=== PATIENT | male | born 1955 | race Two or more races ===

== ENCOUNTER 2018-02-18 20:18 | Inpatient (IN) | payer OTHER ==
--- NOTE | 2018-02-18 21:46 | PDOC ---
History of Present Illness - General Chief Complaint: Pain Stated Complaint: PAIN Time Seen by Provider: 02/18/18 20:54 - History of Present Illness Initial Comments: 02/18/18 21:42 Patient is a 62 year old male wiht a PMH of SBO (2016 w/colostomy) AFib, CAD, DVT, HTN, HLD presents to our ED c/o presents to our ED with acute onset of pain. Pain is sharp and localized to his B/L UE and across his chest. Pain is intermittent, 10/10 and lasts for 2-3 minutes without any identifiable triggering or relieving factors. Patient denies any previous h/o similar pain. Patient denies fever/chills, nausea/vomiting, dysuria/hematuria, numbness/ tingling or AMS or visual changes. As per EMR patient evaluated at our facility in 2015 at which time he had an ex lap for SBO. Past History - Past Medical History Allergies/Adverse Reactions: Allergies Allergy/AdvReac Type Severity Reaction Status Date / Time No Known Allergies Allergy Verified 02/18/18 20:32 Home Medications: Ambulatory Orders Clopidogrel Bisulfate [Plavix -] 40 mg PO DAILY 08/31/15 Gemfibrozil 600 mg PO BID 08/31/15 Lisinopril [Prinivil -] 2.5 mg PO DAILY 08/31/15 Spironolactone 25 mg PO DAILY 11/30/15 Aspirin 81 mg PO DAILY 02/19/18 Atenolol [Tenormin -] 50 mg PO DAILY 02/19/18 Ranitidine HCl 150 mg PO HS 02/19/18 Cardiac Disorders: Yes (a-fib, CAD) HTN: Yes Hypercholesterolemia: Yes - Surgical History Abdominal Surgery: Yes (exp lap 11/24/15) Cardiac Surgery: Yes (stent) - Immunization History Immunization Up to Date: Yes - Suicide/Smoking/Psychosocial Hx Smoking History: Unknown if ever smoked Have you smoked in the past 12 months: No If you are a former smoker, when did you quit?: several years ago Information on smoking cessation initiated: No Hx Alcohol Use: No Drug/Substance Use Hx: No Substance Use Type: Alcohol Hx Substance Use Treatment: No Review of Systems - Review of Systems Constitutional: No: Chills, Fever HEENTM: No: Recent change in vision Respiratory: No: Cough, Shortness of Breath Cardiac (ROS): Yes: Chest Pain. No: Lightheadedness, Palpitations, Syncope ABD/GI: No: Constipated, Diarrhea, Nausea, Vomiting : No: Burning, Dysuria *Physical Exam - Vital Signs Last Vital Signs Temp Pulse Resp BP Pulse Ox 97.0 F L 96 H 18 116/53 100 02/18/18 20:33 02/18/18 20:33 02/18/18 20:33 02/18/18 20:33 02/18/18 20:33 - Physical Exam Comments: 02/19/18 07:42 General: alert, moving all 4 extremities, no acute distress CV: RRR, S1/S2, no murmur/rub/gallop Respiratory: Lungs CLTA B/L, no wheezes/crackles Abdomen: soft, open wound clean with granulation tissue- no appreciable discharge; colostomy bag Extremity: 2+ pedal pulses, RUE PICC line C/D/I ED Treatment Course - LABORATORY CBC & Chemistry Diagram: 02/19/18 05:24 02/19/18 05:06 Medical Decision Making - Medical Decision Making 02/19/18 00:18 62 year old male presents with acute onset of sharp pain in his B/L UE and chest. DDx includes r/o ACS, Biliary colic, nephrolithiasis, pancreatitis. Less likely aortic dissection as BP similar B/L. Will obtain basic labs, CXR, UA. Morphine for pain control. Reasess. 02/19/18 00:43 CBC shows Leukocytosis 15; source of infection urine, PNA or abdomen. 02/19/18 01:40 Cr 11 (previous Cr 0.8) --> will give IV NS. Elevated Lipase (600s) Clinical suspicion includes obstructive uropathy. CXR shows no consolidation/ infiltrate. 02/19/18 02:[address] scan pending 02/19/18 05:29 CT scan shows normal GB, appendix, kidneys. Will admit to inpatient medicine service for evlauation of ARF. Troponin, repeat CMP, ECG pending. *DC/Admit/Observation/Transfer Diagnosis at time of Disposition: Pain - Referrals - Patient Instructions - Post Discharge Activity
--- NOTE | 2018-02-18 21:54 | PDOC ---
Attending Attestation - Resident Resident Name: Rosey Zapata - ED Attending Attestation I have performed the following: I have examined & evaluated the patient, The case was reviewed & discussed with the resident, I agree w/resident's findings & plan, Exceptions are as noted - HPI HPI: 02/18/18 22:04 62y M hx of SBO s/p colostomy, with open abdominal wound that is being cared for by visiting nurse, presens with sudden onset of intermittent pain starting approx 6 hrs prior to presentation. pt describes the pain as a sharp pain lasting for a few minutes at a time, in the R arm radiates across his chest/ abdd and to his L arm. no associated fever/chils, numbness/tingling/weakness, cough, fever/chills, diaphoresis, n/v, increased colostomy output, dysuria/ hematuria. on exam lungs cta heart: rrr w/o m/r/g abd: soft notneder, open woundin mid abdomen that is dressed but is clean/pink w /o discharge, colostmy bag in place, no cva tenderness msk: picc line in the RUE, c/d/i without signis of erythema, induration ddx is wide and inclues possible acs, gall bladder pain, sbo, kidney stones, pancreatitis will ck cxr, labs, ua will give morphine for pain - Physicial Exam PE: 02/19/18 03:48 see above - Medical Decision Making 02/19/18 03:46 labs ntoed for cr of 11 and BUN to 127 with a normal K pt was given fluid for hydration CT abd noted for 9mm pulm cavitary nodule, but no other acute intrabdomina pathology normal appearing kidneys will admit for further managment of SHARONDA will repeat his labs after hydration
[2018-02-18] MEDS ORDERED: morphine CARPU-JECT 4 MG/1 ML DISP.SYRIN IVPUSH ONE (22:14)
[2018-02-18] MEDS ORDERED: morphine SULFATE 4 MG/ML VIAL ONE (22:45)
[2018-02-18 23:28] LABS: BASO % 0.7 % (0-2.0); EOS % 0.2 % (0-4.5); HEMATOCRIT 34.4 % (35.4-49); LYMPH % 16.4 % (8-40); MCH 27.2 pg (25.7-33.7); MCHC 34.9 g/dl (32.0-35.9); MEAN CELL VOLUME 77.8 fl (80-96); MEAN PLT VOLUME 12.7 fl (7.5-11.1); MONO % 10.5 % (3.8-10.2); NEUT % 72.2 % (42.8-82.8); PLATELET COUNT 239 K/MM3 (134-434); RBC 4.42 M/mm3 (4.00-5.60); RDW 18.2 % (11.9-15.9); WHITE BLOOD COUNT 15.6 K/mm3 (4.0-10.0)
[2018-02-19 00:01] LABS: PLATELET ESTIMATE ADEQUATE
[2018-02-19 01:05] LABS: ALBUMIN 4.3 g/dl (3.4-5.0); ANION GAP 27 (8-16); CALCIUM 10.3 mg/dL (8.5-10.1); CHLORIDE 79 mmol/L (98-107); CO2 23 mmol/L (21-32); GLUCOSE,RANDOM 113 mg/dL (74-106); POTASSIUM 3.7 mmol/L (3.5-5.1); SODIUM 129 mmol/L (136-145)
[2018-02-19 01:14] LABS: ALK PHOS 144 U/L (45-117); BILIRUBIN,TOTAL 1.2 mg/dL (0.2-1.0); SGOT/AST 64 U/L (15-37); SGPT/ALT 73 U/L (12-78)
[2018-02-19 01:15] LABS: LIPASE 686 U/L (73-393); TOT PROT 11.4 g/dl (6.4-8.2)
[2018-02-19 01:16] LABS: BLOOD UREA NITROGEN 127 mg/dL (7-18)
[2018-02-19 01:17] LABS: CREATININE 11.6 mg/dL (0.7-1.3)
[2018-02-19] MEDS ORDERED: SODIUM CHLORIDE 0.9% 500 ML INFUS.BAG IV ONE (01:29)
--- NOTE | 2018-02-19 04:11 | PN ---
Teaching Attending Note Name of Resident: Kasia Card ATTENDING PHYSICIAN STATEMENT I saw and evaluated the patient. I reviewed the resident's note and discussed the case with the resident. I agree with the resident's findings and plan as documented. SUBJECTIVE: 60 M with Pmhx. of Afib. CAD, DVT, HTN, HLD, SBO (with Colostomy), Recieves Ailmentation thru PICC, and ETOH abuse who presents with, Bilateral UE/ Chest pain. Chest pain Radiated across chest. No fevers or chills. No chest pressure. Continues to urinate. No Dysuria/hematuria. Denies any cough or sputum production. Denies any fevers or chills. States he was admitted to [facility] one week ago for a line infection of his PICC. States he was sent home with a home nurse and antibiotics, but does not know which ones. Did not follow up with PCP after. States he was not told he has ever had any Kidney problems and denies any family hx. of cancer. Denies any current chest pain or pressure. States when he did have pain, it radiated down his right arm. States he had his last drink of ETOH 6 months ago. Notes he does not eat solids, but was told he could only have liquids PO. No N, V, or diarrhea. States he has good output from his colostomy and denies any drainage from site. OBJECTIVE: Physical: VS: Vital Signs Period Temp Pulse Resp BP Sys/Ortiz Pulse Ox Last 24 Hr 97.0 F 96 18 116/53 100 GEN: NAD, Resting in bed, AA0X3 HEENT: NCAT, PERRL, Throat without erythema or exudates CARD: RRR S1, S2 RESP: CTAB ABD: BS X4, NTD to palpation, Midline scar- Colostomy in place and draining feces to bag. EXT: -C/C/E CBCD WBC 15.6 K/mm3 (4.0-10.0) H D 02/18/18 23:00 RBC 4.42 M/mm3 (4.00-5.60) 02/18/18 23:00 Hgb 12.0 GM/dL (11.7-16.9) D 02/18/18 23:00 Hct 34.4 % (35.4-49) L D 02/18/18 23:00 MCV 77.8 fl (80-96) L 02/18/18 23:00 MCHC 34.9 g/dl (32.0-35.9) 02/18/18 23:00 RDW 18.2 % (11.9-15.9) H D 02/18/18 23:00 Plt Count 239 K/MM3 (134-434) D 02/18/18 23:00 MPV 12.7 fl (7.5-11.1) H D 02/18/18 23:00 CMP Sodium 129 mmol/L (136-145) L 02/18/18 23:50 Potassium 3.7 mmol/L (3.5-5.1) D 02/18/18 23:50 Chloride 79 mmol/L (98-107) L D 02/18/18 23:50 Carbon Dioxide 23 mmol/L (21-32) 02/18/18 23:50 Anion Gap 27 (8-16) H 02/18/18 23:50 BUN 127 mg/dL (7-18) H* D 02/18/18 23:50 Creatinine 11.6 mg/dL (0.7-1.3) H* D 02/18/18 23:50 Creat Clearance w eGFR 4.45 (>60) 02/18/18 23:50 Random Glucose 113 mg/dL (74-106) H 02/18/18 23:50 Calcium 10.3 mg/dL (8.5-10.1) H 02/18/18 23:50 Total Bilirubin 1.2 mg/dL (0.2-1.0) H D 02/18/18 23:50 AST 64 U/L (15-37) H D 02/18/18 23:50 ALT 73 U/L (12-78) D 02/18/18 23:50 Alkaline Phosphatase 144 U/L (45-117) H D 02/18/18 23:50 Total Protein 11.4 g/dl (6.4-8.2) H D 02/18/18 23:50 Albumin 4.3 g/dl (3.4-5.0) D 02/18/18 23:50 CARDIAC ENZYMES Creatine Kinase 648 IU/L (39-308) H 02/18/18 23:50 Troponin I 0.08 ng/ml (0.00-0.05) H D 02/18/18 23:50 CT ABD/PELVIS: RLL possible infilterate, RML Cavitary nodule, EKG: PENDING CXR: Mild Atelectesis, R >L, Cannot rule out infilterates R L base. Ambulatory Orders Clopidogrel Bisulfate [Plavix -] 40 mg PO DAILY 08/31/15 Gemfibrozil 600 mg PO BID 08/31/15 Lisinopril [Prinivil -] 2.5 mg PO DAILY 08/31/15 Spironolactone 25 mg PO DAILY 11/30/15 Aspirin 81 mg PO DAILY 02/19/18 Atenolol [Tenormin -] 50 mg PO DAILY 02/19/18 Ranitidine HCl 150 mg PO HS 02/19/18 ASSESSMENT AND PLAN: 60 M with Pmhx. of Afib. CAD, DVT, HTN, HLD, SBO (with Colostomy) and ETOH abuse who presents with, Bilateral UE/ Chest pain, Being admitted to ARF/ Pneumonia 1.) Sepsis - Unknown Etiology - ? Aspiration (asyx) Pna (although no resp. Sx/Possible PICC line infection) - Replace PICC - Kraft Cx - LA - Vanco/Zosyn(Renall - ID consult - Urine Ags 2.) Acute Renal Failure - ? Pre-renal (dec. PO) Vs ? MM(inc TP) - Urine Lytes - Gentle IVF - Increased TP- SPEP/UPEP - Renal US - Nephro Consult - Hold Aldactone/DESTIN 3.) Elevated Troponin/Atypical CP - Most likely Renal Failure - Trend Trop/EKG 4.) CAD hx - C?W ASa, Plavix, BB - HOLD Aldactone/DESTIN 5.) HTN - C/W Atenolol - Hold DESTIN 6.) SBO Hx. With Colostomy - As per Sx. care - Clear Liquid diet - ? TPN- Records 7.) Afib - EKG - C/W Home meds 8.) Tranaminitis - Mild - Trend 9.) Elevated Lipase - No abdominal sx. - Monitor 10.) Dvt Ppx - Heparin [address] in [place]
[2018-02-19] MEDS ORDERED: SODIUM CHLORIDE 1,000 ML IV SCH (04:45)
[2018-02-19] MEDS ORDERED: PIPERACILLIN/TAZOB 2.25 GM 2.25 GM in DEXTROSE 5%-WATER - 50 ML IVPB ONE (04:51)
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
[2018-02-19] MEDS ORDERED: PIPERACILLIN/TAZOBACTAM 2.25 GM VIAL IVPB ONE (05:31)
[2018-02-19 05:45] LABS: ANION GAP 16 (8-16); CALCIUM 9.3 mg/dL (8.5-10.1); CHLORIDE 85 mmol/L (98-107); CO2 25 mmol/L (21-32); GLUCOSE,RANDOM 107 mg/dL (74-106); POTASSIUM 3.8 mmol/L (3.5-5.1); SODIUM 126 mmol/L (136-145)
[2018-02-19 05:46] LABS: HEMATOCRIT 31.6 % (35.4-49); HEMOGLOBIN 11.1 GM/dL (11.7-16.9); MCH 27.5 pg (25.7-33.7); MEAN CELL VOLUME 78.5 fl (80-96); MEAN PLT VOLUME 12.1 fl (7.5-11.1); PLATELET COUNT 182 K/MM3 (134-434); RBC 4.03 M/mm3 (4.00-5.60); RDW 18.2 % (11.9-15.9); WHITE BLOOD COUNT 10.9 K/mm3 (4.0-10.0)
[2018-02-19 05:50] LABS: BLOOD UREA NITROGEN 129 mg/dL (7-18); CREATININE 11.7 mg/dL (0.7-1.3)
[2018-02-19 06:25] LABS: ALBUMIN 3.6 g/dl (3.4-5.0); ALK PHOS 125 U/L (45-117); BILIRUBIN,DIRECT 0.3 mg/dL (0.0-0.2); BILIRUBIN,TOTAL 1.1 mg/dL (0.2-1.0); SGOT/AST 53 U/L (15-37); SGPT/ALT 64 U/L (12-78)
[2018-02-19] MEDS ORDERED: ATENOLOL 50 MG TABLET (FP) PO SCH (10:00)
[2018-02-19] MEDS ORDERED: ASPIRIN 81 MG CHEWABLE TABLETS PO SCH (10:00)
[2018-02-19] MEDS ORDERED: CLOPIDOGREL BISULFATE 75 MG TABLET (FP) PO SCH (10:00)
--- NOTE | 2018-02-19 10:13 | EKG ---
Test Reason : Blood Pressure : / mmHG Vent. Rate : 077 BPM Atrial Rate : 077 BPM P-R Int : 150 ms QRS Dur : 084 ms QT Int : 382 ms P-R-T Axes : 056 011 270 degrees QTc Int : 432 ms NORMAL SINUS RHYTHM T WAVE ABNORMALITY, CONSIDER INFEROLATERAL ISCHEMIA ABNORMAL ECG WHEN COMPARED WITH ECG OF 24-NOV-2015 06:49, NO SIGNIFICANT CHANGE WAS FOUND Confirmed by MD SALOMÓN, LOUIS ([id number]) on 02/19/2018 10:12:56 AM Referred By: Agnes MORALES Confirmed By:LOUIS LORENZANA MD
--- NOTE | 2018-02-19 11:16 | CONSULT ---
Consult - text type - Consultation Consultation Note: Renal Consult for SHARONDA This is a 62 year old gentleman with PMhx of SBO s/o bowel resection with illeostomy, hypertension, hyperlipidemia who presented with chest and abd pain and found to have SHARONDA. Pt reports that he had a recent admission at [facility] for SBO resulting in a ostomy. He has a picc line that was used for nutrition. Denies any abd pain now. Denies any history of CKD or kidney stones. Pt does have frequent loose stools via ostomy. No flank pain. NO fever, chills, Rash. + Nausea but no emesis. Denies any NSAID use. NO contrast exposure this admission. PMHx: as above Allergies: NKDA Family Hx: NC Social Hx: No T/A ROS: as per HPI Home Medications Medication Instructions Recorded Clopidogrel Bisulfate [Plavix -] 40 mg PO DAILY 08/31/15 Gemfibrozil 600 mg PO BID 08/31/15 Lisinopril [Prinivil -] 2.5 mg PO DAILY 08/31/15 Spironolactone 25 mg PO DAILY 11/30/15 Aspirin 81 mg PO DAILY 02/19/18 Atenolol [Tenormin -] 50 mg PO DAILY 02/19/18 Ranitidine HCl 150 mg PO HS 02/19/18 Vital Signs Temperature 97.0 F L 02/18/18 20:33 Pulse Rate 96 H 02/18/18 20:33 Respiratory Rate 18 02/18/18 20:33 Blood Pressure 116/53 02/18/18 20:33 O2 Sat by Pulse Oximetry (%) 97 02/19/18 00:00 Intake & Output 02/16/18 02/17/18 02/18/18 02/19/18 23:59 23:59 23:59 23:59 Weight 63.503 kg NAD awake and alert RRR, NO M/R CTA soft NT, + ostomy NO LE edema, clubbing or cyanosis No focal neurologic defects CBC, BMP 02/19/18 05:24 02/19/18 05:06 Current Medications Aspirin (Asa -) 81 mg PO DAILY [facility] Clopidogrel Bisulfate (Plavix -) 75 mg PO DAILY [facility] Heparin Sodium (Porcine) (Heparin -) 5,000 unit SQ TID [facility] Sodium Chloride (Normal Saline -) 1,000 mls @ 125 mls/hr IV ASDIR SKIP 62 year old gentleman with PMhx of SBO s/o bowel resection with illeostomy, hypertension, hyperlipidemia who presented with chest and abd pain and found to have SHARONDA. #Acute Renal Failure #Hypovolemic Hyponatremia #Anemia #Leukocytosis #Diarrhea/High output ostomy Acute Kidney injury (differential: ATN vs. severe volume depletion in setting of high output ostomy vs. vasculitis vs. acute GN) Check UA, UPCR, Urine Eios, methaol, Ethylene Glycol,Tox screen [place] placement for strict I and O US of the kidney shows normal appearing kidneys w/o obstruction Start trial of IVFL NS at 125cc per hour, Keep MAP > 65 hold any DESTIN/ARB and aldactone consider holding ASA/plavix for now as pt may need biopsy Thank you Will follow Randell Arreola DO
[2018-02-19] MEDS ORDERED: SODIUM CHLORIDE 1,000 ML IV STA (12:36)
--- NOTE | 2018-02-19 13:23 | PN ---
Progress Note (short form) - Note Progress Note: ID consult dictated imp/reccd 62 year old man poor historian history of afib/cad, HTN recent abdominal surgery at [facility] about 6 months back, has an ileostomy apparently he was admitted twice after for line infection (home tpn?) again states he was at [facility] one week ago but no records!! he came to the ed yesterday with chest pain no fevers no cough found to be in ARF ct scan no obstruction kidney/bladder sono no obstruction no nausea or vomiting no chills nurse reports high output from ostomy -over one liter this am! no urine outpt- no ua- dowling to be placed picc line nontender alert hemodynamically stable ARF leukocytosis picc line- for home TPN? suggest dedicated chest ct blood cultures hiv testing, stool cdiff, multiple myeloma work up would get more records clinically no signs pneumonia would hold further antibiotics at this time IVF per renal Problem List - Problems (1) ARF (acute renal failure) Code(s): N17.9 - ACUTE KIDNEY FAILURE, UNSPECIFIED (2) Leukocytosis Code(s): D72.829 - ELEVATED WHITE BLOOD CELL COUNT, UNSPECIFIED
--- NOTE | 2018-02-19 13:25 | PN ---
Teaching Attending Note Name of Resident: Silvio Ayala ATTENDING PHYSICIAN STATEMENT I saw and evaluated the patient. I reviewed the resident's note and discussed the case with the resident. I agree with the resident's findings and plan as documented. 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 has SOB with ambulation , felt dizzy with position change before but not now, denies any cough , or sputum production , denies increase stool production in his ostomy bag. reports no dysuria but decreased urine out put . denies abd pain/. reports being hospitalized to [facility] a week ago and was told he had renal problems, testing was done , and was told everything was fine. he had bowel resection 6 month ago, for unclear reason at [facility]. since then on liquid diet and TPN at home. was hospitalized 2 months ago for line infection and bacteremia, line was changed, he was sent home on po and IV abx. doesknow the name or duration OBJECTIVE: NAd . MMM. mild JVD no oral thrush. no facial droop, round equal pupils reactive to light CV: RRR, no MRG Lungs : CTAB Abd: soft, ND, NT,scars and deformities in abd wall . open wound on mid line. no discharge Ext: NO erythema , no fungal infection . 1+ edema No LAP in neck , groins and axillae ASSESSMENT AND PLAN: 62 y/o man who is poor historian and with multiple medical problems( most of them are not clear) , with h/o colostomy after bowel resection( ?why) , possible h/o recent line infection , on TPN at home , who presented with Cp and was found to have acute renal failure, and sepsis 1- SHARONDA: denies any h/o CKD but was told he had renal problem at [facility] 1 week ago. . DDx include AIN from abx use, volume depletion,meds ( lisinorpil ) , RPGN, and other . no recent Cr on him . ? MM with his anemia and elevated protein - try IVF - SPEP, UPEP pending - send TRUDI , p and c ANCA, complement . - Urine electrolytes pending, add Urea, and spot protein - check protein /cr - will try to get his records from [facility]. - will try to reach PCP - urine sediment for casts - no eosinophilia, urine eosinophils pending 2- SIRS. ? sepsis : complicated hx. ? line infection , vs bacteremia , vS PNA ( RLL infiltrate) - send blood cx - sputum cx if able to - not clear of which Abx he was on at home. not clear if he was on vanco ----> AIN. - check UA r/o UTI - appreciate ID input . CT of chest . pt was made aware of lung nodule 3-Microcytic anemia. not clear on etiology. iron def vs MM . - check iron studies . B12, folate - stool OB - SPEP and UPEP pending 4- Transaminitis : ? sepsis . biliary obstruction ( doubt as indirect bili is elevated ) Ct with mildly dialted CBD - check US of liver - trend LFTS . - if US with CBD dilation , then will get MRCP 5- possible partial SBO. - will consult Sx given his complicated surgical hx 6-Hyponatremia: unclear cause. his serum osmolality is elevated. ? reason. sugar is nl. ? TPN . - check urine osm, NA , and feUrea - volume status difficult to assess but might be euovolemic to hypervolemic. - Na dropped after NS administration. will recheck again. - more accurate Dx after urine studies ( might be affected by saline administration though ) . will d/w renal 7- ? A fib: he was told he had 2 different kind of heart beats . will obtain reccords - takes aspirin at home.. will hold for possible renal bx 6- H/o HTN: on lisinoprol x more than 6 months. will hold due to SHARONDA 9- He denied any h/o clots in legs or lungs 10- HTN: hold etnormin and lisinopril. due to low Bp and SHARONDA. Dispo: [facility] will obtain records
--- NOTE | 2018-02-19 13:39 | EKG ---
Test Reason : Blood Pressure : / mmHG Vent. Rate : 081 BPM Atrial Rate : 081 BPM P-R Int : 142 ms QRS Dur : 084 ms QT Int : 390 ms P-R-T Axes : 053 010 -16 degrees QTc Int : 453 ms POOR DATA QUALITY, INTERPRETATION MAY BE ADVERSELY AFFECTED NORMAL SINUS RHYTHM NONSPECIFIC T WAVE ABNORMALITY ABNORMAL ECG WHEN COMPARED WITH ECG OF 24-NOV-2015 06:49, NO SIGNIFICANT CHANGE WAS FOUND Confirmed by MD SALOMÓN, LOUIS ([id number]) on 02/19/2018 1:39:33 PM Referred By: Confirmed By:LOUIS LORENZANA MD
[2018-02-19] MEDS: SODIUM CHLORIDE 1,000 ML IV SCH (14:00)
[2018-02-19] MEDS: HEPARIN NA (PORCINE) 5,000 UNITS/ML 1ML VIAL SQ SCH ×2 (14:44→21:29)
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
[2018-02-19 15:35] LABS: URINE APPEARANCE SLCLOUDY; URINE BILIRUBIN NEGATIVE (<2.0 mg/dL); URINE COLOR YELLOW; URINE GLUCOSE (UA) NEGATIVE (NEGATIVE); URINE KETONE NEGATIVE (NEGATIVE); URINE LEUK ESTERASE NEGATIVE (NEGATIVE); URINE NITRITE NEGATIVE (NEGATIVE); URINE UROBILINOGEN NEGATIVE mg/dL (0.2-1.0)
[2018-02-19 15:40] LABS: URINE PROTEIN 1+ (NEGATIVE)
[2018-02-19 15:45] LABS: COCAINE, UR NEGATIVE ng/ml (CUTOFF=300); METHADONE, UR NEGATIVE ng/ml (CUTOFF=300); PHENCYCLIDINE,URINE NEGATIVE ng/ml (CUTOFF=25); URINE AMPHETAMINES NEGATIVE ng/ml (CUTOFF=500); URINE BARBITURATES NEGATIVE ng/ml (CUTOFF=200); URINE BENZODIAZEPINES NEGATIVE ng/ml (CUTOFF=200)
[2018-02-19 15:46] LABS: OPIATES, URI POSITIVE ng/ml (CUTOFF=300)
[2018-02-19 16:04] LABS: EPI CELLS RARE /HPF (FEW); URINE BACTERIA RARE /hpf (NONE SEEN); URINE MUCUS RARE
--- NOTE | 2018-02-19 21:27 | PN ---
Physical Exam: SUBJECTIVE: Patient seen and examined at bedside. Patient complaining of irritation at dowling insertion site. No further episodes of CP. OBJECTIVE: Vital Signs Period Temp Pulse Resp BP Sys/Ortiz Pulse Ox Last 24 Hr 97.7 F-98.8 F 77-85 18-18 91-100/49-60 97-97 GENERAL: The patient is awake, alert, and fully oriented, in no acute distress. NECK: Trachea midline, full range of motion, supple. LUNGS: Breath sounds equal, clear to auscultation bilaterally, no wheezes, no crackles, no accessory muscle use. HEART: Regular rate and rhythm, S1, S2 without murmur, rub or gallop. ABDOMEN: Soft, nontender, nondistended, normoactive bowel sounds, no guarding, no rebound, no hepatosplenomegaly, no masses. EXTREMITIES: 2+ pulses, warm, well-perfused, no edema. NEUROLOGICAL: Cranial nerves II through X grossly intact. Normal speech, gait not observed. SKIN: Warm, dry, normal turgor, no rashes or lesions noted Laboratory Results - last 24 hr 02/18/18 02/18/18 02/18/18 23:00 23:00 23:50 WBC 15.6 H D RBC 4.42 Hgb 12.0 D Hct 34.4 L D MCV 77.8 L MCH 27.2 MCHC 34.9 RDW 18.2 H D Plt Count 239 D MPV 12.7 H D Neutrophils % 72.2 Lymphocytes % 16.4 Monocytes % 10.5 H Eosinophils % 0.2 D Basophils % 0.7 Platelet Estimate Adequate Platelet Comment Sodium Cancelled 129 L Potassium Cancelled 3.7 D Chloride Cancelled 79 L D Carbon Dioxide Cancelled 23 Anion Gap Cancelled 27 H BUN Cancelled 127 H* D Creatinine Cancelled 11.6 H* D Creat Clearance w eGFR Cancelled 4.45 Random Glucose Cancelled 113 H Hemoglobin A1c % Serum Osmolality Calcium Cancelled 10.3 H Phosphorus Magnesium Total Bilirubin Cancelled 1.2 H D Direct Bilirubin AST Cancelled 64 H D ALT Cancelled 73 D Alkaline Phosphatase Cancelled 144 H D Creatine Kinase Cancelled 648 H Creatine Kinase Index 0.5 CK-MB (CK-2) 3.774 H Troponin I Cancelled 0.08 H D B-Natriuretic Peptide Cancelled Total Protein Cancelled 11.4 H D Albumin Cancelled 4.3 D Lipase Cancelled 686 H Urine Color Urine Appearance Urine pH Ur Specific [place] Urine Protein Urine Glucose (UA) Urine Ketones Urine Blood Urine Nitrite Urine Bilirubin Urine Urobilinogen Ur Leukocyte Esterase Urine WBC (Auto) Urine RBC (Auto) Ur Epithelial Cells Urine Bacteria Urine Mucus Urine Osmolality U Random Total Protein Ur Random Sodium Ur Random Potassium Ur Random Chloride Ur Random Urea Nitrogn Urine Creatinine Stool Occult Blood Opiates Screen Methadone Screen Barbiturate Screen Phencyclidine Screen Ur Amphetamines Screen MDMA (Ecstasy) Screen Benzodiazepines Screen Cocaine Screen U Marijuana (THC) Screen Alcohol, Quantitative 02/19/18 02/19/18 02/19/18 05:06 05:06 05:08 WBC RBC Hgb Hct MCV MCH MCHC RDW Plt Count MPV Neutrophils % Lymphocytes % Monocytes % Eosinophils % Basophils % Platelet Estimate Platelet Comment Sodium 126 L Potassium 3.8 Chloride 85 L Carbon Dioxide 25 Anion Gap 16 BUN 129 H* Creatinine 11.7 H* Creat Clearance w eGFR Random Glucose 107 H Hemoglobin A1c % Serum Osmolality 325 H Calcium 9.3 Phosphorus 9.0 H* D Magnesium 3.0 H D Total Bilirubin 1.1 H Direct Bilirubin 0.3 H AST 53 H ALT 64 Alkaline Phosphatase 125 H Creatine Kinase 677 H Creatine Kinase Index 0.4 CK-MB (CK-2) 3.362 Troponin I 0.08 H B-Natriuretic Peptide Total Protein 10.0 H Albumin 3.6 Lipase Urine Color Urine Appearance Urine pH Ur Specific [place] Urine Protein Urine Glucose (UA) Urine Ketones Urine Blood Urine Nitrite Urine Bilirubin Urine Urobilinogen Ur Leukocyte Esterase Urine WBC (Auto) Urine RBC (Auto) Ur Epithelial Cells Urine Bacteria Urine Mucus Urine Osmolality U Random Total Protein Ur Random Sodium Ur Random Potassium Ur Random Chloride Ur Random Urea Nitrogn Urine Creatinine Stool Occult Blood Opiates Screen Methadone Screen Barbiturate Screen Phencyclidine Screen Ur Amphetamines Screen MDMA (Ecstasy) Screen Benzodiazepines Screen Cocaine Screen U Marijuana (THC) Screen Alcohol, Quantitative < 5.0 02/19/18 02/19/18 02/19/18 05:24 05:24 12:25 WBC 10.9 H D RBC 4.03 Hgb 11.1 L Hct 31.6 L MCV 78.5 L MCH 27.5 MCHC 35.0 RDW 18.2 H Plt Count 182 D MPV 12.1 H Neutrophils % Lymphocytes % Monocytes % Eosinophils % Basophils % Platelet Estimate Platelet Comment Sodium Potassium Chloride Carbon Dioxide Anion Gap BUN Creatinine Creat Clearance w eGFR Random Glucose Hemoglobin A1c % 6.2 H Serum Osmolality Calcium Phosphorus Magnesium Total Bilirubin Direct Bilirubin AST ALT Alkaline Phosphatase Creatine Kinase 809 H Creatine Kinase Index 0.4 CK-MB (CK-2) 3.454 Troponin I 0.09 H B-Natriuretic Peptide Total Protein Albumin Lipase Urine Color Urine Appearance Urine pH Ur Specific [place] Urine Protein Urine Glucose (UA) Urine Ketones Urine Blood Urine Nitrite Urine Bilirubin Urine Urobilinogen Ur Leukocyte Esterase Urine WBC (Auto) Urine RBC (Auto) Ur Epithelial Cells Urine Bacteria Urine Mucus Urine Osmolality U Random Total Protein Ur Random Sodium Ur Random Potassium Ur Random Chloride Ur Random Urea Nitrogn Urine Creatinine Stool Occult Blood Opiates Screen Methadone Screen Barbiturate Screen Phencyclidine Screen Ur Amphetamines Screen MDMA (Ecstasy) Screen Benzodiazepines Screen Cocaine Screen U Marijuana (THC) Screen Alcohol, Quantitative 02/19/18 02/19/18 02/19/18 14:00 14:00 14:00 WBC RBC Hgb Hct MCV MCH MCHC RDW Plt Count MPV Neutrophils % Lymphocytes % Monocytes % Eosinophils % Basophils % Platelet Estimate Platelet Comment Sodium Potassium Chloride Carbon Dioxide Anion Gap BUN Creatinine Creat Clearance w eGFR Random Glucose Hemoglobin A1c % Serum Osmolality Calcium Phosphorus Magnesium Total Bilirubin Direct Bilirubin AST ALT Alkaline Phosphatase Creatine Kinase Creatine Kinase Index CK-MB (CK-2) Troponin I B-Natriuretic Peptide Total Protein Albumin Lipase Urine Color Yellow Urine Appearance Slcloudy Urine pH 5.0 Ur Specific [place] 1.015 Urine Protein 1+ H Urine Glucose (UA) Negative Urine Ketones Negative Urine Blood 2+ H Urine Nitrite Negative Urine Bilirubin Negative Urine Urobilinogen Negative Ur Leukocyte Esterase Negative Urine WBC (Auto) 3 Urine RBC (Auto) 1 Ur Epithelial Cells Rare Urine Bacteria Rare Urine Mucus Rare Urine Osmolality 356 U Random Total Protein Ur Random Sodium Ur Random Potassium Ur Random Chloride Ur Random Urea Nitrogn Urine Creatinine Stool Occult Blood Opiates Screen Positive Methadone Screen Negative Barbiturate Screen Negative Phencyclidine Screen Negative Ur Amphetamines Screen Negative MDMA (Ecstasy) Screen Negative Benzodiazepines Screen Negative Cocaine Screen Negative U Marijuana (THC) Screen Negative Alcohol, Quantitative 02/19/18 02/19/18 02/19/18 14:00 14:00 14:21 WBC RBC Hgb Hct MCV MCH MCHC RDW Plt Count MPV Neutrophils % Lymphocytes % Monocytes % Eosinophils % Basophils % Platelet Estimate Platelet Comment Sodium Potassium Chloride Carbon Dioxide Anion Gap BUN Creatinine Creat Clearance w eGFR Random Glucose Hemoglobin A1c % Serum Osmolality Calcium Phosphorus Magnesium Total Bilirubin Direct Bilirubin AST ALT Alkaline Phosphatase Creatine Kinase Creatine Kinase Index CK-MB (CK-2) Troponin I B-Natriuretic Peptide Total Protein Albumin Lipase Urine Color Urine Appearance Urine pH Ur Specific [place] Urine Protein Urine Glucose (UA) Urine Ketones Urine Blood Urine Nitrite Urine Bilirubin Urine Urobilinogen Ur Leukocyte Esterase Urine WBC (Auto) Urine RBC (Auto) Ur Epithelial Cells Urine Bacteria Urine Mucus Urine Osmolality U Random Total Protein 77 H Ur Random Sodium 18 Ur Random Potassium 60.2 Ur Random Chloride < 10 Ur Random Urea Nitrogn 422 Urine Creatinine 307.0 Stool Occult Blood Opiates Screen Methadone Screen Barbiturate Screen Phencyclidine Screen Ur Amphetamines Screen MDMA (Ecstasy) Screen Benzodiazepines Screen Cocaine Screen U Marijuana (THC) Screen Alcohol, Quantitative 02/19/18 02/19/18 14:22 16:30 WBC RBC Hgb Hct MCV MCH MCHC RDW Plt Count MPV Neutrophils % Lymphocytes % Monocytes % Eosinophils % Basophils % Platelet Estimate Platelet Comment Sodium Potassium Chloride Carbon Dioxide Anion Gap BUN Creatinine Creat Clearance w eGFR Random Glucose Hemoglobin A1c % Serum Osmolality Calcium Phosphorus Magnesium Total Bilirubin Direct Bilirubin AST ALT Alkaline Phosphatase Creatine Kinase Creatine Kinase Index CK-MB (CK-2) Troponin I B-Natriuretic Peptide Total Protein Albumin Lipase Urine Color Urine Appearance Urine pH Ur Specific [place] Urine Protein Urine Glucose (UA) Urine Ketones Urine Blood Urine Nitrite Urine Bilirubin Urine Urobilinogen Ur Leukocyte Esterase Urine WBC (Auto) Urine RBC (Auto) Ur Epithelial Cells Urine Bacteria Urine Mucus Urine Osmolality U Random Total Protein Ur Random Sodium Cancelled Ur Random Potassium Ur Random Chloride Ur Random Urea Nitrogn Urine Creatinine Stool Occult Blood Negative Opiates Screen Methadone Screen Barbiturate Screen Phencyclidine Screen Ur Amphetamines Screen MDMA (Ecstasy) Screen Benzodiazepines Screen Cocaine Screen U Marijuana (THC) Screen Alcohol, Quantitative Active Medications Generic Name Dose Route Start Last Admin Trade Name Freq PRN Reason Stop Dose Admin Heparin Sodium (Porcine) 5,000 unit 02/19/18 14:00 02/19/18 14:44 Heparin - SQ 5,000 unit TID SKIP Administration Sodium Chloride 1,000 mls @ 125 mls/hr 02/19/18 12:45 02/19/18 14:00 Normal Saline - IV 125 mls/hr ASDIR SKIP Administration Ranitidine HCl 150 mg 02/19/18 22:00 Zantac - PO HS [facility] ASSESSMENT/PLAN: The patient is a 62yo Cameroonian speaking M with an unclear PMHx of HTN, SBO, Mesenteric ischemia s/p bowel resection and ostomy, Afib, HLD admitted for the [facility] of acute renal failure #Unclear History; pt poor historian -Records from [facility] show no indication of CKD; will obtain further records as well as records from [facility] -Will contact patient's Surgeon (Dr. Saeed @ [facility]) for further details regarding ostomy -Will contact Physician who wrote the patient's prescriptions (Dr. Jennifer Gunn/ Dr. Jennifer Mendieta) -Will attempt to locate the patient's PCP, Dr. Mata (sp?) @ - [facility] in [place] #Acute Renal Failure 2/2 Volume depletion vs glomerulonephritis -Nephro onboard; Dr. Arreola -P&C ANCA, anti-basement membrane Ab -TRUDI, total complement, Spep, Upep -alpha, beta, gamma globulins -Mspike -urine studies -renal/bladder US shows b/l renal cysts w/o other abnormality -will attempt hydration trial w/ NS @ 125 #SBO -pt w/ Hx of SBO and multiple abdominal sx -CT abdomen showing partial obstruction. -Surgical consult #SIRS -afebrile. -CXR showing bibasilar atelectasis vs consolidation, RT > LT -CT abdomen shows post bowel resection changes w/ Incidental finding of possible cavitation in right middle lobe. No collections in abdomen -UA not indicative of infection -f/u CT chest -f/u cultures -sent stool studies as patient having increased output from ostomy # Atypical CP -no further episodes -Elevated trop to 0.08 likley 2/2 decreased clearance from ARF. -EKG w/ no major changes since last admission -Will monitor on tele, -Continue ASA, plavix # Microcytic Anemia possibly 2/2 renal dysfxn r/o MM or nutritional cause -f/u iron studies -FOBT negative -B12, folate # Euvoleimic Hyponatremia likely 2/2 ARF -serum Osm WNL when corrected for BUN -will hydrate, monitor sodium closely. Rpt BMP @ 1800 # Transaminitis possibly related to renal dysfunction vs billiary eitology -RUQ US showing mild CBD dilation -trend LFTs # Elevated CK possibly 2/2 renal dysfinction -IVF -trend #HTN -holding home antihypertensives as patient w/ low BP #Afib -holding beta blockade -NSR at this time #FEN -NS @125 -monitor lytes closely -clear liquid diet, will obtain nutrition consult #prophy -HSQ 5ku TID # Dispo -admit tele Visit type - Emergency Visit Emergency Visit: Yes ED Registration Date: 02/19/18 Care time: The patient presented to the Emergency Department on the above date and was hospitalized for further evaluation of their emergent condition. - New Patient This patient is new to me today: Yes Date on this admission: 02/19/18 - Critical Care Critical Care patient: No
[2018-02-19] MEDS: RANITIDINE HCL 150 MG TABLET (FP) PO SCH (21:29)
[2018-02-19 22:06] LABS: ANION GAP 13 (8-16); CALCIUM 8.5 mg/dL (8.5-10.1); CHLORIDE 89 mmol/L (98-107); CO2 28 mmol/L (21-32); GLUCOSE,RANDOM 105 mg/dL (74-106); POTASSIUM 3.1 mmol/L (3.5-5.1); SODIUM 130 mmol/L (136-145)
[2018-02-19 22:18] LABS: BLOOD UREA NITROGEN 122 mg/dL (7-18); CREATININE 10.4 mg/dL (0.7-1.3)
[2018-02-19] MEDS ORDERED: POTASSIUM CHLORIDE TABS 20 MEQ TABLET.ER (FP) PO ONE (22:22)
[2018-02-20] MEDS: SODIUM CHLORIDE 1,000 ML IV SCH ×3 (01:36→13:42)
[2018-02-20] MEDS: HEPARIN NA (PORCINE) 5,000 UNITS/ML 1ML VIAL SQ SCH ×2 (05:28→13:33)
[2018-02-20 07:00] LABS: HEMATOCRIT 25.2 % (35.4-49); HEMOGLOBIN 8.8 GM/dL (11.7-16.9); MCH 27.6 pg (25.7-33.7); MCHC 34.8 g/dl (32.0-35.9); MEAN CELL VOLUME 79.2 fl (80-96); MEAN PLT VOLUME 12.6 fl (7.5-11.1); PLATELET COUNT 141 K/MM3 (134-434); RBC 3.19 M/mm3 (4.00-5.60); RDW 19.1 % (11.9-15.9); WHITE BLOOD COUNT 6.9 K/mm3 (4.0-10.0)
[2018-02-20 08:09] LABS: CHLORIDE 94 mmol/L (98-107); POTASSIUM 3.3 mmol/L (3.5-5.1); SODIUM 133 mmol/L (136-145)
[2018-02-20 08:30] LABS: ALBUMIN 3.1 g/dl (3.4-5.0); ALK PHOS 101 U/L (45-117); ANION GAP 14 (8-16); BILIRUBIN,TOTAL 1.1 mg/dL (0.2-1.0); CALCIUM 8.3 mg/dL (8.5-10.1); CO2 25 mmol/L (21-32); GLUCOSE,RANDOM 78 mg/dL (74-106); MAGNESIUM 2.9 mg/dL (1.8-2.4); PHOSPHOROUS 7.6 mg/dL (2.5-4.9); SGOT/AST 48 U/L (15-37); SGPT/ALT 56 U/L (12-78); TOT PROT 8.7 g/dl (6.4-8.2)
[2018-02-20 08:38] LABS: BLOOD UREA NITROGEN 114 mg/dL (7-18)
--- NOTE | 2018-02-20 13:00 | PN ---
Teaching Attending Note Name of Resident: Silvio Ayala ATTENDING PHYSICIAN STATEMENT I saw and evaluated the patient. I reviewed the resident's note and discussed the case with the resident. I agree with the resident's findings and plan as documented. SUBJECTIVE: No complaints. OBJECTIVE: Vital Signs Period Temp Pulse Resp BP Sys/Ortiz Pulse Ox Last 24 Hr 97.7 F-98.8 F 77-85 18-20 92-113/51-65 99-100 HEART: S1S2, RRR LUNGS: Clear ABDOMEN: Soft, non-tender, non-distended, normal BS. Vertical midline scar with mucus fistula. Left sided ostomy with liquid yellow drainage. Laboratory Results - last 24 hr 02/19/18 02/19/18 02/19/18 12:25 14:00 14:00 WBC RBC Hgb Hct MCV MCH MCHC RDW Plt Count MPV Sodium Potassium Chloride Carbon Dioxide Anion Gap BUN Creatinine Creat Clearance w eGFR Random Glucose Calcium Phosphorus Magnesium Ferritin Total Bilirubin AST ALT Alkaline Phosphatase Creatine Kinase 809 H Creatine Kinase Index 0.4 CK-MB (CK-2) 3.454 Troponin I 0.09 H Total Protein Albumin Vitamin B12 Serum Folate Urine Color Urine Appearance Urine pH Ur Specific Bow[place] Urine Protein Urine Glucose (UA) Urine Ketones Urine Blood Urine Nitrite Urine Bilirubin Urine Urobilinogen Ur Leukocyte Esterase Urine WBC (Auto) Urine RBC (Auto) Ur Epithelial Cells Urine Bacteria Urine Mucus Urine Osmolality 356 U Random Total Protein Ur Random Sodium Ur Random Potassium Ur Random Chloride Ur Random Urea Nitrogn Urine Creatinine Stool Occult Blood Opiates Screen Positive Methadone Screen Negative Barbiturate Screen Negative Phencyclidine Screen Negative Ur Amphetamines Screen Negative MDMA (Ecstasy) Screen Negative Benzodiazepines Screen Negative Cocaine Screen Negative U Marijuana (THC) Screen Negative 02/19/18 02/19/18 02/19/18 14:00 14:00 14:00 WBC RBC Hgb Hct MCV MCH MCHC RDW Plt Count MPV Sodium Potassium Chloride Carbon Dioxide Anion Gap BUN Creatinine Creat Clearance w eGFR Random Glucose Calcium Phosphorus Magnesium Ferritin Total Bilirubin AST ALT Alkaline Phosphatase Creatine Kinase Creatine Kinase Index CK-MB (CK-2) Troponin I Total Protein Albumin Vitamin B12 Serum Folate Urine Color Yellow Urine Appearance Slcloudy Urine pH 5.0 Ur Specific [place] 1.015 Urine Protein 1+ H Urine Glucose (UA) Negative Urine Ketones Negative Urine Blood 2+ H Urine Nitrite Negative Urine Bilirubin Negative Urine Urobilinogen Negative Ur Leukocyte Esterase Negative Urine WBC (Auto) 3 Urine RBC (Auto) 1 Ur Epithelial Cells Rare Urine Bacteria Rare Urine Mucus Rare Urine Osmolality U Random Total Protein 77 H Ur Random Sodium Ur Random Potassium Ur Random Chloride Ur Random Urea Nitrogn 422 Urine Creatinine Stool Occult Blood Opiates Screen Methadone Screen Barbiturate Screen Phencyclidine Screen Ur Amphetamines Screen MDMA (Ecstasy) Screen Benzodiazepines Screen Cocaine Screen U Marijuana (THC) Screen 02/19/18 02/19/18 02/19/18 14:21 14:22 16:30 WBC RBC Hgb Hct MCV MCH MCHC RDW Plt Count MPV Sodium Potassium Chloride Carbon Dioxide Anion Gap BUN Creatinine Creat Clearance w eGFR Random Glucose Calcium Phosphorus Magnesium Ferritin Total Bilirubin AST ALT Alkaline Phosphatase Creatine Kinase Creatine Kinase Index CK-MB (CK-2) Troponin I Total Protein Albumin Vitamin B12 Serum Folate Urine Color Urine Appearance Urine pH Ur Specific [place] Urine Protein Urine Glucose (UA) Urine Ketones Urine Blood Urine Nitrite Urine Bilirubin Urine Urobilinogen Ur Leukocyte Esterase Urine WBC (Auto) Urine RBC (Auto) Ur Epithelial Cells Urine Bacteria Urine Mucus Urine Osmolality U Random Total Protein Ur Random Sodium 18 Cancelled Ur Random Potassium 60.2 Ur Random Chloride < 10 Ur Random Urea Nitrogn Urine Creatinine 307.0 Stool Occult Blood Negative Opiates Screen Methadone Screen Barbiturate Screen Phencyclidine Screen Ur Amphetamines Screen MDMA (Ecstasy) Screen Benzodiazepines Screen Cocaine Screen U Marijuana (THC) Screen 02/19/18 02/20/18 02/20/18 20:45 06:25 06:25 WBC RBC Hgb Hct MCV MCH MCHC RDW Plt Count MPV Sodium 130 L 133 L Potassium 3.1 L 3.3 L Chloride 89 L 94 L Carbon Dioxide 28 25 Anion Gap 13 14 BUN 122 H* 114 H* Creatinine 10.4 H* 9.0 H* Creat Clearance w eGFR 5.96 Random Glucose 105 78 D Calcium 8.5 8.3 L Phosphorus Cancelled 7.6 H Magnesium Cancelled 2.9 H Ferritin Cancelled 267.131 Total Bilirubin 1.1 H AST 48 H ALT 56 Alkaline Phosphatase 101 Creatine Kinase Creatine Kinase Index CK-MB (CK-2) Troponin I Total Protein 8.7 H Albumin 3.1 L Vitamin B12 864 Serum Folate 18 H Urine Color Urine Appearance Urine pH Ur Specific [place] Urine Protein Urine Glucose (UA) Urine Ketones Urine Blood Urine Nitrite Urine Bilirubin Urine Urobilinogen Ur Leukocyte Esterase Urine WBC (Auto) Urine RBC (Auto) Ur Epithelial Cells Urine Bacteria Urine Mucus Urine Osmolality U Random Total Protein Ur Random Sodium Ur Random Potassium Ur Random Chloride Ur Random Urea Nitrogn Urine Creatinine Stool Occult Blood Opiates Screen Methadone Screen Barbiturate Screen Phencyclidine Screen Ur Amphetamines Screen MDMA (Ecstasy) Screen Benzodiazepines Screen Cocaine Screen U Marijuana (THC) Screen 02/20/18 06:25 WBC 6.9 D RBC 3.19 L D Hgb 8.8 L D Hct 25.2 L D MCV 79.2 L MCH 27.6 MCHC 34.8 RDW 19.1 H Plt Count 141 D MPV 12.6 H Sodium Potassium Chloride Carbon Dioxide Anion Gap BUN Creatinine Creat Clearance w eGFR Random Glucose Calcium Phosphorus Magnesium Ferritin Total Bilirubin AST ALT Alkaline Phosphatase Creatine Kinase Creatine Kinase Index CK-MB (CK-2) Troponin I Total Protein Albumin Vitamin B12 Serum Folate Urine Color Urine Appearance Urine pH Ur Specific [place] Urine Protein Urine Glucose (UA) Urine Ketones Urine Blood Urine Nitrite Urine Bilirubin Urine Urobilinogen Ur Leukocyte Esterase Urine WBC (Auto) Urine RBC (Auto) Ur Epithelial Cells Urine Bacteria Urine Mucus Urine Osmolality U Random Total Protein Ur Random Sodium Ur Random Potassium Ur Random Chloride Ur Random Urea Nitrogn Urine Creatinine Stool Occult Blood Opiates Screen Methadone Screen Barbiturate Screen Phencyclidine Screen Ur Amphetamines Screen MDMA (Ecstasy) Screen Benzodiazepines Screen Cocaine Screen U Marijuana (THC) Screen Current Medications Generic Name Dose Route Start Last Admin Trade Name Freq PRN Reason Stop Dose Admin Heparin Sodium (Porcine) 5,000 unit 02/19/18 14:00 02/20/18 05:28 Heparin - SQ 5,000 unit TID SKIP Administration Sodium Chloride 1,000 mls @ 125 mls/hr 02/19/18 12:45 02/20/18 10:10 Normal Saline - IV 125 mls/hr ASDIR SKIP Administration Ranitidine HCl 150 mg 02/19/18 22:00 02/19/18 21:29 Zantac - PO 150 mg HS SKIP Administration ASSESSMENT AND PLAN: This is a 62 year old man with a history of bowel resection with colostomy who presented with chest pain. 1. Acute kidney injury - Improving with IV fluid 2. Hyponatremia - Improving with IV NS 3. Hypokalemia - Replete potassium 4. SIRS - No evidence of infection/sepsis 5. Anemia, microcytic - Ferritin normal, remaining iron studies pending - B12 normal - Folate high - Stool occult blood pending 6. Possible history atrial fib - Atenolol held secondary to hypotension - On Lovenox at home 7. HTN - Lisinoprol held secondary to SHARONDA, hypotension - Atenolol held secondary to hypotension 8. Obtain records from [facility] to clarify history
--- NOTE | 2018-02-20 14:51 | PN ---
Progress Note (short form) - Note Progress Note: awake and alert dowling intact with good urine output Vital Signs Period Temp Pulse Resp BP Sys/Ortiz Pulse Ox Last 24 Hr 97.7 F-98.8 F 77-85 18-20 92-113/51-65 99-100 cor-rrr lungs clear abd soft,nt +ostomy with clear yellow drainage, dressing intact ext no edema dowling CBC, BMP 02/20/18 06:25 02/20/18 06:25 Microbiology 02/20/18 01:00 Stool Clostridium difficile Antigen (JEANNETTE) - Final 02/20/18 01:00 Stool Clostridium difficile Toxin Assay - Final 02/19/18 13:00 Blood - Peripheral Venous Blood Culture - Preliminary NO GROWTH OBTAINED AFTER 24 HOURS, INCUBATION TO CONTINUE FOR 4 DAYS. 02/19/18 12:25 Blood - Peripheral Venous Blood Culture - Preliminary NO GROWTH OBTAINED AFTER 24 HOURS, INCUBATION TO CONTINUE FOR 4 DAYS. 02/19/18 14:26 Urine - Urine Clean Catch Urine Culture - Final NO GROWTH OBTAINED a/p ARF- I suslpect from high output drainage from ostomy 3700 cc yesterday! leukocytosis resolved, f/u chest ct- cllinically does not have pneumonia- ?from prior admissions- we need records! picc line- for home TPN? cdiff negative hiv ordered- patient agreeable gi/surgery to see for high outpt from ostomy Problem List - Problems (1) ARF (acute renal failure) Code(s): N17.9 - ACUTE KIDNEY FAILURE, UNSPECIFIED (2) Leukocytosis Code(s): D72.829 - ELEVATED WHITE BLOOD CELL COUNT, UNSPECIFIED
[2018-02-20 16:34] LABS: METHANOL, BLOOD Negative % (0.000-0.010)
[2018-02-20] MEDS ORDERED: HEPARIN NA (PORCINE) 5,000 UNITS/ML 1ML VIAL IVPUSH PRN (17:30)
--- NOTE | 2018-02-20 18:38 | PN ---
Physical Exam: SUBJECTIVE: Patient seen and examined at bedside. No new complaints. No events overnight. OBJECTIVE: Vital Signs Period Temp Pulse Resp BP Sys/Ortiz Pulse Ox Last 24 Hr 97.7 F-98.8 F 76-85 18-22 99-120/51-65 99-100 GENERAL: The patient is awake, alert, and fully oriented, in no acute distress. NECK: Trachea midline, full range of motion, supple. LUNGS: Breath sounds equal, clear to auscultation bilaterally, no wheezes, no crackles, no accessory muscle use. HEART: Regular rate and rhythm, S1, S2 without murmur, rub or gallop. ABDOMEN: Soft, nontender, nondistended, normoactive bowel sounds, no guarding, no rebound, no hepatosplenomegaly, no masses. EXTREMITIES: 2+ pulses, warm, well-perfused, no edema. NEUROLOGICAL: Cranial nerves II through X grossly intact. Normal speech, gait not observed. SKIN: Warm, dry, normal turgor, no rashes or lesions noted Laboratory Results - last 24 hr 02/19/18 02/19/18 02/19/18 12:25 16:30 20:45 WBC RBC Hgb Hct MCV MCH MCHC RDW Plt Count MPV Sodium 130 L Potassium 3.1 L Chloride 89 L Carbon Dioxide 28 Anion Gap 13 BUN 122 H* Creatinine 10.4 H* Creat Clearance w eGFR Random Glucose 105 Calcium 8.5 Phosphorus Magnesium Ferritin Total Bilirubin AST ALT Alkaline Phosphatase Total Protein Albumin Vitamin B12 Serum Folate Stool Occult Blood Negative Methyl Alcohol Level Negative 02/20/18 02/20/18 02/20/18 06:25 06:25 06:25 WBC 6.9 D RBC 3.19 L D Hgb 8.8 L D Hct 25.2 L D MCV 79.2 L MCH 27.6 MCHC 34.8 RDW 19.1 H Plt Count 141 D MPV 12.6 H Sodium 133 L Potassium 3.3 L Chloride 94 L Carbon Dioxide 25 Anion Gap 14 BUN 114 H* Creatinine 9.0 H* Creat Clearance w eGFR 5.96 Random Glucose 78 D Calcium 8.3 L Phosphorus Cancelled 7.6 H Magnesium Cancelled 2.9 H Ferritin Cancelled 267.131 Total Bilirubin 1.1 H AST 48 H ALT 56 Alkaline Phosphatase 101 Total Protein 8.7 H Albumin 3.1 L Vitamin B12 864 Serum Folate 18 H Stool Occult Blood Methyl Alcohol Level Active Medications Generic Name Dose Route Start Last Admin Trade Name Momo PRN Reason Stop Dose Admin Heparin Sodium (Porcine) 1,000 unit 02/20/18 17:30 Heparin - IVPUSH PRN PRN Heparin Heparin Sodium (Porcine) 5,000 unit 02/20/18 17:30 Heparin - IVPUSH PRN PRN Heparin Sodium Chloride 1,000 mls @ 200 mls/hr 02/20/18 13:02 02/20/18 13:42 Normal Saline - IV 200 mls/hr ASDIR SKIP Administration Heparin Sodium (Porcine) 25, 500 mls @ 16 mls/hr 02/20/18 17:30 000 unit/ Sodium Chloride IV TITR SKIP Protocol 800 UNIT/HR Ranitidine HCl 150 mg 02/19/18 22:00 02/19/18 21:29 Zantac - PO 150 mg HS SKIP Administration ASSESSMENT/PLAN: The patient is a 62yo Venezuelan speaking M with an unclear PMHx of HTN, SBO, Mesenteric ischemia s/p bowel resection and ostomy, Afib, HLD admitted for the treatment of acute renal failure #Unclear History; pt poor historian -Records from [facility] and [facility] currently being compiled; detailed history to follow -[facility] records show normal creatinine on discharge in October #Acute Renal Failure 2/2 Volume depletion vs glomerulonephritis -BUN/Creatinine improved today; 122 ->114/ 10.4-> 9.0 -Nephro onboard; Dr. Arreola -P&C ANCA, anti-basement membrane Ab PENDING -TRUDI, total complement, Spep, Upep PENDING -alpha, beta, gamma globulins PENDING -Mspike PENDING -urine studies -NS @ increased to 200 #SBO -pt w/ Hx of SBO and multiple abdominal sx -CT abdomen showing partial obstruction. -Surgical consult #SIRS -Per ID, unlikely to be infectious in nature -holding ABX for npw # Atypical CP -no further episodes -Elevated trop to 0.08 likley 2/2 decreased clearance from ARF. -EKG w/ no major changes since last admission -Continue ASA, plavix # Microcytic Anemia possibly 2/2 renal dysfxn r/o MM or nutritional cause -f/u iron studies -FOBT negative -B12, folate -Recent Hb drop likely dilutional; patient remains assx and above transfusion threshold. will monitor closely # Euvoleimic Hyponatremia likely 2/2 ARF -will hydrate, monitor sodium closely. -Sodium improved today 130 -> 133 # Transaminitis possibly related to renal dysfunction vs billiary eitology -RUQ US showing mild CBD dilation -LFTs trending down # Elevated CK possibly 2/2 renal dysfinction -IVF -trend #HTN -holding home antihypertensives as patient w/ low BP #Afib -holding beta blockade -NSR at this time -per medical records, patient has a hx of A flutter with multiple episodes of PE and thromboembolic events; patient requires AC -will start heparin gtt #FEN -NS @200 -monitor lytes closely -clear liquid diet, per nutrition, will start the patient on TPN. #prophy -HSQ 5ku TID # Dispo -admit tele Visit type - Emergency Visit Emergency Visit: Yes ED Registration Date: 02/19/18 Care time: The patient presented to the Emergency Department on the above date and was hospitalized for further evaluation of their emergent condition. - New Patient This patient is new to me today: No - Critical Care Critical Care patient: No
--- NOTE | 2018-02-20 18:59 | PN ---
Progress Note (short form) - Note Progress Note: Renal follow up for SHARONDA Pt seen and examined at the bedside continues to have large amount of output via ostomy no abd pain making urine denies any sob, chest pain, N/V Vital Signs Temperature 97.8 F 02/20/18 15:23 Pulse Rate 76 02/20/18 15:23 Respiratory Rate 22 02/20/18 15:23 Blood Pressure 120/64 02/20/18 15:23 O2 Sat by Pulse Oximetry (%) 100 02/20/18 09:00 Intake & Output 02/17/18 02/18/18 02/19/18 02/20/18 23:59 23:59 23:59 23:59 Intake Total 2180 2600 Output Total 4500 4275 Balance -2320 -1675 Weight 63.503 kg NAD awake and alert RRR, NO M/R CTA soft NT, + ostomy NO LE edema, clubbing or cyanosis No focal neurologic defects CBC, BMP 02/20/18 06:25 02/20/18 06:25 Current Medications Heparin Sodium (Porcine) (Heparin -) 1,000 unit IVPUSH PRN PRN PRN Reason: Heparin Heparin Sodium (Porcine) (Heparin -) 5,000 unit IVPUSH PRN PRN PRN Reason: Heparin Sodium Chloride (Normal Saline -) 1,000 mls @ 200 mls/hr IV ASDIR SKIP Last Admin: 02/20/18 13:42 Dose: 200 mls/hr Heparin Sodium (Porcine) 25, (000 unit/ Sodium Chloride) 500 mls @ 16 mls/hr IV TITR SKIP; 800 UNIT/HR PRN Reason: Protocol Ranitidine HCl (Zantac -) 150 mg PO HS SKIP Last Admin: 02/19/18 21:29 Dose: 150 mg 62 year old gentleman with PMhx of SBO s/o bowel resection with illeostomy, hypertension, hyperlipidemia who presented with chest and abd pain and found to have SHARONDA. #Acute Renal Failure secondary to volume depletion in setting of high output ostomy #Hypovolemic Hyponatremia #Anemia #Leukocytosis #Diarrhea/High output ostomy Urine studies consistent with volume depletion no overt proteinuria or hematuria to suggest GN no obstruction noted on US Cr was ~1 on discharge from [facility] as per pediatric medical assistant who obtained the records TRUDI, ANCA's pending Increase IVF rate as pt remains in negative balance no acute indication for VERIFICATION CLERK supplement K to level > 3.5 Surgical follow up Thank you Will follow Randell Arreola DO
[2018-02-20 20:53] LABS: INR 1.02 (0.82-1.09); PROTHROMBIN TIME (PATIENT) 11.5 SEC (9.7-13.0)
[2018-02-20 20:56] LABS: ACTIVATED PTT 26.2 SECONDS (26.9-34.4)
[2018-02-20] MEDS: HEPARIN - 25,000 UNIT in SODIUM CHLORIDE 495 ML IV SCH (21:24)
[2018-02-20] MEDS: RANITIDINE HCL 150 MG TABLET (FP) PO SCH (21:25)
[2018-02-20] MEDS ORDERED: POTASSIUM CHLORIDE TABS 20 MEQ TABLET.ER (FP) PO ONE (22:52)
[2018-02-20] MEDS ORDERED: MELATONIN 5 MG TABLETS PO ONE (22:52)
[2018-02-21] MEDS ORDERED: METOPROLOL TARTRATE 5 MG/5 ML VIAL IVPUSH ONE (00:17)
[2018-02-21] MEDS ORDERED: ZOLPIDEM TARTRATE 5 MG TABLET PO ONE (04:04)
[2018-02-21] MEDS: METOPROLOL TARTRATE 5 MG/5 ML VIAL IVPUSH PRN (04:08)
[2018-02-21] MEDS: SODIUM CHLORIDE 1,000 ML IV SCH ×4 (04:17→15:50)
[2018-02-21 07:13] LABS: ANION GAP 14 (8-16); BLOOD UREA NITROGEN 82 mg/dL (7-18); CHLORIDE 100 mmol/L (98-107); CO2 25 mmol/L (21-32); GLUCOSE,RANDOM 82 mg/dL (74-106); SODIUM 139 mmol/L (136-145)
[2018-02-21 07:14] LABS: CREATININE 5.3 mg/dL (0.7-1.3)
[2018-02-21 08:09] LABS: SERUM IRON SATURATION 26 % (15-55); TOTAL IRON BINDING CAPACITY 388 ug/dL (250-450); UIBC 287 ug/dL (111-343)
--- NOTE | 2018-02-21 08:20 | PN ---
Progress Note, Physician Chief Complaint: ID This 62 year old [place] male has a cavitary lesion RML Incidental finding ? admitted chest pain resolved No fever but did have leukocytosis resolved now Renal failure - Current Medication List Current Medications: Active Medications Atenolol (Tenormin -) 50 mg PO DAILY SKIP Heparin Sodium (Porcine) (Heparin -) 1,000 unit IVPUSH PRN PRN PRN Reason: Heparin Heparin Sodium (Porcine) (Heparin -) 5,000 unit IVPUSH PRN PRN PRN Reason: Heparin Last Admin: 02/20/18 23:11 Dose: 5,000 unit Sodium Chloride (Normal Saline -) 1,000 mls @ 200 mls/hr IV ASDIR SKIP Last Admin: 02/21/18 04:17 Dose: 200 mls/hr Heparin Sodium (Porcine) 25, (000 unit/ Sodium Chloride) 500 mls @ 16 mls/hr IV TITR SKIP; 800 UNIT/HR PRN Reason: Protocol Last Titration: 02/20/18 23:18 Dose: 950 unit/hr, 19 mls/hr Metoprolol Tartrate (Lopressor Injection -) 5 mg IVPUSH Q4H PRN PRN Reason: HYPERTENSION Last Admin: 02/21/18 04:08 Dose: 5 mg Ranitidine HCl (Zantac -) 150 mg PO HS SKIP Last Admin: 02/20/18 21:25 Dose: 150 mg - Objective Vital Signs: Vital Signs Temperature 98.0 F 02/21/18 05:37 Pulse Rate 89 02/21/18 05:37 Respiratory Rate 18 02/21/18 05:37 Blood Pressure 106/53 02/21/18 05:37 O2 Sat by Pulse Oximetry (%) 100 02/20/18 20:15 Constitutional: Yes: No Distress Eyes: Yes: WNL, Conjunctiva Clear HENT: Yes: WNL, Atraumatic Neck: Yes: WNL, Supple Cardiovascular: Yes: Regular Rate and Rhythm, S1, S2 Respiratory: Yes: WNL, Regular, CTA Bilaterally Gastrointestinal: Yes: WNL, Normal Bowel Sounds, Soft. No: Tenderness, Tenderness, Epigastrium Extremities: Yes: Other (PICC) Labs: CBC, BMP 02/20/18 06:25 02/21/18 06:20 INR, PTT INR 1.02 (0.82-1.09) 02/20/18 19:00 Assessment/Plan Microbiology 02/19/18 14:26 Urine - Urine Clean Catch Urine Culture - Final NO GROWTH OBTAINED 02/19/18 13:00 Blood - Peripheral Venous Blood Culture - Preliminary NO GROWTH OBTAINED AFTER 24 HOURS, INCUBATION TO CONTINUE FOR 4 DAYS. 02/19/18 12:25 Blood - Peripheral Venous Blood Culture - Preliminary NO GROWTH OBTAINED AFTER 24 HOURS, INCUBATION TO CONTINUE FOR 4 DAYS. Laboratory Tests 02/20/18 02/20/18 02/21/18 06:25 06:25 06:20 WBC 6.9 D Hgb 8.8 L D Hct 25.2 L D Plt Count 141 D BUN 82 H D Creatinine 5.3 H D AST 48 H ALT 56 Alkaline Phosphatase 101 Total Protein 8.7 H Albumin 3.1 L Assessment Small cavitary lesion RML ( presented with chest pain ? embolic) Has a PICC line some mild tenderness around the entry area but no swelling for obvious thrombophlebitis. Consider possible bland embolus as has atrial fibrillation vs infected embolus Blood cultures are no growth. TB considered as well Lastly his total proteins are high ? why HIV sent pending Plan ECHO ? vegetations Duplex right arm large vessels CRP HIV Discussed with resident Chante ROGERS
[2018-02-21 08:31] LABS: POTASSIUM 2.9 mmol/L (3.5-5.1)
[2018-02-21] MEDS ORDERED: POTASSIUM CHLORIDE 30 MEQ in SODIUM CHLORIDE 250 ML IVPB ONE (08:45)
[2018-02-21] MEDS ORDERED: POTASSIUM CHLORIDE 30 MEQ in SODIUM CHLORIDE 285 ML IVPB ONE (08:45)
[2018-02-21] MEDS ORDERED: ATENOLOL 50 MG TABLET (FP) PO SCH (10:00)
--- NOTE | 2018-02-21 10:14 | CONSULT ---
- Consultation REQUESTING PROVIDER: Abel Mead CONSULT REQUEST: We have been asked to surgically evaluate this patient for possible sbo PCP:Ever Roman MD HISTORY OF PRESENT ILLNESS: 62 y/o male w/extensive past surgical hx. presented w/ nausea and vomiting and abdominal pain; his last surgical intervention was at [facility] in [facility] and [facility] prior to that; he is a poor historian; he feels better since admisiion an wants to eat regular food and is inquiring about having his colostomy closed. He most likely has short bowel syndrome. PMHx: htn; hld; PSHx: Home Medications Medication Instructions Recorded Gemfibrozil 600 mg PO BID 08/31/15 Lisinopril [Prinivil -] 2.5 mg PO DAILY 08/31/15 Spironolactone 25 mg PO DAILY 11/30/15 Aspirin 81 mg PO DAILY 02/19/18 Atenolol [Tenormin -] 50 mg PO DAILY 02/19/18 Atorvastatin Calcium 40 mg PO DAILY 02/19/18 Ranitidine HCl 150 mg PO HS 02/19/18 Allergies Allergy/AdvReac Type Severity Reaction Status Date / Time No Known Allergies Allergy Verified 02/18/18 20:32 PHYSICAL EXAM: GENERAL: Awake, alert, and fully oriented, in no acute distress. HEAD: Normal with no signs of trauma. EYES: PERRL, sclera anicteric, conjunctiva clear. NECK: Normal ROM, supple without lymphadenopathy, JVD, or masses. ABDOMEN: Soft, nontender, not distended, normoactive bowel sounds, no guarding, no rebound, no masses. No organomegaly. Functioning ostomy and mucous fistula are present MUSCULOSKELETAL: Normal ROM at all joints. No bony deformities or tenderness. No CVA tenderness. UPPER EXTREMITIES: 2+ pulses, warm, well-perfused. No cyanosis. Cap refill <2 seconds. No peripheral edema. LOWER EXTREMITIES: 2+ pulses, warm, well-perfused. No calf tenderness. No peripheral edema. NEUROLOGICAL: Normal speech, gait not observed. PSYCH: Cooperative. Good eye contact. Appropriate mood and affect. SKIN: Warm, dry, normal turgor, no rashes or lesions noted. Vital Signs Temperature 98.0 F 02/21/18 05:37 Pulse Rate 89 02/21/18 05:37 Respiratory Rate 18 02/21/18 05:37 Blood Pressure 106/53 02/21/18 05:37 O2 Sat by Pulse Oximetry (%) 100 02/20/18 20:15 Lab Results WBC 6.9 K/mm3 (4.0-10.0) D 02/20/18 06:25 RBC 3.19 M/mm3 (4.00-5.60) L D 02/20/18 06:25 Hgb 8.8 GM/dL (11.7-16.9) L D 02/20/18 06:25 Hct 25.2 % (35.4-49) L D 02/20/18 06:25 MCV 79.2 fl (80-96) L 02/20/18 06:25 MCHC 34.8 g/dl (32.0-35.9) 02/20/18 06:25 RDW 19.1 % (11.9-15.9) H 02/20/18 06:25 Plt Count 141 K/MM3 (134-434) D 02/20/18 06:25 Sodium 139 mmol/L (136-145) 02/21/18 06:20 Potassium 2.9 mmol/L (3.5-5.1) L* 02/21/18 06:20 Chloride 100 mmol/L (98-107) 02/21/18 06:20 Carbon Dioxide 25 mmol/L (21-32) 02/21/18 06:20 Anion Gap 14 (8-16) 02/21/18 06:20 BUN 82 mg/dL (7-18) H D 02/21/18 06:20 Creatinine 5.3 mg/dL (0.7-1.3) H D 02/21/18 06:20 Random Glucose 82 mg/dL (74-106) 02/21/18 06:20 Calcium 9.0 mg/dL (8.5-10.1) 02/21/18 06:20 INR 1.02 (0.82-1.09) 02/20/18 19:00 CT scan a/p reviewed IMP: No clinical evidence of bowel obstruction PLAN: Advance diet as tolerated; correct e-lyte abnormalities; this ostomy is not amenable to closure Carlos Romeo MD FACS Visit type - Case Type Case Type: ED Admission - Emergency Emergency Visit: Yes ED Registration Date: 02/19/18 Care time: The patient presented to the Emergency Department on the above date and was hospitalized for further evaluation of their emergent condition. - New patient This patient is new to me today: Yes Date on this admission: 02/21/18 - Critical Care Critical Care patient: No
[2018-02-21 10:15] LABS: ANTIGLOMERULAR BASEMENT MEN.AB 11 units (0-20)
[2018-02-21] MEDS: HEPARIN - 25,000 UNIT in SODIUM CHLORIDE 495 ML IV SCH (11:25)
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
--- NOTE | 2018-02-21 15:05 | PN ---
Progress Note (short form) - Note Progress Note: Renal follow up for SHARONDA Pt seen and examined at the bedside awake and alert no acute complaints continues to have a large amount of output via ostomy making urine Vital Signs Temperature 97.6 F 02/21/18 14:54 Pulse Rate 92 H 02/21/18 14:54 Respiratory Rate 18 02/21/18 14:54 Blood Pressure 93/56 02/21/18 14:54 O2 Sat by Pulse Oximetry (%) 100 02/21/18 09:00 Intake & Output 02/18/18 02/19/18 02/20/18 02/21/18 23:59 23:59 23:59 23:59 Intake Total 2180 3880 2013 Output Total 0591 8828 6011 Balance -4359 -4016 -9059 Weight 63.503 kg NAD awake and alert RRR, NO M/R CTA soft NT, + ostomy NO LE edema, clubbing or cyanosis Current Medications Heparin Sodium (Porcine) (Heparin -) 1,000 unit IVPUSH PRN PRN PRN Reason: Heparin Heparin Sodium (Porcine) (Heparin -) 5,000 unit IVPUSH PRN PRN PRN Reason: Heparin Last Admin: 02/20/18 23:11 Dose: 5,000 unit Sodium Chloride (Normal Saline -) 1,000 mls @ 200 mls/hr IV ASDIR SKIP Last Admin: 02/21/18 09:16 Dose: 200 mls/hr Heparin Sodium (Porcine) 25, (000 unit/ Sodium Chloride) 500 mls @ 16 mls/hr IV TITR SKIP; 800 UNIT/HR PRN Reason: Protocol Last Admin: 02/21/18 11:25 Dose: 800 unit/hr, 16 mls/hr Fat Emulsion Intravenous (Intralipid -) 250 mls @ 20.833 mls/hr IV DAILY@2200 SKIP Potassium Chloride 40 meq/Sodium Chloride 75 meq/Calcium Gluconate 1,000 mg/ Multivitamins/Minerals 10 ml/Folic Acid 1 mg/ Sterile Water / Amino Acids/ Dextrose 1,000 mls @ 41.667 mls/hr IVPB DAILY@1600 SKIP Metoprolol Succinate (Toprol Xl -) 25 mg PO BID SKIP Metoprolol Tartrate (Lopressor Injection -) 5 mg IVPUSH Q4H PRN PRN Reason: HYPERTENSION Last Admin: 02/21/18 04:08 Dose: 5 mg Ranitidine HCl (Zantac -) 150 mg PO HS SKIP Last Admin: 02/20/18 21:25 Dose: 150 mg 62 year old gentleman with PMhx of SBO s/o bowel resection with illeostomy, hypertension, hyperlipidemia who presented with chest and abd pain and found to have SHARONDA. #Acute Renal Failure secondary to volume depletion in setting of high output ostomy #Hypovolemic Hyponatremia #Anemia #Leukocytosis #Diarrhea/High output ostomy Renal function improving with IVF GI/Sx follow up for high output ostomy will start TPN today Trend Renal function and electrolytes daily will add lipids to TPN tomorrow if no contraindications Thank you Will follow Randell Arreola DO
[2018-02-21] MEDS ORDERED: SODIUM CHLORIDE IVPB SCH (16:00)
[2018-02-21] MEDS ORDERED: POTASSIUM CHLORIDE IVPB SCH (16:00)
[2018-02-21] MEDS ORDERED: [UNRECOGNIZED DRUG - OTHER] IVPB SCH (16:00)
--- NOTE | 2018-02-21 16:14 | EKG ---
Test Reason : Blood Pressure : / mmHG Vent. Rate : 101 BPM Atrial Rate : 102 BPM P-R Int : 000 ms QRS Dur : 092 ms QT Int : 362 ms P-R-T Axes : 000 016 -78 degrees QTc Int : 469 ms ATRIAL FIBRILLATION WITH RAPID VENTRICULAR RESPONSE WITH PREMATURE VENTRICULAR OR ABERRANTLY CONDUCTED COMPLEXES NONSPECIFIC T WAVE ABNORMALITY ABNORMAL ECG WHEN COMPARED WITH ECG OF 19-FEB-2018 08:32, ATRIAL FIBRILLATION HAS REPLACED SINUS RHYTHM NONSPECIFIC T WAVE ABNORMALITY HAS REPLACED INVERTED T WAVES IN ANTERIOR LEADS Confirmed by KP LARSEN MD ([id number]) on 02/21/2018 4:13:53 PM Referred By: Confirmed By:KP LARSEN MD
--- NOTE | 2018-02-21 16:52 | PN ---
Physical Exam: SUBJECTIVE: Patient seen and examined episodes of Afib w/ RVR overnight. Cardiac meds restarted. OBJECTIVE: Vital Signs Period Temp Pulse Resp BP Sys/Ortiz Pulse Ox Last 24 Hr 97.6 F-98.5 F 81-130 18-18 93-125/44-84 100-100 GENERAL: The patient is awake, alert, and fully oriented, in no acute distress. NECK: Trachea midline, full range of motion, supple. LUNGS: Breath sounds equal, clear to auscultation bilaterally, no wheezes, no crackles, no accessory muscle use. HEART: Regular rate and rhythm, S1, S2 without murmur, rub or gallop. ABDOMEN: Soft, nontender, nondistended, normoactive bowel sounds, no guarding, no rebound, no hepatosplenomegaly, no masses. Ileostomy in place draining yellow fluid. 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 NEUROLOGICAL: Cranial nerves II through X grossly intact. Normal speech, gait not observed. SKIN: Warm, dry, normal turgor, no rashes or lesions noted Laboratory Results - last 24 hr 02/19/18 02/19/18 02/19/18 05:24 12:25 12:25 PT with INR INR PTT (Actin FS) Sodium Potassium Chloride Carbon Dioxide Anion Gap BUN Creatinine Random Glucose Calcium Iron TIBC Iron Saturation Creatine Kinase Creatine Kinase Index CK-MB (CK-2) Troponin I C-Reactive Protein Total Protein (PEP) 9.7 H Albumin (PEP) 3.8 Globulin 5.9 H Albumin/Globulin Ratio 0.6 L Beta Globulins 2.0 H Fluid Creatinine Stool Occult Blood Ethylene Glycol None detected CHESTER M-Ramin Not observed TRUDI Screen Positive H TRUDI Homogeneous Pattern TNP TRUDI Nucleolar Pattern TNP TRUDI Spindle Ijeoma Pattern TNP TRUDI Midbody Pattern TNP TRUDI Centriole Pattern TNP TRUDI Nuclear Dot Pattern TNP TRUDI PCNA Pattern TNP TRUDI Nuclear Membr Pat TNP TRUDI Speckled Pattern 1:80 TRUDI Centromere Pattern TNP Glomerular Base Memb Ab 11 HIV 1&2 Antibody Screen HIV P24 Antigen 02/20/18 02/20/18 02/20/18 06:25 19:00 23:00 PT with INR 11.50 INR 1.02 PTT (Actin FS) 26.2 L Sodium Potassium Chloride Carbon Dioxide Anion Gap BUN Creatinine Random Glucose Calcium Iron 101 TIBC 388 Iron Saturation 26 Creatine Kinase Creatine Kinase Index CK-MB (CK-2) Troponin I C-Reactive Protein Total Protein (PEP) Albumin (PEP) Globulin Albumin/Globulin Ratio Beta Globulins Fluid Creatinine 5.42 Stool Occult Blood Ethylene Glycol CHESTER M-Ramin TRUDI Screen TRUDI Homogeneous Pattern TRUDI Nucleolar Pattern TRUDI Spindle Ijeoma Pattern TRUDI Midbody Pattern TRUDI Centriole Pattern TRUDI Nuclear Dot Pattern TRUDI PCNA Pattern TRUDI Nuclear Membr Pat TRUDI Speckled Pattern TRUDI Centromere Pattern Glomerular Base Memb Ab HIV 1&2 Antibody Screen HIV P24 Antigen 02/21/18 02/21/18 02/21/18 00:50 06:00 06:00 PT with INR INR PTT (Actin FS) Sodium Potassium Chloride Carbon Dioxide Anion Gap BUN Creatinine Random Glucose Calcium Iron TIBC Iron Saturation Creatine Kinase 516 H Creatine Kinase Index 0.1 CK-MB (CK-2) < 1.000 Troponin I 0.06 H D C-Reactive Protein Cancelled Total Protein (PEP) Albumin (PEP) Globulin Albumin/Globulin Ratio Beta Globulins Fluid Creatinine Stool Occult Blood Negative Ethylene Glycol CHESTER M-Ramin TRUDI Screen TRUDI Homogeneous Pattern TRUDI Nucleolar Pattern TRUDI Spindle Ijeoma Pattern TRUDI Midbody Pattern TRUDI Centriole Pattern TRUDI Nuclear Dot Pattern TRUDI PCNA Pattern TRUDI Nuclear Membr Pat TRUDI Speckled Pattern TRUDI Centromere Pattern Glomerular Base Memb Ab HIV 1&2 Antibody Screen HIV P24 Antigen 02/21/18 02/21/18 02/21/18 06:20 06:20 06:20 PT with INR INR PTT (Actin FS) 145.1 H D Sodium 139 Potassium 2.9 L* Chloride 100 Carbon Dioxide 25 Anion Gap 14 BUN 82 H D Creatinine 5.3 H D Random Glucose 82 Calcium 9.0 Iron TIBC Iron Saturation Creatine Kinase 474 H Creatine Kinase Index 0.2 CK-MB (CK-2) 1.009 Troponin I C-Reactive Protein 0.4 H Total Protein (PEP) Albumin (PEP) Globulin Albumin/Globulin Ratio Beta Globulins Fluid Creatinine Stool Occult Blood Ethylene Glycol CHESTER M-Ramin TRUDI Screen TRUDI Homogeneous Pattern TRUDI Nucleolar Pattern TRUDI Spindle Ijeoma Pattern TRUDI Midbody Pattern TRUDI Centriole Pattern TRUDI Nuclear Dot Pattern TRUDI PCNA Pattern TRUDI Nuclear Membr Pat TRUDI Speckled Pattern TRUDI Centromere Pattern Glomerular Base Memb Ab HIV 1&2 Antibody Screen Negative HIV P24 Antigen Negative 02/21/18 06:20 PT with INR INR PTT (Actin FS) Sodium Potassium Chloride Carbon Dioxide Anion Gap BUN Creatinine Random Glucose Calcium Iron TIBC Iron Saturation Creatine Kinase Cancelled Creatine Kinase Index CK-MB (CK-2) Troponin I C-Reactive Protein Total Protein (PEP) Albumin (PEP) Globulin Albumin/Globulin Ratio Beta Globulins Fluid Creatinine Stool Occult Blood Ethylene Glycol CHESTER M-Ramin TRUDI Screen TRUDI Homogeneous Pattern TRUDI Nucleolar Pattern TRUDI Spindle Ijeoma Pattern TRUDI Midbody Pattern TRUDI Centriole Pattern TRUDI Nuclear Dot Pattern TRUDI PCNA Pattern TRUDI Nuclear Membr Pat TRUDI Speckled Pattern TRUDI Centromere Pattern Glomerular Base Memb Ab HIV 1&2 Antibody Screen HIV P24 Antigen Active Medications Generic Name Dose Route Start Last Admin Trade Name Freq PRN Reason Stop Dose Admin Heparin Sodium (Porcine) 1,000 unit 02/20/18 17:30 Heparin - IVPUSH PRN PRN Heparin Heparin Sodium (Porcine) 5,000 unit 02/20/18 17:30 02/20/18 23:11 Heparin - IVPUSH 5,000 unit PRN PRN Administration Heparin Sodium Chloride 1,000 mls @ 200 mls/hr 02/20/18 13:02 02/21/18 15:50 Normal Saline - IV 200 mls/hr ASDIR SKIP Administration Heparin Sodium (Porcine) 25, 500 mls @ 16 mls/hr 02/20/18 17:30 02/21/18 11: 25 000 unit/ Sodium Chloride IV 800 unit/hr TITR SKIP 16 mls/hr Protocol Administration 800 UNIT/HR Fat Emulsion Intravenous 250 mls @ 20.833 mls/hr 02/21/18 22:00 Intralipid - IV DAILY@2200 SKIP Potassium Chloride 40 meq/ 1,000 mls @ 41.667 mls/hr 02/21/18 16:00 02/21/18 15:36 Sodium Chloride 75 meq/ IVPB 41.667 mls/hr Calcium Gluconate 1,000 mg/ DAILY@1600 SKIP Administration Multivitamins/Minerals 10 ml/ Folic Acid 1 mg/ Sterile Water / Amino Acids/ Dextrose Metoprolol Succinate 25 mg 02/21/18 22:00 Toprol Xl - PO BID SKIP Metoprolol Tartrate 5 mg 02/21/18 00:17 02/21/18 04:08 Lopressor Injection - IVPUSH 5 mg Q4H PRN Administration HYPERTENSION Ranitidine HCl 150 mg 02/19/18 22:00 02/20/18 21:25 Zantac - PO 150 mg HS SKIP Administration ASSESSMENT/PLAN: The patient is a 62yo Serbian speaking M with an unclear PMHx of HTN, SBO, Mesenteric ischemia s/p bowel resection and ostomy, Afib, HLD admitted for the treatment of acute renal failure #Unclear History; pt poor historian -Records from [facility] and [facility] currently being compiled; detailed history to follow -[facility] records show normal creatinine on discharge in October -spoke with Dr. Saeed's office staff. The patient has no outpatient records at his facility and the physician is out of the office for the next 2 weeks. #Acute Renal Failure 2/2 Volume depletion vs glomerulonephritis -BUN/Creatinine improved today; 114->82/ 9.0 ->5.3 -Nephro onboard; Dr. Arreola -P&C ANCA, anti-basement membrane Ab PENDING -TRUDI positive -total complement, Spep, Upep PENDING -alpha, beta, gamma globulins PENDING -Mspike PENDING -urine studies -NS @ increased to 200 #SBO -pt w/ Hx of SBO and multiple abdominal sx -CT abdomen showing partial obstruction. -Surgical consult #SIRS -Per ID, unlikely to be infectious in nature -holding ABX for npw # Atypical CP -no further episodes -Elevated trop to 0.08 likley 2/2 decreased clearance from ARF. -EKG w/ no major changes since last admission -Continue ASA, plavix # Microcytic Anemia possibly 2/2 renal dysfxn r/o MM or nutritional cause -f/u iron studies -FOBT negative -B12, folate -Recent Hb drop likely dilutional; patient remains assx and above transfusion threshold. will monitor closely # Euvoleimic Hyponatremia likely 2/2 ARF -will hydrate, monitor sodium closely. -Sodium improved today 130 -> 133 # Transaminitis possibly related to renal dysfunction- resolved # Elevated CK possibly 2/2 renal dysfunction -IVF -trend ing down #HTN -holding home antihypertensives as patient w/ low BP #Afib -episodes of RVR overnight -Cardio consult -restarted home atenolol 50 mg, changed to toprolol 25 BID by cards -c/w heparin gtt -patient poor candidate for coumadin given hx of noncompliance, will investigate alternatives with insurance company. #FEN -NS @200 -monitor lytes closely -clear liquid diet, per nutrition, will start the patient on TPN. #prophy -HSQ 5ku TID # Dispo -admit tele Visit type - Emergency Visit Emergency Visit: Yes ED Registration Date: 02/19/18 Care time: The patient presented to the Emergency Department on the above date and was hospitalized for further evaluation of their emergent condition. - New Patient This patient is new to me today: No - Critical Care Critical Care patient: No
--- NOTE | 2018-02-21 17:21 | CON.GI ---
Consult Consult Specialty:: GI Reason for Consultation:: diarrhea - History of Present Illness History of Present Illness: Chart reviewed. Events noted. A 62-year-old gentleman with partial small bowel and colon resection the past 12 months resulting in what appears to be an abdominal, ventral nonhealing defect, enterostomy, draining liquid, green stool. The history is unclear as to why patient had abdominal surgery. The patient was admitted here for worsening renal function. The patient, nor his able to provide history. The surgeon who operated on the patient at [facility] is away. Primary team is in process of gathering relevant information from outside sources. GI was called to evaluate chronic diarrhea. the patient reports having continuous fistula for the last 6 months. Given chronic liquid stools in jejunostomy back. Denies blood, abdominal distention, nausea, vomiting, issues with ostomy. - History Source History Provided By: Patient, Medical Record, Caregiver - Past Medical History Cardio/Vascular: Yes: AFIB, CAD, Deep Vein Thrombosis, HTN, Hyperlipdemia - Past Surgical History Past Surgical History: Yes: Stent (cardiac) - Alcohol/Substance Use Hx Alcohol Use: No History of Substance Use: reports: None - Smoking History Smoking history: Unknown if ever smoked Have you smoked in the past 12 months: No If you are a former smoker, when did you quit?: several years ago - Social History ADL: Independent History of Recent Travel: No Home Medications - Allergies Allergies/Adverse Reactions: Allergies Allergy/AdvReac Type Severity Reaction Status Date / Time No Known Allergies Allergy Verified 02/18/18 20:32 - Home Medications Home Medications: Ambulatory Orders Gemfibrozil 600 mg PO BID 08/31/15 Lisinopril [Prinivil -] 2.5 mg PO DAILY 08/31/15 Spironolactone 25 mg PO DAILY 11/30/15 Aspirin 81 mg PO DAILY 02/19/18 Atenolol [Tenormin -] 50 mg PO DAILY 02/19/18 Atorvastatin Calcium 40 mg PO DAILY 02/19/18 Ranitidine HCl 150 mg PO HS 02/19/18 Family Disease History - Family Disease History Family History: Unremarkable Review of Systems Findings/Remarks: As per H&P and HPI Physical Exam-GI Vital Signs: Vital Signs Temperature 97.6 F 02/21/18 14:54 Pulse Rate 92 H 02/21/18 14:54 Respiratory Rate 18 02/21/18 14:54 Blood Pressure 93/56 02/21/18 14:54 O2 Sat by Pulse Oximetry (%) 100 02/21/18 09:00 Constitutional: Yes: No Distress, Calm Eyes: Yes: Conjunctiva Clear HENT: Yes: Atraumatic Neck: Yes: Supple Cardiovascular: No: Bradycardia, Tachycardia Respiratory: Yes: Regular, CTA Bilaterally Gastrointestinal Inspection: Yes: Other ( ventral enterocutaneous fistula draining clear mucus, multiple healed scars. Jejunostomy with green liquid stool in the bag). No: Distention ...Palpate: Yes: Soft. No: Firm/Rigid, Guarding, Mass, Tenderness, Tenderness, Rebound Neurological: Yes: Alert Labs: CBC, BMP 02/20/18 06:25 02/21/18 06:20 INR, PTT INR 1.02 (0.82-1.09) 02/20/18 19:00 Laboratory Last Values WBC 5.5 K/mm3 (4.0-10.0) 02/22/18 05:00 RBC 2.44 M/mm3 (4.00-5.60) L D 02/22/18 05:00 Hgb 7.1 GM/dL (11.7-16.9) L D 02/22/18 05:00 Hct 20.0 % (35.4-49) L D 02/22/18 05:00 MCV 81.9 fl (80-96) 02/22/18 05:00 MCH 29.1 pg (25.7-33.7) 02/22/18 05:00 MCHC 35.5 g/dl (32.0-35.9) 02/22/18 05:00 RDW 19.7 % (11.9-15.9) H 02/22/18 05:00 Plt Count 119 K/MM3 (134-434) L 02/22/18 05:00 MPV 12.4 fl (7.5-11.1) H 02/22/18 05:00 Neutrophils % 48.4 % (42.8-82.8) D 02/22/18 05:00 Lymphocytes % 35.8 % (8-40) D 02/22/18 05:00 Monocytes % 9.5 % (3.8-10.2) 02/22/18 05:00 Eosinophils % 5.9 % (0-4.5) H D 02/22/18 05:00 Basophils % 0.4 % (0-2.0) 02/22/18 05:00 Platelet Estimate Adequate 02/18/18 23:00 Platelet Comment 02/18/18 23:00 PT with INR 11.50 SEC (9.7-13.0) 02/20/18 19:00 INR 1.02 (0.82-1.09) 02/20/18 19:00 PTT (Actin FS) 45.8 SECONDS (26.9-34.4) H 02/22/18 05:00 Sodium 142 mmol/L (136-145) 02/22/18 05:00 Potassium 3.0 mmol/L (3.5-5.1) L 02/22/18 05:00 Chloride 109 mmol/L (98-107) H 02/22/18 05:00 Carbon Dioxide 25 mmol/L (21-32) 02/22/18 05:00 Anion Gap 8 (8-16) 02/22/18 05:00 BUN 50 mg/dL (7-18) H 02/22/18 05:00 Creatinine 3.3 mg/dL (0.7-1.3) H D 02/22/18 05:00 Creat Clearance w eGFR 18.97 (>60) 02/22/18 05:00 Random Glucose 86 mg/dL (74-106) 02/22/18 05:00 Hemoglobin A1c % 6.2 % (4.8-6.0) H 02/19/18 05:24 Serum Osmolality 325 mosm/kg (278-305) H 02/19/18 05:08 Calcium 7.7 mg/dL (8.5-10.1) L 02/22/18 05:00 Phosphorus 3.0 mg/dL (2.5-4.9) D 02/22/18 05:00 Magnesium 1.7 mg/dL (1.8-2.4) L 02/22/18 05:00 Iron 101 ug/dL (38-169) 02/20/18 06:25 TIBC 388 ug/dL (250-450) 02/20/18 06:25 Iron Saturation 26 % (15-55) 02/20/18 06:25 Ferritin 267.131 ng/ml (16.4-293.9) 02/20/18 06:25 Total Bilirubin 0.6 mg/dL (0.2-1.0) D 02/22/18 05:00 Direct Bilirubin 0.3 mg/dL (0.0-0.2) H 02/19/18 05:06 AST 43 U/L (15-37) H 02/22/18 05:00 ALT 44 U/L (12-78) D 02/22/18 05:00 Alkaline Phosphatase 80 U/L (45-117) D 02/22/18 05:00 Creatine Kinase 474 IU/L (39-308) H 02/21/18 06:20 Creatine Kinase Index 0.2 % (0.0-5.0) 02/21/18 06:20 CK-MB (CK-2) 1.009 ng/mL (0.5-3.6) 02/21/18 06:20 Troponin I 0.06 ng/ml (0.00-0.05) H D 02/21/18 00:50 C-Reactive Protein 0.4 MG/DL (0.00-0.3) H 02/21/18 06:20 B-Natriuretic Peptide Cancelled 02/18/18 23:00 Total Protein 7.1 g/dl (6.4-8.2) 02/22/18 05:00 Total Protein (PEP) 9.7 g/dL (6.0-8.5) H 02/19/18 05:24 Albumin 2.7 g/dl (3.4-5.0) L 02/22/18 05:00 Albumin (PEP) 3.8 gm/dl (2.9-4.4) 02/19/18 05:24 Globulin 5.9 g/dL (2.2-3.9) H 02/19/18 05:24 Albumin/Globulin Ratio 0.6 (0.7-1.7) L 02/19/18 05:24 Beta Globulins 2.0 gm/dL (0.7-1.3) H 02/19/18 05:24 Lipase 686 U/L (73-393) H 02/18/18 23:50 Vitamin B12 864 pg/ml (180-914) 02/20/18 06:25 Serum Folate 18 ng/ml (3.1-17.5) H 02/20/18 06:25 Urine Color Yellow 02/19/18 14:00 Urine Appearance Slcloudy 02/19/18 14:00 Urine pH 5.0 (5.0-8.0) 02/19/18 14:00 Ur Specific [place] 1.015 (1.001-1.035) 02/19/18 14:00 Urine Protein 1+ (NEGATIVE) H 02/19/18 14:00 Urine Glucose (UA) Negative (NEGATIVE) 02/19/18 14:00 Urine Ketones Negative (NEGATIVE) 02/19/18 14:00 Urine Blood 2+ (NEGATIVE) H 02/19/18 14:00 Urine Nitrite Negative (NEGATIVE) 02/19/18 14:00 Urine Bilirubin Negative (<2.0 mg/dL) 02/19/18 14:00 Urine Urobilinogen Negative mg/dL (0.2-1.0) 02/19/18 14:00 Ur Leukocyte Esterase Negative (NEGATIVE) 02/19/18 14:00 Urine WBC (Auto) 3 /hpf (3-5) 02/19/18 14:00 Urine RBC (Auto) 1 /hpf (0-3) 02/19/18 14:00 Ur Epithelial Cells Rare /HPF (FEW) 02/19/18 14:00 Urine Bacteria Rare /hpf (NONE SEEN) 02/19/18 14:00 Urine Mucus Rare 02/19/18 14:00 Urine Eosinophils None seen % (.) 02/19/18 14:00 Urine Osmolality 356 mosm/kg (300-900) 02/19/18 14:00 U Random Total Protein 77 mg/dl (5-11.9) H 02/19/18 14:00 Ur Random Sodium 18 MMOL/L 02/19/18 14:21 Ur Random Potassium 60.2 MMOL/L 02/19/18 14:21 Ur Random Chloride < 10 MMOL/L 02/19/18 14:21 Ur Random Urea Nitrogn 422 mg/dL 02/19/18 14:00 Urine Creatinine 307.0 mg/dL (20-370) 02/19/18 14:21 Fluid Creatinine 5.42 mg/dL 02/20/18 23:00 Stool Occult Blood Negative (NEGATIVE) 02/21/18 06:00 Opiates Screen Positive ng/ml (LRFRQB=993) 02/19/18 14:00 Methadone Screen Negative ng/ml (FEIFEC=277) 02/19/18 14:00 Barbiturate Screen Negative ng/ml (RKDDUM=243) 02/19/18 14:00 Phencyclidine Screen Negative ng/ml (CUTOFF=25) 02/19/18 14:00 Ur Amphetamines Screen Negative ng/ml (DPRSVG=888) 02/19/18 14:00 MDMA (Ecstasy) Screen Negative ng/ml (TEOAKK=211) 02/19/18 14:00 Benzodiazepines Screen Negative ng/ml (MHRLPI=444) 02/19/18 14:00 Cocaine Screen Negative ng/ml (RGEETZ=862) 02/19/18 14:00 U Marijuana (THC) Screen Negative ng/ml (CUTOFF=50) 02/19/18 14:00 Ethylene Glycol None detected mg/dL (None detected) 02/19/18 12:25 Alcohol, Quantitative < 5.0 mg/dL (0.0-5.0) 02/19/18 05:06 Methyl Alcohol Level Negative % (0.000-0.010) 02/19/18 12:25 CHSETER M-Ramin Not observed g/dL (Not Observed) 02/19/18 05:24 TRUDI Screen Positive (.) H 02/19/18 12:25 TRUDI Homogeneous Pattern TNP 02/19/18 12:25 TRUDI Nucleolar Pattern TNP 02/19/18 12:25 TRUDI Spindle Ijeoma Pattern TNP 02/19/18 12:25 TRUDI Midbody Pattern TNP 02/19/18 12:25 TRUDI Centriole Pattern TNP 02/19/18 12:25 TRUDI Nuclear Dot Pattern TNP 02/19/18 12:25 TRUDI PCNA Pattern TNP 02/19/18 12:25 TRUDI Nuclear Membr Pat TNP 02/19/18 12:25 TRUDI Speckled Pattern 1:80 (.) 02/19/18 12:25 TRUDI Centromere Pattern TNP 02/19/18 12:25 c-ANCA <1:20 titer (Neg:<1:20) 02/19/18 12:25 Proteinase 3 (PR3) <3.5 U/mL (0.0-3.5) 02/19/18 12:25 p-ANCA <1:20 titer (Neg:<1:20) 04/24/18 12:25 Atypical p-ANCA <1:20 titer (Neg:<1:20) 02/19/18 12:25 Myeloperoxidase Ab <9.0 U/mL (0.0-9.0) 02/19/18 12:25 Glomerular Base Memb Ab 11 units (0-20) 02/19/18 12:25 Tot Complement (CH50) > 63 U/mL (42-60) H 02/20/18 06:25 HIV 1&2 Antibody Screen Negative 02/21/18 06:20 HIV P24 Antigen Negative 02/21/18 06:20 Imaging - Results Cat Scan: Report Reviewed Ultrasound: Report Reviewed Problem List - Problems (1) Renal insufficiency Code(s): N28.9 - DISORDER OF KIDNEY AND URETER, UNSPECIFIED (2) Partial small bowel obstruction Code(s): K56.69 - OTHER INTESTINAL OBSTRUCTION * DO NOT USE * (3) Acute on chronic systolic and diastolic heart failure, NYHA class 3 Code(s): I50.43 - ACUTE ON CHRONIC COMBINED SYSTOLIC AND DIASTOLIC HRT FAIL Assessment/Plan chronic diarrhea in the patient with partial small bowel and colon resection. Doubt infectious etiology. 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 Agree with stool testing to rule out common pathogens. Doubt small bowel bacterial overgrowth at this time. Recommend trial of loperamide and tincture of opium with close monitoring for abdominal distention. Nutrition evaluation for PO diet in conjunction with parenteral nutrition and hydration. Obtain records of small bowel and colon resection.
--- NOTE | 2018-02-21 19:17 | PN ---
Teaching Attending Note Name of Resident: Silvio Ayala ATTENDING PHYSICIAN STATEMENT I saw and evaluated the patient. I reviewed the resident's note and discussed the case with the resident. I agree with the resident's findings and plan as documented. SUBJECTIVE: Patient has no complaints. OBJECTIVE: Vital Signs Period Temp Pulse Resp BP Sys/Ortiz Pulse Ox Last 24 Hr 97.6 F-98.5 F 83-130 18-18 93-125/44-84 100-100 HEART: S1S2, RRR LUNGS: Clear ABDOMEN: Soft, non-tender, non-distended, normal BS. Vertical midline scar with mucus fistula. Left sided ostomy with liquid yellow drainage. EXTREMITIES: No edema Laboratory Results - last 24 hr 02/19/18 02/19/18 02/19/18 05:24 12:25 12:25 PT with INR INR PTT (Actin FS) Sodium Potassium Chloride Carbon Dioxide Anion Gap BUN Creatinine Random Glucose Calcium Iron TIBC Iron Saturation Creatine Kinase Creatine Kinase Index CK-MB (CK-2) Troponin I C-Reactive Protein Total Protein (PEP) 9.7 H Albumin (PEP) 3.8 Globulin 5.9 H Albumin/Globulin Ratio 0.6 L Beta Globulins 2.0 H Fluid Creatinine Stool Occult Blood Ethylene Glycol None detected CHESTER M-Ramin Not observed TRUDI Screen Positive H TRUDI Homogeneous Pattern TNP TRUDI Nucleolar Pattern TNP TRUDI Spindle Ijeoma Pattern TNP TRUDI Midbody Pattern TNP TRUDI Centriole Pattern TNP TRUDI Nuclear Dot Pattern TNP TRUDI PCNA Pattern TNP TRUDI Nuclear Membr Pat TNP TRUDI Speckled Pattern 1:80 TRUDI Centromere Pattern TNP Glomerular Base Memb Ab 11 HIV 1&2 Antibody Screen HIV P24 Antigen 02/20/18 02/20/18 02/20/18 06:25 19:00 23:00 PT with INR 11.50 INR 1.02 PTT (Actin FS) 26.2 L Sodium Potassium Chloride Carbon Dioxide Anion Gap BUN Creatinine Random Glucose Calcium Iron 101 TIBC 388 Iron Saturation 26 Creatine Kinase Creatine Kinase Index CK-MB (CK-2) Troponin I C-Reactive Protein Total Protein (PEP) Albumin (PEP) Globulin Albumin/Globulin Ratio Beta Globulins Fluid Creatinine 5.42 Stool Occult Blood Ethylene Glycol CHESTER M-Ramin TRUDI Screen TRUDI Homogeneous Pattern TRUDI Nucleolar Pattern TRUDI Spindle Ijeoma Pattern TRUDI Midbody Pattern TRUDI Centriole Pattern TRUDI Nuclear Dot Pattern TRUDI PCNA Pattern TRUDI Nuclear Membr Pat TRUDI Speckled Pattern TRUDI Centromere Pattern Glomerular Base Memb Ab HIV 1&2 Antibody Screen HIV P24 Antigen 02/21/18 02/21/18 02/21/18 00:50 06:00 06:00 PT with INR INR PTT (Actin FS) Sodium Potassium Chloride Carbon Dioxide Anion Gap BUN Creatinine Random Glucose Calcium Iron TIBC Iron Saturation Creatine Kinase 516 H Creatine Kinase Index 0.1 CK-MB (CK-2) < 1.000 Troponin I 0.06 H D C-Reactive Protein Cancelled Total Protein (PEP) Albumin (PEP) Globulin Albumin/Globulin Ratio Beta Globulins Fluid Creatinine Stool Occult Blood Negative Ethylene Glycol CHESTER M-Ramin TRUDI Screen TRUDI Homogeneous Pattern TRUDI Nucleolar Pattern TRUDI Spindle Ijeoma Pattern TRUDI Midbody Pattern TRUDI Centriole Pattern TRUDI Nuclear Dot Pattern TRUDI PCNA Pattern TRUDI Nuclear Membr Pat TRUDI Speckled Pattern TRUDI Centromere Pattern Glomerular Base Memb Ab HIV 1&2 Antibody Screen HIV P24 Antigen 02/21/18 02/21/18 02/21/18 06:20 06:20 06:20 PT with INR INR PTT (Actin FS) 145.1 H D Sodium 139 Potassium 2.9 L* Chloride 100 Carbon Dioxide 25 Anion Gap 14 BUN 82 H D Creatinine 5.3 H D Random Glucose 82 Calcium 9.0 Iron TIBC Iron Saturation Creatine Kinase 474 H Creatine Kinase Index 0.2 CK-MB (CK-2) 1.009 Troponin I C-Reactive Protein 0.4 H Total Protein (PEP) Albumin (PEP) Globulin Albumin/Globulin Ratio Beta Globulins Fluid Creatinine Stool Occult Blood Ethylene Glycol CHESTER M-Ramin TRUDI Screen TRUDI Homogeneous Pattern TRUDI Nucleolar Pattern TRUDI Spindle Ijeoma Pattern TRUDI Midbody Pattern TRUDI Centriole Pattern TRUDI Nuclear Dot Pattern TRUDI PCNA Pattern TRUDI Nuclear Membr Pat TRUDI Speckled Pattern TRUDI Centromere Pattern Glomerular Base Memb Ab HIV 1&2 Antibody Screen Negative HIV P24 Antigen Negative 02/21/18 06:20 PT with INR INR PTT (Actin FS) Sodium Potassium Chloride Carbon Dioxide Anion Gap BUN Creatinine Random Glucose Calcium Iron TIBC Iron Saturation Creatine Kinase Cancelled Creatine Kinase Index CK-MB (CK-2) Troponin I C-Reactive Protein Total Protein (PEP) Albumin (PEP) Globulin Albumin/Globulin Ratio Beta Globulins Fluid Creatinine Stool Occult Blood Ethylene Glycol CHESTER M-Ramin TRUDI Screen TRUDI Homogeneous Pattern TRUDI Nucleolar Pattern TRUDI Spindle Ijeoma Pattern TRUDI Midbody Pattern TRUDI Centriole Pattern TRUDI Nuclear Dot Pattern TRUDI PCNA Pattern TRUDI Nuclear Membr Pat TRUDI Speckled Pattern TRUDI Centromere Pattern Glomerular Base Memb Ab HIV 1&2 Antibody Screen HIV P24 Antigen Current Medications Generic Name Dose Route Start Last Admin Trade Name Freq PRN Reason Stop Dose Admin Heparin Sodium (Porcine) 1,000 unit 02/20/18 17:30 Heparin - IVPUSH PRN PRN Heparin Heparin Sodium (Porcine) 5,000 unit 02/20/18 17:30 02/20/18 23:11 Heparin - IVPUSH 5,000 unit PRN PRN Administration Heparin Sodium Chloride 1,000 mls @ 200 mls/hr 02/20/18 13:02 02/21/18 15:50 Normal Saline - IV 200 mls/hr ASDIR SKIP Administration Heparin Sodium (Porcine) 25, 500 mls @ 16 mls/hr 02/20/18 17:30 02/21/18 11: 25 000 unit/ Sodium Chloride IV 800 unit/hr TITR SKIP 16 mls/hr Protocol Administration 800 UNIT/HR Fat Emulsion Intravenous 250 mls @ 20.833 mls/hr 02/21/18 22:00 Intralipid - IV DAILY@2200 SKIP Potassium Chloride 40 meq/ 1,000 mls @ 41.667 mls/hr 02/21/18 16:00 02/21/18 15:36 Sodium Chloride 75 meq/ IVPB 41.667 mls/hr Calcium Gluconate 1,000 mg/ DAILY@1600 SKIP Administration Multivitamins/Minerals 10 ml/ Folic Acid 1 mg/ Sterile Water / Amino Acids/ Dextrose Metoprolol Succinate 25 mg 02/21/18 22:00 Toprol Xl - PO BID SKIP Metoprolol Tartrate 5 mg 02/21/18 00:17 02/21/18 04:08 Lopressor Injection - IVPUSH 5 mg Q4H PRN Administration HYPERTENSION Ranitidine HCl 150 mg 02/19/18 22:00 02/20/18 21:25 Zantac - PO 150 mg HS SKIP Administration ASSESSMENT AND PLAN: This is a 62 year old man with a history of HTN, atrial fib, mesenteric ischemia , bowel resection with ileostomy who presented with chest pain. 1. Acute kidney injury secondary to hypovolemia from high output ostomy - Improving with IV fluid 2. Hyponatremia - Improving with IV NS 3. Hypokalemia - Continue to replete potassium 4. SIRS - No evidence of infection/sepsis 5. Anemia, microcytic - Iron studies, B12 normal - Folate high - Stool occult blood negative 6. Atrial fibrillation - Toprol XL and heparin IV drip started - Was on Lovenox at home 7. History of mesenteric ischemia, bowel resection with ileostomy - Continue heparin IV drip 8. HTN - Continue Toprol XL - Lisinoprol held secondary to SHARONDA, hypotension 9. Nutrition - TPN restarted
[2018-02-21 20:15] LABS: ANION GAP 10 (8-16); BLOOD UREA NITROGEN 62 mg/dL (7-18); CALCIUM 8.8 mg/dL (8.5-10.1); CHLORIDE 107 mmol/L (98-107); CO2 25 mmol/L (21-32); CREATININE 4.3 mg/dL (0.7-1.3); GLUCOSE,RANDOM 103 mg/dL (74-106); MAGNESIUM 2.1 mg/dL (1.8-2.4); POTASSIUM 3.2 mmol/L (3.5-5.1); SODIUM 142 mmol/L (136-145)
[2018-02-21] MEDS: FAT EMULSIONS 250 ML IV SCH (21:58)
[2018-02-21] MEDS: RANITIDINE HCL 150 MG TABLET (FP) PO SCH (21:58)
[2018-02-21] MEDS: metoPROLOL SUCCINATE 25 MG TAB.SR.24H (FP) PO SCH (21:58)
[2018-02-21] MEDS ORDERED: POTASSIUM CHLORIDE TABS 20 MEQ TABLET.ER (FP) PO ONE (22:30)
[2018-02-22 00:11] LABS: ATYPICAL pANCA <1:20 titer (Neg:<1:20); C-ANCA <1:20 titer (Neg:<1:20); P-ANCA <1:20 titer (Neg:<1:20); PROTEINASE-3 ANTIBODY <3.5 U/mL (0.0-3.5)
[2018-02-22 07:08] LABS: BASO % 0.4 % (0-2.0); EOS % 5.9 % (0-4.5); HEMOGLOBIN 7.1 GM/dL (11.7-16.9); LYMPH % 35.8 % (8-40); MCH 29.1 pg (25.7-33.7); MCHC 35.5 g/dl (32.0-35.9); MEAN CELL VOLUME 81.9 fl (80-96); MEAN PLT VOLUME 12.4 fl (7.5-11.1); MONO % 9.5 % (3.8-10.2); NEUT % 48.4 % (42.8-82.8); PLATELET COUNT 119 K/MM3 (134-434); RBC 2.44 M/mm3 (4.00-5.60); RDW 19.7 % (11.9-15.9); WHITE BLOOD COUNT 5.5 K/mm3 (4.0-10.0)
--- NOTE | 2018-02-22 07:31 | PN ---
Progress Note (short form) - Note Progress Note: ID Temp 99.6 Selected Entries 02/21/18 02/22/18 22:00 02:00 Temperature 99.6 F 99.3 F Pulse Rate 86 Respiratory 18 Rate Blood Pressure 111/68 Laboratory Tests 02/21/18 02/21/18 02/22/18 06:20 19:15 05:00 WBC 5.5 Hgb 7.1 L D Hct 20.0 L D Plt Count 119 L BUN 62 H D Creatinine 4.3 H HIV 1&2 Antibody Screen Negative HIV P24 Antigen Negative IMPRESSION Acute renal failure SBO Small cavitary lesion unknown etiology ECHO no obvious vegetations Plan Check quant gold Rest of workup as outlined CRP is low against infection Kindly recall as needed Chante ROGERS
[2018-02-22 07:42] LABS: ALBUMIN 2.7 g/dl (3.4-5.0); ANION GAP 8 (8-16); BLOOD UREA NITROGEN 50 mg/dL (7-18); CALCIUM 7.7 mg/dL (8.5-10.1); CHLORIDE 109 mmol/L (98-107); CO2 25 mmol/L (21-32); GLUCOSE,RANDOM 86 mg/dL (74-106); MAGNESIUM 1.7 mg/dL (1.8-2.4); SODIUM 142 mmol/L (136-145)
[2018-02-22 07:46] LABS: ALK PHOS 80 U/L (45-117); BILIRUBIN,TOTAL 0.6 mg/dL (0.2-1.0); CREATININE 3.3 mg/dL (0.7-1.3); SGOT/AST 43 U/L (15-37); SGPT/ALT 44 U/L (12-78); TOT PROT 7.1 g/dl (6.4-8.2)
[2018-02-22] MEDS: metoPROLOL SUCCINATE 25 MG TAB.SR.24H (FP) PO SCH ×2 (09:15→21:04)
[2018-02-22] MEDS: HEPARIN - 25,000 UNIT in SODIUM CHLORIDE 495 ML IV SCH (09:17)
[2018-02-22] MEDS: SODIUM CHLORIDE 1,000 ML IV SCH (09:18)
--- NOTE | 2018-02-22 11:40 | PN ---
Progress Note (short form) - Note Progress Note: s: no cp sob palps dizzy o: Vital Signs Period Temp Pulse Resp BP Sys/Ortiz Pulse Ox Last 24 Hr 97.6 F-99.6 F 80-92 16-18 93-127/56-70 100 nad no jvd irreg s1s2 no mrg cta bl nl eff aaox3 no le e/c/c abd nt nd pos bs no jaudnice diaphoresis Laboratory Last Values WBC 5.5 K/mm3 (4.0-10.0) 02/22/18 05:00 RBC 2.44 M/mm3 (4.00-5.60) L D 02/22/18 05:00 Hgb 7.1 GM/dL (11.7-16.9) L D 02/22/18 05:00 Hct 20.0 % (35.4-49) L D 02/22/18 05:00 MCV 81.9 fl (80-96) 02/22/18 05:00 MCH 29.1 pg (25.7-33.7) 02/22/18 05:00 MCHC 35.5 g/dl (32.0-35.9) 02/22/18 05:00 RDW 19.7 % (11.9-15.9) H 02/22/18 05:00 Plt Count 119 K/MM3 (134-434) L 02/22/18 05:00 MPV 12.4 fl (7.5-11.1) H 02/22/18 05:00 Neutrophils % 48.4 % (42.8-82.8) D 02/22/18 05:00 Lymphocytes % 35.8 % (8-40) D 02/22/18 05:00 Monocytes % 9.5 % (3.8-10.2) 02/22/18 05:00 Eosinophils % 5.9 % (0-4.5) H D 02/22/18 05:00 Basophils % 0.4 % (0-2.0) 02/22/18 05:00 Platelet Estimate Adequate 02/18/18 23:00 Platelet Comment 02/18/18 23:00 PT with INR 11.50 SEC (9.7-13.0) 02/20/18 19:00 INR 1.02 (0.82-1.09) 02/20/18 19:00 PTT (Actin FS) 45.8 SECONDS (26.9-34.4) H 02/22/18 05:00 Sodium 142 mmol/L (136-145) 02/22/18 05:00 Potassium 3.0 mmol/L (3.5-5.1) L 02/22/18 05:00 Chloride 109 mmol/L (98-107) H 02/22/18 05:00 Carbon Dioxide 25 mmol/L (21-32) 02/22/18 05:00 Anion Gap 8 (8-16) 02/22/18 05:00 BUN 50 mg/dL (7-18) H 02/22/18 05:00 Creatinine 3.3 mg/dL (0.7-1.3) H D 02/22/18 05:00 Creat Clearance w eGFR 18.97 (>60) 02/22/18 05:00 Random Glucose 86 mg/dL (74-106) 02/22/18 05:00 Hemoglobin A1c % 6.2 % (4.8-6.0) H 02/19/18 05:24 Serum Osmolality 325 mosm/kg (278-305) H 02/19/18 05:08 Calcium 7.7 mg/dL (8.5-10.1) L 02/22/18 05:00 Phosphorus 3.0 mg/dL (2.5-4.9) D 02/22/18 05:00 Magnesium 1.7 mg/dL (1.8-2.4) L 02/22/18 05:00 Iron 101 ug/dL (38-169) 02/20/18 06:25 TIBC 388 ug/dL (250-450) 02/20/18 06:25 Iron Saturation 26 % (15-55) 02/20/18 06:25 Ferritin 267.131 ng/ml (16.4-293.9) 02/20/18 06:25 Total Bilirubin 0.6 mg/dL (0.2-1.0) D 02/22/18 05:00 Direct Bilirubin 0.3 mg/dL (0.0-0.2) H 02/19/18 05:06 AST 43 U/L (15-37) H 02/22/18 05:00 ALT 44 U/L (12-78) D 02/22/18 05:00 Alkaline Phosphatase 80 U/L (45-117) D 02/22/18 05:00 Creatine Kinase 474 IU/L (39-308) H 02/21/18 06:20 Creatine Kinase Index 0.2 % (0.0-5.0) 02/21/18 06:20 CK-MB (CK-2) 1.009 ng/mL (0.5-3.6) 02/21/18 06:20 Troponin I 0.06 ng/ml (0.00-0.05) H D 02/21/18 00:50 C-Reactive Protein 0.4 MG/DL (0.00-0.3) H 02/21/18 06:20 B-Natriuretic Peptide Cancelled 02/18/18 23:00 Total Protein 7.1 g/dl (6.4-8.2) 02/22/18 05:00 Total Protein (PEP) 9.7 g/dL (6.0-8.5) H 02/19/18 05:24 Albumin 2.7 g/dl (3.4-5.0) L 02/22/18 05:00 Albumin (PEP) 3.8 gm/dl (2.9-4.4) 02/19/18 05:24 Globulin 5.9 g/dL (2.2-3.9) H 02/19/18 05:24 Albumin/Globulin Ratio 0.6 (0.7-1.7) L 02/19/18 05:24 Beta Globulins 2.0 gm/dL (0.7-1.3) H 02/19/18 05:24 Lipase 686 U/L (73-393) H 02/18/18 23:50 Vitamin B12 864 pg/ml (180-914) 02/20/18 06:25 Serum Folate 18 ng/ml (3.1-17.5) H 02/20/18 06:25 Urine Color Yellow 02/19/18 14:00 Urine Appearance Slcloudy 02/19/18 14:00 Urine pH 5.0 (5.0-8.0) 02/19/18 14:00 Ur Specific [place] 1.015 (1.001-1.035) 02/19/18 14:00 Urine Protein 1+ (NEGATIVE) H 02/19/18 14:00 Urine Glucose (UA) Negative (NEGATIVE) 02/19/18 14:00 Urine Ketones Negative (NEGATIVE) 02/19/18 14:00 Urine Blood 2+ (NEGATIVE) H 02/19/18 14:00 Urine Nitrite Negative (NEGATIVE) 02/19/18 14:00 Urine Bilirubin Negative (<2.0 mg/dL) 02/19/18 14:00 Urine Urobilinogen Negative mg/dL (0.2-1.0) 02/19/18 14:00 Ur Leukocyte Esterase Negative (NEGATIVE) 02/19/18 14:00 Urine WBC (Auto) 3 /hpf (3-5) 02/19/18 14:00 Urine RBC (Auto) 1 /hpf (0-3) 02/19/18 14:00 Ur Epithelial Cells Rare /HPF (FEW) 02/19/18 14:00 Urine Bacteria Rare /hpf (NONE SEEN) 02/19/18 14:00 Urine Mucus Rare 02/19/18 14:00 Urine Eosinophils None seen % (.) 02/19/18 14:00 Urine Osmolality 356 mosm/kg (300-900) 02/19/18 14:00 U Random Total Protein 77 mg/dl (5-11.9) H 02/19/18 14:00 Ur Random Sodium 18 MMOL/L 02/19/18 14:21 Ur Random Potassium 60.2 MMOL/L 02/19/18 14:21 Ur Random Chloride < 10 MMOL/L 02/19/18 14:21 Ur Random Urea Nitrogn 422 mg/dL 02/19/18 14:00 Urine Creatinine 307.0 mg/dL (20-370) 02/19/18 14:21 Fluid Creatinine 5.42 mg/dL 02/20/18 23:00 Stool Occult Blood Negative (NEGATIVE) 02/21/18 06:00 Opiates Screen Positive ng/ml (PPULAV=575) 02/19/18 14:00 Methadone Screen Negative ng/ml (HYCWZY=203) 02/19/18 14:00 Barbiturate Screen Negative ng/ml (QUROPX=301) 02/19/18 14:00 Phencyclidine Screen Negative ng/ml (CUTOFF=25) 02/19/18 14:00 Ur Amphetamines Screen Negative ng/ml (NCPDVI=013) 02/19/18 14:00 MDMA (Ecstasy) Screen Negative ng/ml (FLBZFY=584) 02/19/18 14:00 Benzodiazepines Screen Negative ng/ml (JQQWYZ=724) 02/19/18 14:00 Cocaine Screen Negative ng/ml (JCERRC=410) 02/19/18 14:00 U Marijuana (THC) Screen Negative ng/ml (CUTOFF=50) 02/19/18 14:00 Ethylene Glycol None detected mg/dL (None detected) 02/19/18 12:25 Alcohol, Quantitative < 5.0 mg/dL (0.0-5.0) 02/19/18 05:06 Methyl Alcohol Level Negative % (0.000-0.010) 02/19/18 12:25 [place] M-Ramin Not observed g/dL (Not Observed) 02/19/18 05:24 TRUDI Screen Positive (.) H 02/19/18 12:25 TRUDI Homogeneous Pattern TNP 02/19/18 12:25 TRUDI Nucleolar Pattern TNP 02/19/18 12:25 TRUDI Spindle Ijeoma Pattern TNP 02/19/18 12:25 TRUDI Midbody Pattern TNP 02/19/18 12:25 TRUDI Centriole Pattern TNP 02/19/18 12:25 TRUDI Nuclear Dot Pattern TNP 02/19/18 12:25 TRUDI PCNA Pattern TNP 02/19/18 12:25 TRUDI Nuclear Membr Pat TNP 02/19/18 12:25 TRUDI Speckled Pattern 1:80 (.) 02/19/18 12:25 TRUDI Centromere Pattern TNP 02/19/18 12:25 c-ANCA <1:20 titer (Neg:<1:20) 02/19/18 12:25 Proteinase 3 (PR3) <3.5 U/mL (0.0-3.5) 02/19/18 12:25 p-ANCA <1:20 titer (Neg:<1:20) 02/19/18 12:25 Atypical p-ANCA <1:20 titer (Neg:<1:20) 02/19/18 12:25 Myeloperoxidase Ab <9.0 U/mL (0.0-9.0) 02/19/18 12:25 Glomerular Base Memb Ab 11 units (0-20) 02/19/18 12:25 Tot Complement (CH50) > 63 U/mL (42-60) H 02/20/18 06:25 HIV 1&2 Antibody Screen Negative 02/21/18 06:20 HIV P24 Antigen Negative 02/21/18 06:20 echo 08/2015: mod-sev dec lvef, mild lae, mod mr, mild tr, nl rvsp echo 01/2018: lvef 40-45, global hk, nl rv, no sig valve path ct chest: no chf tele: sr ecg: sr, nl intervals, no ischemic changes a/p: 62 m hx remote pe, afib, htn, syst chf, cad s/p remote pci here with pain in whole body. afib: -in sr now, cont bb, cont tele. -chadsvasc warrants ac, continue, can change to eliquis on dc htn: -controlled chronic syst chf: -no signs chf -continue bb -hold home ed given wilber -no vol overload at present, seems volume depleted cad: -no signs acs, no angina -cont bb, statin, ac wilber: -cont ivfs, improving
[2018-02-22] MEDS ORDERED: MAGNESIUM 2GM/50ML STERILE WATER IVPB IVPB ONE (12:00)
--- NOTE | 2018-02-22 12:44 | PN ---
Progress Note (short form) - Note Progress Note: Renal follow up for SHARONDA Pt seen and examined at the bedside awake and alert continues to have large volume output via ostomy no sob, chest pain on TPN Vital Signs Temperature 98 F 02/22/18 10:00 Pulse Rate 88 02/22/18 10:00 Respiratory Rate 18 02/22/18 10:00 Blood Pressure 106/60 02/22/18 10:00 O2 Sat by Pulse Oximetry (%) 100 02/21/18 21:00 Intake & Output 02/19/18 02/20/18 02/21/18 02/22/18 23:59 23:59 23:59 23:59 Intake Total 2180 3880 7011 5376 Output Total 4500 8624 11916 2750 Balance -5668 -4752 -7793 2626 NAD awake and alert RRR, NO M/R CTA soft NT, + ostomy NO LE edema, clubbing or cyanosis CBC, BMP 02/22/18 05:00 02/22/18 05:00 Current Medications Heparin Sodium (Porcine) (Heparin -) 1,000 unit IVPUSH PRN PRN PRN Reason: Heparin Heparin Sodium (Porcine) (Heparin -) 5,000 unit IVPUSH PRN PRN PRN Reason: Heparin Last Admin: 02/20/18 23:11 Dose: 5,000 unit Sodium Chloride (Normal Saline -) 1,000 mls @ 200 mls/hr IV ASDIR SKIP Last Admin: 02/22/18 09:18 Dose: 200 mls/hr Heparin Sodium (Porcine) 25, (000 unit/ Sodium Chloride) 500 mls @ 16 mls/hr IV TITR SKIP; 800 UNIT/HR PRN Reason: Protocol Last Admin: 02/22/18 09:17 Dose: 900 unit/hr, 18 mls/hr Fat Emulsion Intravenous (Intralipid -) 250 mls @ 20.833 mls/hr IV DAILY@2200 SKIP Last Admin: 02/21/18 21:58 Dose: 20.833 mls/hr Potassium Chloride 40 meq/Sodium Chloride 75 meq/Calcium Gluconate 1,000 mg/ Multivitamins/Minerals 10 ml/Folic Acid 1 mg/ Sterile Water / Amino Acids/ Dextrose 1,000 mls @ 41.667 mls/hr IVPB DAILY@1600 SKIP Last Admin: 02/21/18 15:36 Dose: 41.667 mls/hr Metoprolol Succinate (Toprol Xl -) 25 mg PO BID SKIP Last Admin: 02/22/18 09:15 Dose: 25 mg Metoprolol Tartrate (Lopressor Injection -) 5 mg IVPUSH Q4H PRN PRN Reason: HYPERTENSION Last Admin: 02/21/18 04:08 Dose: 5 mg Ranitidine HCl (Zantac -) 150 mg PO HS SKIP Last Admin: 02/21/18 21:58 Dose: 150 mg 62 year old gentleman with PMhx of SBO s/o bowel resection with illeostomy, hypertension, hyperlipidemia who presented with chest and abd pain and found to have SHARONDA. #Acute Renal Failure secondary to volume depletion in setting of high output ostomy #Hypovolemic Hyponatremia (now resolved) #Anemia #Leukocytosis #Diarrhea/High output ostomy there is still a very large volume being put out by his ostomy will continue IVF and increase volume of TPN GI and surgical follow up to get K and Mg with TPN solution Trend electrolytes daily Thank you Will follow Randell Arreola DO
[2018-02-22] MEDS ORDERED: POTASSIUM CHLORIDE 20 MEQ in SODIUM CHLORIDE 250 ML IVPB ONE (13:00)
[2018-02-22] MEDS ORDERED: LOPERAMIDE HCL 2 MG CAPSULE PO PRN (13:05)
[2018-02-22] MEDS ORDERED: [UNRECOGNIZED DRUG - OTHER] IVPB SCH (16:00)
[2018-02-22] MEDS ORDERED: CALCIUM GLUCONATE IVPB SCH (16:00)
[2018-02-22] MEDS ORDERED: POTASSIUM CHLORIDE IVPB SCH (16:00)
[2018-02-22 16:35] LABS: TOTAL PROTEIN, URINE 65.9 mg/dL (Not Estab.)
[2018-02-22 17:01] LABS: ANION GAP 6 (8-16); BLOOD UREA NITROGEN 44 mg/dL (7-18); CALCIUM 8.4 mg/dL (8.5-10.1); CHLORIDE 108 mmol/L (98-107); CO2 26 mmol/L (21-32); CREATININE 3.1 mg/dL (0.7-1.3); GLUCOSE,RANDOM 97 mg/dL (74-106); POTASSIUM 3.2 mmol/L (3.5-5.1); SODIUM 140 mmol/L (136-145)
--- NOTE | 2018-02-22 17:39 | PN ---
Physical Exam: SUBJECTIVE: Patient seen and examined at bedside. No new complaints. No events overnight. Ostomy continues to be high output. OBJECTIVE: Vital Signs Period Temp Pulse Resp BP Sys/Ortiz Pulse Ox Last 24 Hr 97.9 F-99.6 F 77-92 16-18 101-127/60-70 100 GENERAL: The patient is awake, alert, and fully oriented, in no acute distress. NECK: Trachea midline, full range of motion, supple. LUNGS: Breath sounds equal, clear to auscultation bilaterally, no wheezes, no crackles, no accessory muscle use. HEART: Regular rate and rhythm, S1, S2 without murmur, rub or gallop. ABDOMEN: Soft, nontender, nondistended, normoactive bowel sounds, no guarding, no rebound, no hepatosplenomegaly, no masses. Ileostomy in place draining yellow fluid. 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 NEUROLOGICAL: Cranial nerves II through X grossly intact. Normal speech, gait not observed. SKIN: Warm, dry, normal turgor, no rashes or lesions noted Laboratory Results - last 24 hr 02/19/18 02/19/18 02/19/18 12:25 14:00 14:21 WBC RBC Hgb Hct MCV MCH MCHC RDW Plt Count MPV Neutrophils % Lymphocytes % Monocytes % Eosinophils % Basophils % PTT (Actin FS) Sodium Potassium Chloride Carbon Dioxide Anion Gap BUN Creatinine Creat Clearance w eGFR Random Glucose Calcium Phosphorus Magnesium Total Bilirubin AST ALT Alkaline Phosphatase Total Protein Albumin Iwkxv-3-Czrxjcpkw (%) 4.5 Nmcvf-3-Dllvubfgw (%) 9.0 Beta Globulins (%) 26.4 Gamma Globulins (%) 32.3 M-Ramin % Not observed Urine Eosinophils None seen Urine Total Protein 65.9 Urine PEP Interpret 27.8 c-ANCA <1:20 Proteinase 3 (PR3) <3.5 p-ANCA <1:20 Atypical p-ANCA <1:20 Myeloperoxidase Ab <9.0 Tot Complement (CH50) Ref Test Comments 02/20/18 02/21/18 02/21/18 06:25 19:15 19:15 WBC RBC Hgb Hct MCV MCH MCHC RDW Plt Count MPV Neutrophils % Lymphocytes % Monocytes % Eosinophils % Basophils % PTT (Actin FS) 59.9 H D Sodium 142 Potassium 3.2 L Chloride 107 Carbon Dioxide 25 Anion Gap 10 BUN 62 H D Creatinine 4.3 H Creat Clearance w eGFR Random Glucose 103 D Calcium 8.8 Phosphorus Magnesium 2.1 D Total Bilirubin AST ALT Alkaline Phosphatase Total Protein Albumin Wwayo-5-Wnociwuvt (%) Lhugg-8-Skpscnqmy (%) Beta Globulins (%) Gamma Globulins (%) M-Ramin % Urine Eosinophils Urine Total Protein Urine PEP Interpret c-ANCA Proteinase 3 (PR3) p-ANCA Atypical p-ANCA Myeloperoxidase Ab Tot Complement (CH50) > 63 H Ref Test Comments 02/22/18 02/22/18 02/22/18 05:00 05:00 05:00 WBC 5.5 RBC 2.44 L D Hgb 7.1 L D Hct 20.0 L D MCV 81.9 MCH 29.1 MCHC 35.5 RDW 19.7 H Plt Count 119 L MPV 12.4 H Neutrophils % 48.4 D Lymphocytes % 35.8 D Monocytes % 9.5 Eosinophils % 5.9 H D Basophils % 0.4 PTT (Actin FS) 45.8 H Sodium 142 Potassium 3.0 L Chloride 109 H Carbon Dioxide 25 Anion Gap 8 BUN 50 H Creatinine 3.3 H D Creat Clearance w eGFR 18.97 Random Glucose 86 Calcium 7.7 L Phosphorus 3.0 D Magnesium 1.7 L Total Bilirubin 0.6 D AST 43 H ALT 44 D Alkaline Phosphatase 80 D Total Protein 7.1 Albumin 2.7 L Wbcee-1-Dggeonpoe (%) Ibyhc-3-Umoulfioj (%) Beta Globulins (%) Gamma Globulins (%) M-Ramin % Urine Eosinophils Urine Total Protein Urine PEP Interpret c-ANCA Proteinase 3 (PR3) p-ANCA Atypical p-ANCA Myeloperoxidase Ab Tot Complement (CH50) Ref Test Comments 02/22/18 15:30 WBC RBC Hgb Hct MCV MCH MCHC RDW Plt Count MPV Neutrophils % Lymphocytes % Monocytes % Eosinophils % Basophils % PTT (Actin FS) Sodium 140 Potassium 3.2 L Chloride 108 H Carbon Dioxide 26 Anion Gap 6 L BUN 44 H Creatinine 3.1 H Creat Clearance w eGFR Random Glucose 97 Calcium 8.4 L Phosphorus Magnesium Total Bilirubin AST ALT Alkaline Phosphatase Total Protein Albumin Tdhlz-6-Vjisrvnxr (%) Lueja-3-Nrelmebjz (%) Beta Globulins (%) Gamma Globulins (%) M-Ramin % Urine Eosinophils Urine Total Protein Urine PEP Interpret c-ANCA Proteinase 3 (PR3) p-ANCA Atypical p-ANCA Myeloperoxidase Ab Tot Complement (CH50) Ref Test Comments Active Medications Generic Name Dose Route Start Last Admin Trade Name Freq PRN Reason Stop Dose Admin Heparin Sodium (Porcine) 1,000 unit 02/20/18 17:30 Heparin - IVPUSH PRN PRN Heparin Heparin Sodium (Porcine) 5,000 unit 02/20/18 17:30 02/20/18 23:11 Heparin - IVPUSH 5,000 unit PRN PRN Administration Heparin Sodium Chloride 1,000 mls @ 200 mls/hr 02/20/18 13:02 02/22/18 09:18 Normal Saline - IV 200 mls/hr ASDIR SKIP Administration Heparin Sodium (Porcine) 25, 500 mls @ 16 mls/hr 02/20/18 17:30 02/22/18 09: 17 000 unit/ Sodium Chloride IV 900 unit/hr TITR SKIP 18 mls/hr Protocol Administration 800 UNIT/HR Fat Emulsion Intravenous 250 mls @ 20.833 mls/hr 02/21/18 22:00 02/21/18 21: 58 Intralipid - IV 20.833 mls/hr DAILY@2200 SKIP Administration Potassium Chloride 30 meq/ 2,000 mls @ 83.333 mls/hr 02/22/18 16:00 02/22/18 15:41 Calcium Gluconate 1,000 mg/ IVPB 83.333 mls/hr Multivitamins/Minerals 10 ml/ DAILY@1600 SKIP Administration Folic Acid 1 mg/ Magnesium Sulfate 2 gm/ Sterile Water/ Amino Acids/ Dextrose Loperamide HCl 4 mg 02/22/18 13:05 Imodium - PO Q8H PRN DIARRHEA Metoprolol Succinate 25 mg 02/21/18 22:00 02/22/18 09:15 Toprol Xl - PO 25 mg BID SKIP Administration Metoprolol Tartrate 5 mg 02/21/18 00:17 02/21/18 04:08 Lopressor Injection - IVPUSH 5 mg Q4H PRN Administration HYPERTENSION Ranitidine HCl 150 mg 02/19/18 22:00 02/21/18 21:58 Zantac - PO 150 mg HS SKIP Administration ASSESSMENT/PLAN: The patient is a 62yo [place]er speaking M with an unclear PMHx of HTN, SBO, Mesenteric ischemia s/p bowel resection and ostomy, Afib, HLD admitted for the treatment of acute renal failure #Unclear History; pt poor historian -Records from [facility] and [facility] currently being compiled; detailed history to follow -[facility] records show normal creatinine on discharge in October -spoke with Dr. Saeed's office staff. The patient has no outpatient records at his facility and the physician is out of the office for the next 2 weeks. -Informed that social work had contacted patient's TPN infusion company regarding formulation. Will call infusion [facility] in an attempt to get the name of a PCP. #Acute Renal Failure likely 2/2 Volume depletion 2/2 high output ostomy -BUN/Creatinine improved today; 82 -> 50/ 5.3-> 3.3 -Nephro onboard; Dr. Arreola -TRUDI positive -total complement elevated -Spep, Upep WNL -alpha, beta, gamma globulins negative -Mspike negative -P&C ANCA, anti-basement membrane Ab negative -NS @ 200 -Started on loperamide in an attempt to decrease fistula output -GI consult #Hyponatremia -most recent K+ 3.2 -s/p multiple runs of 30meq KCL IV -supplementing K+ in TPN -will monitor #SBO -pt w/ Hx of SBO and multiple abdominal sx -CT abdomen showing partial obstruction. -Surgical consult: no surgical intervention at this time; ostomy not amenable to closure -patient not exhibiting signs of SBO at this time. #SIRS -Per ID, unlikely to be infectious in nature -holding ABX for now # Atypical CP- resolved; possibly 2/2 run of Afib -no further episodes -Elevated trop to 0.08 vidhyaley 2/2 decreased clearance from ARF. -EKG w/ no major changes since last admission -Continue ASA # Microcytic Anemia possibly 2/2 renal dysfxn r/o MM or nutritional cause -f/u iron studies -FOBT negative -B12 WNL, folate high -Recent Hb drop likely dilutional; patient remains assx and above transfusion threshold. will monitor closely # Euvoleimic Hyponatremia likely 2/2 ARF -will hydrate, monitor sodium closely. -Sodium improved today 133 -> 142 # Transaminitis possibly related to renal dysfunction- resolved # Elevated CK possibly 2/2 renal dysfunction -IVF -trending down #HTN -holding home antihypertensives as patient w/ low BP #Afib -NSR overnight -Cardio consult -c/w toprolol 25 BID -c/w heparin gtt -investigating alternative AC with insurance company. #FEN -NS @200 -monitor lytes closely -trial of soft diet; patient on TPN. #prophy -HSQ 5ku TID # Dispo -admit tele Visit type - Emergency Visit Emergency Visit: Yes ED Registration Date: 02/19/18 Care time: The patient presented to the Emergency Department on the above date and was hospitalized for further evaluation of their emergent condition. - New Patient This patient is new to me today: No - Critical Care Critical Care patient: No
--- NOTE | 2018-02-22 18:00 | PN ---
Teaching Attending Note Name of Resident: Silvio Ayala ATTENDING PHYSICIAN STATEMENT I saw and evaluated the patient. I reviewed the resident's note and discussed the case with the resident. I agree with the resident's findings and plan as documented. SUBJECTIVE: Patient is smiling and states he feels much better. He is now on the TPN. OBJECTIVE: Last Vital Signs Temp Pulse Resp BP Pulse Ox 98.5 F 77 18 109/70 100 02/22/18 14:00 02/22/18 14:00 02/22/18 14:00 02/22/18 14:00 02/21/18 21:00 Awake, alert, oriented jejunostomy with continued high output, watery stool, exact output not documented chest clear heart rr no M abd soft NT, mucous fistula is dressed, jejunostomy with pale yellow watery output, changing bag Q4h extrem no edema Laboratory Results - last 24 hr 02/19/18 02/19/18 02/19/18 12:25 14:00 14:21 WBC RBC Hgb Hct MCV MCH MCHC RDW Plt Count MPV Neutrophils % Lymphocytes % Monocytes % Eosinophils % Basophils % PTT (Actin FS) Sodium Potassium Chloride Carbon Dioxide Anion Gap BUN Creatinine Creat Clearance w eGFR Random Glucose Calcium Phosphorus Magnesium Total Bilirubin AST ALT Alkaline Phosphatase Total Protein Albumin Agdwe-1-Jgppgllwh (%) 4.5 Jcjza-5-Qcdvcvspb (%) 9.0 Beta Globulins (%) 26.4 Gamma Globulins (%) 32.3 M-Ramin % Not observed Urine Eosinophils None seen Urine Total Protein 65.9 Urine PEP Interpret 27.8 c-ANCA <1:20 Proteinase 3 (PR3) <3.5 p-ANCA <1:20 Atypical p-ANCA <1:20 Myeloperoxidase Ab <9.0 Tot Complement (CH50) Ref Test Comments 02/20/18 02/21/18 02/21/18 06:25 19:15 19:15 WBC RBC Hgb Hct MCV MCH MCHC RDW Plt Count MPV Neutrophils % Lymphocytes % Monocytes % Eosinophils % Basophils % PTT (Actin FS) 59.9 H D Sodium 142 Potassium 3.2 L Chloride 107 Carbon Dioxide 25 Anion Gap 10 BUN 62 H D Creatinine 4.3 H Creat Clearance w eGFR Random Glucose 103 D Calcium 8.8 Phosphorus Magnesium 2.1 D Total Bilirubin AST ALT Alkaline Phosphatase Total Protein Albumin Bkycg-3-Vlgpygzev (%) Xhvnv-1-Fooaigyyt (%) Beta Globulins (%) Gamma Globulins (%) M-Ramin % Urine Eosinophils Urine Total Protein Urine PEP Interpret c-ANCA Proteinase 3 (PR3) p-ANCA Atypical p-ANCA Myeloperoxidase Ab Tot Complement (CH50) > 63 H Ref Test Comments 02/22/18 02/22/18 02/22/18 05:00 05:00 05:00 WBC 5.5 RBC 2.44 L D Hgb 7.1 L D Hct 20.0 L D MCV 81.9 MCH 29.1 MCHC 35.5 RDW 19.7 H Plt Count 119 L MPV 12.4 H Neutrophils % 48.4 D Lymphocytes % 35.8 D Monocytes % 9.5 Eosinophils % 5.9 H D Basophils % 0.4 PTT (Actin FS) 45.8 H Sodium 142 Potassium 3.0 L Chloride 109 H Carbon Dioxide 25 Anion Gap 8 BUN 50 H Creatinine 3.3 H D Creat Clearance w eGFR 18.97 Random Glucose 86 Calcium 7.7 L Phosphorus 3.0 D Magnesium 1.7 L Total Bilirubin 0.6 D AST 43 H ALT 44 D Alkaline Phosphatase 80 D Total Protein 7.1 Albumin 2.7 L Ydppv-0-Vputvgfhd (%) Nukeu-8-Mlnsqfsby (%) Beta Globulins (%) Gamma Globulins (%) M-Ramin % Urine Eosinophils Urine Total Protein Urine PEP Interpret c-ANCA Proteinase 3 (PR3) p-ANCA Atypical p-ANCA Myeloperoxidase Ab Tot Complement (CH50) Ref Test Comments 02/22/18 02/22/18 15:30 15:30 WBC RBC Hgb Hct MCV MCH MCHC RDW Plt Count MPV Neutrophils % Lymphocytes % Monocytes % Eosinophils % Basophils % PTT (Actin FS) 53.3 H Sodium 140 Potassium 3.2 L Chloride 108 H Carbon Dioxide 26 Anion Gap 6 L BUN 44 H Creatinine 3.1 H Creat Clearance w eGFR Random Glucose 97 Calcium 8.4 L Phosphorus Magnesium Total Bilirubin AST ALT Alkaline Phosphatase Total Protein Albumin Npocv-9-Hjnvtlzxg (%) Eckae-9-Wfpautjkq (%) Beta Globulins (%) Gamma Globulins (%) M-Ramin % Urine Eosinophils Urine Total Protein Urine PEP Interpret c-ANCA Proteinase 3 (PR3) p-ANCA Atypical p-ANCA Myeloperoxidase Ab Tot Complement (CH50) Ref Test Comments ASSESSMENT AND PLAN: This is a 62 year old man with a history of HTN, atrial fib, mesenteric ischemia , 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 admitted with dehydration, SHARONDA, brock output from jejunostomy 1. Acute kidney injury secondary to hypovolemia from high output ostomy - BUN and creatinine continue to improve with aggressive hydration IV and po 2. Hyponatremia - Resolved with NS hydration 3. Hypokalemia - Continue to replete potassium, has 40 meq in the TPN per day, getting 20 additional 4. Short gut syndrome from bowel resection with high jejunostomy output - start loperamide 4 mg tid and observe output 5. Anemia, microcytic - Iron studies, B12 normal - Folate high - Stool occult blood negative 6. Atrial fibrillation - Toprol XL and heparin IV drip started, PTT therapeutic - Was on Lovenox at home but now in SHARONDA 7. History of mesenteric ischemia, bowel resection with ileostomy - Continue heparin IV drip for prevention of recurrent emboli from AF 8. HTN - Continue Toprol XL - Lisinoprol held secondary to SHARONDA, hypotension 9. Nutrition - TPN restarted - Advance diet from clears to full, patient with good appetite
[2018-02-22] MEDS: RANITIDINE HCL 150 MG TABLET (FP) PO SCH (21:04)
[2018-02-22] MEDS: FAT EMULSIONS 250 ML IV SCH (21:05)
[2018-02-23 07:54] LABS: BASO % 0.5 % (0-2.0); EOS % 5.8 % (0-4.5); HEMOGLOBIN 7.5 GM/dL (11.7-16.9); LYMPH % 29.6 % (8-40); MCH 29.1 pg (25.7-33.7); MCHC 35.7 g/dl (32.0-35.9); MEAN CELL VOLUME 81.5 fl (80-96); MEAN PLT VOLUME 11.9 fl (7.5-11.1); MONO % 6.8 % (3.8-10.2); NEUT % 57.3 % (42.8-82.8); PLATELET COUNT 124 K/MM3 (134-434); RBC 2.57 M/mm3 (4.00-5.60); RDW 20.1 % (11.9-15.9); WHITE BLOOD COUNT 5.6 K/mm3 (4.0-10.0)
[2018-02-23 08:47] LABS: ANION GAP 9 (8-16); BLOOD UREA NITROGEN 35 mg/dL (7-18); CALCIUM 8.2 mg/dL (8.5-10.1); CHLORIDE 108 mmol/L (98-107); CO2 23 mmol/L (21-32); CREATININE 2.5 mg/dL (0.7-1.3); GLUCOSE,RANDOM 76 mg/dL (74-106); MAGNESIUM 1.7 mg/dL (1.8-2.4); POTASSIUM 3.4 mmol/L (3.5-5.1); SODIUM 140 mmol/L (136-145)
--- NOTE | 2018-02-23 10:37 | PN ---
Physical Exam: SUBJECTIVE: Patient seen and examined Patient is comfortable with no acute distress. No fever or chills, no shortness of breath. OBJECTIVE: Vital Signs Temperature 99.4 F 02/23/18 06:00 Pulse Rate 82 02/23/18 06:00 Respiratory Rate 18 02/23/18 06:00 Blood Pressure 113/60 02/23/18 06:00 O2 Sat by Pulse Oximetry (%) 100 02/22/18 21:00 GENERAL: The patient is awake, alert, and fully oriented, in no acute distress. HEAD: Normal with no signs of trauma. EYES: PERRL, extraocular movements intact, sclera anicteric, conjunctiva clear. ENT: Ears normal, oropharynx clear without exudates, moist mucous membranes. NECK: Trachea midline, full range of motion, supple. LUNGS: Breath sounds equal, clear to auscultation bilaterally, no wheezes, no crackles, no accessory muscle use. HEART: Regular rate and rhythm, S1, S2 without murmur, rub or gallop. ABDOMEN: Soft, nontender, nondistended, normoactive bowel sounds, no guarding, no rebound, no hepatosplenomegaly, no masses. EXTREMITIES: 2+ pulses, warm, well-perfused, no edema. positive for PiCC line. NEUROLOGICAL: Cranial nerves II through XII grossly intact. Normal speech, gait not observed. PSYCH: Normal mood, normal affect. SKIN: Warm, dry, normal turgor, no rashes or lesions noted CBCD WBC 5.6 K/mm3 (4.0-10.0) 02/23/18 06:50 RBC 2.57 M/mm3 (4.00-5.60) L 02/23/18 06:50 Hgb 7.5 GM/dL (11.7-16.9) L 02/23/18 06:50 Hct 21.0 % (35.4-49) L 02/23/18 06:50 MCV 81.5 fl (80-96) 02/23/18 06:50 MCHC 35.7 g/dl (32.0-35.9) 02/23/18 06:50 RDW 20.1 % (11.9-15.9) H 02/23/18 06:50 Plt Count 124 K/MM3 (134-434) L 02/23/18 06:50 MPV 11.9 fl (7.5-11.1) H 02/23/18 06:50 CMP Sodium 140 mmol/L (136-145) 02/23/18 06:50 Potassium 3.4 mmol/L (3.5-5.1) L 02/23/18 06:50 Chloride 108 mmol/L (98-107) H 02/23/18 06:50 Carbon Dioxide 23 mmol/L (21-32) 02/23/18 06:50 Anion Gap 9 (8-16) 02/23/18 06:50 BUN 35 mg/dL (7-18) H D 02/23/18 06:50 Creatinine 2.5 mg/dL (0.7-1.3) H 02/23/18 06:50 Creat Clearance w eGFR 18.97 (>60) 02/22/18 05:00 Random Glucose 76 mg/dL (74-106) D 02/23/18 06:50 Calcium 8.2 mg/dL (8.5-10.1) L 02/23/18 06:50 Total Bilirubin 0.6 mg/dL (0.2-1.0) D 02/22/18 05:00 AST 43 U/L (15-37) H 02/22/18 05:00 ALT 44 U/L (12-78) D 02/22/18 05:00 Alkaline Phosphatase 80 U/L (45-117) D 02/22/18 05:00 Total Protein 7.1 g/dl (6.4-8.2) 02/22/18 05:00 Albumin 2.7 g/dl (3.4-5.0) L 02/22/18 05:00 CARDIAC ENZYMES Creatine Kinase 474 IU/L (39-308) H 02/21/18 06:20 Troponin I 0.06 ng/ml (0.00-0.05) H D 02/21/18 00:50 Active Medications Generic Name Dose Route Start Last Admin Trade Name Freq PRN Reason Stop Dose Admin Heparin Sodium (Porcine) 1,000 unit 02/20/18 17:30 Heparin - IVPUSH PRN PRN Heparin Heparin Sodium (Porcine) 5,000 unit 02/20/18 17:30 02/20/18 23:11 Heparin - IVPUSH 5,000 unit PRN PRN Administration Heparin Sodium Chloride 1,000 mls @ 200 mls/hr 02/20/18 13:02 02/22/18 09:18 Normal Saline - IV 200 mls/hr ASDIR SKIP Administration Heparin Sodium (Porcine) 25, 500 mls @ 16 mls/hr 02/20/18 17:30 02/22/18 09: 17 000 unit/ Sodium Chloride IV 900 unit/hr TITR SKIP 18 mls/hr Protocol Administration 800 UNIT/HR Fat Emulsion Intravenous 250 mls @ 20.833 mls/hr 02/21/18 22:00 02/22/18 21: 05 Intralipid - IV 20.833 mls/hr DAILY@2200 SKIP Administration Potassium Chloride 30 meq/ 2,000 mls @ 83.333 mls/hr 02/22/18 16:00 02/22/18 15:41 Calcium Gluconate 1,000 mg/ IVPB 83.333 mls/hr Multivitamins/Minerals 10 ml/ DAILY@1600 SKIP Administration Folic Acid 1 mg/ Magnesium Sulfate 2 gm/ Sterile Water/ Amino Acids/ Dextrose Loperamide HCl 4 mg 02/22/18 13:05 Imodium - PO Q8H PRN DIARRHEA Metoprolol Succinate 25 mg 02/21/18 22:00 02/22/18 21:04 Toprol Xl - PO 25 mg BID SKIP Administration Metoprolol Tartrate 5 mg 02/21/18 00:17 02/21/18 04:08 Lopressor Injection - IVPUSH 5 mg Q4H PRN Administration HYPERTENSION Ranitidine HCl 150 mg 02/19/18 22:00 02/22/18 21:04 Zantac - PO 150 mg HS SKIP Administration Home Medications Medication Instructions Recorded Gemfibrozil 600 mg PO BID 08/31/15 Lisinopril [Prinivil -] 2.5 mg PO DAILY 08/31/15 Spironolactone 25 mg PO DAILY 11/30/15 Aspirin 81 mg PO DAILY 02/19/18 Atenolol [Tenormin -] 50 mg PO DAILY 02/19/18 Atorvastatin Calcium 40 mg PO DAILY 02/19/18 Ranitidine HCl 150 mg PO HS 02/19/18 ASSESSMENT/PLAN: This is a 62 year old man with a history of HTN, atrial fib, mesenteric ischemia , 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 admitted with dehydration, SHARONDA, with high output from jejunostomy # Acute kidney injury secondary to hypovolemia from high output ostomy , on IVF NS improving # Acute Hyponatremia improved post IVF # Acute Hypokalemia continue to replete with potassium # Short gut syndrome from bowel resection with high jejunostomy output, continue loperamide as per GI # Anemia, microcytic, Iron studies, B12 normal, Folate high, Stool occult blood negative # Atrial fibrillation Toprol XL and heparin IV drip started # History of mesenteric ischemia, bowel resection with ileostomy on heparin drip continue # HTN continue meds # Nutrition on TPN continue Patient has a PICC for nutrition from another facility [facility] , developed swelling around the picc line, will order US of right upper extremity to r/o DVT. DVT Tx: on Heparin ggt Visit type - Emergency Visit Emergency Visit: Yes ED Registration Date: 02/19/18 Care time: The patient presented to the Emergency Department on the above date and was hospitalized for further evaluation of their emergent condition. - New Patient This patient is new to me today: Yes Date on this admission: 02/23/18 - Critical Care Critical Care patient: No - Discharge Referral [facility]erred to [facility] Med P.C.: No
[2018-02-23] MEDS: metoPROLOL SUCCINATE 25 MG TAB.SR.24H (FP) PO SCH ×2 (11:15→21:17)
--- NOTE | 2018-02-23 11:19 | PN ---
Progress Note (short form) - Note Progress Note: s: no cp sob palps dizzy o: Vital Signs Period Temp Pulse Resp BP Sys/Ortiz Pulse Ox Last 24 Hr 98.1 F-99.4 F 76-87 15-18 105-114/60-71 100 nad no jvd irreg s1s2 no mrg cta bl nl eff aaox3 no le e/c/c abd nt nd pos bs no jaudnice diaphoresis Current Medications Generic Name Dose Route Start Last Admin Trade Name Freq PRN Reason Stop Dose Admin Heparin Sodium (Porcine) 1,000 unit 02/20/18 17:30 Heparin - IVPUSH PRN PRN Heparin Heparin Sodium (Porcine) 5,000 unit 02/20/18 17:30 02/20/18 23:11 Heparin - IVPUSH 5,000 unit PRN PRN Administration Heparin Sodium Chloride 1,000 mls @ 200 mls/hr 02/20/18 13:02 02/22/18 09:18 Normal Saline - IV 200 mls/hr ASDIR SKIP Administration Heparin Sodium (Porcine) 25, 500 mls @ 16 mls/hr 02/20/18 17:30 02/22/18 09: 17 000 unit/ Sodium Chloride IV 900 unit/hr TITR SKIP 18 mls/hr Protocol Administration 800 UNIT/HR Fat Emulsion Intravenous 250 mls @ 20.833 mls/hr 02/21/18 22:00 02/22/18 21: 05 Intralipid - IV 20.833 mls/hr DAILY@2200 SKIP Administration Potassium Chloride 30 meq/ 2,000 mls @ 83.333 mls/hr 02/22/18 16:00 02/22/18 15:41 Calcium Gluconate 1,000 mg/ IVPB 83.333 mls/hr Multivitamins/Minerals 10 ml/ DAILY@1600 SKIP Administration Folic Acid 1 mg/ Magnesium Sulfate 2 gm/ Sterile Water/ Amino Acids/ Dextrose Loperamide HCl 4 mg 02/22/18 13:05 Imodium - PO Q8H PRN DIARRHEA Metoprolol Succinate 25 mg 02/21/18 22:00 02/23/18 11:15 Toprol Xl - PO 25 mg BID SKIP Administration Metoprolol Tartrate 5 mg 02/21/18 00:17 02/21/18 04:08 Lopressor Injection - IVPUSH 5 mg Q4H PRN Administration HYPERTENSION Ranitidine HCl 150 mg 02/19/18 22:00 02/22/18 21:04 Zantac - PO 150 mg HS SKIP Administration CBC, BMP 02/23/18 06:50 02/23/18 06:50 echo 08/2015: mod-sev dec lvef, mild lae, mod mr, mild tr, nl rvsp echo 01/2018: lvef 40-45, global hk, nl rv, no sig valve path ct chest: no chf tele: sr ecg: sr, nl intervals, no ischemic changes a/p: 62 m hx remote pe, afib, htn, syst chf, cad s/p remote pci here with pain in whole body. afib: -in sr now, cont bb, cont tele. -chadsvasc warrants ac, continue, can change to eliquis on dc htn: -controlled chronic syst chf: -no signs chf -continue bb -hold home ed given wilber -no vol overload at present, seems volume depleted cad: -no signs acs, no angina -cont bb, statin, ac wilber: -cont ivfs, improving
[2018-02-23] MEDS ORDERED: CALCIUM GLUCONATE IVPB SCH (13:25)
[2018-02-23] MEDS ORDERED: POTASSIUM CHLORIDE IVPB SCH (13:25)
[2018-02-23] MEDS ORDERED: [UNRECOGNIZED DRUG - OTHER] IVPB SCH (13:25)
--- NOTE | 2018-02-23 13:42 | PN ---
Progress Note (short form) - Note Progress Note: high output ostomy on TPN TPN adjusted to increase K Current Medications Heparin Sodium (Porcine) (Heparin -) 1,000 unit IVPUSH PRN PRN PRN Reason: Heparin Heparin Sodium (Porcine) (Heparin -) 5,000 unit IVPUSH PRN PRN PRN Reason: Heparin Last Admin: 02/20/18 23:11 Dose: 5,000 unit Sodium Chloride (Normal Saline -) 1,000 mls @ 200 mls/hr IV ASDIR SKIP Last Admin: 02/22/18 09:18 Dose: 200 mls/hr Heparin Sodium (Porcine) 25, (000 unit/ Sodium Chloride) 500 mls @ 16 mls/hr IV TITR SKIP; 800 UNIT/HR PRN Reason: Protocol Last Admin: 02/22/18 09:17 Dose: 900 unit/hr, 18 mls/hr Fat Emulsion Intravenous (Intralipid -) 250 mls @ 20.833 mls/hr IV DAILY@2200 SKIP Last Admin: 02/22/18 21:05 Dose: 20.833 mls/hr Potassium Chloride 40 meq/Calcium Gluconate 1,000 mg/Multivitamins/Minerals 10 ml/Folic Acid 1 mg/ Magnesium Sulfate 2 gm/ Sterile Water/Amino Acids/ Dextrose 2,000 mls @ 83.333 mls/hr IVPB DAILY@1600 SKIP Loperamide HCl (Imodium -) 4 mg PO Q8H PRN PRN Reason: DIARRHEA Metoprolol Succinate (Toprol Xl -) 25 mg PO BID SKIP Last Admin: 02/23/18 11:15 Dose: 25 mg Metoprolol Tartrate (Lopressor Injection -) 5 mg IVPUSH Q4H PRN PRN Reason: HYPERTENSION Last Admin: 02/21/18 04:08 Dose: 5 mg Ranitidine HCl (Zantac -) 150 mg PO HS SKIP Last Admin: 02/22/18 21:04 Dose: 150 mg Last Vital Signs Temp Pulse Resp BP Pulse Ox 98.2 F 81 18 123/61 100 02/23/18 10:00 02/23/18 10:00 02/23/18 10:00 02/23/18 10:00 02/23/18 09:00 CBC, BMP 02/23/18 06:50 02/23/18 06:50 IMP renal function improving continue tpn with adjustments
[2018-02-23] MEDS: SODIUM CHLORIDE 1,000 ML IV SCH (18:58)
[2018-02-23] MEDS: RANITIDINE HCL 150 MG TABLET (FP) PO SCH (21:17)
[2018-02-23] MEDS: FAT EMULSIONS 250 ML IV SCH (21:17)
[2018-02-24 07:30] LABS: HEMATOCRIT 20.8 % (35.4-49); HEMOGLOBIN 7.4 GM/dL (11.7-16.9); MCH 29.3 pg (25.7-33.7); MCHC 35.5 g/dl (32.0-35.9); MEAN CELL VOLUME 82.5 fl (80-96); MEAN PLT VOLUME 11.2 fl (7.5-11.1); PLATELET COUNT 134 K/MM3 (134-434); RBC 2.52 M/mm3 (4.00-5.60); RDW 20.4 % (11.9-15.9); WHITE BLOOD COUNT 6.1 K/mm3 (4.0-10.0)
[2018-02-24] MEDS: metoPROLOL SUCCINATE 25 MG TAB.SR.24H (FP) PO SCH ×2 (09:48→21:18)
--- NOTE | 2018-02-24 10:21 | PN ---
Progress Note (short form) - Note Progress Note: s: no cp sob palps dizzy o: Vital Signs Period Temp Pulse Resp BP Sys/Ortiz Pulse Ox Last 24 Hr 8.4 F-98.2 F 80-92 18-18 103-132/52-80 100 nad no jvd irreg s1s2 no mrg cta bl nl eff aaox3 no le e/c/c no jaudnice diaphoresis Current Medications Generic Name Dose Route Start Last Admin Trade Name Freq PRN Reason Stop Dose Admin Heparin Sodium (Porcine) 1,000 unit 02/20/18 17:30 Heparin - IVPUSH PRN PRN Heparin Heparin Sodium (Porcine) 5,000 unit 02/20/18 17:30 02/20/18 23:11 Heparin - IVPUSH 5,000 unit PRN PRN Administration Heparin Sodium Chloride 1,000 mls @ 200 mls/hr 02/20/18 13:02 02/23/18 18:58 Normal Saline - IV 200 mls/hr ASDIR SKIP Administration Heparin Sodium (Porcine) 25, 500 mls @ 16 mls/hr 02/20/18 17:30 02/23/18 17: 28 000 unit/ Sodium Chloride IV 1,100 unit/hr TITR SKIP 22 mls/hr Protocol Titration 800 UNIT/HR Fat Emulsion Intravenous 250 mls @ 20.833 mls/hr 02/21/18 22:00 02/23/18 21: 17 Intralipid - IV 20.833 mls/hr DAILY@2200 SKIP Administration Potassium Chloride 40 meq/ 2,000 mls @ 83.333 mls/hr 02/23/18 13:25 02/23/18 18:58 Calcium Gluconate 1,000 mg/ IVPB 83.333 mls/hr Multivitamins/Minerals 10 ml/ DAILY@1600 SKIP Administration Folic Acid 1 mg/ Magnesium Sulfate 2 gm/ Sterile Water/ Amino Acids/ Dextrose Loperamide HCl 4 mg 02/22/18 13:05 Imodium - PO Q8H PRN DIARRHEA Metoprolol Succinate 25 mg 02/21/18 22:00 02/24/18 09:48 Toprol Xl - PO 25 mg BID SKIP Administration Metoprolol Tartrate 5 mg 02/21/18 00:17 02/21/18 04:08 Lopressor Injection - IVPUSH 5 mg Q4H PRN Administration HYPERTENSION Ranitidine HCl 150 mg 02/19/18 22:00 02/23/18 21:17 Zantac - PO 150 mg HS SKIP Administration CBC, BMP 02/24/18 06:28 02/23/18 06:50 echo 08/2015: mod-sev dec lvef, mild lae, mod mr, mild tr, nl rvsp echo 01/2018: lvef 40-45, global hk, nl rv, no sig valve path ct chest: no chf tele: sr ecg: sr, nl intervals, no ischemic changes a/p: 62 m hx remote pe, afib, htn, syst chf, cad s/p remote pci here with pain in whole body. afib: -in sr now, cont bb -chadsvasc warrants ac, continue hep gtt, can change to eliquis when cr stabilizes htn: -controlled chronic syst chf: -no signs chf -continue bb -hold home ed given wilber -no vol overload at present cad: -no signs acs, no angina -cont bb, statin, ac wilber: -cont ivfs, improving
[2018-02-24] MEDS ORDERED: PT OWN MED DRAWER 7, Y5N ONE (11:22)
--- NOTE | 2018-02-24 16:33 | PN ---
Progress Note (short form) - Note Progress Note: Patient is doing better with no acute distress. Vital Signs Temperature 97.9 F 02/24/18 09:00 Pulse Rate 95 H 02/24/18 09:00 Respiratory Rate 18 02/24/18 09:00 Blood Pressure 110/62 02/24/18 09:00 O2 Sat by Pulse Oximetry (%) 100 02/24/18 09:00 GENERAL: The patient is awake, alert, and fully oriented, in no acute distress. HEAD: Normal with no signs of trauma. EYES: PERRL, extraocular movements intact, sclera anicteric, conjunctiva clear. ENT: Ears normal, oropharynx clear without exudates, moist mucous membranes. NECK: Trachea midline, full range of motion, supple. LUNGS: Breath sounds equal, clear to auscultation bilaterally, no wheezes, no crackles, no accessory muscle use. HEART: Regular rate and rhythm, S1, S2 without murmur, rub or gallop. ABDOMEN: Soft, nontender, nondistended, normoactive bowel sounds, no guarding, no rebound, no hepatosplenomegaly, no masses. EXTREMITIES: 2+ pulses, warm, well-perfused, no edema. positive for right arm PiCC line. R arm DVT by the PICC line NEUROLOGICAL: Cranial nerves II through XII grossly intact. Normal speech, gait not observed. PSYCH: Normal mood, normal affect. SKIN: Warm, dry, normal turgor, no rashes or lesions noted CBCD WBC 6.1 K/mm3 (4.0-10.0) 02/24/18 06:28 RBC 2.52 M/mm3 (4.00-5.60) L 02/24/18 06:28 Hgb 7.4 GM/dL (11.7-16.9) L 02/24/18 06:28 Hct 20.8 % (35.4-49) L 02/24/18 06:28 MCV 82.5 fl (80-96) 02/24/18 06:28 MCHC 35.5 g/dl (32.0-35.9) 02/24/18 06:28 RDW 20.4 % (11.9-15.9) H 02/24/18 06:28 Plt Count 134 K/MM3 (134-434) 02/24/18 06:28 MPV 11.2 fl (7.5-11.1) H 02/24/18 06:28 CMP Sodium 140 mmol/L (136-145) 02/23/18 06:50 Potassium 3.4 mmol/L (3.5-5.1) L 02/23/18 06:50 Chloride 108 mmol/L (98-107) H 02/23/18 06:50 Carbon Dioxide 23 mmol/L (21-32) 02/23/18 06:50 Anion Gap 9 (8-16) 02/23/18 06:50 BUN 35 mg/dL (7-18) H D 02/23/18 06:50 Creatinine 2.5 mg/dL (0.7-1.3) H 02/23/18 06:50 Creat Clearance w eGFR 18.97 (>60) 02/22/18 05:00 Random Glucose 76 mg/dL (74-106) D 02/23/18 06:50 Calcium 8.2 mg/dL (8.5-10.1) L 02/23/18 06:50 Total Bilirubin 0.6 mg/dL (0.2-1.0) D 02/22/18 05:00 AST 43 U/L (15-37) H 02/22/18 05:00 ALT 44 U/L (12-78) D 02/22/18 05:00 Alkaline Phosphatase 80 U/L (45-117) D 02/22/18 05:00 Total Protein 7.1 g/dl (6.4-8.2) 02/22/18 05:00 Albumin 2.7 g/dl (3.4-5.0) L 02/22/18 05:00 CARDIAC ENZYMES Creatine Kinase 474 IU/L (39-308) H 02/21/18 06:20 Troponin I 0.06 ng/ml (0.00-0.05) H D 02/21/18 00:50 Current Medications Generic Name Dose Route Start Last Admin Trade Name Freq PRN Reason Stop Dose Admin Heparin Sodium (Porcine) 1,000 unit 02/20/18 17:30 Heparin - IVPUSH PRN PRN Heparin Heparin Sodium (Porcine) 5,000 unit 02/20/18 17:30 02/20/18 23:11 Heparin - IVPUSH 5,000 unit PRN PRN Administration Heparin Heparin Sodium (Porcine) 25, 500 mls @ 16 mls/hr 02/20/18 17:30 02/23/18 17: 28 000 unit/ Sodium Chloride IV 1,100 unit/hr TITR SKIP 22 mls/hr Protocol Titration 800 UNIT/HR Fat Emulsion Intravenous 250 mls @ 20.833 mls/hr 02/21/18 22:00 02/23/18 21: 17 Intralipid - IV 20.833 mls/hr DAILY@2200 SKIP Administration Potassium Chloride 40 meq/ 2,000 mls @ 83.333 mls/hr 02/23/18 13:25 02/23/18 18:58 Calcium Gluconate 1,000 mg/ IVPB 83.333 mls/hr Multivitamins/Minerals 10 ml/ DAILY@1600 SKIP Administration Folic Acid 1 mg/ Magnesium Sulfate 2 gm/ Sterile Water/ Amino Acids/ Dextrose Dextrose 1,000 mls @ 75 mls/hr 02/24/18 16:30 D10w - IV ASDIR SKIP Loperamide HCl 4 mg 02/22/18 13:05 Imodium - PO Q8H PRN DIARRHEA Metoprolol Succinate 25 mg 02/21/18 22:00 02/24/18 09:48 Toprol Xl - PO 25 mg BID SKIP Administration Metoprolol Tartrate 5 mg 02/21/18 00:17 02/21/18 04:08 Lopressor Injection - IVPUSH 5 mg Q4H PRN Administration HYPERTENSION Ranitidine HCl 150 mg 02/19/18 22:00 02/23/18 21:17 Zantac - PO 150 mg HS SKIP Administration Home Medications Medication Instructions Recorded Gemfibrozil 600 mg PO BID 08/31/15 Lisinopril [Prinivil -] 2.5 mg PO DAILY 08/31/15 Spironolactone 25 mg PO DAILY 11/30/15 Aspirin 81 mg PO DAILY 02/19/18 Atenolol [Tenormin -] 50 mg PO DAILY 02/19/18 Atorvastatin Calcium 40 mg PO DAILY 02/19/18 Ranitidine HCl 150 mg PO HS 02/19/18 A/P: This is a 62 year old man with a history of HTN, atrial fib, mesenteric ischemia , 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 admitted with dehydration, SHARONDA, with high output from jejunostomy # Right arm DVT by the PICC line on Heparin drip continue , will hold TPN, since needs an access, will start the patient on IV D10W at 75cc/hr # History of mesenteric ischemia, bowel resection with ileostomy on heparin drip continue # Atrial fibrillation Toprol XL and heparin IV drip started # MERCEDES improving secondary to hypovolemia from high output ostomy , on IVF NS improving # Acute Hyponatremia improved post IVF # Acute Hypokalemia continue to replete with potassium # Short gut syndrome from bowel resection with high jejunostomy output, continue loperamide as per GI # Anemia, microcytic, Iron studies, B12 normal, Folate high, Stool occult blood negative # HTN continue meds # Nutrition on TPN continue Patient has a PICC for nutrition from another facility [facility] , developed swelling around the picc line, will order US of right upper extremity to r/o DVT. DVT Tx: on Heparin ggt continue PICC line will be removed in am and placed in the arm , ;vascular consult placed and discussed with Visit type - Emergency Visit Emergency Visit: Yes ED Registration Date: 02/19/18 Care time: The patient presented to the Emergency Department on the above date and was hospitalized for further evaluation of their emergent condition. - New Patient This patient is new to me today: No - Critical Care Critical Care patient: Yes Total Critical Care Time (in minutes): 35 Critical Care Statement: The care of this patient involved high complexity decision making to prevent further life threatening deterioration of the patient 's condition and/or to evaluate & treat vital organ system(s) failure or risk of failure. - Discharge Referral Referred to [facility] Med P.C.: No
[2018-02-24] MEDS: DEXTROSE 10%-WATER - 1,000 ML IV SCH (17:04)
--- NOTE | 2018-02-24 18:48 | PN ---
Progress Note (short form) - Note Progress Note: high output ostomy on TPN TPN on hold PICC line DVT Current Medications Heparin Sodium (Porcine) (Heparin -) 1,000 unit IVPUSH PRN PRN PRN Reason: Heparin Heparin Sodium (Porcine) (Heparin -) 5,000 unit IVPUSH PRN PRN PRN Reason: Heparin Last Admin: 02/20/18 23:11 Dose: 5,000 unit Heparin Sodium (Porcine) 25, (000 unit/ Sodium Chloride) 500 mls @ 16 mls/hr IV TITR SKIP; 800 UNIT/HR PRN Reason: Protocol Last Titration: 02/23/18 17:28 Dose: 1,100 unit/hr, 22 mls/hr Fat Emulsion Intravenous (Intralipid -) 250 mls @ 20.833 mls/hr IV DAILY@2200 SKIP Last Admin: 02/23/18 21:17 Dose: 20.833 mls/hr Potassium Chloride 40 meq/Calcium Gluconate 1,000 mg/Multivitamins/Minerals 10 ml/Folic Acid 1 mg/ Magnesium Sulfate 2 gm/ Sterile Water/Amino Acids/ Dextrose 2,000 mls @ 83.333 mls/hr IVPB DAILY@1600 SKIP Last Admin: 02/23/18 18:58 Dose: 83.333 mls/hr Dextrose (D10w -) 1,000 mls @ 75 mls/hr IV ASDIR [facility] Last Admin: 02/24/18 17:04 Dose: 75 mls/hr Loperamide HCl (Imodium -) 4 mg PO Q8H PRN PRN Reason: DIARRHEA Metoprolol Succinate (Toprol Xl -) 25 mg PO BID [facility] Last Admin: 02/24/18 09:48 Dose: 25 mg Metoprolol Tartrate (Lopressor Injection -) 5 mg IVPUSH Q4H PRN PRN Reason: HYPERTENSION Last Admin: 02/21/18 04:08 Dose: 5 mg Ranitidine HCl (Zantac -) 150 mg PO HS [facility] Last Admin: 02/23/18 21:17 Dose: 150 mg Last Vital Signs Temp Pulse Resp BP Pulse Ox 97.9 F 95 H 18 110/62 100 02/24/18 09:00 02/24/18 09:00 02/24/18 09:00 02/24/18 09:00 02/24/18 09:00 lungs clear Heart irreg Abd soft nontender, colostomy Ext no edema CBC, BMP 02/24/18 06:28 02/23/18 06:50 IMP high output ostomy s/p wilber -prerenal renal function improving RUE DVT Plan- monitor chems on IVF at risk of negative fluid balance and recurrence of wilber
[2018-02-24] MEDS: RANITIDINE HCL 150 MG TABLET (FP) PO SCH (21:18)
[2018-02-25 06:26] LABS: HEMATOCRIT 23.3 % (35.4-49); HEMOGLOBIN 8.2 GM/dL (11.7-16.9); MCH 29.1 pg (25.7-33.7); MCHC 35.2 g/dl (32.0-35.9); MEAN CELL VOLUME 82.9 fl (80-96); PLATELET COUNT 136 K/MM3 (134-434); RBC 2.81 M/mm3 (4.00-5.60); RDW 20.5 % (11.9-15.9); WHITE BLOOD COUNT 5.7 K/mm3 (4.0-10.0)
[2018-02-25] MEDS: HEPARIN - 25,000 UNIT in SODIUM CHLORIDE 495 ML IV SCH (07:28)
[2018-02-25 07:42] LABS: ANION GAP 6 (8-16); BLOOD UREA NITROGEN 19 mg/dL (7-18); CALCIUM 8.3 mg/dL (8.5-10.1); CHLORIDE 109 mmol/L (98-107); CO2 26 mmol/L (21-32); CREATININE 2.1 mg/dL (0.7-1.3); GLUCOSE,RANDOM 82 mg/dL (74-106); SODIUM 141 mmol/L (136-145)
[2018-02-25 07:45] LABS: POTASSIUM 2.8 mmol/L (3.5-5.1)
[2018-02-25] MEDS ORDERED: PICC LINE 8 ML FLUSH PROTOCOL IVPUSH PRN (08:03)
[2018-02-25] MEDS: POTASSIUM CHLORIDE 10 MEQ in SODIUM CHLORIDE 100 ML IVPB SCH ×3 (11:18→13:13)
[2018-02-25] MEDS: metoPROLOL SUCCINATE 25 MG TAB.SR.24H (FP) PO SCH ×2 (11:18→23:06)
[2018-02-25] MEDS: DEXTROSE 10%-WATER - 1,000 ML IV SCH (11:18)
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
--- NOTE | 2018-02-25 12:31 | PROC ---
Procedure Note Procedure: Patient had new LUE PICC line inserted. Patient needs RUE PICC to be removed. PICC line removed (#5 Fr with a length of 35, don't know what the starting length was as it wasn't placed here). --> end of PICC doesn't appear frayed + hemostasis Occlusive dressing applied. Patient tolerated procedure well.
--- NOTE | 2018-02-25 12:47 | PN ---
<Silvio Ayala - Last Filed: 02/25/18 18:47> Physical Exam: SUBJECTIVE: Patient seen and examined at bedside. No new complaints. OBJECTIVE: Vital Signs Period Temp Pulse Resp BP Sys/Ortiz Pulse Ox Last 24 Hr 97.7 F-98.8 F 78-90 18-20 100-118/58-73 98 GENERAL: The patient is awake, alert, and fully oriented, in no acute distress. NECK: Trachea midline, full range of motion, supple. LUNGS: Breath sounds equal, clear to auscultation bilaterally, no wheezes, no crackles, no accessory muscle use. HEART: Regular rate and rhythm, S1, S2 without murmur, rub or gallop. ABDOMEN: Soft, nontender, nondistended, normoactive bowel sounds, no guarding, no rebound, no hepatosplenomegaly, no masses. Ileostomy in place draining fluid. 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 NEUROLOGICAL: Cranial nerves II through X grossly intact. Normal speech, gait not observed. SKIN: Warm, dry, normal turgor, no rashes or lesions noted Laboratory Results - last 24 hr 02/24/18 02/25/18 02/25/18 16:33 06:10 06:10 WBC 5.7 RBC 2.81 L Hgb 8.2 L D Hct 23.3 L MCV 82.9 MCH 29.1 MCHC 35.2 RDW 20.5 H Plt Count 136 MPV 11.0 PTT (Actin FS) 64.2 H Sodium Potassium Chloride Carbon Dioxide Anion Gap BUN Creatinine POC Glucometer 88 Random Glucose Calcium 02/25/18 06:10 WBC RBC Hgb Hct MCV MCH MCHC RDW Plt Count MPV PTT (Actin FS) Sodium 141 Potassium 2.8 L* Chloride 109 H Carbon Dioxide 26 Anion Gap 6 L BUN 19 H D Creatinine 2.1 H POC Glucometer Random Glucose 82 Calcium 8.3 L Active Medications Generic Name Dose Route Start Last Admin Trade Name Freq PRN Reason Stop Dose Admin Heparin Sodium (Porcine) 1,000 unit 02/20/18 17:30 Heparin - IVPUSH PRN PRN Heparin Heparin Sodium (Porcine) 5,000 unit 02/20/18 17:30 02/20/18 23:11 Heparin - IVPUSH 5,000 unit PRN PRN Administration Heparin IV Flush 8 ml 02/25/18 08:03 Picc Line Flush IVPUSH PRN PRN Protocol Heparin Sodium (Porcine) 25, 500 mls @ 16 mls/hr 02/20/18 17:30 02/25/18 07: 28 000 unit/ Sodium Chloride IV 1,100 unit/hr TITR SKIP 22 mls/hr Protocol Administration 800 UNIT/HR Fat Emulsion Intravenous 250 mls @ 20.833 mls/hr 02/21/18 22:00 02/23/18 21: 17 Intralipid - IV 20.833 mls/hr DAILY@2200 SKIP Administration Potassium Chloride 40 meq/ 2,000 mls @ 83.333 mls/hr 02/23/18 13:25 02/23/18 18:58 Calcium Gluconate 1,000 mg/ IVPB 83.333 mls/hr Multivitamins/Minerals 10 ml/ DAILY@1600 SKIP Administration Folic Acid 1 mg/ Magnesium Sulfate 2 gm/ Sterile Water/ Amino Acids/ Dextrose Dextrose 1,000 mls @ 75 mls/hr 02/24/18 16:30 02/25/18 11:18 D10w - IV 75 mls/hr ASDIR SKIP Administration Potassium Chloride 10 meq/ 105 mls @ 100 mls/hr 02/25/18 10:00 02/25/18 12:11 Sodium Chloride IVPB 02/25/18 12:59 100 mls/hr Q60M SKIP Administration Loperamide HCl 4 mg 02/22/18 13:05 Imodium - PO Q8H PRN DIARRHEA Metoprolol Succinate 37.5 mg 02/25/18 11:46 Toprol Xl - PO BID SKIP Metoprolol Tartrate 5 mg 02/21/18 00:17 02/21/18 04:08 Lopressor Injection - IVPUSH 5 mg Q4H PRN Administration HYPERTENSION Ranitidine HCl 150 mg 02/19/18 22:00 02/24/18 21:18 Zantac - PO 150 mg HS SKIP Administration ASSESSMENT/PLAN: The patient is a 62yo Haitian speaking M with an unclear PMHx of HTN, SBO, Mesenteric ischemia s/p bowel resection and ostomy, Afib, HLD admitted for the treatment of acute renal failure #Unclear History; pt poor historian -Records from [facility] and [facility] currently being compiled; detailed history to follow -[facility] records show normal creatinine on discharge in October -spoke with Dr. Saeed's office staff. The patient has no outpatient records at his facility and the physician is out of the office for the next 2 weeks. -Called Dr. Rodriguez, IR radiologist at [facility] who replaced the patient' s PICC. -Patient was seen at the surgical oncology clinic at [facility] ([address]) on January 31 under the care of Dr. Maria Elena Mcdermott ([phone]) and Dr. Ivet Jesus (resident). -Patient was being advanced from NPO to clear liquids at this time and was scheduled to follow up in one week to evaluate tolerance. -placed a call to Dr. Mcdermott to discuss the case, MD will be in the office tomorrow, will call back. #Acute Renal Failure likely 2/2 Volume depletion 2/2 high output ostomy -BUN/Creatinine improved today; 19/ 2.1 -Nephro onboard; Dr. Arreola -TRUDI positive -total complement elevated -NS @ 200 -Loperamide effective, Patient net fluid loss less today. -GI consult #Hyponatremia -Patient persistently hypokalemic despite aggressive repletion -s/p multiple runs of 30meq KCL IV -supplementing K+ in TPN -will monitor #SBO -pt w/ Hx of SBO and multiple abdominal sx -CT abdomen showing partial obstruction. -Surgical consult: no surgical intervention at this time; ostomy not amenable to closure -patient not exhibiting signs of SBO at this time. # Microcytic Anemia possibly 2/2 renal dysfxn r/o MM or nutritional cause -f/u iron studies -FOBT negative -B12 WNL, folate high -Hb stable. #HTN -holding home antihypertensives as patient w/ low BP #Afib -NSR overnight -Cardio consult -c/w toprolol 25 BID -c/w heparin gtt -Due to patient's high output fistula, PO AC is not an effective choice. Will restart the patient on Lovenox upon discharge #SIRS- resolved -Per ID, unlikely to be infectious in nature -holding ABX for now # Atypical CP- resolved; possibly 2/2 run of Afib -no further episodes -Continue ASA # Euvoleimic Hyponatremia likely 2/2 ARF- resolved # Transaminitis possibly related to renal dysfunction- resolved # Elevated CK possibly 2/2 renal dysfunction- resolved #FEN -NS @200 -monitor lytes closely -trial of soft diet; patient on TPN. #prophy -HSQ 5ku TID # Dispo -admit tele Visit type - Emergency Visit Emergency Visit: Yes ED Registration Date: 02/19/18 Care time: The patient presented to the Emergency Department on the above date and was hospitalized for further evaluation of their emergent condition. - New Patient This patient is new to me today: No - Critical Care Critical Care patient: No <Jules Roche - Last Filed: 02/25/18 20:11> Physical Exam: New PICC line in the left arm was inserted by IR 02/25/2018 . for TPN use. Continue Heparin drip. Vital Signs Temperature 98.3 F 02/25/18 18:03 Pulse Rate 88 02/25/18 18:03 Respiratory Rate 20 02/25/18 18:03 Blood Pressure 116/74 02/25/18 18:03 O2 Sat by Pulse Oximetry (%) 100 02/25/18 09:00 CBCD WBC 5.7 K/mm3 (4.0-10.0) 02/25/18 06:10 RBC 2.81 M/mm3 (4.00-5.60) L 02/25/18 06:10 Hgb 8.2 GM/dL (11.7-16.9) L D 02/25/18 06:10 Hct 23.3 % (35.4-49) L 02/25/18 06:10 MCV 82.9 fl (80-96) 02/25/18 06:10 MCHC 35.2 g/dl (32.0-35.9) 02/25/18 06:10 RDW 20.5 % (11.9-15.9) H 02/25/18 06:10 Plt Count 136 K/MM3 (134-434) 02/25/18 06:10 MPV 11.0 fl (7.5-11.1) 02/25/18 06:10 CMP Sodium 141 mmol/L (136-145) 02/25/18 06:10 Potassium 2.8 mmol/L (3.5-5.1) L* 02/25/18 06:10 Chloride 109 mmol/L (98-107) H 02/25/18 06:10 Carbon Dioxide 26 mmol/L (21-32) 02/25/18 06:10 Anion Gap 6 (8-16) L 02/25/18 06:10 BUN 19 mg/dL (7-18) H D 02/25/18 06:10 Creatinine 2.1 mg/dL (0.7-1.3) H 02/25/18 06:10 Creat Clearance w eGFR 18.97 (>60) 02/22/18 05:00 Random Glucose 82 mg/dL (74-106) 02/25/18 06:10 Calcium 8.3 mg/dL (8.5-10.1) L 02/25/18 06:10 Total Bilirubin 0.6 mg/dL (0.2-1.0) D 02/22/18 05:00 AST 43 U/L (15-37) H 02/22/18 05:00 ALT 44 U/L (12-78) D 02/22/18 05:00 Alkaline Phosphatase 80 U/L (45-117) D 02/22/18 05:00 Total Protein 7.1 g/dl (6.4-8.2) 02/22/18 05:00 Albumin 2.7 g/dl (3.4-5.0) L 02/22/18 05:00 CARDIAC ENZYMES Creatine Kinase 474 IU/L (39-308) H 02/21/18 06:20 Troponin I 0.06 ng/ml (0.00-0.05) H D 02/21/18 00:50 Current Medications Generic Name Dose Route Start Last Admin Trade Name Freq PRN Reason Stop Dose Admin Heparin Sodium (Porcine) 1,000 unit 02/20/18 17:30 Heparin - IVPUSH PRN PRN Heparin Heparin Sodium (Porcine) 5,000 unit 02/20/18 17:30 02/20/18 23:11 Heparin - IVPUSH 5,000 unit PRN PRN Administration Heparin IV Flush 8 ml 02/25/18 08:03 Picc Line Flush IVPUSH PRN PRN Protocol Heparin Sodium (Porcine) 25, 500 mls @ 16 mls/hr 02/20/18 17:30 02/25/18 07: 28 000 unit/ Sodium Chloride IV 1,100 unit/hr TITR SKIP 22 mls/hr Protocol Administration 800 UNIT/HR Fat Emulsion Intravenous 250 mls @ 20.833 mls/hr 02/21/18 22:00 02/23/18 21: 17 Intralipid - IV 20.833 mls/hr DAILY@2200 SKIP Administration Potassium Chloride 45 meq/ 2,000 mls @ 83.333 mls/hr 02/25/18 16:00 02/25/18 17:54 Calcium Gluconate 1,000 mg/ IVPB 83.333 mls/hr Multivitamins/Minerals 10 ml/ DAILY@1600 [facility] Administration Folic Acid 1 mg/ Magnesium Sulfate 2 gm/ Potassium Phosphate 15 mm/ Sterile Water / Amino Acids/ Dextrose Loperamide HCl 4 mg 02/22/18 13:05 Imodium - PO Q8H PRN DIARRHEA Metoprolol Succinate 37.5 mg 02/25/18 11:46 Toprol Xl - PO BID [facility] Metoprolol Tartrate 5 mg 02/21/18 00:17 02/21/18 04:08 Lopressor Injection - IVPUSH 5 mg Q4H PRN Administration HYPERTENSION Ranitidine HCl 150 mg 02/19/18 22:00 02/24/18 21:18 Zantac - PO 150 mg HS [facility] Administration Home Medications Medication Instructions Recorded Gemfibrozil 600 mg PO BID 08/31/15 Lisinopril [Prinivil -] 2.5 mg PO DAILY 08/31/15 Spironolactone 25 mg PO DAILY 11/30/15 Aspirin 81 mg PO DAILY 02/19/18 Atenolol [Tenormin -] 50 mg PO DAILY 02/19/18 Atorvastatin Calcium 40 mg PO DAILY 02/19/18 Ranitidine HCl 150 mg PO HS 02/19/18
[2018-02-25] MEDS ORDERED: POTASSIUM CHLORIDE IVPB SCH (16:00)
[2018-02-25] MEDS ORDERED: [UNRECOGNIZED DRUG - OTHER] IVPB SCH (16:00)
[2018-02-25] MEDS ORDERED: CALCIUM GLUCONATE IVPB SCH (16:00)
--- NOTE | 2018-02-25 18:02 | PN ---
Progress Note (short form) - Note Progress Note: Renal follow up for SHARONDA Pt seen and examined at the bedside no acute complaints continues to have liquid output via ostomy no sob, chest pain, abd pain on IVF and TPN getting IV KCL Vital Signs Temperature 98.7 F 02/25/18 14:00 Pulse Rate 80 02/25/18 14:00 Respiratory Rate 20 02/25/18 14:00 Blood Pressure 119/77 02/25/18 14:00 O2 Sat by Pulse Oximetry (%) 98 02/24/18 21:00 Intake & Output 02/22/18 02/23/18 02/24/18 02/25/18 23:59 23:59 23:59 23:59 Intake Total 99788 9156 6633 2013 Output Total 07621 4000 2500 4100 Balance -108 5126 4135 -2086 NAD awake and alert RRR, NO M/R CTA soft NT, + ostomy NO LE edema, clubbing or cyanosis CBC, BMP 02/25/18 06:10 02/25/18 06:10 Current Medications Heparin Sodium (Porcine) (Heparin -) 1,000 unit IVPUSH PRN PRN PRN Reason: Heparin Heparin Sodium (Porcine) (Heparin -) 5,000 unit IVPUSH PRN PRN PRN Reason: Heparin Last Admin: 02/20/18 23:11 Dose: 5,000 unit IV Flush (Picc Line Flush) 8 ml IVPUSH PRN PRN PRN Reason: Protocol Heparin Sodium (Porcine) 25, (000 unit/ Sodium Chloride) 500 mls @ 16 mls/hr IV TITR SKIP; 800 UNIT/HR PRN Reason: Protocol Last Admin: 02/25/18 07:28 Dose: 1,100 unit/hr, 22 mls/hr Fat Emulsion Intravenous (Intralipid -) 250 mls @ 20.833 mls/hr IV DAILY@2200 SKIP Last Admin: 02/23/18 21:17 Dose: 20.833 mls/hr Potassium Chloride 45 meq/Calcium Gluconate 1,000 mg/Multivitamins/Minerals 10 ml/Folic Acid 1 mg/ Magnesium Sulfate 2 gm/ Potassium Phosphate 15 mm/ Sterile Water / Amino Acids/ Dextrose 2,000 mls @ 83.333 mls/hr IVPB DAILY@1600 [facility] Last Admin: 02/25/18 17:54 Dose: 83.333 mls/hr Loperamide HCl (Imodium -) 4 mg PO Q8H PRN PRN Reason: DIARRHEA Metoprolol Succinate (Toprol Xl -) 37.5 mg PO BID SKIP Metoprolol Tartrate (Lopressor Injection -) 5 mg IVPUSH Q4H PRN PRN Reason: HYPERTENSION Last Admin: 02/21/18 04:08 Dose: 5 mg Ranitidine HCl (Zantac -) 150 mg PO HS SKIP Last Admin: 02/24/18 21:18 Dose: 150 mg 62 year old gentleman with PMhx of SBO s/o bowel resection with illeostomy, hypertension, hyperlipidemia who presented with chest and abd pain and found to have SHARONDA. #Acute Renal Failure secondary to volume depletion in setting of high output ostomy #Hypovolemic Hyponatremia (now resolved) #Anemia #Leukocytosis #Diarrhea/High output ostomy Renal function with marked improvement continue TPN with increased K oral water intake as tolerated replete K with KCL IVPB, repeat BMP in the evening Trend CBC, transfuse as per primary GI and Surgical follow up Randell Arreola DO
[2018-02-25] MEDS: RANITIDINE HCL 150 MG TABLET (FP) PO SCH (23:06)
[2018-02-25] MEDS: FAT EMULSIONS 250 ML IV SCH (23:08)
[2018-02-26] MEDS ORDERED: POTASSIUM CHLORIDE 10 MEQ in SODIUM CHLORIDE 100 ML IVPB ONE (01:30)
[2018-02-26] MEDS: metoPROLOL SUCCINATE 25 MG TAB.SR.24H (FP) PO SCH ×2 (08:10→10:15)
[2018-02-26 08:37] LABS: HEMATOCRIT 25.9 % (35.4-49); HEMOGLOBIN 9.3 GM/dL (11.7-16.9); MCH 29.6 pg (25.7-33.7); MCHC 35.8 g/dl (32.0-35.9); MEAN CELL VOLUME 82.8 fl (80-96); MEAN PLT VOLUME 11.4 fl (7.5-11.1); PLATELET COUNT 179 K/MM3 (134-434); RBC 3.12 M/mm3 (4.00-5.60); RDW 20.7 % (11.9-15.9); WHITE BLOOD COUNT 6.7 K/mm3 (4.0-10.0)
[2018-02-26 09:15] LABS: ANION GAP 9 (8-16); BLOOD UREA NITROGEN 24 mg/dL (7-18); CHLORIDE 101 mmol/L (98-107); CO2 26 mmol/L (21-32); CREATININE 2.5 mg/dL (0.7-1.3); GLUCOSE,RANDOM 102 mg/dL (74-106); SODIUM 136 mmol/L (136-145)
[2018-02-26] MEDS: HEPARIN - 25,000 UNIT in SODIUM CHLORIDE 495 ML IV SCH (09:28)
--- NOTE | 2018-02-26 10:10 | PN ---
Physical Exam: SUBJECTIVE: Patient seen and examined at bedside. No new complaints. Had runs of Afib w/ RVR this AM controlled with his scheduled dose of Lopressor. OBJECTIVE: Vital Signs Period Temp Pulse Resp BP Sys/Ortiz Pulse Ox Last 24 Hr 98.0 F-98.7 F 80-95 20-20 99-122/54-77 100 GENERAL: The patient is awake, alert, and fully oriented, in no acute distress. NECK: Trachea midline, full range of motion, supple. LUNGS: Breath sounds equal, clear to auscultation bilaterally, no wheezes, no crackles, no accessory muscle use. HEART: Regular rate and rhythm, S1, S2 without murmur, rub or gallop. ABDOMEN: Soft, nontender, nondistended, normoactive bowel sounds, no guarding, no rebound, no hepatosplenomegaly, no masses. Ileostomy in place draining fluid. 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 NEUROLOGICAL: Cranial nerves II through X grossly intact. Normal speech, gait not observed. SKIN: Warm, dry, normal turgor, no rashes or lesions noted Laboratory Results - last 24 hr 02/26/18 02/26/18 02/26/18 06:35 06:35 06:35 WBC 6.7 RBC 3.12 L Hgb 9.3 L D Hct 25.9 L MCV 82.8 MCH 29.6 MCHC 35.8 RDW 20.7 H Plt Count 179 D MPV 11.4 H PTT (Actin FS) 55.7 H Sodium 136 Potassium 3.0 L Chloride 101 Carbon Dioxide 26 Anion Gap 9 BUN 24 H D Creatinine 2.5 H Random Glucose 102 D Calcium 9.0 Active Medications Generic Name Dose Route Start Last Admin Trade Name Freq PRN Reason Stop Dose Admin Heparin Sodium (Porcine) 1,000 unit 02/20/18 17:30 Heparin - IVPUSH PRN PRN Heparin Heparin Sodium (Porcine) 5,000 unit 02/20/18 17:30 02/20/18 23:11 Heparin - IVPUSH 5,000 unit PRN PRN Administration Heparin IV Flush 8 ml 02/25/18 08:03 Picc Line Flush IVPUSH PRN PRN Protocol Heparin Sodium (Porcine) 25, 500 mls @ 16 mls/hr 02/20/18 17:30 02/26/18 09: 28 000 unit/ Sodium Chloride IV 1,100 unit/hr TITR SKIP 22 mls/hr Protocol Administration 800 UNIT/HR Fat Emulsion Intravenous 250 mls @ 20.833 mls/hr 02/21/18 22:00 02/25/18 23: 08 Intralipid - IV 20.833 mls/hr DAILY@2200 SKIP Administration Potassium Chloride 45 meq/ 2,000 mls @ 83.333 mls/hr 02/25/18 16:00 02/25/18 17:54 Calcium Gluconate 1,000 mg/ IVPB 83.333 mls/hr Multivitamins/Minerals 10 ml/ DAILY@1600 SKIP Administration Folic Acid 1 mg/ Magnesium Sulfate 2 gm/ Potassium Phosphate 15 mm/ Sterile Water / Amino Acids/ Dextrose Loperamide HCl 4 mg 02/22/18 13:05 Imodium - PO Q8H PRN DIARRHEA Metoprolol Succinate 37.5 mg 02/25/18 11:46 02/26/18 08:10 Toprol Xl - PO 37.5 mg BID SKIP Administration Metoprolol Tartrate 5 mg 02/21/18 00:17 02/21/18 04:08 Lopressor Injection - IVPUSH 5 mg Q4H PRN Administration HYPERTENSION Ranitidine HCl 150 mg 02/19/18 22:00 02/25/18 23:06 Zantac - PO 150 mg HS SKPI Administration ASSESSMENT/PLAN: The patient is a 62yo Nepali speaking M with an unclear PMHx of HTN, SBO, Mesenteric ischemia s/p bowel resection and ostomy, Afib, HLD admitted for the treatment of acute renal failure #Unclear History; pt poor historian -Records from [facility] and [facility] currently being compiled; detailed history to follow -[facility] records show normal creatinine on discharge in October -spoke with Dr. Saeed's office staff. The patient has no outpatient records at his facility and the physician is out of the office for the next 2 weeks. -Called Dr. Rodriguez, IR radiologist at [facility] who replaced the patient' s PICC. -Patient was seen at the surgical oncology clinic at [facility] ([address]) on January 31 under the care of Dr. Maria Elena Mcdermott ([phone]) and Dr. Ivet Jesus (resident). -Patient was being advanced from NPO to clear liquids at this time and was scheduled to follow up in one week to evaluate tolerance. -placed call #[address] Mcdermott to discuss the case, out of the office today , will call back. #Acute Renal Failure likely 2/2 Volume depletion 2/2 high output ostomy -BUN/Creatinine stable today; 24/ 2.5 -Nephro onboard; Dr. Arreola -fluids d/c, encouraged oral rehydration -Patient net fluid loss less today. -loperamide 4mg BID SKIP -GI consult #Hyponatremia -Patient persistently hypokalemic despite aggressive repletion -s/p multiple runs of 30meq KCL IV -supplementing K+ in TPN -will monitor #SBO -pt w/ Hx of SBO and multiple abdominal sx -CT abdomen showing partial obstruction. -Surgical consult: no surgical intervention at this time; ostomy not amenable to closure -patient not exhibiting signs of SBO at this time. # Microcytic Anemia possibly 2/2 renal dysfxn r/o MM or nutritional cause -f/u iron studies -FOBT negative -B12 WNL, folate high -Hb stable. #HTN -holding home antihypertensives as patient w/ low BP #Afib -NSR overnight -Cardio consult -c/w toprolol 25 BID -c/w heparin gtt -Due to patient's high output fistula, PO AC is not an effective choice. Will restart the patient on Lovenox upon discharge #SIRS- resolved -Per ID, unlikely to be infectious in nature -holding ABX for now # Atypical CP- resolved; possibly 2/2 run of Afib -no further episodes -Continue ASA # Euvoleimic Hyponatremia likely 2/2 ARF- resolved # Transaminitis possibly related to renal dysfunction- resolved # Elevated CK possibly 2/2 renal dysfunction- resolved #FEN -no fluids indicated at this time. -monitor lytes closely -trial of soft diet; patient on TPN. #prophy -HSQ 5ku TID # Dispo -admit tele Visit type - Emergency Visit Emergency Visit: Yes ED Registration Date: 02/19/18 Care time: The patient presented to the Emergency Department on the above date and was hospitalized for further evaluation of their emergent condition. - New Patient This patient is new to me today: No - Critical Care Critical Care patient: No
[2018-02-26] MEDS ORDERED: SODIUM CHLORIDE 1,000 ML IV STA (10:59)
[2018-02-26] MEDS: SODIUM CHLORIDE 1,000 ML IV SCH (12:33)
[2018-02-26 13:01] LABS: MAGNESIUM 1.5 mg/dL (1.8-2.4)
[2018-02-26] MEDS ORDERED: MAGNESIUM 1GM/D5W 100ML - 100 ML IVPB IVPB ONE (13:34)
[2018-02-26] MEDS ORDERED: LOPERAMIDE HCL 2 MG CAPSULE PO SCH (14:00)
--- NOTE | 2018-02-26 14:48 | PN ---
Progress Note, Physician History of Present Illness: Patient is a 62 year old black male (b. [place]) wiht a PMH of SBO ( 2016 w/colostomy) AFib, CAD, DVT, HTN, HLD, COPD ("mild" by CT chest), presents to ED c/o acute onset of pain B/L UE and across his chest. Pain is intermittent, 10/10 and lasts for 2-3 minutes without any identifiable triggering or relieving factors. Patient denies any previous h/o similar pain. Patient denies fever/chills, nausea/vomiting, dysuria/hematuria, numbness/ tingling or AMS or visual changes. As per EMR patient evaluated at our facility in 2015 at which time he had an ex lap for SBO. - Current Medication List Current Medications: Active Medications Heparin Sodium (Porcine) (Heparin -) 1,000 unit IVPUSH PRN PRN PRN Reason: Heparin Heparin Sodium (Porcine) (Heparin -) 5,000 unit IVPUSH PRN PRN PRN Reason: Heparin Last Admin: 02/20/18 23:11 Dose: 5,000 unit IV Flush (Picc Line Flush) 8 ml IVPUSH PRN PRN PRN Reason: Protocol Heparin Sodium (Porcine) 25, (000 unit/ Sodium Chloride) 500 mls @ 16 mls/hr IV TITR SKIP; 800 UNIT/HR PRN Reason: Protocol Last Admin: 02/26/18 09:28 Dose: 1,100 unit/hr, 22 mls/hr Fat Emulsion Intravenous (Intralipid -) 250 mls @ 20.833 mls/hr IV DAILY@2200 [facility] Last Admin: 02/25/18 23:08 Dose: 20.833 mls/hr Potassium Chloride 45 meq/Calcium Gluconate 1,000 mg/Multivitamins/Minerals 10 ml/Folic Acid 1 mg/ Magnesium Sulfate 2 gm/ Potassium Phosphate 15 mm/ Sterile Water / Amino Acids/ Dextrose 2,000 mls @ 83.333 mls/hr IVPB DAILY@1600 [facility] Last Admin: 02/25/18 17:54 Dose: 83.333 mls/hr Sodium Chloride (Normal Saline -) 1,000 mls @ 83 mls/hr IV ASDIR [facility] Last Admin: 02/26/18 12:33 Dose: 83 mls/hr Loperamide HCl (Imodium -) 4 mg PO BID [facility] Metoprolol Succinate (Toprol Xl -) 37.5 mg PO BID [facility] Last Admin: 02/26/18 10:15 Dose: Not Given Metoprolol Tartrate (Lopressor Injection -) 5 mg IVPUSH Q4H PRN PRN Reason: HYPERTENSION Last Admin: 02/21/18 04:08 Dose: 5 mg Ranitidine HCl (Zantac -) 150 mg PO HS [facility] Last Admin: 02/25/18 23:06 Dose: 150 mg - Objective Vital Signs: Vital Signs Temperature 98.7 F 02/26/18 10:00 Pulse Rate 128 H 02/26/18 10:00 Respiratory Rate 20 02/26/18 10:00 Blood Pressure 138/58 02/26/18 10:00 O2 Sat by Pulse Oximetry (%) 100 02/26/18 09:00 Constitutional: Yes: Calm Eyes: Yes: WNL HENT: Yes: WNL Neck: Yes: WNL Cardiovascular: Yes: Tachycardia ...Rectal Exam: Yes: Deferred Genitourinary: No: Anuria Labs: CBC, BMP 02/26/18 06:35 02/26/18 06:35 INR, PTT INR 1.02 (0.82-1.09) 02/20/18 19:00 Problem List - Problems (1) Renal insufficiency Code(s): N28.9 - DISORDER OF KIDNEY AND URETER, UNSPECIFIED (2) Atrial fibrillation Assessment/Plan: Increase metoprolol to 50 mg bid; f/u HR and BP. Pt with moderately reduced LVEF; unable to start ACEI, ARB, or RAAS due to renal dysfunction and volume instability. If renal /volume status does not improve, consider starting hydralazine + isordil for systolic CHF. Code(s): I48.91 - UNSPECIFIED ATRIAL FIBRILLATION Qualifiers: Atrial fibrillation type: paroxysmal Qualified Code(s): I48.0 - Paroxysmal atrial fibrillation (3) CAD (coronary artery disease) Assessment/Plan: Pt with multiple CAD risks. Coronary artery evaluation (stress MIBI) if not done recently, once present status improves; this may be done as an outpationt. Code(s): I25.10 - ATHSCL HEART DISEASE OF [place] CORONARY ARTERY W/O ANG PCTRS Qualifiers: Coronary Disease-Associated Artery/Lesion type: [place] artery [place] vs. transplanted heart: [place] heart Associated angina: angina presence unspecified Qualified Code(s): I25.10 - Atherosclerotic heart disease of [place] coronary artery without angina pectoris (4) Hyperlipidemia Code(s): E78.5 - HYPERLIPIDEMIA, UNSPECIFIED Qualifiers: Hyperlipidemia type: unspecified Qualified Code(s): E78.5 - Hyperlipidemia , unspecified (5) Hypertension Code(s): I10 - ESSENTIAL (PRIMARY) HYPERTENSION Qualifiers: Hypertension type: essential hypertension Qualified Code(s): I10 - Essential (primary) hypertension (6) Chronic combined systolic and diastolic heart failure Code(s): I50.42 - CHRONIC COMBINED SYSTOLIC AND DIASTOLIC HRT FAIL
[2018-02-26] MEDS ORDERED: metoPROLOL SUCCINATE 25 MG TAB.SR.24H (FP) PO ONE (15:00)
[2018-02-26] MEDS: LOPERAMIDE HCL 2 MG CAPSULE PO SCH ×2 (15:37→22:37)
[2018-02-26] MEDS: MAGNESIUM 1GM/D5W - 1 GM/100 ML IVPB IVPB SCH ×2 (15:37→18:04)
--- NOTE | 2018-02-26 16:49 | PN ---
Teaching Attending Note Name of Resident: Silvio Ayala ATTENDING PHYSICIAN STATEMENT I saw and evaluated the patient. I reviewed the resident's note and discussed the case with the resident. I agree with the resident's findings and plan as documented. SUBJECTIVE: Patient feels better today. OBJECTIVE: Vital Signs Temperature 98.7 F 02/26/18 10:00 Pulse Rate 128 H 02/26/18 10:00 Respiratory Rate 20 02/26/18 10:00 Blood Pressure 138/58 02/26/18 10:00 O2 Sat by Pulse Oximetry (%) 100 02/26/18 09:00 GENERAL: The patient is awake, alert, and fully oriented, in no acute distress. HEAD: Normal with no signs of trauma. EYES: PERRL, extraocular movements intact, sclera anicteric, conjunctiva clear. ENT: Ears normal, oropharynx clear without exudates, moist mucous membranes. NECK: Trachea midline, full range of motion, supple. LUNGS: Breath sounds equal, clear to auscultation bilaterally, no wheezes, no crackles, no accessory muscle use. HEART: Regular rate and rhythm, S1, S2 without murmur, rub or gallop. ABDOMEN: Soft, nontender, nondistended, normoactive bowel sounds, no guarding, no rebound, no hepatosplenomegaly, no masses. EXTREMITIES: 2+ pulses, warm, well-perfused, no edema. positive for right arm PiCC line. R arm DVT by the PICC line NEUROLOGICAL: Cranial nerves II through XII grossly intact. Normal speech, gait not observed. PSYCH: Normal mood, normal affect. SKIN: Warm, dry, normal turgor, no rashes or lesions noted CBCD WBC 6.7 K/mm3 (4.0-10.0) 02/26/18 06:35 RBC 3.12 M/mm3 (4.00-5.60) L 02/26/18 06:35 Hgb 9.3 GM/dL (11.7-16.9) L D 02/26/18 06:35 Hct 25.9 % (35.4-49) L 02/26/18 06:35 MCV 82.8 fl (80-96) 02/26/18 06:35 MCHC 35.8 g/dl (32.0-35.9) 02/26/18 06:35 RDW 20.7 % (11.9-15.9) H 02/26/18 06:35 Plt Count 179 K/MM3 (134-434) D 02/26/18 06:35 MPV 11.4 fl (7.5-11.1) H 02/26/18 06:35 CMP Sodium 136 mmol/L (136-145) 02/26/18 06:35 Potassium 3.0 mmol/L (3.5-5.1) L 02/26/18 06:35 Chloride 101 mmol/L (98-107) 02/26/18 06:35 Carbon Dioxide 26 mmol/L (21-32) 02/26/18 06:35 Anion Gap 9 (8-16) 02/26/18 06:35 BUN 24 mg/dL (7-18) H D 02/26/18 06:35 Creatinine 2.5 mg/dL (0.7-1.3) H 02/26/18 06:35 Creat Clearance w eGFR 18.97 (>60) 02/22/18 05:00 Random Glucose 102 mg/dL (74-106) D 02/26/18 06:35 Calcium 9.0 mg/dL (8.5-10.1) 02/26/18 06:35 Total Bilirubin 0.6 mg/dL (0.2-1.0) D 02/22/18 05:00 AST 43 U/L (15-37) H 02/22/18 05:00 ALT 44 U/L (12-78) D 02/22/18 05:00 Alkaline Phosphatase 80 U/L (45-117) D 02/22/18 05:00 Total Protein 7.1 g/dl (6.4-8.2) 02/22/18 05:00 Albumin 2.7 g/dl (3.4-5.0) L 02/22/18 05:00 CARDIAC ENZYMES Creatine Kinase 474 IU/L (39-308) H 02/21/18 06:20 Troponin I 0.06 ng/ml (0.00-0.05) H D 02/21/18 00:50 Current Medications Generic Name Dose Route Start Last Admin Trade Name Freq PRN Reason Stop Dose Admin Heparin Sodium (Porcine) 1,000 unit 02/20/18 17:30 Heparin - IVPUSH PRN PRN Heparin Heparin Sodium (Porcine) 5,000 unit 02/20/18 17:30 02/20/18 23:11 Heparin - IVPUSH 5,000 unit PRN PRN Administration Heparin IV Flush 8 ml 02/25/18 08:03 Picc Line Flush IVPUSH PRN PRN Protocol Heparin Sodium (Porcine) 25, 500 mls @ 16 mls/hr 02/20/18 17:30 02/26/18 09: 28 000 unit/ Sodium Chloride IV 1,100 unit/hr TITR SKIP 22 mls/hr Protocol Administration 800 UNIT/HR Fat Emulsion Intravenous 250 mls @ 20.833 mls/hr 02/21/18 22:00 02/25/18 23: 08 Intralipid - IV 20.833 mls/hr DAILY@2200 SKIP Administration Sodium Chloride 1,000 mls @ 83 mls/hr 02/26/18 12:00 02/26/18 12:33 Normal Saline - IV 83 mls/hr ASDIR SKIP Administration Magnesium Sulfate/Dextrose 1 gm in 100 mls @ 100 mls/hr 02/26/18 15:13 15:37 Magnesium 1gm/D5w - IVPB 02/26/18 17:12 100 mls/hr Q1H SKIP Administration Potassium Chloride 60 meq/ 2,000 mls @ 83.333 mls/hr 02/26/18 16:00 Calcium Gluconate 1,000 mg/ IVPB Multivitamins/Minerals 10 ml/ DAILY@1600 SKIP Folic Acid 1 mg/ Magnesium Sulfate 2 gm/ Potassium Phosphate 15 mm/ Sterile Water / Amino Acids/ Dextrose Loperamide HCl 4 mg 02/26/18 14:45 02/26/18 15:37 Imodium - PO 4 mg BID SKIP Administration Metoprolol Succinate 50 mg 02/26/18 22:00 Toprol Xl - PO BID SKIP Metoprolol Tartrate 5 mg 02/21/18 00:17 02/21/18 04:08 Lopressor Injection - IVPUSH 5 mg Q4H PRN Administration HYPERTENSION Ranitidine HCl 150 mg 02/19/18 22:00 02/25/18 23:06 Zantac - PO 150 mg HS SKIP Administration Home Medications Medication Instructions Recorded Gemfibrozil 600 mg PO BID 08/31/15 Lisinopril [Prinivil -] 2.5 mg PO DAILY 08/31/15 Spironolactone 25 mg PO DAILY 11/30/15 Aspirin 81 mg PO DAILY 02/19/18 Atenolol [Tenormin -] 50 mg PO DAILY 02/19/18 Atorvastatin Calcium 40 mg PO DAILY 02/19/18 Ranitidine HCl 150 mg PO HS 02/19/18 ASSESSMENT AND PLAN: This is a 62 year old man with a history of HTN, atrial fib, mesenteric ischemia , 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 # History of mesenteric ischemia, bowel resection with ileostomy on heparin drip continue # Atrial fibrillation Toprol XL and heparin IV drip started # MERCEDES worse today since the IVF was on hold, since had access. Patient has a second Picc line placement for hypovolemia (patient had a high output ostomy ), on IVF NS improving # Acute Hyponatremia improving , patient was on D10 yesterday since had no access , continue IVF # Acute Hypokalemia replet in TPN # Short gut syndrome from bowel resection with high jejunostomy output, continue loperamide as per GI # Anemia, microcytic, Iron studies, B12 normal, Folate high, Stool occult blood negative # HTN continue meds # Nutrition on TPN continue Patient has a PICC for nutrition from another facility [facility] , developed swelling around the picc line, US positive for DVT around the picc line therefore continue heparin DVT Tx: on Heparin ggt continue
[2018-02-26] MEDS: CALCIUM GLUCONATE IVPB SCH (17:11)
[2018-02-26] MEDS: POTASSIUM CHLORIDE IVPB SCH (17:11)
[2018-02-26] MEDS: [UNRECOGNIZED DRUG - OTHER] IVPB SCH (17:11)
--- NOTE | 2018-02-26 17:49 | PN ---
Progress Note (short form) - Note Progress Note: Renal follow up for SHARONDA Pt seen and examined at the bedside awake and alert no acute complaints making urine continues to have large output from ostomy no abd pain on TPN Vital Signs Temperature 98.7 F 02/26/18 10:00 Pulse Rate 128 H 02/26/18 10:00 Respiratory Rate 20 02/26/18 10:00 Blood Pressure 138/58 02/26/18 10:00 O2 Sat by Pulse Oximetry (%) 100 02/26/18 09:00 Intake & Output 02/23/18 02/24/18 02/25/18 02/26/18 23:59 23:59 23:59 23:59 Intake Total 9126 6635 3308 540 Output Total 4000 2500 9850 500 Balance 5126 4135 -6542 40 NAD awake and alert RRR, NO M/R CTA soft NT, + ostomy NO LE edema, clubbing or cyanosis CBC, BMP 02/26/18 06:35 02/26/18 06:35 Current Medications Heparin Sodium (Porcine) (Heparin -) 1,000 unit IVPUSH PRN PRN PRN Reason: Heparin Heparin Sodium (Porcine) (Heparin -) 5,000 unit IVPUSH PRN PRN PRN Reason: Heparin Last Admin: 02/20/18 23:11 Dose: 5,000 unit IV Flush (Picc Line Flush) 8 ml IVPUSH PRN PRN PRN Reason: Protocol Heparin Sodium (Porcine) 25, (000 unit/ Sodium Chloride) 500 mls @ 16 mls/hr IV TITR SKIP; 800 UNIT/HR PRN Reason: Protocol Last Admin: 02/26/18 09:28 Dose: 1,100 unit/hr, 22 mls/hr Fat Emulsion Intravenous (Intralipid -) 250 mls @ 20.833 mls/hr IV DAILY@2200 SKIP Last Admin: 02/25/18 23:08 Dose: 20.833 mls/hr Sodium Chloride (Normal Saline -) 1,000 mls @ 83 mls/hr IV ASDIR [facility] Last Admin: 02/26/18 12:33 Dose: 83 mls/hr Potassium Chloride 60 meq/Calcium Gluconate 1,000 mg/Multivitamins/Minerals 10 ml/Folic Acid 1 mg/ Magnesium Sulfate 2 gm/ Potassium Phosphate 15 mm/ Sterile Water / Amino Acids/ Dextrose 2,000 mls @ 83.333 mls/hr IVPB DAILY@1600 [facility] Last Admin: 02/26/18 17:11 Dose: 83.333 mls/hr Loperamide HCl (Imodium -) 4 mg PO BID [facility] Last Admin: 02/26/18 15:37 Dose: 4 mg Metoprolol Succinate (Toprol Xl -) 50 mg PO BID [facility] Metoprolol Tartrate (Lopressor Injection -) 5 mg IVPUSH Q4H PRN PRN Reason: HYPERTENSION Last Admin: 02/21/18 04:08 Dose: 5 mg Ranitidine HCl (Zantac -) 150 mg PO HS [facility] Last Admin: 02/25/18 23:06 Dose: 150 mg 62 year old gentleman with PMhx of SBO s/o bowel resection with illeostomy, hypertension, hyperlipidemia who presented with chest and abd pain and found to have SHARONDA. #Acute Renal Failure secondary to volume depletion in setting of high output ostomy #Hypovolemic Hyponatremia (now resolved) #Anemia #Leukocytosis #Diarrhea/High output ostomy Cr heike to 2.5 today in setting of continued high volume ostomy output will restart NS (bolus and then standing IVF) continue TPN, will adjust to normalize electrolytes trend renal function and electrolytes would not start DESTIN/ARB at this time as pt continues to be at high risk for hypovolemia Randell Arreola DO
[2018-02-26 21:24] LABS: ANION GAP 9 (8-16); BLOOD UREA NITROGEN 30 mg/dL (7-18); CALCIUM 8.9 mg/dL (8.5-10.1); CHLORIDE 97 mmol/L (98-107); CO2 29 mmol/L (21-32); CREATININE 2.7 mg/dL (0.7-1.3); GLUCOSE,RANDOM 88 mg/dL (74-106); MAGNESIUM 2.6 mg/dL (1.8-2.4); SODIUM 135 mmol/L (136-145)
[2018-02-26 21:38] LABS: POTASSIUM 2.8 mmol/L (3.5-5.1)
[2018-02-26] MEDS ORDERED: PT OWN MED DRAWER 7, Y5N ONE (22:30)
[2018-02-26] MEDS: RANITIDINE HCL 150 MG TABLET (FP) PO SCH (22:37)
[2018-02-26] MEDS: FAT EMULSIONS 250 ML IV SCH (22:38)
[2018-02-26] MEDS ORDERED: POTASSIUM CHLORIDE TABS 20 MEQ TABLET.ER (FP) PO ONE (23:04)
[2018-02-26] MEDS ORDERED: KCL 10 MEQ IVPB 10 MEQ/100 ML INFUS.BAG IVPB SCH (23:15)
[2018-02-26] MEDS ORDERED: POTASSIUM CHLORIDE 20 MEQ in SODIUM CHLORIDE 250 ML IVPB SCH (23:30)
--- NOTE | 2018-02-27 07:29 | PN ---
Addendum entered and electronically signed by Silvio Ayala, RESIDENT 02/27/18 17:53: Paged by nurse due to the fact that the patient's 10meq KCL could not be hung as the patient has no IV site and the patient is receiving heparin and TPN. Could not get peripheral line as patient has DVT on the right. Nurse documented giving the first 10meq at 5:15 pm, but it was not given. I could not cancel the order as it was documented as given. Will give 40meq of KCL PO. Original Note: Physical Exam: SUBJECTIVE: Patient seen and examined at bedside. no new complaints. No events on tele. OBJECTIVE: Vital Signs Period Temp Pulse Resp BP Sys/Ortiz Pulse Ox Last 24 Hr 98.0 F-98.7 F 90-128 20-20 98-138/50-69 100-100 GENERAL: The patient is awake, alert, and fully oriented, in no acute distress. NECK: Trachea midline, full range of motion, supple. LUNGS: Breath sounds equal, clear to auscultation bilaterally, no wheezes, no crackles, no accessory muscle use. HEART: Regular rate and rhythm, S1, S2 without murmur, rub or gallop. ABDOMEN: Soft, nontender, nondistended, normoactive bowel sounds, no guarding, no rebound, no hepatosplenomegaly, no masses. Ileostomy in place draining fluid. 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 NEUROLOGICAL: Cranial nerves II through X grossly intact. Normal speech, gait not observed. SKIN: Warm, dry, normal turgor, no rashes or lesions noted Laboratory Results - last 24 hr 02/26/18 02/26/18 02/26/18 06:35 06:35 06:35 WBC 6.7 RBC 3.12 L Hgb 9.3 L D Hct 25.9 L MCV 82.8 MCH 29.6 MCHC 35.8 RDW 20.7 H Plt Count 179 D MPV 11.4 H PTT (Actin FS) 55.7 H Sodium 136 Potassium 3.0 L Chloride 101 Carbon Dioxide 26 Anion Gap 9 BUN 24 H D Creatinine 2.5 H Random Glucose 102 D Calcium 9.0 Magnesium 1.5 L 02/26/18 02/26/18 06:35 19:40 WBC RBC Hgb Hct MCV MCH MCHC RDW Plt Count MPV PTT (Actin FS) Sodium 135 L Potassium 2.8 L* Chloride 97 L Carbon Dioxide 29 Anion Gap 9 BUN 30 H D Creatinine 2.7 H Random Glucose 88 Calcium 8.9 Magnesium Cancelled 2.6 H D Active Medications Generic Name Dose Route Start Last Admin Trade Name Freq PRN Reason Stop Dose Admin Heparin Sodium (Porcine) 1,000 unit 02/20/18 17:30 Heparin - IVPUSH PRN PRN Heparin Heparin Sodium (Porcine) 5,000 unit 02/20/18 17:30 02/20/18 23:11 Heparin - IVPUSH 5,000 unit PRN PRN Administration Heparin IV Flush 8 ml 02/25/18 08:03 Picc Line Flush IVPUSH PRN PRN Protocol Heparin Sodium (Porcine) 25, 500 mls @ 16 mls/hr 02/20/18 17:30 02/26/18 09: 28 000 unit/ Sodium Chloride IV 1,100 unit/hr TITR SKIP 22 mls/hr Protocol Administration 800 UNIT/HR Fat Emulsion Intravenous 250 mls @ 20.833 mls/hr 02/21/18 22:00 02/26/18 22: 38 Intralipid - IV 20.833 mls/hr DAILY@2200 SKIP Administration Sodium Chloride 1,000 mls @ 83 mls/hr 02/26/18 12:00 02/26/18 12:33 Normal Saline - IV 83 mls/hr ASDIR SKIP Administration Potassium Chloride 60 meq/ 2,000 mls @ 83.333 mls/hr 02/26/18 16:00 02/26/18 17:11 Calcium Gluconate 1,000 mg/ IVPB 83.333 mls/hr Multivitamins/Minerals 10 ml/ DAILY@1600 SKIP Administration Folic Acid 1 mg/ Magnesium Sulfate 2 gm/ Potassium Phosphate 15 mm/ Sterile Water / Amino Acids/ Dextrose Potassium Chloride 20 meq/ 260 mls @ 130 mls/hr 02/26/18 23:30 02/27/18 00:48 Sodium Chloride IVPB 02/27/18 01:29 130 mls/hr Q2H SKIP Administration Loperamide HCl 4 mg 02/26/18 14:45 02/26/18 22:37 Imodium - PO 4 mg BID SKIP Administration Metoprolol Succinate 50 mg 02/26/18 22:00 02/26/18 22:37 Toprol Xl - PO 50 mg BID SKIP Administration Metoprolol Tartrate 5 mg 02/21/18 00:17 02/21/18 04:08 Lopressor Injection - IVPUSH 5 mg Q4H PRN Administration HYPERTENSION Ranitidine HCl 150 mg 02/19/18 22:00 02/26/18 22:37 Zantac - PO 150 mg HS SKIP Administration ASSESSMENT/PLAN: The patient is a 62yo [place] speaking M with an unclear PMHx of HTN, SBO, Mesenteric ischemia s/p bowel resection and ostomy, Afib, HLD admitted for the treatment of acute renal failure #Unclear History; pt poor historian -[facility] records show normal creatinine on discharge in October -spoke with Dr. Saeed's office staff. The patient has no outpatient records at his facility and the physician is out of the office for the next 2 weeks. -Called Dr. Rodriguez, IR radiologist at [facility] who replaced the patient' s PICC. -Patient was seen at the surgical oncology clinic at [facility] ([address]) on January 31 under the care of Dr. Maria Elena Mcdermott ([phone]) and Dr. Ivet Jesus (resident). -Patient diet was being advanced at this time -PICC to be replaced 6 weeks after placement. -awaiting callback from Dr. Mcdermott at [facility] surgical clinic to discuss the case. #Acute Renal Failure likely 2/2 Volume depletion 2/2 high output ostomy -BUN/Creatinine stable today; 32/ 2.5 -Nephro onboard; Dr. Arreola -fluids d/c, encouraged oral rehydration -Patient net positive yesterday, will monitor. -loperamide 4mg BID SKIP -GI consult #Hypokalemia -Patient persistently hypokalemic despite aggressive repletion -s/p multiple runs of 30meq KCL IV -supplementing K+ in TPN; increased from 40meq to 60 meq -will monitor # Microcytic Anemia possibly 2/2 renal dysfxn r/o MM or nutritional cause -Hb stable. #HTN -holding home antihypertensives as patient w/ low BP #Afib -NSR overnight -Cardio consult -c/w toprolol 25 BID -c/w heparin gtt -Due to patient's high output fistula, PO AC is not an effective choice. Will restart the patient on Lovenox upon discharge #SIRS- resolved # Atypical CP- resolved; possibly 2/2 run of Afib -Continue ASA # Euvoleimic Hyponatremia likely 2/2 ARF- resolved # Transaminitis possibly related to renal dysfunction- resolved # Elevated CK possibly 2/2 renal dysfunction- resolved #FEN -NS @ 83 -monitor lytes closely -diet advanced to chopped diet; patient on TPN. #prophy -HSQ 5ku TID # Dispo -admit tele Visit type - Emergency Visit Emergency Visit: Yes ED Registration Date: 02/19/18 Care time: The patient presented to the Emergency Department on the above date and was hospitalized for further evaluation of their emergent condition. - New Patient This patient is new to me today: No - Critical Care Critical Care patient: No
[2018-02-27 07:56] LABS: MCH 28.8 pg (25.7-33.7); MCHC 34.5 g/dl (32.0-35.9); MEAN CELL VOLUME 83.3 fl (80-96); MEAN PLT VOLUME 10.8 fl (7.5-11.1); PLATELET COUNT 169 K/MM3 (134-434); RBC 3.12 M/mm3 (4.00-5.60); RDW 20.7 % (11.9-15.9); WHITE BLOOD COUNT 6.1 K/mm3 (4.0-10.0)
[2018-02-27 08:54] LABS: ALK PHOS 137 U/L (45-117); ANION GAP 9 (8-16); BILIRUBIN,TOTAL 0.5 mg/dL (0.2-1.0); BLOOD UREA NITROGEN 32 mg/dL (7-18); CALCIUM 8.4 mg/dL (8.5-10.1); CHLORIDE 101 mmol/L (98-107); CO2 26 mmol/L (21-32); CREATININE 2.5 mg/dL (0.7-1.3); GLUCOSE,RANDOM 84 mg/dL (74-106); MAGNESIUM 2.5 mg/dL (1.8-2.4); SGOT/AST 48 U/L (15-37); SGPT/ALT 70 U/L (12-78); SODIUM 136 mmol/L (136-145)
[2018-02-27] MEDS: HEPARIN - 25,000 UNIT in SODIUM CHLORIDE 495 ML IV SCH ×2 (10:03→18:48)
[2018-02-27] MEDS: LOPERAMIDE HCL 2 MG CAPSULE PO SCH ×2 (10:04→21:04)
--- NOTE | 2018-02-27 10:58 | PN ---
Progress Note, Physician History of Present Illness: Patient is a 62 year old black male (b. [place]) wiht a PMH of SBO ( 2016 w/colostomy) AFib, CAD, DVT, HTN, HLD presents to our ED c/o presents to our ED with acute onset of pain. Pain is sharp and localized to his B/L UE and across his chest. Pain is intermittent, 10/10 and lasts for 2-3 minutes without any identifiable triggering or relieving factors. Patient denies any previous h/o similar pain. Patient denies fever/chills, nausea/vomiting, dysuria/hematuria, numbness/ tingling or AMS or visual changes. As per EMR patient evaluated at our facility in 2015 at which time he had an ex lap for SBO. - Current Medication List Current Medications: Active Medications Heparin Sodium (Porcine) (Heparin -) 1,000 unit IVPUSH PRN PRN PRN Reason: Heparin Heparin Sodium (Porcine) (Heparin -) 5,000 unit IVPUSH PRN PRN PRN Reason: Heparin Last Admin: 02/20/18 23:11 Dose: 5,000 unit IV Flush (Picc Line Flush) 8 ml IVPUSH PRN PRN PRN Reason: Protocol Heparin Sodium (Porcine) 25, (000 unit/ Sodium Chloride) 500 mls @ 16 mls/hr IV TITR SKIP; 800 UNIT/HR PRN Reason: Protocol Last Admin: 02/27/18 10:03 Dose: 1,100 unit/hr, 22 mls/hr Fat Emulsion Intravenous (Intralipid -) 250 mls @ 20.833 mls/hr IV DAILY@2200 [facility] Last Admin: 02/26/18 22:38 Dose: 20.833 mls/hr Sodium Chloride (Normal Saline -) 1,000 mls @ 83 mls/hr IV ASDIR [facility] Last Admin: 02/26/18 12:33 Dose: 83 mls/hr Potassium Chloride 60 meq/Calcium Gluconate 1,000 mg/Multivitamins/Minerals 10 ml/Folic Acid 1 mg/ Magnesium Sulfate 2 gm/ Potassium Phosphate 15 mm/ Sterile Water / Amino Acids/ Dextrose 2,000 mls @ 83.333 mls/hr IVPB DAILY@1600 [facility] Last Admin: 02/26/18 17:11 Dose: 83.333 mls/hr Potassium Chloride 20 meq/ (Sodium Chloride) 260 mls @ 130 mls/hr IVPB Q2H [facility] Stop: 02/27/18 01:29 Last Admin: 02/27/18 00:48 Dose: 130 mls/hr Loperamide HCl (Imodium -) 4 mg PO BID [facility] Last Admin: 02/27/18 10:04 Dose: 4 mg Metoprolol Succinate (Toprol Xl -) 50 mg PO BID [facility] Last Admin: 02/27/18 10:04 Dose: 50 mg Metoprolol Tartrate (Lopressor Injection -) 5 mg IVPUSH Q4H PRN PRN Reason: HYPERTENSION Last Admin: 02/21/18 04:08 Dose: 5 mg Ranitidine HCl (Zantac -) 150 mg PO HS [facility] Last Admin: 02/26/18 22:37 Dose: 150 mg - Objective Vital Signs: Vital Signs Temperature 97.9 F 02/27/18 09:00 Pulse Rate 97 H 02/27/18 09:00 Respiratory Rate 20 02/27/18 09:00 Blood Pressure 112/68 02/27/18 09:00 O2 Sat by Pulse Oximetry (%) 100 02/26/18 21:00 Eyes: Yes: WNL, Conjunctiva Clear, EOM Intact HENT: Yes: WNL, Atraumatic, Normocephalic Neck: Yes: WNL, Supple, Trachea Midline Cardiovascular: Yes: Pulse Irregular Respiratory: Yes: WNL, Regular, CTA Bilaterally Gastrointestinal: Yes: WNL, Normal Bowel Sounds Genitourinary: Yes: WNL Musculoskeletal: Yes: WNL Extremities: Yes: WNL Edema: No Integumentary: Yes: WNL Neurological: Yes: WNL, Alert, Oriented ...Motor Strength: WNL Psychiatric: Yes: WNL Labs: CBC, BMP 02/27/18 06:44 02/27/18 06:44 INR, PTT INR 1.02 (0.82-1.09) 02/20/18 19:00 Assessment/Plan - Problems (1) Renal insufficiency Code(s): N28.9 - DISORDER OF KIDNEY AND URETER, UNSPECIFIED (2) Atrial fibrillation Code(s): I48.91 - UNSPECIFIED ATRIAL FIBRILLATION Qualifiers: Atrial fibrillation type: paroxysmal Qualified Code(s): I48.0 - Paroxysmal atrial fibrillation - cont AC (3) CAD (coronary artery disease) Code(s): I25.10 - ATHSCL HEART DISEASE OF [place] CORONARY ARTERY W/O ANG PCTRS Qualifiers: Coronary Disease-Associated Artery/Lesion type: [place] artery [place] vs. transplanted heart: [place] heart Associated angina: angina presence unspecified Qualified Code(s): I25.10 - Atherosclerotic heart disease of [place] coronary artery without angina pectoris (4) Hyperlipidemia Code(s): E78.5 - HYPERLIPIDEMIA, UNSPECIFIED Qualifiers: Hyperlipidemia type: unspecified Qualified Code(s): E78.5 - Hyperlipidemia , unspecified (5) Hypertension Code(s): I10 - ESSENTIAL (PRIMARY) HYPERTENSION Qualifiers: Hypertension type: essential hypertension Qualified Code(s): I10 - Essential (primary) hypertension (6) Chronic combined systolic and diastolic heart failure Code(s): I50.42 - CHRONIC COMBINED SYSTOLIC AND DIASTOLIC HRT FAIL echo 08/2015: mod-sev dec lvef, mild lae, mod mr, mild tr, nl rvsp echo 01/2018: lvef 40-45, global hk, nl rv, no sig valve path ct chest: no chf ecg: sr, nl intervals, no ischemic changes tele: NSR, pafib with HR to 150s-->NSR a/p: 62 m hx remote pe, afib, htn, syst chf, cad s/p remote pci here with pain in whole body. paroxysmal afib: -remains in AF on tele -trial incr metopr succinate 25 bid to 37.5 bid--observe for low bp trend -chadsvasc warrants ac, continue hep gtt, can change to eliquis when cr stabilizes htn: -controlled, low end of normal range -observe trend chronic syst chf: -stable EF here vs prior, ? details of prior w/u. no acute ischemia findings here--as below -clinically euvolemic--no lasix -continue bb -holding home ed given wilber here cad: -prior cath with ? stent, then here with possible acute cardiac ischemic syndrome 2014, seen by jay mckinley/luis then--transferred for cath at [facility] with dr gonzalez at that time. -will d/w them re: ? results of that cath and whether they or we will follow pt here -cont bb, ac -not on statin previously, fibrates only--defer to outpt f/u wilber: -cont ivfs, improving -per renal cont tele monitoring
[2018-02-27] MEDS: SODIUM CHLORIDE 1,000 ML IV SCH ×2 (12:23→18:03)
[2018-02-27] MEDS: POTASSIUM CHLORIDE 10 MEQ in SODIUM CHLORIDE 100 ML IVPB SCH ×3 (17:14→18:50)
[2018-02-27] MEDS: CALCIUM GLUCONATE IVPB SCH (17:20)
[2018-02-27] MEDS: POTASSIUM CHLORIDE IVPB SCH (17:20)
[2018-02-27] MEDS: [UNRECOGNIZED DRUG - OTHER] IVPB SCH (17:20)
--- NOTE | 2018-02-27 17:31 | PN ---
Progress Note (short form) - Note Progress Note: Renal follow up for SHARONDA Pt seen and examined at the bedside awake and alert reports slighly less output from ostomy no sob, chest pain, abd pain Vital Signs Temperature 97.8 F 02/27/18 16:06 Pulse Rate 96 H 02/27/18 16:06 Respiratory Rate 20 02/27/18 16:06 Blood Pressure 106/76 02/27/18 16:06 O2 Sat by Pulse Oximetry (%) 98 02/27/18 09:00 Intake & Output 02/24/18 02/25/18 02/26/18 02/27/18 23:59 23:59 23:59 23:59 Intake Total 6635 3308 5300 1506.4 Output Total 2500 9850 5000 Balance 4135 -6542 300 1506.4 Weight 76.204 kg NAD awake and alert RRR, NO M/R CTA soft NT, + ostomy NO LE edema, clubbing or cyanosis CBC, BMP 02/27/18 06:44 02/27/18 06:44 Current Medications Heparin Sodium (Porcine) (Heparin -) 1,000 unit IVPUSH PRN PRN PRN Reason: Heparin Heparin Sodium (Porcine) (Heparin -) 5,000 unit IVPUSH PRN PRN PRN Reason: Heparin Last Admin: 02/20/18 23:11 Dose: 5,000 unit IV Flush (Picc Line Flush) 8 ml IVPUSH PRN PRN PRN Reason: Protocol Heparin Sodium (Porcine) 25, (000 unit/ Sodium Chloride) 500 mls @ 16 mls/hr IV TITR SKIP; 800 UNIT/HR PRN Reason: Protocol Last Admin: 02/27/18 10:03 Dose: 1,100 unit/hr, 22 mls/hr Fat Emulsion Intravenous (Intralipid -) 250 mls @ 20.833 mls/hr IV DAILY@2200 SKIP Last Admin: 02/26/18 22:38 Dose: 20.833 mls/hr Sodium Chloride (Normal Saline -) 1,000 mls @ 83 mls/hr IV ASDIR SK[facility] Last Admin: 02/27/18 12:23 Dose: Not Given Potassium Chloride 60 meq/Calcium Gluconate 1,000 mg/Multivitamins/Minerals 10 ml/Folic Acid 1 mg/ Magnesium Sulfate 2 gm/ Potassium Phosphate 15 mm/ Sterile Water / Amino Acids/ Dextrose 2,000 mls @ 83.333 mls/hr IVPB DAILY@1600 [facility] Last Admin: 02/27/18 17:20 Dose: 83.333 mls/hr Potassium Chloride 20 meq/ (Sodium Chloride) 260 mls @ 130 mls/hr IVPB Q2H [facility] Stop: 02/27/18 01:29 Last Admin: 02/27/18 00:48 Dose: 130 mls/hr Loperamide HCl (Imodium -) 4 mg PO BID [facility] Last Admin: 02/27/18 10:04 Dose: 4 mg Metoprolol Succinate (Toprol Xl -) 50 mg PO BID [facility] Last Admin: 02/27/18 10:04 Dose: 50 mg Metoprolol Tartrate (Lopressor Injection -) 5 mg IVPUSH Q4H PRN PRN Reason: HYPERTENSION Last Admin: 02/21/18 04:08 Dose: 5 mg Ranitidine HCl (Zantac -) 150 mg PO HS [facility] Last Admin: 02/26/18 22:37 Dose: 150 mg 62 year old gentleman with PMhx of SBO s/o bowel resection with illeostomy, hypertension, hyperlipidemia who presented with chest and abd pain and found to have SHARONDA. #Acute Renal Failure secondary to volume depletion in setting of high output ostomy #Hypovolemic Hyponatremia (now resolved) #Anemia #Leukocytosis #Diarrhea/High output ostomy Continue TPN and IVF supplement K GI and surgical follow up keep I and O net even or positive Randell Arreola DO
[2018-02-27] MEDS ORDERED: POTASSIUM CHLORIDE TABS 20 MEQ TABLET.ER (FP) PO ONE (17:59)
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
[2018-02-27] MEDS: RANITIDINE HCL 150 MG TABLET (FP) PO SCH (21:04)
[2018-02-27] MEDS: FAT EMULSIONS 250 ML IV SCH (21:05)
[2018-02-28 07:52] LABS: INR 1.04 (0.82-1.09); PROTHROMBIN TIME (PATIENT) 11.8 SEC (9.7-13.0)
[2018-02-28 07:57] LABS: HEMATOCRIT 26.5 % (35.4-49); HEMOGLOBIN 9.3 GM/dL (11.7-16.9); MCH 29.6 pg (25.7-33.7); MCHC 35.2 g/dl (32.0-35.9); MEAN CELL VOLUME 84.2 fl (80-96); MEAN PLT VOLUME 11.3 fl (7.5-11.1); PLATELET COUNT 183 K/MM3 (134-434); RBC 3.15 M/mm3 (4.00-5.60); RDW 20.5 % (11.9-15.9); WHITE BLOOD COUNT 5.9 K/mm3 (4.0-10.0)
[2018-02-28 08:16] LABS: ANION GAP 12 (8-16); BLOOD UREA NITROGEN 39 mg/dL (7-18); CALCIUM 8.7 mg/dL (8.5-10.1); CHLORIDE 99 mmol/L (98-107); CO2 25 mmol/L (21-32); GLUCOSE,RANDOM 90 mg/dL (74-106); POTASSIUM 3.5 mmol/L (3.5-5.1); SODIUM 136 mmol/L (136-145)
[2018-02-28 08:17] LABS: CREATININE 2.6 mg/dL (0.7-1.3); MAGNESIUM 2.2 mg/dL (1.8-2.4); PHOSPHOROUS 3.8 mg/dL (2.5-4.9)
--- NOTE | 2018-02-28 08:34 | PN ---
Physical Exam: SUBJECTIVE: Patient seen and examined at bedside. No new complaints. No events on tele. OBJECTIVE: Vital Signs Period Temp Pulse Resp BP Sys/Ortiz Pulse Ox Last 24 Hr 97.8 F-98.8 F 80-97 18-20 97-113/53-76 98-99 GENERAL: The patient is awake, alert, and fully oriented, in no acute distress. NECK: Trachea midline, full range of motion, supple. LUNGS: Breath sounds equal, clear to auscultation bilaterally, no wheezes, no crackles, no accessory muscle use. HEART: Regular rate and rhythm, S1, S2 without murmur, rub or gallop. ABDOMEN: Soft, nontender, nondistended, normoactive bowel sounds, no guarding, no rebound, no hepatosplenomegaly, no masses. Ileostomy in place draining fluid. 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 NEUROLOGICAL: Cranial nerves II through X grossly intact. Normal speech, gait not observed. SKIN: Warm, dry, normal turgor, no rashes or lesions noted Laboratory Results - last 24 hr 02/27/18 02/28/18 02/28/18 06:44 06:45 06:45 WBC 5.9 RBC 3.15 L Hgb 9.3 L Hct 26.5 L MCV 84.2 MCH 29.6 MCHC 35.2 RDW 20.5 H Plt Count 183 MPV 11.3 H PT with INR 11.80 INR 1.04 PTT (Actin FS) Sodium 136 Potassium 3.0 L Chloride 101 Carbon Dioxide 26 Anion Gap 9 BUN 32 H Creatinine 2.5 H Creat Clearance w eGFR 26.13 Random Glucose 84 Calcium 8.4 L Phosphorus 3.0 Magnesium 2.5 H Total Bilirubin 0.5 AST 48 H ALT 70 D Alkaline Phosphatase 137 H D Total Protein 8.0 Albumin 3.0 L 02/28/18 02/28/18 06:45 06:45 WBC RBC Hgb Hct MCV MCH MCHC RDW Plt Count MPV PT with INR INR PTT (Actin FS) 53.3 H Sodium 136 Potassium 3.5 Chloride 99 Carbon Dioxide 25 Anion Gap 12 BUN 39 H D Creatinine 2.6 H Creat Clearance w eGFR Random Glucose 90 Calcium 8.7 Phosphorus 3.8 D Magnesium 2.2 Total Bilirubin AST ALT Alkaline Phosphatase Total Protein Albumin Active Medications Generic Name Dose Route Start Last Admin Trade Name Freq PRN Reason Stop Dose Admin Heparin Sodium (Porcine) 1,000 unit 02/20/18 17:30 Heparin - IVPUSH PRN PRN Heparin Heparin Sodium (Porcine) 5,000 unit 02/20/18 17:30 02/20/18 23:11 Heparin - IVPUSH 5,000 unit PRN PRN Administration Heparin IV Flush 8 ml 02/25/18 08:03 Picc Line Flush IVPUSH PRN PRN Protocol Heparin Sodium (Porcine) 25, 500 mls @ 16 mls/hr 02/20/18 17:30 02/27/18 10: 03 000 unit/ Sodium Chloride IV 1,100 unit/hr TITR SKIP 22 mls/hr Protocol Administration 800 UNIT/HR Fat Emulsion Intravenous 250 mls @ 20.833 mls/hr 02/21/18 22:00 02/27/18 21: 05 Intralipid - IV 20.833 mls/hr DAILY@2200 SKIP Administration Sodium Chloride 1,000 mls @ 83 mls/hr 02/26/18 12:00 02/27/18 18:03 Normal Saline - IV 83 mls/hr ASDIR SKIP Administration Potassium Chloride 60 meq/ 2,000 mls @ 83.333 mls/hr 02/26/18 16:00 02/27/18 17:20 Calcium Gluconate 1,000 mg/ IVPB 83.333 mls/hr Multivitamins/Minerals 10 ml/ DAILY@1600 SKIP Administration Folic Acid 1 mg/ Magnesium Sulfate 2 gm/ Potassium Phosphate 15 mm/ Sterile Water / Amino Acids/ Dextrose Potassium Chloride 20 meq/ 260 mls @ 130 mls/hr 02/26/18 23:30 02/27/18 00:48 Sodium Chloride IVPB 02/27/18 01:29 130 mls/hr Q2H SKIP Administration Loperamide HCl 4 mg 02/26/18 14:45 02/27/18 21:04 Imodium - PO 4 mg BID SKIP Administration Metoprolol Succinate 50 mg 02/26/18 22:00 02/27/18 21:04 Toprol Xl - PO 50 mg BID SKIP Administration Metoprolol Tartrate 5 mg 02/21/18 00:17 02/21/18 04:08 Lopressor Injection - IVPUSH 5 mg Q4H PRN Administration HYPERTENSION Ranitidine HCl 150 mg 02/19/18 22:00 02/27/18 21:04 Zantac - PO 150 mg HS SKIP Administration ASSESSMENT/PLAN: The patient is a 62yo Citizen Of [place] speaking M with an unclear PMHx of HTN, SBO, Mesenteric ischemia s/p bowel resection and ostomy, Afib, HLD admitted for the treatment of acute renal failure #Unclear History; pt poor historian -[facility] records show normal creatinine on discharge in October -spoke with Dr. Saeed's office staff. The patient has no outpatient records at his facility and the physician is out of the office for the next 2 weeks. -Called Dr. Rodriguez, IR radiologist at [facility] who replaced the patient' s PICC. -Patient was seen at the surgical oncology clinic at [facility] ([address]) on January 31 under the care of Dr. Maria Elena Mcdermott ([phone]) and Dr. Ivet Jesus (resident). -Patient diet was being advanced at this time -PICC to be replaced 6 weeks after placement. -awaiting callback from Dr. Mcdermott at [facility] surgical clinic to discuss the case. #Acute Renal Failure likely 2/2 Volume depletion 2/2 high output ostomy -BUN/Creatinine trending up; 39/ 2.6. -Nephro onboard; Dr. Arreola -Increased fluids to 100 today -I&O -attempting to decrease ostomy output -increased loperamide to 4mg TID -added codiene sulfate 15mg BID -GI consult #Hypokalemia -potassium 3.5 today -supplementing K+ in TPN; 60 meq -will monitor # Microcytic Anemia possibly 2/2 renal dysfxn or nutritional cause -Hb stable. #HTN -holding home antihypertensives as patient w/ low BP #Afib -c/w toprolol 25 BID -c/w heparin gtt -Due to patient's high output ostomy, PO AC is not an effective choice. Will restart the patient on Lovenox once creatinine stable. #SIRS- resolved # Atypical CP- resolved; possibly 2/2 run of Afib -Continue ASA # Euvoleimic Hyponatremia likely 2/2 ARF- resolved # Transaminitis possibly related to renal dysfunction- resolved # Elevated CK possibly 2/2 renal dysfunction- resolved #FEN -NS @ 100 -monitor lytes closely -chopped diet; patient on TPN. #prophy -HSQ 5ku TID # Dispo -admit tele Visit type - Emergency Visit Emergency Visit: Yes ED Registration Date: 02/19/18 Care time: The patient presented to the Emergency Department on the above date and was hospitalized for further evaluation of their emergent condition. - New Patient This patient is new to me today: No - Critical Care Critical Care patient: No
[2018-02-28] MEDS: LOPERAMIDE HCL 2 MG CAPSULE PO SCH ×3 (09:53→21:30)
[2018-02-28] MEDS ORDERED: SODIUM CHLORIDE 1,000 ML IV SCH (10:02)
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
[2018-02-28] MEDS ORDERED: POTASSIUM CHLORIDE TABS 20 MEQ TABLET.ER (FP) PO ONE (13:45)
[2018-02-28] MEDS: HEPARIN NA (PORCINE) 5,000 UNITS/ML 1ML VIAL IVPUSH PRN (14:15)
--- NOTE | 2018-02-28 15:07 | PN ---
Progress Note (short form) - Note Progress Note: Renal follow up for SHARONDA Pt seen and examined at the bedside no acute complaints still has large volume ostomy output no sob, chest pain making urine Vital Signs Temperature 98 F 02/28/18 08:28 Pulse Rate 83 02/28/18 08:28 Respiratory Rate 18 02/28/18 08:28 Blood Pressure 102/53 02/28/18 08:28 O2 Sat by Pulse Oximetry (%) 99 02/27/18 21:00 Intake & Output 02/25/18 02/26/18 02/27/18 02/28/18 23:59 23:59 23:59 23:59 Intake Total 3308 5300 1506.4 2556 Output Total 9850 5000 7050 Balance -6542 300 1506.4 -4494 Weight 76.204 kg NAD awake and alert RRR, NO M/R CTA soft NT, + ostomy NO LE edema, clubbing or cyanosis CBC, BMP 02/28/18 06:45 02/28/18 06:45 Current Medications Heparin Sodium (Porcine) (Heparin -) 1,000 unit IVPUSH PRN PRN PRN Reason: Heparin Last Admin: 02/28/18 14:15 Dose: 1,000 unit Heparin Sodium (Porcine) (Heparin -) 5,000 unit IVPUSH PRN PRN PRN Reason: Heparin Last Admin: 02/20/18 23:11 Dose: 5,000 unit IV Flush (Picc Line Flush) 8 ml IVPUSH PRN PRN PRN Reason: Protocol Heparin Sodium (Porcine) 25, (000 unit/ Sodium Chloride) 500 mls @ 16 mls/hr IV TITR SKIP; 800 UNIT/HR PRN Reason: Protocol Last Admin: 02/27/18 10:03 Dose: 1,100 unit/hr, 22 mls/hr Fat Emulsion Intravenous (Intralipid -) 250 mls @ 20.833 mls/hr IV DAILY@2200 SKIP Last Admin: 02/27/18 21:05 Dose: 20.833 mls/hr Sodium Chloride (Normal Saline -) 1,000 mls @ 83 mls/hr IV ASDIR SKIP Last Admin: 02/27/18 18:03 Dose: 83 mls/hr Potassium Chloride 60 meq/Calcium Gluconate 1,000 mg/Multivitamins/Minerals 10 ml/Folic Acid 1 mg/ Magnesium Sulfate 2 gm/ Potassium Phosphate 15 mm/ Sterile Water / Amino Acids/ Dextrose 2,000 mls @ 83.333 mls/hr IVPB DAILY@1600 [facility] Last Admin: 02/27/18 17:20 Dose: 83.333 mls/hr Potassium Chloride 20 meq/ (Sodium Chloride) 260 mls @ 130 mls/hr IVPB Q2H [facility] Stop: 02/27/18 01:29 Last Admin: 02/27/18 00:48 Dose: 130 mls/hr Loperamide HCl (Imodium -) 4 mg PO BID [facility] Last Admin: 02/28/18 09:53 Dose: 4 mg Metoprolol Succinate (Toprol Xl -) 50 mg PO BID [facility] Last Admin: 02/28/18 09:54 Dose: 50 mg Metoprolol Tartrate (Lopressor Injection -) 5 mg IVPUSH Q4H PRN PRN Reason: HYPERTENSION Last Admin: 02/21/18 04:08 Dose: 5 mg Ranitidine HCl (Zantac -) 150 mg PO HS [facility] Last Admin: 02/27/18 21:04 Dose: 150 mg 62 year old gentleman with PMhx of SBO s/o bowel resection with illeostomy, hypertension, hyperlipidemia who presented with chest and abd pain and found to have SHARONDA. #Acute Renal Failure secondary to volume depletion in setting of high output ostomy #Hypovolemic Hyponatremia (now resolved) #Anemia #Leukocytosis #Diarrhea/High output ostomy Renal function improved but has not normalized yet, it is possible pt may have developed from ATN from prolonged volume depletion/renal ischemia Serum na is now improved and stable Will increase TPN volume to 2.5L starting tomorrow Continue Saline with KCL supplement electrolytes trend K, Mg, Phos daily in addition to BMP Randell Arreola DO
[2018-02-28] MEDS: METOPROLOL TARTRATE 5 MG/5 ML VIAL IVPUSH PRN (16:02)
[2018-02-28] MEDS: FAT EMULSIONS 250 ML IV SCH ×2 (19:49→21:32)
[2018-02-28] MEDS: POTASSIUM CHLORIDE IVPB SCH (19:50)
[2018-02-28] MEDS: CALCIUM GLUCONATE IVPB SCH (19:50)
[2018-02-28] MEDS: [UNRECOGNIZED DRUG - OTHER] IVPB SCH (19:50)
[2018-02-28] MEDS: HEPARIN - 25,000 UNIT in SODIUM CHLORIDE 495 ML IV SCH (20:39)
[2018-02-28] MEDS: CODEINE SO4 30 MG TABLET PO SCH (21:29)
[2018-02-28] MEDS: RANITIDINE HCL 150 MG TABLET (FP) PO SCH (21:31)
[2018-03-01] MEDS: LOPERAMIDE HCL 2 MG CAPSULE PO SCH ×3 (06:35→22:45)
[2018-03-01 07:43] LABS: ANION GAP 11 (8-16); BLOOD UREA NITROGEN 50 mg/dL (7-18); CALCIUM 8.8 mg/dL (8.5-10.1); CHLORIDE 97 mmol/L (98-107); CO2 25 mmol/L (21-32); GLUCOSE,RANDOM 105 mg/dL (74-106); MAGNESIUM 2.4 mg/dL (1.8-2.4); PHOSPHOROUS 4.6 mg/dL (2.5-4.9); POTASSIUM 3.2 mmol/L (3.5-5.1); SODIUM 133 mmol/L (136-145)
[2018-03-01] MEDS ORDERED: oxyCODONE HCL 5 MG TABLET ONE (10:06)
[2018-03-01] MEDS ORDERED: OXYBUTYNIN CHLORIDE 5 MG TABLET PO ONE (10:30)
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
[2018-03-01] MEDS: CODEINE SO4 30 MG TABLET PO SCH ×2 (12:24→22:28)
[2018-03-01] MEDS: SODIUM CHLORIDE 1,000 ML IV SCH (12:25)
--- NOTE | 2018-03-01 14:06 | PN ---
Progress Note (short form) - Note Progress Note: Renal follow up for SHARONDA Pt seen and examined at the bedside continues to have large output via ostomy no sob, chest pain on TPN and IVF Vital Signs Temperature 98.0 F 03/01/18 06:00 Pulse Rate 86 03/01/18 10:00 Respiratory Rate 18 03/01/18 10:00 Blood Pressure 100/66 03/01/18 10:00 O2 Sat by Pulse Oximetry (%) 100 02/28/18 21:00 Intake & Output 02/26/18 02/27/18 02/28/18 03/01/18 23:59 23:59 23:59 23:59 Intake Total 5300 1506.4 5074 3036 Output Total 5000 7450 4400 Balance 300 1506.4 -2376 -1364 Weight 76.204 kg NAD awake and alert RRR, NO M/R CTA soft NT, + ostomy NO LE edema, clubbing or cyanosis CBC, BMP 02/28/18 06:45 03/01/18 06:30 Current Medications Heparin Sodium (Porcine) (Heparin -) 1,000 unit IVPUSH PRN PRN PRN Reason: Heparin Last Admin: 02/28/18 14:15 Dose: 1,000 unit Heparin Sodium (Porcine) (Heparin -) 5,000 unit IVPUSH PRN PRN PRN Reason: Heparin Last Admin: 02/20/18 23:11 Dose: 5,000 unit IV Flush (Picc Line Flush) 8 ml IVPUSH PRN PRN PRN Reason: Protocol Heparin Sodium (Porcine) 25, (000 unit/ Sodium Chloride) 500 mls @ 16 mls/hr IV TITR SKIP; 800 UNIT/HR PRN Reason: Protocol Last Admin: 02/27/18 10:03 Dose: 1,100 unit/hr, 22 mls/hr Fat Emulsion Intravenous (Intralipid -) 250 mls @ 20.833 mls/hr IV DAILY@2200 SKIP Last Admin: 02/28/18 21:32 Dose: 20.833 mls/hr Sodium Chloride (Normal Saline -) 1,000 mls @ 83 mls/hr IV ASDIR SKIP Last Admin: 02/27/18 18:03 Dose: 83 mls/hr Potassium Chloride 60 meq/Calcium Gluconate 1,000 mg/Multivitamins/Minerals 10 ml/Folic Acid 1 mg/ Magnesium Sulfate 2 gm/ Potassium Phosphate 15 mm/ Sterile Water / Amino Acids/ Dextrose 2,000 mls @ 83.333 mls/hr IVPB DAILY@1600 [facility] Last Admin: 02/28/18 19:50 Dose: 83.333 mls/hr Potassium Chloride 20 meq/ (Sodium Chloride) 260 mls @ 130 mls/hr IVPB Q2H [facility] Stop: 02/27/18 01:29 Last Admin: 02/27/18 00:48 Dose: 130 mls/hr Loperamide HCl (Imodium -) 4 mg PO BID [facility] Last Admin: 02/28/18 09:53 Dose: 4 mg Metoprolol Succinate (Toprol Xl -) 50 mg PO BID [facility] Last Admin: 03/01/18 12:24 Dose: 50 mg Metoprolol Tartrate (Lopressor Injection -) 5 mg IVPUSH Q4H PRN PRN Reason: HYPERTENSION Last Admin: 02/28/18 16:02 Dose: 5 mg Ranitidine HCl (Zantac -) 150 mg PO HS [facility] Last Admin: 02/28/18 21:31 Dose: 150 mg 62 year old gentleman with PMhx of SBO s/o bowel resection with illeostomy, hypertension, hyperlipidemia who presented with chest and abd pain and found to have SHARONDA. #Acute Renal Failure secondary to volume depletion in setting of high output ostomy #Hypovolemic Hyponatremia #Diarrhea/High output ostomy output continues to exceed intake and BUN/Cr rising agree with incensing IVF rate unfortunately cannot increase TPN volume as pt would be exceeding his protein requirement as per nutrtion so will maintain at 2L daily encourage oral intake Trend BUN/Cr daily would avoid addition of any medication that affect kidney function at this time including DESTIN/ARB and nsaids management of ostomy as pre primary and GI Randell Arreola DO
--- NOTE | 2018-03-01 14:39 | PN ---
Physical Exam: SUBJECTIVE: Patient seen and examined at bedside. Patient had an episode this AM of acute onset abdominal distension and sharp abdominal pain which resolved spontaneously after manipulation of the patient's ostomy site. OBJECTIVE: Vital Signs Period Temp Pulse Resp BP Sys/Ortiz Pulse Ox Last 24 Hr 97.3 F-98.2 F 78-185 18-20 98-118/46-66 100 GENERAL: The patient is awake, alert, and fully oriented, in no acute distress. NECK: Trachea midline, full range of motion, supple. LUNGS: Breath sounds equal, clear to auscultation bilaterally, no wheezes, no crackles, no accessory muscle use. HEART: Regular rate and rhythm, S1, S2 without murmur, rub or gallop. ABDOMEN: Soft, nontender, nondistended, normoactive bowel sounds, no guarding, no rebound, no hepatosplenomegaly, no masses. Ileostomy in place draining solid stool. 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 NEUROLOGICAL: Cranial nerves II through X grossly intact. Normal speech, gait not observed. SKIN: Warm, dry, normal turgor, no rashes or lesions noted Laboratory Results - last 24 hr 02/28/18 03/01/18 03/01/18 19:30 06:30 06:30 PTT (Actin FS) 61.1 H 69.6 H Sodium 133 L Potassium 3.2 L Chloride 97 L Carbon Dioxide 25 Anion Gap 11 BUN 50 H D Creatinine 3.0 H Random Glucose 105 Calcium 8.8 Phosphorus 4.6 D Magnesium 2.4 Active Medications Generic Name Dose Route Start Last Admin Trade Name Freq PRN Reason Stop Dose Admin Heparin Sodium (Porcine) 1,000 unit 02/20/18 17:30 02/28/18 14:15 Heparin - IVPUSH 1,000 unit PRN PRN Administration Heparin Heparin Sodium (Porcine) 5,000 unit 02/20/18 17:30 02/20/18 23:11 Heparin - IVPUSH 5,000 unit PRN PRN Administration Heparin IV Flush 8 ml 02/25/18 08:03 Picc Line Flush IVPUSH PRN PRN Protocol Heparin Sodium (Porcine) 25, 500 mls @ 16 mls/hr 02/20/18 17:30 02/27/18 10: 03 000 unit/ Sodium Chloride IV 1,100 unit/hr TITR SKIP 22 mls/hr Protocol Administration 800 UNIT/HR Fat Emulsion Intravenous 250 mls @ 20.833 mls/hr 02/21/18 22:00 02/28/18 21: 32 Intralipid - IV 20.833 mls/hr DAILY@2200 SKIP Administration Sodium Chloride 1,000 mls @ 83 mls/hr 02/26/18 12:00 02/27/18 18:03 Normal Saline - IV 83 mls/hr ASDIR SKIP Administration Potassium Chloride 60 meq/ 2,000 mls @ 83.333 mls/hr 02/26/18 16:00 02/28/18 19:50 Calcium Gluconate 1,000 mg/ IVPB 83.333 mls/hr Multivitamins/Minerals 10 ml/ DAILY@1600 SKIP Administration Folic Acid 1 mg/ Magnesium Sulfate 2 gm/ Potassium Phosphate 15 mm/ Sterile Water / Amino Acids/ Dextrose Potassium Chloride 20 meq/ 260 mls @ 130 mls/hr 02/26/18 23:30 02/27/18 00:48 Sodium Chloride IVPB 02/27/18 01:29 130 mls/hr Q2H SKIP Administration Loperamide HCl 4 mg 02/26/18 14:45 02/28/18 09:53 Imodium - PO 4 mg BID SKIP Administration Metoprolol Succinate 50 mg 02/26/18 22:00 03/01/18 12:24 Toprol Xl - PO 50 mg BID SKIP Administration Metoprolol Tartrate 5 mg 02/21/18 00:17 02/28/18 16:02 Lopressor Injection - IVPUSH 5 mg Q4H PRN Administration HYPERTENSION Ranitidine HCl 150 mg 02/19/18 22:00 02/28/18 21:31 Zantac - PO 150 mg HS SKIP Administration ASSESSMENT/PLAN: The patient is a 62yo Korean speaking M with an unclear PMHx of HTN, SBO, Mesenteric ischemia s/p bowel resection and ostomy, Afib, HLD admitted for the treatment of acute renal failure #Unclear History; pt poor historian -[facility] records show normal creatinine on discharge in October -Dr. Saeed, patient's surgeon, is out of the office until next week. -Called Dr. Rodriguez, IR radiologist at [facility] who replaced the patient' s PICC. -Patient was seen at the surgical oncology clinic at [facility] ([address]) on January 31 under the care of Dr. Maria Elena Mcdermott ([phone]). -PICC to be replaced 6 weeks after placement. -awaiting callback from Dr. Mcdermott at [facility] surgical clinic to discuss the case. #Acute Renal Failure likely 2/2 Volume depletion 2/2 high output ostomy -BUN/Creatinine trending up; 50/3.0. -Nephro onboard; Dr. Arreola -Increased fluids to 125 today -I&O -attempting to decrease ostomy output -increased loperamide to 4mg TID -added codiene sulfate 15mg BID -continues to output >4L daily -GI consult #Hypokalemia -potassium 3.0 today -supplementing K+ in TPN; 60 meq -will monitor # Microcytic Anemia- stable #HTN -holding home antihypertensives as patient w/ low BP #Afib -c/w toprolol 25 BID -c/w heparin gtt -Will restart the patient on Lovenox once creatinine stable. #SIRS- resolved # Atypical CP- resolved; possibly 2/2 run of Afib -Continue ASA # Euvoleimic Hyponatremia likely 2/2 ARF- resolved # Transaminitis possibly related to renal dysfunction- resolved # Elevated CK possibly 2/2 renal dysfunction- resolved #FEN -NS @ 125 -monitor lytes closely -chopped diet; patient on TPN. #prophy -HSQ 5ku TID # Dispo -admit tele Visit type - Emergency Visit Emergency Visit: Yes ED Registration Date: 02/19/18 Care time: The patient presented to the Emergency Department on the above date and was hospitalized for further evaluation of their emergent condition. - New Patient This patient is new to me today: No - Critical Care Critical Care patient: No
[2018-03-01] MEDS ORDERED: CALCIUM GLUCONATE IVPB SCH (16:00)
[2018-03-01] MEDS ORDERED: POTASSIUM CHLORIDE IVPB SCH (16:00)
[2018-03-01] MEDS ORDERED: [UNRECOGNIZED DRUG - OTHER] IVPB SCH (16:00)
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
[2018-03-01] MEDS: RANITIDINE HCL 150 MG TABLET (FP) PO SCH (22:28)
[2018-03-01] MEDS: HEPARIN - 25,000 UNIT in SODIUM CHLORIDE 495 ML IV SCH (22:30)
[2018-03-01] MEDS: POTASSIUM CHLORIDE TABS 20 MEQ TABLET.ER (FP) PO SCH ×2 (22:30→22:45)
[2018-03-01] MEDS: FAT EMULSIONS 250 ML IV SCH (22:31)
[2018-03-02] MEDS: LOPERAMIDE HCL 2 MG CAPSULE PO SCH ×3 (06:29→22:43)
[2018-03-02 08:06] LABS: CHLORIDE 98 mmol/L (98-107); POTASSIUM 3.4 mmol/L (3.5-5.1); SODIUM 135 mmol/L (136-145)
[2018-03-02 08:12] LABS: ANION GAP 10 (8-16); BLOOD UREA NITROGEN 51 mg/dL (7-18); CALCIUM 8.7 mg/dL (8.5-10.1); CO2 27 mmol/L (21-32); CREATININE 2.6 mg/dL (0.7-1.3); GLUCOSE,RANDOM 102 mg/dL (74-106); MAGNESIUM 2.3 mg/dL (1.8-2.4); PHOSPHOROUS 3.8 mg/dL (2.5-4.9)
--- NOTE | 2018-03-02 08:54 | PN ---
Progress Note, Physician Chief Complaint: COVERAGE FOR [employer] TELE: NSR w/ artifact History of Present Illness: no cp or sob - Current Medication List Current Medications: Active Medications Heparin Sodium (Porcine) (Heparin -) 1,000 unit IVPUSH PRN PRN PRN Reason: Heparin Last Admin: 02/28/18 14:15 Dose: 1,000 unit Heparin Sodium (Porcine) (Heparin -) 5,000 unit IVPUSH PRN PRN PRN Reason: Heparin Last Admin: 02/20/18 23:11 Dose: 5,000 unit IV Flush (Picc Line Flush) 8 ml IVPUSH PRN PRN PRN Reason: Protocol Heparin Sodium (Porcine) 25, (000 unit/ Sodium Chloride) 500 mls @ 16 mls/hr IV TITR SKIP; 800 UNIT/HR PRN Reason: Protocol Last Admin: 02/27/18 10:03 Dose: 1,100 unit/hr, 22 mls/hr Fat Emulsion Intravenous (Intralipid -) 250 mls @ 20.833 mls/hr IV DAILY@2200 [facility] Last Admin: 03/01/18 22:31 Dose: 20.833 mls/hr Sodium Chloride (Normal Saline -) 1,000 mls @ 83 mls/hr IV ASDIR [facility] Last Admin: 02/27/18 18:03 Dose: 83 mls/hr Potassium Chloride 60 meq/Calcium Gluconate 1,000 mg/Multivitamins/Minerals 10 ml/Folic Acid 1 mg/ Magnesium Sulfate 2 gm/ Potassium Phosphate 15 mm/ Sterile Water / Amino Acids/ Dextrose 2,000 mls @ 83.333 mls/hr IVPB DAILY@1600 [facility] Last Admin: 02/28/18 19:50 Dose: 83.333 mls/hr Potassium Chloride 20 meq/ (Sodium Chloride) 260 mls @ 130 mls/hr IVPB Q2H [facility] Stop: 02/27/18 01:29 Last Admin: 02/27/18 00:48 Dose: 130 mls/hr Loperamide HCl (Imodium -) 4 mg PO BID [facility] Last Admin: 02/28/18 09:53 Dose: 4 mg Metoprolol Succinate (Toprol Xl -) 50 mg PO BID [facility] Last Admin: 03/01/18 22:28 Dose: 50 mg Metoprolol Tartrate (Lopressor Injection -) 5 mg IVPUSH Q4H PRN PRN Reason: HYPERTENSION Last Admin: 02/28/18 16:02 Dose: 5 mg Ranitidine HCl (Zantac -) 150 mg PO HS SKIP Last Admin: 03/01/18 22:28 Dose: 150 mg - Objective Vital Signs: Vital Signs Temperature 97.9 F 03/02/18 01:00 Pulse Rate 79 03/02/18 05:00 Respiratory Rate 20 03/02/18 05:00 Blood Pressure 98/59 03/02/18 05:00 O2 Sat by Pulse Oximetry (%) 96 03/01/18 20:16 Constitutional: Yes: Calm Cardiovascular: Yes: Regular Rate and Rhythm Respiratory: Yes: CTA Bilaterally Gastrointestinal: Yes: Soft Edema: No Neurological: Yes: Alert, Oriented ...Motor Strength: WNL Labs: CBC, BMP 02/28/18 06:45 03/02/18 05:00 INR, PTT INR 1.04 (0.82-1.09) 02/28/18 06:45 Microbiology 02/19/18 13:00 Blood - Peripheral Venous Blood Culture - Final NO GROWTH AFTER 5 DAYS INCUBATION 02/19/18 12:25 Blood - Peripheral Venous Blood Culture - Final NO GROWTH AFTER 5 DAYS INCUBATION Laboratory Tests 02/19/18 02/20/18 02/21/18 12:25 06:25 06:20 WBC Hgb Plt Count PTT (Actin FS) Sodium BUN Creatinine Stool Occult Blood TRUDI Screen Positive H Tot Complement (CH50) > 63 H HIV 1&2 Antibody Screen Negative HIV P24 Antigen Negative 02/22/18 02/28/18 03/02/18 23:15 06:45 05:00 WBC 5.9 Hgb 9.3 L Plt Count 183 PTT (Actin FS) 71.8 H Sodium BUN Creatinine Stool Occult Blood Negative TRUDI Screen Tot Complement (CH50) HIV 1&2 Antibody Screen HIV P24 Antigen 03/02/18 05:00 WBC Hgb Plt Count PTT (Actin FS) Sodium 135 L BUN 51 H Creatinine 2.6 H Stool Occult Blood TRUDI Screen Tot Complement (CH50) HIV 1&2 Antibody Screen HIV P24 Antigen - ....Imaging EKG: Image Reviewed Assessment/Plan Assessment/Plan - Problems (1) Renal insufficiency Assessment/Plan: as noted by duplicating machine servicer, likely high-output ostomy-->SHARONDA, with ?ATN. Code(s): N28.9 - DISORDER OF KIDNEY AND URETER, UNSPECIFIED (2) Atrial fibrillation Assessment/Plan: Continue metoprolol ER 50 mg bid. Now in sinus On IV heparin Code(s): I48.91 - UNSPECIFIED ATRIAL FIBRILLATION Qualifiers: Atrial fibrillation type: paroxysmal Qualified Code(s): I48.0 - Paroxysmal atrial fibrillation (3) CAD (coronary artery disease) Assessment/Plan: Pt with multiple CAD risks. Coronary artery evaluation (stress MIBI) if not done recently, once present status improves; this may be done as an outpatient. Code(s): I25.10 - ATHSCL HEART DISEASE OF [place] CORONARY ARTERY W/O ANG PCTRS Qualifiers: Coronary Disease-Associated Artery/Lesion type: [place] artery [place] vs. transplanted heart: [place] heart Associated angina: angina presence unspecified Qualified Code(s): I25.10 - Atherosclerotic heart disease of [place] coronary artery without angina pectoris (4) Chronic combined systolic and diastolic heart failure Assessment/Plan: On metoprolol. If unable to start ACEI, ARB,spironolactone due to renal insufficiency, would consider hydralazine + isordil. Code(s): I50.42 - CHRONIC COMBINED SYSTOLIC AND DIASTOLIC HRT FAIL (5) DVT (deep venous thrombosis) Assessment/Plan: On IV heparin Code(s): I82.409 - ACUTE EMBOLISM AND THOMBOS UNSP DEEP VN UNSP LOWER EXTREMITY Coverage for [place]
[2018-03-02] MEDS: POTASSIUM CHLORIDE TABS 20 MEQ TABLET.ER (FP) PO SCH (10:16)
[2018-03-02] MEDS: CODEINE SO4 30 MG TABLET PO SCH ×2 (10:16→22:44)
[2018-03-02] MEDS: SODIUM CHLORIDE 1,000 ML IV SCH (10:17)
--- NOTE | 2018-03-02 11:03 | PN ---
Progress Note (short form) - Note Progress Note: Renal follow up for SHARONDA Pt seen and examined at the bedside no acute complaints making urine on TPN and IVF Vital Signs Temperature 97.9 F 03/02/18 10:19 Pulse Rate 80 03/02/18 10:19 Respiratory Rate 16 03/02/18 10:19 Blood Pressure 132/74 03/02/18 10:19 O2 Sat by Pulse Oximetry (%) 96 03/01/18 20:16 Intake & Output 02/27/18 02/28/18 03/01/18 03/02/18 23:59 23:59 23:59 23:59 Intake Total 1506.4 5074 3336 2997 Output Total 7450 4900 4200 Balance 1506.4 -0416 -1564 -1203 Weight 76.204 kg NAD awake and alert RRR, NO M/R CTA soft NT, + ostomy NO LE edema, clubbing or cyanosis CBC, BMP 02/28/18 06:45 03/02/18 05:00 Current Medications Heparin Sodium (Porcine) (Heparin -) 1,000 unit IVPUSH PRN PRN PRN Reason: Heparin Last Admin: 02/28/18 14:15 Dose: 1,000 unit Heparin Sodium (Porcine) (Heparin -) 5,000 unit IVPUSH PRN PRN PRN Reason: Heparin Last Admin: 02/20/18 23:11 Dose: 5,000 unit IV Flush (Picc Line Flush) 8 ml IVPUSH PRN PRN PRN Reason: Protocol Heparin Sodium (Porcine) 25, (000 unit/ Sodium Chloride) 500 mls @ 16 mls/hr IV TITR SKIP; 800 UNIT/HR PRN Reason: Protocol Last Admin: 02/27/18 10:03 Dose: 1,100 unit/hr, 22 mls/hr Fat Emulsion Intravenous (Intralipid -) 250 mls @ 20.833 mls/hr IV DAILY@2200 SKIP Last Admin: 03/01/18 22:31 Dose: 20.833 mls/hr Sodium Chloride (Normal Saline -) 1,000 mls @ 83 mls/hr IV ASDIR SKIP Last Admin: 02/27/18 18:03 Dose: 83 mls/hr Potassium Chloride 60 meq/Calcium Gluconate 1,000 mg/Multivitamins/Minerals 10 ml/Folic Acid 1 mg/ Magnesium Sulfate 2 gm/ Potassium Phosphate 15 mm/ Sterile Water / Amino Acids/ Dextrose 2,000 mls @ 83.333 mls/hr IVPB DAILY@1600 [facility] Last Admin: 02/28/18 19:50 Dose: 83.333 mls/hr Potassium Chloride 20 meq/ (Sodium Chloride) 260 mls @ 130 mls/hr IVPB Q2H [facility] Stop: 02/27/18 01:29 Last Admin: 02/27/18 00:48 Dose: 130 mls/hr Loperamide HCl (Imodium -) 4 mg PO BID [facility] Last Admin: 02/28/18 09:53 Dose: 4 mg Metoprolol Succinate (Toprol Xl -) 50 mg PO BID [facility] Last Admin: 03/02/18 10:16 Dose: 50 mg Metoprolol Tartrate (Lopressor Injection -) 5 mg IVPUSH Q4H PRN PRN Reason: HYPERTENSION Last Admin: 02/28/18 16:02 Dose: 5 mg Ranitidine HCl (Zantac -) 150 mg PO HS [facility] Last Admin: 03/01/18 22:28 Dose: 150 mg 62 year old gentleman with PMhx of SBO s/o bowel resection with illeostomy, hypertension, hyperlipidemia who presented with chest and abd pain and found to have SHARONDA. #Acute Renal Failure secondary to volume depletion in setting of high output ostomy #Hypovolemic Hyponatremia #Diarrhea/High output ostomy Continue IVF and TPN with attempt to get pt net positive continue management of high output ostomy as per primary and GI KCL supplements PO and in TPN Trend BMP, Mg daily Randell Arreola DO
[2018-03-02] MEDS ORDERED: LOPERAMIDE HCL 2 MG CAPSULE PO SCH (11:52)
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
--- NOTE | 2018-03-02 15:25 | PN ---
Physical Exam: SUBJECTIVE: Patient seen and examined at bedside. No new complaints. continues to have high output fistula. Net negative again yesterday. OBJECTIVE: Vital Signs Period Temp Pulse Resp BP Sys/Ortiz Pulse Ox Last 24 Hr 97.9 F-98.5 F 76-83 16-20 92-132/57-74 96-96 GENERAL: The patient is awake, alert, and fully oriented, in no acute distress. NECK: Trachea midline, full range of motion, supple. LUNGS: Breath sounds equal, clear to auscultation bilaterally, no wheezes, no crackles, no accessory muscle use. HEART: Regular rate and rhythm, S1, S2 without murmur, rub or gallop. ABDOMEN: Soft, nontender, nondistended, normoactive bowel sounds, no guarding, no rebound, no hepatosplenomegaly, no masses. Ileostomy in place draining liquid stool. 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 NEUROLOGICAL: Cranial nerves II through X grossly intact. Normal speech, gait not observed. SKIN: Warm, dry, normal turgor, no rashes or lesions noted Laboratory Results - last 24 hr 03/02/18 03/02/18 05:00 05:00 PTT (Actin FS) 71.8 H Sodium 135 L Potassium 3.4 L Chloride 98 Carbon Dioxide 27 Anion Gap 10 BUN 51 H Creatinine 2.6 H Random Glucose 102 Calcium 8.7 Phosphorus 3.8 Magnesium 2.3 Active Medications Generic Name Dose Route Start Last Admin Trade Name Freq PRN Reason Stop Dose Admin Heparin Sodium (Porcine) 1,000 unit 02/20/18 17:30 02/28/18 14:15 Heparin - IVPUSH 1,000 unit PRN PRN Administration Heparin Heparin Sodium (Porcine) 5,000 unit 02/20/18 17:30 02/20/18 23:11 Heparin - IVPUSH 5,000 unit PRN PRN Administration Heparin IV Flush 8 ml 02/25/18 08:03 Picc Line Flush IVPUSH PRN PRN Protocol Heparin Sodium (Porcine) 25, 500 mls @ 16 mls/hr 02/20/18 17:30 02/27/18 10: 03 000 unit/ Sodium Chloride IV 1,100 unit/hr TITR SKIP 22 mls/hr Protocol Administration 800 UNIT/HR Fat Emulsion Intravenous 250 mls @ 20.833 mls/hr 02/21/18 22:00 03/01/18 22: 31 Intralipid - IV 20.833 mls/hr DAILY@2200 SKIP Administration Sodium Chloride 1,000 mls @ 83 mls/hr 02/26/18 12:00 02/27/18 18:03 Normal Saline - IV 83 mls/hr ASDIR SKIP Administration Potassium Chloride 60 meq/ 2,000 mls @ 83.333 mls/hr 02/26/18 16:00 02/28/18 19:50 Calcium Gluconate 1,000 mg/ IVPB 83.333 mls/hr Multivitamins/Minerals 10 ml/ DAILY@1600 SKIP Administration Folic Acid 1 mg/ Magnesium Sulfate 2 gm/ Potassium Phosphate 15 mm/ Sterile Water / Amino Acids/ Dextrose Potassium Chloride 20 meq/ 260 mls @ 130 mls/hr 02/26/18 23:30 02/27/18 00:48 Sodium Chloride IVPB 02/27/18 01:29 130 mls/hr Q2H SKIP Administration Loperamide HCl 4 mg 02/26/18 14:45 02/28/18 09:53 Imodium - PO 4 mg BID SKIP Administration Metoprolol Succinate 50 mg 02/26/18 22:00 03/02/18 10:16 Toprol Xl - PO 50 mg BID SKIP Administration Metoprolol Tartrate 5 mg 02/21/18 00:17 02/28/18 16:02 Lopressor Injection - IVPUSH 5 mg Q4H PRN Administration HYPERTENSION Ranitidine HCl 150 mg 02/19/18 22:00 03/01/18 22:28 Zantac - PO 150 mg HS SKIP Administration ASSESSMENT/PLAN: The patient is a 62yo Ukrainian speaking M with an unclear PMHx of HTN, SBO, Mesenteric ischemia s/p bowel resection and ostomy, Afib, HLD admitted for the treatment of acute renal failure #Unclear History; pt poor historian -[facility] records show normal creatinine on discharge in October -Dr. Saeed ( ), patient's surgeon, is out of the office until next week. -Called Dr. Rodriguez, IR radiologist at [facility] who replaced the patient' s PICC. -Patient was seen at the surgical oncology clinic at [facility] ([address]) on January 31 under the care of Dr. Maria Elena Mcdermott ([phone]). -PICC to be replaced 6 weeks after placement. -awaiting callback from Dr. Mcdermott at [facility] surgical clinic to discuss the case. #Acute Renal Failure likely 2/2 Volume depletion 2/2 high output ostomy -BUN/Creatinine improved ; 51/2.6. -Nephro onboard; Dr. Maxwell VERMA@ 125 -I&O -attempting to decrease ostomy output -increased loperamide to 4mg QID; max daily dose 16 -codiene sulfate 15mg BID -output 3800 yesterday -Still net negative -GI consult #Hypokalemia -potassium 3.4 today -supplementing K+ in TPN; 60 meq increased to 75meq yesterday -40meq PO daily SKIP -will monitor # Microcytic Anemia- stable #HTN -holding home antihypertensives as patient w/ low BP #Afib -c/w toprolol 25 BID -c/w heparin gtt -Will restart the patient on Lovenox once creatinine stable. #SIRS- resolved # Atypical CP- resolved; possibly 2/2 run of Afib -Continue ASA # Euvoleimic Hyponatremia likely 2/2 ARF- resolved # Transaminitis possibly related to renal dysfunction- resolved # Elevated CK possibly 2/2 renal dysfunction- resolved #FEN -NS @ 125 -monitor lytes closely -chopped diet; patient on TPN. #prophy -HSQ 5ku TID # Dispo -admit tele Visit type - Emergency Visit Emergency Visit: Yes ED Registration Date: 02/19/18 Care time: The patient presented to the Emergency Department on the above date and was hospitalized for further evaluation of their emergent condition. - New Patient This patient is new to me today: No - Critical Care Critical Care patient: No
[2018-03-02] MEDS: POTASSIUM CHLORIDE IVPB SCH (17:14)
[2018-03-02] MEDS: [UNRECOGNIZED DRUG - OTHER] IVPB SCH (17:14)
[2018-03-02] MEDS: CALCIUM GLUCONATE IVPB SCH (17:14)
[2018-03-02] MEDS ORDERED: PT OWN MED DRAWER 7, Y5N ONE (22:13)
[2018-03-02] MEDS: RANITIDINE HCL 150 MG TABLET (FP) PO SCH (22:44)
[2018-03-02] MEDS: FAT EMULSIONS 250 ML IV SCH (22:44)
[2018-03-02] MEDS: HEPARIN - 25,000 UNIT in SODIUM CHLORIDE 495 ML IV SCH (22:45)
[2018-03-03 07:28] LABS: ANION GAP 9 (8-16); BLOOD UREA NITROGEN 44 mg/dL (7-18); CALCIUM 8.3 mg/dL (8.5-10.1); CHLORIDE 99 mmol/L (98-107); CO2 26 mmol/L (21-32); CREATININE 2.4 mg/dL (0.7-1.3); GLUCOSE,RANDOM 86 mg/dL (74-106); MAGNESIUM 2.3 mg/dL (1.8-2.4); PHOSPHOROUS 3.2 mg/dL (2.5-4.9); POTASSIUM 3.4 mmol/L (3.5-5.1); SODIUM 134 mmol/L (136-145)
[2018-03-03] MEDS ORDERED: PT OWN MED DRAWER 7, Y5N ONE (09:27)
[2018-03-03] MEDS: CODEINE SO4 30 MG TABLET PO SCH ×2 (09:33→21:22)
[2018-03-03] MEDS: LOPERAMIDE HCL 2 MG CAPSULE PO SCH ×4 (09:33→21:22)
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
[2018-03-03] MEDS ORDERED: POTASSIUM CHLORIDE TABS 20 MEQ TABLET.ER (FP) PO SCH (10:00)
[2018-03-03] MEDS: SODIUM CHLORIDE 1,000 ML IV SCH (12:23)
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
[2018-03-03] MEDS: HEPARIN - 25,000 UNIT in SODIUM CHLORIDE 495 ML IV SCH ×2 (15:20→21:20)
[2018-03-03] MEDS: HEPARIN NA (PORCINE) 5,000 UNITS/ML 1ML VIAL IVPUSH PRN (16:35)
[2018-03-03] MEDS: CALCIUM GLUCONATE IVPB SCH ×2 (18:05→21:26)
[2018-03-03] MEDS: [UNRECOGNIZED DRUG - OTHER] IVPB SCH ×2 (18:05→21:26)
[2018-03-03] MEDS: POTASSIUM CHLORIDE IVPB SCH ×2 (18:05→21:26)
[2018-03-03] MEDS: POTASSIUM CHLORIDE TABS 20 MEQ TABLET.ER (FP) PO SCH (21:21)
[2018-03-03] MEDS: RANITIDINE HCL 150 MG TABLET (FP) PO SCH (21:21)
[2018-03-03] MEDS: FAT EMULSIONS 250 ML IV SCH (21:25)
[2018-03-04] MEDS: HEPARIN - 25,000 UNIT in SODIUM CHLORIDE 495 ML IV SCH ×3 (07:00→19:02)
[2018-03-04] MEDS: LOPERAMIDE HCL 2 MG CAPSULE PO SCH ×4 (09:34→21:08)
[2018-03-04] MEDS: POTASSIUM CHLORIDE TABS 20 MEQ TABLET.ER (FP) PO SCH ×2 (09:34→21:09)
[2018-03-04] MEDS: CODEINE SO4 30 MG TABLET PO SCH ×2 (09:35→21:08)
[2018-03-04 10:17] LABS: ANION GAP 9 (8-16); BLOOD UREA NITROGEN 33 mg/dL (7-18); CALCIUM 8.6 mg/dL (8.5-10.1); CHLORIDE 106 mmol/L (98-107); CO2 23 mmol/L (21-32); CREATININE 2.1 mg/dL (0.7-1.3); GLUCOSE,RANDOM 76 mg/dL (74-106); POTASSIUM 3.8 mmol/L (3.5-5.1); SODIUM 138 mmol/L (136-145)
[2018-03-04] MEDS: SODIUM CHLORIDE 1,000 ML IV SCH (13:03)
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
[2018-03-04] MEDS: CALCIUM GLUCONATE IVPB SCH ×2 (16:02→21:10)
[2018-03-04] MEDS: POTASSIUM CHLORIDE IVPB SCH ×2 (16:02→21:10)
[2018-03-04] MEDS: [UNRECOGNIZED DRUG - OTHER] IVPB SCH ×2 (16:02→21:10)
--- NOTE | 2018-03-04 18:30 | PN ---
Progress Note (short form) - Note Progress Note: Renal follow up for SHARONDA Pt seen and examined at the bedside no acute complaints Vital Signs Temperature 98.2 F 03/04/18 14:00 Pulse Rate 87 03/04/18 14:00 Respiratory Rate 18 03/04/18 10:00 Blood Pressure 102/68 03/04/18 14:00 O2 Sat by Pulse Oximetry (%) 100 03/03/18 21:00 Intake & Output 03/01/18 03/02/18 03/03/18 03/04/18 23:59 23:59 23:59 23:59 Intake Total 3336 3597 6768 3799 Output Total 4900 11900 8150 1330 Balance -4721 -8497 -5606 2469 NAD awake and alert RRR, NO M/R CTA soft NT, + ostomy NO LE edema, clubbing or cyanosis CBC, BMP 02/28/18 06:45 03/04/18 09:20 Current Medications Heparin Sodium (Porcine) (Heparin -) 1,000 unit IVPUSH PRN PRN PRN Reason: Heparin Last Admin: 03/03/18 16:35 Dose: 1,000 unit Heparin Sodium (Porcine) (Heparin -) 5,000 unit IVPUSH PRN PRN PRN Reason: Heparin Last Admin: 02/20/18 23:11 Dose: 5,000 unit IV Flush (Picc Line Flush) 8 ml IVPUSH PRN PRN PRN Reason: Protocol Heparin Sodium (Porcine) 25, (000 unit/ Sodium Chloride) 500 mls @ 16 mls/hr IV TITR SKIP; 800 UNIT/HR PRN Reason: Protocol Last Admin: 02/27/18 10:03 Dose: 1,100 unit/hr, 22 mls/hr Fat Emulsion Intravenous (Intralipid -) 250 mls @ 20.833 mls/hr IV DAILY@2200 SKIP Last Admin: 03/03/18 21:25 Dose: 20.833 mls/hr Sodium Chloride (Normal Saline -) 1,000 mls @ 83 mls/hr IV ASDIR SKIP Last Admin: 02/27/18 18:03 Dose: 83 mls/hr Potassium Chloride 60 meq/Calcium Gluconate 1,000 mg/Multivitamins/Minerals 10 ml/Folic Acid 1 mg/ Magnesium Sulfate 2 gm/ Potassium Phosphate 15 mm/ Sterile Water / Amino Acids/ Dextrose 2,000 mls @ 83.333 mls/hr IVPB DAILY@1600 [facility] Last Admin: 02/28/18 19:50 Dose: 83.333 mls/hr Potassium Chloride 20 meq/ (Sodium Chloride) 260 mls @ 130 mls/hr IVPB Q2H [facility] Stop: 02/27/18 01:29 Last Admin: 02/27/18 00:48 Dose: 130 mls/hr Loperamide HCl (Imodium -) 4 mg PO BID [facility] Last Admin: 02/28/18 09:53 Dose: 4 mg Metoprolol Succinate (Toprol Xl -) 50 mg PO BID [facility] Last Admin: 03/04/18 09:37 Dose: 50 mg Metoprolol Tartrate (Lopressor Injection -) 5 mg IVPUSH Q4H PRN PRN Reason: HYPERTENSION Last Admin: 02/28/18 16:02 Dose: 5 mg Ranitidine HCl (Zantac -) 150 mg PO HS [facility] Last Admin: 03/03/18 21:21 Dose: 150 mg 62 year old gentleman with PMhx of SBO s/o bowel resection with illeostomy, hypertension, hyperlipidemia who presented with chest and abd pain and found to have SHARONDA. #Acute Renal Failure secondary to volume depletion in setting of high output ostomy #Hypovolemic Hyponatremia #Diarrhea/High output ostomy Renal function slightly improved continue TPN and IVF Trend renal function and electrolytes Randell Arreola DO
[2018-03-04] MEDS: RANITIDINE HCL 150 MG TABLET (FP) PO SCH (21:08)
[2018-03-04] MEDS: FAT EMULSIONS 250 ML IV SCH (21:10)
[2018-03-05 06:58] LABS: HEMOGLOBIN 8.8 GM/dL (11.7-16.9); MCHC 35.3 g/dl (32.0-35.9); MEAN CELL VOLUME 85.1 fl (80-96); MEAN PLT VOLUME 10.6 fl (7.5-11.1); PLATELET COUNT 181 K/MM3 (134-434); RBC 2.94 M/mm3 (4.00-5.60); RDW 19.9 % (11.9-15.9); WHITE BLOOD COUNT 4.7 K/mm3 (4.0-10.0)
[2018-03-05 07:47] LABS: ANION GAP 10 (8-16); BLOOD UREA NITROGEN 29 mg/dL (7-18); CHLORIDE 105 mmol/L (98-107); CO2 24 mmol/L (21-32); CREATININE 1.9 mg/dL (0.7-1.3); GLUCOSE,RANDOM 93 mg/dL (74-106); SODIUM 139 mmol/L (136-145)
[2018-03-05] MEDS: CODEINE SO4 30 MG TABLET PO SCH ×2 (09:10→21:50)
[2018-03-05] MEDS: POTASSIUM CHLORIDE TABS 20 MEQ TABLET.ER (FP) PO SCH ×2 (09:11→21:51)
[2018-03-05] MEDS: LOPERAMIDE HCL 2 MG CAPSULE PO SCH ×4 (09:12→21:50)
--- NOTE | 2018-03-05 12:58 | PN ---
Physical Exam: SUBJECTIVE: Patient seen and examined at bedside this morning. No acute events overnight. Off tele monitoring. Today, pt denies BAIG, fever, chills, SOB, or abdominal pain. States that he "feels well." OBJECTIVE: Vital Signs Period Temp Pulse Resp BP Sys/Ortiz Pulse Ox Last 24 Hr 97.9 F-98.2 F 73-100 18-20 102-125/55-74 100-100 GENERAL: The patient is sitting comfortably in bed. Awake, alert, and fully oriented, in no acute distress. HEAD: Normal with no signs of trauma. EYES: PERRL, extraocular movements intact, sclera anicteric, conjunctiva clear. ENT: Ears normal, nares patent, oropharynx clear without exudates, dry mucous membranes. NECK: Trachea midline, supple. LUNGS: Breath sounds equal, clear to auscultation bilaterally, no wheezes, no crackles, no accessory muscle use. HEART: Regular rate and rhythm, S1, S2 without murmur, rub or gallop. ABDOMEN: Soft, nontender, nondistended, no guarding. +umbilical wound with pink tissue, without drainage. +ostomy- yellow serous drainage EXTREMITIES: 2+ posterior tibial pulses, warm, well-perfused, no edema. +L PICC site-without erythema, edema NEUROLOGICAL: Cranial nerves II through XII grossly intact. Normal speech PSYCH: Normal mood, normal affect. SKIN: Warm, dry Laboratory Results - last 24 hr 03/05/18 03/05/18 03/05/18 06:10 06:10 06:10 WBC 4.7 RBC 2.94 L Hgb 8.8 L Hct 25.0 L MCV 85.1 MCH 30.0 MCHC 35.3 RDW 19.9 H Plt Count 181 MPV 10.6 PTT (Actin FS) 67.0 H Sodium 139 Potassium 4.0 Chloride 105 Carbon Dioxide 24 Anion Gap 10 BUN 29 H Creatinine 1.9 H Random Glucose 93 D Calcium 9.0 Active Medications Generic Name Dose Route Start Last Admin Trade Name Freq PRN Reason Stop Dose Admin Heparin Sodium (Porcine) 1,000 unit 02/20/18 17:30 03/03/18 16:35 Heparin - IVPUSH 1,000 unit PRN PRN Administration Heparin Heparin Sodium (Porcine) 5,000 unit 02/20/18 17:30 02/20/18 23:11 Heparin - IVPUSH 5,000 unit PRN PRN Administration Heparin IV Flush 8 ml 02/25/18 08:03 Picc Line Flush IVPUSH PRN PRN Protocol Heparin Sodium (Porcine) 25, 500 mls @ 16 mls/hr 02/20/18 17:30 02/27/18 10: 03 000 unit/ Sodium Chloride IV 1,100 unit/hr TITR SKIP 22 mls/hr Protocol Administration 800 UNIT/HR Fat Emulsion Intravenous 250 mls @ 20.833 mls/hr 02/21/18 22:00 03/04/18 21: 10 Intralipid - IV 20.833 mls/hr DAILY@2200 SKIP Administration Sodium Chloride 1,000 mls @ 83 mls/hr 02/26/18 12:00 02/27/18 18:03 Normal Saline - IV 83 mls/hr ASDIR SKIP Administration Potassium Chloride 60 meq/ 2,000 mls @ 83.333 mls/hr 02/26/18 16:00 02/28/18 19:50 Calcium Gluconate 1,000 mg/ IVPB 83.333 mls/hr Multivitamins/Minerals 10 ml/ DAILY@1600 SKIP Administration Folic Acid 1 mg/ Magnesium Sulfate 2 gm/ Potassium Phosphate 15 mm/ Sterile Water / Amino Acids/ Dextrose Potassium Chloride 20 meq/ 260 mls @ 130 mls/hr 02/26/18 23:30 02/27/18 00:48 Sodium Chloride IVPB 02/27/18 01:29 130 mls/hr Q2H SKIP Administration Loperamide HCl 4 mg 02/26/18 14:45 02/28/18 09:53 Imodium - PO 4 mg BID SKIP Administration Metoprolol Succinate 50 mg 02/26/18 22:00 03/05/18 09:12 Toprol Xl - PO 50 mg BID SKIP Administration Metoprolol Tartrate 5 mg 02/21/18 00:17 02/28/18 16:02 Lopressor Injection - IVPUSH 5 mg Q4H PRN Administration HYPERTENSION Ranitidine HCl 150 mg 02/19/18 22:00 03/04/18 21:08 Zantac - PO 150 mg HS SKIP Administration ASSESSMENT/PLAN: #Acute renal failure 2/2 high output from ostomy site -Cr 1.9, improved from 2.1 (5/7) - initial 11.6 (4/23) -Ostomy output +[id number] ; if becomes (-) will need to increase IVF rate -For now, continue NS 125 cc/hr -Continue to follow I&O -Holding home DESTIN- (lisinopril 2.5mg PO qd) #H/o mesenteric ischemia, s/p partial small and large bowel resection -Goal to decrease ostomy output -Continue loperamide 4mg PO QID, codeine sulfate 15mg PO BID -surgeon, Dr. Saeed [phone] to complete pt future surgical plan. Next in office 03/06 -will need to ask amount jejunum removed, ?wound closure, update on high output ostomy, future surgical steps #RUE DVT, s/p removal R PICC line -continue heparin gtt; goal PTT 60-80. -Today PTT therapeutic (67) -Once Cr stabilizes, a/c to be decided -Will likely continue on home lovenox dose #afib - currently in sinus -rate controlled metoprolol succinate 50 mg PO BID, metoprolol tartate 5mg IVP q4h PRN -Once Cr<2, stabilized, with formed stool, can resume home lovenox dose -on heparin gtt for a/c #hypokalemia -resolved; watch for hyperkalemia -current level 4 -continue KCl 130 cc/hr supplementation #H/o CAD, HTN -Continue metoprolol succinate 50mg PO BID -Continue to hold home DESTIN- -stress MIBI as outpatient #F/E/N IV NS 125 cc/hr, TPN, KCl 130 cc/hr supplementation Continue to monitor lytes, especially K Cardiac diet - Na controlled/ Cholesterol controlled #PPX DVT: on heparin gtt #Dispo monitoring off tele; will need future surgical plans on d/c will need home infusion/VNS Visit type - Emergency Visit Emergency Visit: No - New Patient This patient is new to me today: No - Critical Care Critical Care patient: No
[2018-03-05] MEDS: SODIUM CHLORIDE 1,000 ML IV SCH (13:38)
[2018-03-05] MEDS: HEPARIN - 25,000 UNIT in SODIUM CHLORIDE 495 ML IV SCH (15:22)
--- NOTE | 2018-03-05 15:46 | PN ---
Progress Note (short form) - Note Progress Note: Renal follow up for SHARONDA Pt seen and examined at the bedside no acute complaints Vital Signs Temperature 98.2 F 03/05/18 14:05 Pulse Rate 76 03/05/18 14:05 Respiratory Rate 18 03/05/18 14:05 Blood Pressure 128/77 03/05/18 14:05 O2 Sat by Pulse Oximetry (%) 100 03/05/18 09:00 Intake & Output 03/02/18 03/03/18 03/04/18 03/05/18 23:59 23:59 23:59 23:59 Intake Total 3597 6768 4649 3298 Output Total 79914 8150 8380 6600 Balance -6953 -1382 -3731 -3302 NAD awake and alert RRR, NO M/R CTA soft NT, + ostomy NO LE edema, clubbing or cyanosis CBC, BMP 03/05/18 06:10 03/05/18 06:10 Current Medications Heparin Sodium (Porcine) (Heparin -) 1,000 unit IVPUSH PRN PRN PRN Reason: Heparin Last Admin: 03/03/18 16:35 Dose: 1,000 unit Heparin Sodium (Porcine) (Heparin -) 5,000 unit IVPUSH PRN PRN PRN Reason: Heparin Last Admin: 02/20/18 23:11 Dose: 5,000 unit IV Flush (Picc Line Flush) 8 ml IVPUSH PRN PRN PRN Reason: Protocol Heparin Sodium (Porcine) 25, (000 unit/ Sodium Chloride) 500 mls @ 16 mls/hr IV TITR SKIP; 800 UNIT/HR PRN Reason: Protocol Last Admin: 02/27/18 10:03 Dose: 1,100 unit/hr, 22 mls/hr Fat Emulsion Intravenous (Intralipid -) 250 mls @ 20.833 mls/hr IV DAILY@2200 SKIP Last Admin: 03/04/18 21:10 Dose: 20.833 mls/hr Sodium Chloride (Normal Saline -) 1,000 mls @ 83 mls/hr IV ASDIR SKIP Last Admin: 02/27/18 18:03 Dose: 83 mls/hr Potassium Chloride 60 meq/Calcium Gluconate 1,000 mg/Multivitamins/Minerals 10 ml/Folic Acid 1 mg/ Magnesium Sulfate 2 gm/ Potassium Phosphate 15 mm/ Sterile Water / Amino Acids/ Dextrose 2,000 mls @ 83.333 mls/hr IVPB DAILY@1600 [facility] Last Admin: 02/28/18 19:50 Dose: 83.333 mls/hr Potassium Chloride 20 meq/ (Sodium Chloride) 260 mls @ 130 mls/hr IVPB Q2H [facility] Stop: 02/27/18 01:29 Last Admin: 02/27/18 00:48 Dose: 130 mls/hr Loperamide HCl (Imodium -) 4 mg PO BID [facility] Last Admin: 02/28/18 09:53 Dose: 4 mg Metoprolol Succinate (Toprol Xl -) 50 mg PO BID [facility] Last Admin: 03/05/18 09:12 Dose: 50 mg Metoprolol Tartrate (Lopressor Injection -) 5 mg IVPUSH Q4H PRN PRN Reason: HYPERTENSION Last Admin: 02/28/18 16:02 Dose: 5 mg Ranitidine HCl (Zantac -) 150 mg PO HS [facility] Last Admin: 03/04/18 21:08 Dose: 150 mg 62 year old gentleman with PMhx of SBO s/o bowel resection with illeostomy, hypertension, hyperlipidemia who presented with chest and abd pain and found to have SHARONDA. 

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
[2018-03-05] MEDS: POTASSIUM CHLORIDE IVPB SCH (17:37)
[2018-03-05] MEDS: [UNRECOGNIZED DRUG - OTHER] IVPB SCH (17:37)
[2018-03-05] MEDS: CALCIUM GLUCONATE IVPB SCH (17:37)
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
[2018-03-05] MEDS: FAT EMULSIONS 250 ML IV SCH (21:52)
[2018-03-05] MEDS: RANITIDINE HCL 150 MG TABLET (FP) PO SCH (22:26)
[2018-03-06] MEDS ORDERED: PT OWN MED DRAWER 7, Y5N ONE ×4 (00:58→16:01)
[2018-03-06] MEDS: POTASSIUM CHLORIDE IVPB SCH ×2 (03:07→16:04)
[2018-03-06] MEDS: CALCIUM GLUCONATE IVPB SCH ×2 (03:07→16:04)
[2018-03-06] MEDS: [UNRECOGNIZED DRUG - OTHER] IVPB SCH ×2 (03:07→16:04)
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
[2018-03-06 09:20] LABS: EOS % 2.8 % (0-4.5); HEMATOCRIT 25.2 % (35.4-49); HEMOGLOBIN 8.7 GM/dL (11.7-16.9); LYMPH % 36.4 % (8-40); MCH 29.8 pg (25.7-33.7); MCHC 34.6 g/dl (32.0-35.9); MEAN CELL VOLUME 86.2 fl (80-96); MEAN PLT VOLUME 10.6 fl (7.5-11.1); MONO % 8.7 % (3.8-10.2); NEUT % 51.1 % (42.8-82.8); PLATELET COUNT 186 K/MM3 (134-434); RBC 2.92 M/mm3 (4.00-5.60); RDW 19.4 % (11.9-15.9); WHITE BLOOD COUNT 4.2 K/mm3 (4.0-10.0)
[2018-03-06] MEDS: CODEINE SO4 30 MG TABLET PO SCH ×2 (09:55→22:14)
[2018-03-06] MEDS: POTASSIUM CHLORIDE TABS 20 MEQ TABLET.ER (FP) PO SCH ×2 (09:56→22:15)
[2018-03-06] MEDS: LOPERAMIDE HCL 2 MG CAPSULE PO SCH ×4 (09:56→22:15)
[2018-03-06 10:02] LABS: CHLORIDE 107 mmol/L (98-107); POTASSIUM 4.3 mmol/L (3.5-5.1); SODIUM 137 mmol/L (136-145)
[2018-03-06 10:14] LABS: ANION GAP 8 (8-16); BLOOD UREA NITROGEN 25 mg/dL (7-18); CO2 22 mmol/L (21-32); CREATININE 1.9 mg/dL (0.7-1.3); GLUCOSE,RANDOM 90 mg/dL (74-106)
[2018-03-06] MEDS: SODIUM CHLORIDE 1,000 ML IV SCH (11:23)
--- NOTE | 2018-03-06 11:53 | PN ---
Progress Note, Physician History of Present Illness: Patient is a 62 year old black male (b. [place]) wiht a PMH of SBO ( 2016 w/colostomy) AFib, CAD, DVT, HTN, HLD presents to our ED c/o presents to our ED with acute onset of pain. Pain is sharp and localized to his B/L UE and across his chest. Pain is intermittent, 10/10 and lasts for 2-3 minutes without any identifiable triggering or relieving factors. Patient denies any previous h/o similar pain. Patient denies fever/chills, nausea/vomiting, dysuria/hematuria, numbness/ tingling or AMS or visual changes. As per EMR patient evaluated at our facility in 2015 at which time he had an ex lap for SBO. - Current Medication List Current Medications: Active Medications Heparin Sodium (Porcine) (Heparin -) 1,000 unit IVPUSH PRN PRN PRN Reason: Heparin Last Admin: 03/03/18 16:35 Dose: 1,000 unit Heparin Sodium (Porcine) (Heparin -) 5,000 unit IVPUSH PRN PRN PRN Reason: Heparin Last Admin: 02/20/18 23:11 Dose: 5,000 unit IV Flush (Picc Line Flush) 8 ml IVPUSH PRN PRN PRN Reason: Protocol Heparin Sodium (Porcine) 25, (000 unit/ Sodium Chloride) 500 mls @ 16 mls/hr IV TITR SKIP; 800 UNIT/HR PRN Reason: Protocol Last Admin: 02/27/18 10:03 Dose: 1,100 unit/hr, 22 mls/hr Fat Emulsion Intravenous (Intralipid -) 250 mls @ 20.833 mls/hr IV DAILY@2200 [facility] Last Admin: 03/05/18 21:52 Dose: 20.833 mls/hr Sodium Chloride (Normal Saline -) 1,000 mls @ 83 mls/hr IV ASDIR [facility] Last Admin: 02/27/18 18:03 Dose: 83 mls/hr Potassium Chloride 60 meq/Calcium Gluconate 1,000 mg/Multivitamins/Minerals 10 ml/Folic Acid 1 mg/ Magnesium Sulfate 2 gm/ Potassium Phosphate 15 mm/ Sterile Water / Amino Acids/ Dextrose 2,000 mls @ 83.333 mls/hr IVPB DAILY@1600 [facility] Last Admin: 02/28/18 19:50 Dose: 83.333 mls/hr Potassium Chloride 20 meq/ (Sodium Chloride) 260 mls @ 130 mls/hr IVPB Q2H [facility] Stop: 02/27/18 01:29 Last Admin: 02/27/18 00:48 Dose: 130 mls/hr Loperamide HCl (Imodium -) 4 mg PO BID [facility] Last Admin: 02/28/18 09:53 Dose: 4 mg Metoprolol Succinate (Toprol Xl -) 50 mg PO BID [facility] Last Admin: 03/06/18 09:57 Dose: 50 mg Metoprolol Tartrate (Lopressor Injection -) 5 mg IVPUSH Q4H PRN PRN Reason: HYPERTENSION Last Admin: 02/28/18 16:02 Dose: 5 mg Ranitidine HCl (Zantac -) 150 mg PO HS [facility] Last Admin: 03/05/18 22:26 Dose: 150 mg - Objective Vital Signs: Vital Signs Temperature 98.1 F 03/06/18 06:00 Pulse Rate 72 03/06/18 06:00 Respiratory Rate 20 03/06/18 06:00 Blood Pressure 118/72 03/06/18 06:00 O2 Sat by Pulse Oximetry (%) 100 03/05/18 21:00 Eyes: Yes: WNL, Conjunctiva Clear, EOM Intact HENT: Yes: WNL, Atraumatic, Normocephalic Neck: Yes: WNL, Supple, Trachea Midline Cardiovascular: Yes: WNL, Regular Rate and Rhythm Respiratory: Yes: WNL, Regular, CTA Bilaterally Gastrointestinal: Yes: WNL, Normal Bowel Sounds Genitourinary: Yes: WNL Musculoskeletal: Yes: WNL Extremities: Yes: WNL Edema: No Integumentary: Yes: WNL Neurological: Yes: WNL, Alert, Oriented ...Motor Strength: WNL Psychiatric: Yes: WNL Labs: CBC, BMP 03/06/18 08:08 03/06/18 08:08 INR, PTT INR 1.04 (0.82-1.09) 02/28/18 06:45 Assessment/Plan Problems (1) Renal insufficiency Assessment/Plan: as noted by fashion consultant selling, likely high-output ostomy-->SHARONDA, with ?ATN. Still on TPN; ?continued need. Start ACEI or ARB when approved by fashion consultant selling. Code(s): N28.9 - DISORDER OF KIDNEY AND URETER, UNSPECIFIED (2) Atrial fibrillation Assessment/Plan: Continue metoprolol ER 50 mg bid; may change to metoprolol ER daily for easier compliance as outpatient. On IV heparin; as noted, pt will likely be sent home on Lovenox if renal function improves, while watching progress of high-output ostomy. Code(s): I48.91 - UNSPECIFIED ATRIAL FIBRILLATION Qualifiers: Atrial fibrillation type: paroxysmal Qualified Code(s): I48.0 - Paroxysmal atrial fibrillation (3) CAD (coronary artery disease) Assessment/Plan: Pt with multiple CAD risks. Coronary artery evaluation (stress MIBI) if not done recently, once present status improves; this may be done as an outpatient. Code(s): I25.10 - ATHSCL HEART DISEASE OF [place] CORONARY ARTERY W/O ANG PCTRS Qualifiers: Coronary Disease-Associated Artery/Lesion type: [place] artery [place] vs. transplanted heart: [place] heart Associated angina: angina presence unspecified Qualified Code(s): I25.10 - Atherosclerotic heart disease of [place] coronary artery without angina pectoris (4) Hyperlipidemia Code(s): E78.5 - HYPERLIPIDEMIA, UNSPECIFIED Qualifiers: Hyperlipidemia type: unspecified Qualified Code(s): E78.5 - Hyperlipidemia , unspecified (5) Hypertension Code(s): I10 - ESSENTIAL (PRIMARY) HYPERTENSION Qualifiers: Hypertension type: essential hypertension Qualified Code(s): I10 - Essential (primary) hypertension (6) Chronic combined systolic and diastolic heart failure Assessment/Plan: On metoprolol. If unable to start ACEI, ARB,spironolactone due to renal insufficiency, would consider hydralazine + isordil if BP allows. Code(s): I50.42 - CHRONIC COMBINED SYSTOLIC AND DIASTOLIC HRT FAIL (7) DVT (deep venous thrombosis) Assessment/Plan: On IV heparin; may require Lovenox as outpt. Code(s): I82.409 - ACUTE EMBOLISM AND THOMBOS UNSP DEEP VN UNSP LOWER EXTREMITY
--- NOTE | 2018-03-06 13:04 | PN ---
Progress Note (short form) - Note Progress Note: Renal follow up for SHARONDA Pt seen and examined at the bedside awake and alert no acute complaints no sob, chest pain, abd pain, N/V/D Vital Signs Temperature 98.2 F 03/06/18 08:35 Pulse Rate 84 03/06/18 08:35 Respiratory Rate 18 03/06/18 08:35 Blood Pressure 107/64 03/06/18 08:35 O2 Sat by Pulse Oximetry (%) 100 03/05/18 21:00 Intake & Output 03/03/18 03/04/18 03/05/18 03/06/18 23:59 23:59 23:59 23:59 Intake Total 6768 4659 6636 2470 Output Total 8108 7421 68487 Balance -4843 -0862 -2170 2470 NAD awake and alert RRR, NO M/R CTA soft NT, + ostomy NO LE edema, clubbing or cyanosis CBC, BMP 03/06/18 08:08 03/06/18 08:08 Current Medications Heparin Sodium (Porcine) (Heparin -) 1,000 unit IVPUSH PRN PRN PRN Reason: Heparin Last Admin: 03/03/18 16:35 Dose: 1,000 unit Heparin Sodium (Porcine) (Heparin -) 5,000 unit IVPUSH PRN PRN PRN Reason: Heparin Last Admin: 02/20/18 23:11 Dose: 5,000 unit IV Flush (Picc Line Flush) 8 ml IVPUSH PRN PRN PRN Reason: Protocol Heparin Sodium (Porcine) 25, (000 unit/ Sodium Chloride) 500 mls @ 16 mls/hr IV TITR SKIP; 800 UNIT/HR PRN Reason: Protocol Last Admin: 02/27/18 10:03 Dose: 1,100 unit/hr, 22 mls/hr Fat Emulsion Intravenous (Intralipid -) 250 mls @ 20.833 mls/hr IV DAILY@2200 SKIP Last Admin: 03/05/18 21:52 Dose: 20.833 mls/hr Sodium Chloride (Normal Saline -) 1,000 mls @ 83 mls/hr IV ASDIR SKIP Last Admin: 02/27/18 18:03 Dose: 83 mls/hr Potassium Chloride 60 meq/Calcium Gluconate 1,000 mg/Multivitamins/Minerals 10 ml/Folic Acid 1 mg/ Magnesium Sulfate 2 gm/ Potassium Phosphate 15 mm/ Sterile Water / Amino Acids/ Dextrose 2,000 mls @ 83.333 mls/hr IVPB DAILY@1600 [facility] Last Admin: 02/28/18 19:50 Dose: 83.333 mls/hr Potassium Chloride 20 meq/ (Sodium Chloride) 260 mls @ 130 mls/hr IVPB Q2H [facility] Stop: 02/27/18 01:29 Last Admin: 02/27/18 00:48 Dose: 130 mls/hr Loperamide HCl (Imodium -) 4 mg PO BID [facility] Last Admin: 02/28/18 09:53 Dose: 4 mg Metoprolol Succinate (Toprol Xl -) 50 mg PO BID [facility] Last Admin: 03/06/18 09:57 Dose: 50 mg Metoprolol Tartrate (Lopressor Injection -) 5 mg IVPUSH Q4H PRN PRN Reason: HYPERTENSION Last Admin: 02/28/18 16:02 Dose: 5 mg Ranitidine HCl (Zantac -) 150 mg PO HS [facility] Last Admin: 03/05/18 22:26 Dose: 150 mg 62 year old gentleman with PMhx of SBO s/o bowel resection with illeostomy, hypertension, hyperlipidemia who presented with chest and abd pain and found to have SHARONDA. #Acute Renal Failure secondary to volume depletion in setting of high output ostomy #Hypovolemic Hyponatremia #Diarrhea/High output ostomy renal function stable while on large volume IVF and TPN pt with good oral intake, ? need for TPN going forward Calorie count as per nutrition continue IVF GI/Surgical follow up Randell Arreola DO
[2018-03-06] MEDS: HEPARIN - 25,000 UNIT in SODIUM CHLORIDE 495 ML IV SCH (16:06)
[2018-03-06] MEDS: FAT EMULSIONS 250 ML IV SCH (21:31)
[2018-03-06] MEDS: RANITIDINE HCL 150 MG TABLET (FP) PO SCH (22:15)
[2018-03-07] MEDS: [UNRECOGNIZED DRUG - OTHER] IVPB SCH ×2 (02:24→18:00)
[2018-03-07] MEDS: POTASSIUM CHLORIDE IVPB SCH ×2 (02:24→18:00)
[2018-03-07] MEDS: CALCIUM GLUCONATE IVPB SCH ×2 (02:24→18:00)
[2018-03-07 09:11] LABS: EOS % 1.9 % (0-4.5); HEMATOCRIT 27.2 % (35.4-49); HEMOGLOBIN 9.5 GM/dL (11.7-16.9); LYMPH % 35.6 % (8-40); MCH 29.7 pg (25.7-33.7); MCHC 34.9 g/dl (32.0-35.9); MEAN CELL VOLUME 85.2 fl (80-96); MEAN PLT VOLUME 10.5 fl (7.5-11.1); MONO % 7.6 % (3.8-10.2); NEUT % 53.9 % (42.8-82.8); PLATELET COUNT 205 K/MM3 (134-434); RBC 3.19 M/mm3 (4.00-5.60); RDW 19.2 % (11.9-15.9); WHITE BLOOD COUNT 4.8 K/mm3 (4.0-10.0)
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
[2018-03-07] MEDS: POTASSIUM CHLORIDE TABS 20 MEQ TABLET.ER (FP) PO SCH ×2 (10:43→21:30)
[2018-03-07] MEDS: LOPERAMIDE HCL 2 MG CAPSULE PO SCH ×4 (10:43→21:30)
[2018-03-07] MEDS: CODEINE SO4 30 MG TABLET PO SCH ×2 (10:44→22:00)
[2018-03-07] MEDS: SODIUM CHLORIDE 1,000 ML IV SCH (13:15)
[2018-03-07 15:14] LABS: ANION GAP 11 (8-16); BLOOD UREA NITROGEN 28 mg/dL (7-18); CALCIUM 9.1 mg/dL (8.5-10.1); CHLORIDE 104 mmol/L (98-107); CO2 23 mmol/L (21-32); CREATININE 2.1 mg/dL (0.7-1.3); GLUCOSE,RANDOM 86 mg/dL (74-106); MAGNESIUM 1.9 mg/dL (1.8-2.4); PHOSPHOROUS 2.8 mg/dL (2.5-4.9); POTASSIUM 4.1 mmol/L (3.5-5.1); SODIUM 138 mmol/L (136-145)
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
--- NOTE | 2018-03-07 16:19 | PN ---
Progress Note (short form) - Note Progress Note: Renal follow up for SHARONDA Pt seen and examined at the bedside no acute complaints had about 6L of output from ostomy today no sob, chest pain, abd pain on IVF and TPN Vital Signs Temperature 98.2 F 03/06/18 08:35 Pulse Rate 84 03/06/18 08:35 Respiratory Rate 18 03/06/18 08:35 Blood Pressure 107/64 03/06/18 08:35 O2 Sat by Pulse Oximetry (%) 100 03/05/18 21:00 Intake & Output 03/03/18 03/04/18 03/05/18 03/06/18 23:59 23:59 23:59 23:59 Intake Total 6756 4654 6649 2470 Output Total 8150 8580 04369 Balance -1645 -8732 -2000 2470 NAD awake and alert RRR, NO M/R CTA soft NT, + ostomy NO LE edema, clubbing or cyanosis CBC, BMP 03/07/18 07:34 03/07/18 07:34 Current Medications Heparin Sodium (Porcine) (Heparin -) 1,000 unit IVPUSH PRN PRN PRN Reason: Heparin Last Admin: 03/03/18 16:35 Dose: 1,000 unit Heparin Sodium (Porcine) (Heparin -) 5,000 unit IVPUSH PRN PRN PRN Reason: Heparin Last Admin: 02/20/18 23:11 Dose: 5,000 unit IV Flush (Picc Line Flush) 8 ml IVPUSH PRN PRN PRN Reason: Protocol Heparin Sodium (Porcine) 25, (000 unit/ Sodium Chloride) 500 mls @ 16 mls/hr IV TITR SKIP; 800 UNIT/HR PRN Reason: Protocol Last Admin: 02/27/18 10:03 Dose: 1,100 unit/hr, 22 mls/hr Fat Emulsion Intravenous (Intralipid -) 250 mls @ 20.833 mls/hr IV DAILY@2200 SKIP Last Admin: 03/06/18 21:31 Dose: 20.833 mls/hr Sodium Chloride (Normal Saline -) 1,000 mls @ 83 mls/hr IV ASDIR SKIP Last Admin: 02/27/18 18:03 Dose: 83 mls/hr Potassium Chloride 60 meq/Calcium Gluconate 1,000 mg/Multivitamins/Minerals 10 ml/Folic Acid 1 mg/ Magnesium Sulfate 2 gm/ Potassium Phosphate 15 mm/ Sterile Water / Amino Acids/ Dextrose 2,000 mls @ 83.333 mls/hr IVPB DAILY@1600 [facility] Last Admin: 02/28/18 19:50 Dose: 83.333 mls/hr Potassium Chloride 20 meq/ (Sodium Chloride) 260 mls @ 130 mls/hr IVPB Q2H [facility] Stop: 02/27/18 01:29 Last Admin: 02/27/18 00:48 Dose: 130 mls/hr Loperamide HCl (Imodium -) 4 mg PO BID [facility] Last Admin: 02/28/18 09:53 Dose: 4 mg Metoprolol Succinate (Toprol Xl -) 50 mg PO BID [facility] Last Admin: 03/07/18 10:44 Dose: 50 mg Metoprolol Tartrate (Lopressor Injection -) 5 mg IVPUSH Q4H PRN PRN Reason: HYPERTENSION Last Admin: 02/28/18 16:02 Dose: 5 mg Ranitidine HCl (Zantac -) 150 mg PO HS [facility] Last Admin: 03/06/18 22:15 Dose: 150 mg 62 year old gentleman with PMhx of SBO s/o bowel resection with illeostomy, hypertension, hyperlipidemia who presented with chest and abd pain and found to have SHARONDA. #Acute Renal Failure secondary to volume depletion in setting of high output ostomy #Hypovolemic Hyponatremia #Diarrhea/High output ostomy Renal function stable (BUN/Cr slightly higher today) will give NS bolous of 1L now as pt with 6L of output today already continue TPN as Calorie count is pending GI follow up Randell Arreola DO
[2018-03-07] MEDS ORDERED: SODIUM CHLORIDE 1,000 ML IV ONE (16:30)
[2018-03-07] MEDS ORDERED: PT OWN MED DRAWER 7, Y5N ONE (16:42)
[2018-03-07] MEDS: HEPARIN - 25,000 UNIT in SODIUM CHLORIDE 495 ML IV SCH (16:43)
[2018-03-07] MEDS: RANITIDINE HCL 150 MG TABLET (FP) PO SCH (21:30)
[2018-03-07] MEDS: FAT EMULSIONS 250 ML IV SCH (21:30)
[2018-03-08 08:56] LABS: EOS % 4.1 % (0-4.5); HEMOGLOBIN 9.6 GM/dL (11.7-16.9); LYMPH % 33.8 % (8-40); MCH 29.7 pg (25.7-33.7); MCHC 34.4 g/dl (32.0-35.9); MEAN CELL VOLUME 86.4 fl (80-96); MEAN PLT VOLUME 10.6 fl (7.5-11.1); MONO % 7.2 % (3.8-10.2); NEUT % 53.9 % (42.8-82.8); PLATELET COUNT 207 K/MM3 (134-434); RBC 3.25 M/mm3 (4.00-5.60); RDW 19.3 % (11.9-15.9); WHITE BLOOD COUNT 5.5 K/mm3 (4.0-10.0)
[2018-03-08 09:24] LABS: ANION GAP 10 (8-16); BLOOD UREA NITROGEN 25 mg/dL (7-18); CALCIUM 9.2 mg/dL (8.5-10.1); CHLORIDE 104 mmol/L (98-107); CO2 23 mmol/L (21-32); CREATININE 2.1 mg/dL (0.7-1.3); GLUCOSE,RANDOM 93 mg/dL (74-106); POTASSIUM 4.6 mmol/L (3.5-5.1); SODIUM 137 mmol/L (136-145)
[2018-03-08] MEDS: LOPERAMIDE HCL 2 MG CAPSULE PO SCH ×4 (09:37→22:31)
[2018-03-08] MEDS: POTASSIUM CHLORIDE TABS 20 MEQ TABLET.ER (FP) PO SCH ×2 (09:40→22:31)
[2018-03-08] MEDS: CODEINE SO4 30 MG TABLET PO SCH ×2 (09:41→22:32)
[2018-03-08] MEDS: SODIUM CHLORIDE 1,000 ML IV SCH ×2 (09:45→12:07)
[2018-03-08] MEDS: HEPARIN - 25,000 UNIT in SODIUM CHLORIDE 495 ML IV SCH (10:48)
[2018-03-08] MEDS ORDERED: POTASSIUM CHLORIDE TABS 10 MEQ TABLET.ER (FP) PO SCH (12:15)
--- NOTE | 2018-03-08 12:19 | PN ---
Progress Note (short form) - Note Progress Note: Renal follow up for SHARONDA Pt seen and examined at the bedside pt w/o any acute complaints no sob, chest pain, abd pain continues to have liquid output from ostomy on TPN and IVF s/p Calorie count yesterday Vital Signs Temperature 98.4 F 03/08/18 05:00 Pulse Rate 83 03/08/18 05:00 Respiratory Rate 18 03/08/18 05:00 Blood Pressure 105/63 03/08/18 05:00 O2 Sat by Pulse Oximetry (%) 100 03/07/18 09:00 Intake & Output 03/05/18 03/06/18 03/07/18 03/08/18 23:59 23:59 23:59 23:59 Intake Total 6655 8279 4550 3274 Output Total 04126 7600 72141 2900 Balance -6845 679 -1970 374 Weight 76.26 kg 76.34 kg NAD awake and alert RRR, NO M/R CTA soft NT, + ostomy NO LE edema, clubbing or cyanosis CBC, BMP 03/08/18 07:45 03/08/18 07:45 Current Medications Heparin Sodium (Porcine) (Heparin -) 1,000 unit IVPUSH PRN PRN PRN Reason: Heparin Last Admin: 03/03/18 16:35 Dose: 1,000 unit Heparin Sodium (Porcine) (Heparin -) 5,000 unit IVPUSH PRN PRN PRN Reason: Heparin Last Admin: 02/20/18 23:11 Dose: 5,000 unit IV Flush (Picc Line Flush) 8 ml IVPUSH PRN PRN PRN Reason: Protocol Heparin Sodium (Porcine) 25, (000 unit/ Sodium Chloride) 500 mls @ 16 mls/hr IV TITR SKIP; 800 UNIT/HR PRN Reason: Protocol Last Admin: 02/27/18 10:03 Dose: 1,100 unit/hr, 22 mls/hr Fat Emulsion Intravenous (Intralipid -) 250 mls @ 20.833 mls/hr IV DAILY@2200 SKIP Last Admin: 03/07/18 21:30 Dose: 20.833 mls/hr Sodium Chloride (Normal Saline -) 1,000 mls @ 83 mls/hr IV ASDIR SKIP Last Admin: 02/27/18 18:03 Dose: 83 mls/hr Potassium Chloride 60 meq/Calcium Gluconate 1,000 mg/Multivitamins/Minerals 10 ml/Folic Acid 1 mg/ Magnesium Sulfate 2 gm/ Potassium Phosphate 15 mm/ Sterile Water / Amino Acids/ Dextrose 2,000 mls @ 83.333 mls/hr IVPB DAILY@1600 [facility] Last Admin: 02/28/18 19:50 Dose: 83.333 mls/hr Potassium Chloride 20 meq/ (Sodium Chloride) 260 mls @ 130 mls/hr IVPB Q2H [facility] Stop: 02/27/18 01:29 Last Admin: 02/27/18 00:48 Dose: 130 mls/hr Loperamide HCl (Imodium -) 4 mg PO BID [facility] Last Admin: 02/28/18 09:53 Dose: 4 mg Metoprolol Succinate (Toprol Xl -) 50 mg PO BID [facility] Last Admin: 03/08/18 09:40 Dose: 50 mg Metoprolol Tartrate (Lopressor Injection -) 5 mg IVPUSH Q4H PRN PRN Reason: HYPERTENSION Last Admin: 02/28/18 16:02 Dose: 5 mg Ranitidine HCl (Zantac -) 150 mg PO HS [facility] Last Admin: 03/07/18 21:30 Dose: 150 mg 62 year old gentleman with PMhx of SBO s/o bowel resection with illeostomy, hypertension, hyperlipidemia who presented with chest and abd pain and found to have SHARONDA. #Acute Renal Failure secondary to volume depletion in setting of high output ostomy #Hypovolemic Hyponatremia #Diarrhea/High output ostomy Renal function stable will D/c TPN (Calorie count showed ~1900cal intake and 120g of protein intake as per nutrition) D/C NS at start LR at 150cc per hour oral intake as tolerated will change electrolyte supplements to PO Trend BMP, Mg, Phos daily pending possible transfer for surgical management of ostomy as per primary team Randell Arreola DO
--- NOTE | 2018-03-08 12:21 | PN ---
Progress Note, Physician History of Present Illness: Patient is a 62 year old black male (b. [place]) wiht a PMH of SBO ( 2016 w/colostomy) AFib, CAD, DVT, HTN, HLD presents to our ED c/o presents to our ED with acute onset of pain. Pain is sharp and localized to his B/L UE and across his chest. Pain is intermittent, 10/10 and lasts for 2-3 minutes without any identifiable triggering or relieving factors. Patient denies any previous h/o similar pain. Patient denies fever/chills, nausea/vomiting, dysuria/hematuria, numbness/ tingling or AMS or visual changes. As per EMR patient evaluated at our facility in 2015 at which time he had an ex lap for SBO. - Current Medication List Current Medications: Active Medications Heparin Sodium (Porcine) (Heparin -) 1,000 unit IVPUSH PRN PRN PRN Reason: Heparin Last Admin: 03/03/18 16:35 Dose: 1,000 unit Heparin Sodium (Porcine) (Heparin -) 5,000 unit IVPUSH PRN PRN PRN Reason: Heparin Last Admin: 02/20/18 23:11 Dose: 5,000 unit IV Flush (Picc Line Flush) 8 ml IVPUSH PRN PRN PRN Reason: Protocol Heparin Sodium (Porcine) 25, (000 unit/ Sodium Chloride) 500 mls @ 16 mls/hr IV TITR SKIP; 800 UNIT/HR PRN Reason: Protocol Last Admin: 02/27/18 10:03 Dose: 1,100 unit/hr, 22 mls/hr Fat Emulsion Intravenous (Intralipid -) 250 mls @ 20.833 mls/hr IV DAILY@2200 [facility] Last Admin: 03/07/18 21:30 Dose: 20.833 mls/hr Sodium Chloride (Normal Saline -) 1,000 mls @ 83 mls/hr IV ASDIR [facility] Last Admin: 02/27/18 18:03 Dose: 83 mls/hr Potassium Chloride 60 meq/Calcium Gluconate 1,000 mg/Multivitamins/Minerals 10 ml/Folic Acid 1 mg/ Magnesium Sulfate 2 gm/ Potassium Phosphate 15 mm/ Sterile Water / Amino Acids/ Dextrose 2,000 mls @ 83.333 mls/hr IVPB DAILY@1600 [facility] Last Admin: 02/28/18 19:50 Dose: 83.333 mls/hr Potassium Chloride 20 meq/ (Sodium Chloride) 260 mls @ 130 mls/hr IVPB Q2H [facility] Stop: 02/27/18 01:29 Last Admin: 02/27/18 00:48 Dose: 130 mls/hr Loperamide HCl (Imodium -) 4 mg PO BID [facility] Last Admin: 02/28/18 09:53 Dose: 4 mg Metoprolol Succinate (Toprol Xl -) 50 mg PO BID [facility] Last Admin: 03/08/18 09:40 Dose: 50 mg Metoprolol Tartrate (Lopressor Injection -) 5 mg IVPUSH Q4H PRN PRN Reason: HYPERTENSION Last Admin: 02/28/18 16:02 Dose: 5 mg Ranitidine HCl (Zantac -) 150 mg PO HS [facility] Last Admin: 03/07/18 21:30 Dose: 150 mg - Objective Vital Signs: Vital Signs Temperature 98.4 F 03/08/18 05:00 Pulse Rate 83 03/08/18 05:00 Respiratory Rate 18 03/08/18 05:00 Blood Pressure 105/63 03/08/18 05:00 O2 Sat by Pulse Oximetry (%) 100 03/07/18 09:00 Eyes: Yes: WNL, Conjunctiva Clear, EOM Intact HENT: Yes: WNL, Atraumatic, Normocephalic Neck: Yes: WNL, Supple, Trachea Midline Cardiovascular: Yes: Pulse Irregular, S1, S2 Respiratory: Yes: WNL, Regular, CTA Bilaterally Gastrointestinal: Yes: WNL, Normal Bowel Sounds Genitourinary: Yes: WNL Musculoskeletal: Yes: WNL Extremities: Yes: WNL Edema: No Integumentary: Yes: WNL Neurological: Yes: WNL, Alert, Oriented ...Motor Strength: WNL Psychiatric: Yes: WNL Labs: CBC, BMP 03/08/18 07:45 03/08/18 07:45 INR, PTT INR 1.04 (0.82-1.09) 02/28/18 06:45 Assessment/Plan - Problems (1) Renal insufficiency Assessment/Plan: as noted by rent and miscellaneous remittance clerk, continued high-output ostomy-->SHARONDA. ACEI or ARB still on hold until approved by rent and miscellaneous remittance clerk. Code(s): N28.9 - DISORDER OF KIDNEY AND URETER, UNSPECIFIED (2) Atrial fibrillation Assessment/Plan: Continue metoprolol ER 50 mg bid; may change to metoprolol ER daily for easier compliance as outpatient. On IV heparin; as noted, pt will likely be sent home on Lovenox if renal function improves, while watching progress of high-output ostomy. Code(s): I48.91 - UNSPECIFIED ATRIAL FIBRILLATION Qualifiers: Atrial fibrillation type: paroxysmal Qualified Code(s): I48.0 - Paroxysmal atrial fibrillation (3) CAD (coronary artery disease) Assessment/Plan: Pt with multiple CAD risks. Coronary artery evaluation (stress MIBI) if not done recently, once present status improves; this may be done as an outpatient. Code(s): I25.10 - ATHSCL HEART DISEASE OF [place] CORONARY ARTERY W/O ANG PCTRS Qualifiers: Coronary Disease-Associated Artery/Lesion type: [place] artery [place] vs. transplanted heart: [place] heart Associated angina: angina presence unspecified Qualified Code(s): I25.10 - Atherosclerotic heart disease of [place] coronary artery without angina pectoris (4) Hyperlipidemia Code(s): E78.5 - HYPERLIPIDEMIA, UNSPECIFIED Qualifiers: Hyperlipidemia type: unspecified Qualified Code(s): E78.5 - Hyperlipidemia , unspecified (5) Hypertension Code(s): I10 - ESSENTIAL (PRIMARY) HYPERTENSION Qualifiers: Hypertension type: essential hypertension Qualified Code(s): I10 - Essential (primary) hypertension (6) Chronic combined systolic and diastolic heart failure Assessment/Plan: On metoprolol. If unable to start ACEI, ARB,spironolactone due to renal insufficiency, would start hydralazine + isordil if BP allows. Code(s): I50.42 - CHRONIC COMBINED SYSTOLIC AND DIASTOLIC HRT FAIL (7) DVT (deep venous thrombosis) Assessment/Plan: On IV heparin; may require Lovenox as outpt. Code(s): I82.409 - ACUTE EMBOLISM AND THOMBOS UNSP DEEP VN UNSP LOWER EXTREMITY (8) Mass Assessment/Plan: RUE: no DVT; ? hematoma; f/u. Code(s): R22.9 - LOCALIZED SWELLING, MASS AND LUMP, UNSPECIFIED
[2018-03-08] MEDS: MAGNESIUM CL 64 MG TABLET.SA PO SCH (13:28)
[2018-03-08] MEDS: LACTATED RINGERS SOLUTION 1,000 ML/1,000 ML INFUS.BAG IV SCH (13:28)
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
[2018-03-08] MEDS: RANITIDINE HCL 150 MG TABLET (FP) PO SCH (22:31)
[2018-03-09 08:08] LABS: EOS % 2.8 % (0-4.5); HEMATOCRIT 30.4 % (35.4-49); HEMOGLOBIN 10.4 GM/dL (11.7-16.9); LYMPH % 41.8 % (8-40); MCH 29.4 pg (25.7-33.7); MCHC 34.2 g/dl (32.0-35.9); MEAN CELL VOLUME 85.9 fl (80-96); MEAN PLT VOLUME 10.3 fl (7.5-11.1); MONO % 9.7 % (3.8-10.2); NEUT % 44.7 % (42.8-82.8); PLATELET COUNT 208 K/MM3 (134-434); RBC 3.53 M/mm3 (4.00-5.60); RDW 18.6 % (11.9-15.9); WHITE BLOOD COUNT 4.7 K/mm3 (4.0-10.0)
[2018-03-09] MEDS: HEPARIN - 25,000 UNIT in SODIUM CHLORIDE 495 ML IV SCH ×2 (08:09→14:08)
[2018-03-09 08:43] LABS: PHOSPHOROUS 3.4 mg/dL (2.5-4.9); SODIUM 138 mmol/L (136-145)
--- NOTE | 2018-03-09 09:08 | PN ---
Progress Note, Physician History of Present Illness: Patient is a 62 year old black male (b. [place]) wiht a PMH of SBO ( 2016 w/colostomy) AFib, CAD, DVT, HTN, HLD presents to our ED c/o presents to our ED with acute onset of pain. Pain is sharp and localized to his B/L UE and across his chest. Pain is intermittent, 10/10 and lasts for 2-3 minutes without any identifiable triggering or relieving factors. Patient denies any previous h/o similar pain. Patient denies fever/chills, nausea/vomiting, dysuria/hematuria, numbness/ tingling or AMS or visual changes. As per EMR patient evaluated at our facility in 2015 at which time he had an ex lap for SBO. - Current Medication List Current Medications: Active Medications Heparin Sodium (Porcine) (Heparin -) 1,000 unit IVPUSH PRN PRN PRN Reason: Heparin Last Admin: 03/03/18 16:35 Dose: 1,000 unit Heparin Sodium (Porcine) (Heparin -) 5,000 unit IVPUSH PRN PRN PRN Reason: Heparin Last Admin: 02/20/18 23:11 Dose: 5,000 unit IV Flush (Picc Line Flush) 8 ml IVPUSH PRN PRN PRN Reason: Protocol Heparin Sodium (Porcine) 25, (000 unit/ Sodium Chloride) 500 mls @ 16 mls/hr IV TITR SKIP; 800 UNIT/HR PRN Reason: Protocol Last Admin: 02/27/18 10:03 Dose: 1,100 unit/hr, 22 mls/hr Fat Emulsion Intravenous (Intralipid -) 250 mls @ 20.833 mls/hr IV DAILY@2200 [facility] Last Admin: 03/07/18 21:30 Dose: 20.833 mls/hr Sodium Chloride (Normal Saline -) 1,000 mls @ 83 mls/hr IV ASDIR [facility] Last Admin: 02/27/18 18:03 Dose: 83 mls/hr Potassium Chloride 60 meq/Calcium Gluconate 1,000 mg/Multivitamins/Minerals 10 ml/Folic Acid 1 mg/ Magnesium Sulfate 2 gm/ Potassium Phosphate 15 mm/ Sterile Water / Amino Acids/ Dextrose 2,000 mls @ 83.333 mls/hr IVPB DAILY@1600 [facility] Last Admin: 02/28/18 19:50 Dose: 83.333 mls/hr Potassium Chloride 20 meq/ (Sodium Chloride) 260 mls @ 130 mls/hr IVPB Q2H [facility] Stop: 02/27/18 01:29 Last Admin: 02/27/18 00:48 Dose: 130 mls/hr Loperamide HCl (Imodium -) 4 mg PO BID [facility] Last Admin: 02/28/18 09:53 Dose: 4 mg Metoprolol Succinate (Toprol Xl -) 50 mg PO BID [facility] Last Admin: 03/08/18 22:31 Dose: 50 mg Metoprolol Tartrate (Lopressor Injection -) 5 mg IVPUSH Q4H PRN PRN Reason: HYPERTENSION Last Admin: 02/28/18 16:02 Dose: 5 mg Ranitidine HCl (Zantac -) 150 mg PO HS [facility] Last Admin: 03/08/18 22:31 Dose: 150 mg - Objective Vital Signs: Vital Signs Temperature 98.8 F 03/09/18 06:00 Pulse Rate 93 H 03/09/18 06:00 Respiratory Rate 20 03/09/18 06:00 Blood Pressure 104/62 03/09/18 06:00 O2 Sat by Pulse Oximetry (%) 100 03/08/18 21:00 Eyes: Yes: WNL, Conjunctiva Clear, EOM Intact HENT: Yes: WNL, Atraumatic, Normocephalic Neck: Yes: WNL, Supple, Trachea Midline Cardiovascular: Yes: Pulse Irregular Respiratory: Yes: WNL, Regular, CTA Bilaterally Gastrointestinal: Yes: WNL, Normal Bowel Sounds Genitourinary: Yes: WNL Musculoskeletal: Yes: WNL Extremities: Yes: WNL Edema: No Integumentary: Yes: WNL Neurological: Yes: WNL, Alert, Oriented ...Motor Strength: WNL Psychiatric: Yes: WNL Labs: CBC, BMP 03/09/18 06:15 INR, PTT INR 1.04 (0.82-1.09) 02/28/18 06:45 Assessment/Plan - Problems (1) Renal insufficiency Assessment/Plan: as noted by assistant principal, continued high-output ostomy-->SHARONDA. ACEI or ARB still on hold until approved by assistant principal. Code(s): N28.9 - DISORDER OF KIDNEY AND URETER, UNSPECIFIED (2) Atrial fibrillation Assessment/Plan: Continue metoprolol ER 50 mg bid; may change to metoprolol ER daily for easier compliance as outpatient. On IV heparin; as noted, pt will likely be sent home on Lovenox if renal function improves, while watching progress of high-output ostomy. Code(s): I48.91 - UNSPECIFIED ATRIAL FIBRILLATION Qualifiers: Atrial fibrillation type: paroxysmal Qualified Code(s): I48.0 - Paroxysmal atrial fibrillation (3) CAD (coronary artery disease) Assessment/Plan: Pt with multiple CAD risks. Coronary artery evaluation (stress MIBI) if not done recently, once present status improves; this may be done as an outpatient. Code(s): I25.10 - ATHSCL HEART DISEASE OF [place] CORONARY ARTERY W/O ANG PCTRS Qualifiers: Coronary Disease-Associated Artery/Lesion type: [place] artery [place] vs. transplanted heart: [place] heart Associated angina: angina presence unspecified Qualified Code(s): I25.10 - Atherosclerotic heart disease of [place] coronary artery without angina pectoris (4) Hyperlipidemia Code(s): E78.5 - HYPERLIPIDEMIA, UNSPECIFIED Qualifiers: Hyperlipidemia type: unspecified Qualified Code(s): E78.5 - Hyperlipidemia , unspecified (5) Hypertension Code(s): I10 - ESSENTIAL (PRIMARY) HYPERTENSION Qualifiers: Hypertension type: essential hypertension Qualified Code(s): I10 - Essential (primary) hypertension (6) Chronic combined systolic and diastolic heart failure Assessment/Plan: On metoprolol. If unable to start ACEI, ARB,spironolactone due to renal insufficiency, would start hydralazine + isordil if BP allows. Code(s): I50.42 - CHRONIC COMBINED SYSTOLIC AND DIASTOLIC HRT FAIL (7) DVT (deep venous thrombosis) Assessment/Plan: On IV heparin; may require Lovenox as outpt. Code(s): I82.409 - ACUTE EMBOLISM AND THOMBOS UNSP DEEP VN UNSP LOWER EXTREMITY (8) Mass Assessment/Plan: RUE: no DVT; ? hematoma; f/u. Code(s): R22.9 - LOCALIZED SWELLING, MASS AND LUMP, UNSPECIFIED
[2018-03-09 09:22] LABS: GLUCOSE,RANDOM 80 mg/dL (74-106)
[2018-03-09 09:23] LABS: ALBUMIN 3.3 g/dl (3.4-5.0); ANION GAP 8 (8-16); BLOOD UREA NITROGEN 29 mg/dL (7-18); CALCIUM 9.8 mg/dL (8.5-10.1); CHLORIDE 100 mmol/L (98-107); CO2 30 mmol/L (21-32); CREATININE 2.6 mg/dL (0.7-1.3); TOT PROT 8.7 g/dl (6.4-8.2)
[2018-03-09 09:24] LABS: ALK PHOS 269 U/L (45-117); BILIRUBIN,TOTAL 0.9 mg/dL (0.2-1.0); SGOT/AST 63 U/L (15-37); SGPT/ALT 98 U/L (12-78)
[2018-03-09] MEDS ORDERED: PT OWN MED DRAWER 7, Y5N ONE (09:31)
[2018-03-09] MEDS: CODEINE SO4 30 MG TABLET PO SCH ×2 (09:36→22:00)
[2018-03-09] MEDS: LOPERAMIDE HCL 2 MG CAPSULE PO SCH ×4 (09:36→21:20)
[2018-03-09] MEDS: POTASSIUM CHLORIDE TABS 20 MEQ TABLET.ER (FP) PO SCH ×2 (09:37→21:21)
[2018-03-09] MEDS: MAGNESIUM CL 64 MG TABLET.SA PO SCH (09:37)
[2018-03-09] MEDS: LACTATED RINGERS SOLUTION 1,000 ML/1,000 ML INFUS.BAG IV SCH ×4 (10:45→21:21)
--- NOTE | 2018-03-09 10:59 | PN ---
Progress Note, Physician Chief Complaint: The patient continues to have copious amounts of output through the Ileostomy. Patient denies any pains. Claims to take oral fluids. Maintains good urine output. BP tends to run low. History of Present Illness: 62 year old gentleman with PMhx of SBO s/o bowel resection with illeostomy, hypertension, hyperlipidemia who presented with chest and abd pain and found to have SHARONDA. The SHARONDA due to the large volume ileostomy output, and resultant hemodynamic changes. - Current Medication List Current Medications: Active Medications Heparin Sodium (Porcine) (Heparin -) 1,000 unit IVPUSH PRN PRN PRN Reason: Heparin Last Admin: 03/03/18 16:35 Dose: 1,000 unit Heparin Sodium (Porcine) (Heparin -) 5,000 unit IVPUSH PRN PRN PRN Reason: Heparin Last Admin: 02/20/18 23:11 Dose: 5,000 unit IV Flush (Picc Line Flush) 8 ml IVPUSH PRN PRN PRN Reason: Protocol Heparin Sodium (Porcine) 25, (000 unit/ Sodium Chloride) 500 mls @ 16 mls/hr IV TITR SKIP; 800 UNIT/HR PRN Reason: Protocol Last Admin: 02/27/18 10:03 Dose: 1,100 unit/hr, 22 mls/hr Fat Emulsion Intravenous (Intralipid -) 250 mls @ 20.833 mls/hr IV DAILY@2200 [facility] Last Admin: 03/07/18 21:30 Dose: 20.833 mls/hr Sodium Chloride (Normal Saline -) 1,000 mls @ 83 mls/hr IV ASDIR [facility] Last Admin: 02/27/18 18:03 Dose: 83 mls/hr Potassium Chloride 60 meq/Calcium Gluconate 1,000 mg/Multivitamins/Minerals 10 ml/Folic Acid 1 mg/ Magnesium Sulfate 2 gm/ Potassium Phosphate 15 mm/ Sterile Water / Amino Acids/ Dextrose 2,000 mls @ 83.333 mls/hr IVPB DAILY@1600 [facility] Last Admin: 02/28/18 19:50 Dose: 83.333 mls/hr Potassium Chloride 20 meq/ (Sodium Chloride) 260 mls @ 130 mls/hr IVPB Q2H [facility] Stop: 02/27/18 01:29 Last Admin: 02/27/18 00:48 Dose: 130 mls/hr Loperamide HCl (Imodium -) 4 mg PO BID [facility] Last Admin: 02/28/18 09:53 Dose: 4 mg Metoprolol Succinate (Toprol Xl -) 50 mg PO BID [facility] Last Admin: 03/09/18 09:37 Dose: 50 mg Metoprolol Tartrate (Lopressor Injection -) 5 mg IVPUSH Q4H PRN PRN Reason: HYPERTENSION Last Admin: 02/28/18 16:02 Dose: 5 mg Ranitidine HCl (Zantac -) 150 mg PO HS [facility] Last Admin: 03/08/18 22:31 Dose: 150 mg - Objective Vital Signs: Vital Signs Temperature 98.0 F 03/09/18 09:03 Pulse Rate 82 03/09/18 09:03 Respiratory Rate 20 03/09/18 09:03 Blood Pressure 113/69 03/09/18 09:03 O2 Sat by Pulse Oximetry (%) 100 03/08/18 21:00 Constitutional: Yes: Calm Eyes: Yes: EOM Intact HENT: Yes: Normocephalic Neck: Yes: Trachea Midline Cardiovascular: Yes: Regular Rate and Rhythm, S1, S2 Respiratory: Yes: CTA Bilaterally Gastrointestinal: Yes: Hyperactive Bowel Sounds, Other (ileostomy in place) Genitourinary: No: CVA Tenderness - Left, CVA Tenderness - Right Labs: CBC, BMP 03/09/18 06:15 03/09/18 06:15 INR, PTT INR 1.04 (0.82-1.09) 02/28/18 06:45 Problem List - Problems (1) ARF (acute renal failure) Code(s): N17.9 - ACUTE KIDNEY FAILURE, UNSPECIFIED (2) Chronic combined systolic and diastolic heart failure Code(s): I50.42 - CHRONIC COMBINED SYSTOLIC AND DIASTOLIC HRT FAIL (3) Atrial fibrillation Code(s): I48.91 - UNSPECIFIED ATRIAL FIBRILLATION Qualifiers: Atrial fibrillation type: paroxysmal Qualified Code(s): I48.0 - Paroxysmal atrial fibrillation (4) CAD (coronary artery disease) Code(s): I25.10 - ATHSCL HEART DISEASE OF [place] CORONARY ARTERY W/O ANG PCTRS Qualifiers: Coronary Disease-Associated Artery/Lesion type: [place] artery [place] vs. transplanted heart: [place] heart Associated angina: angina presence unspecified Qualified Code(s): I25.10 - Atherosclerotic heart disease of [place] coronary artery without angina pectoris (5) Hyperlipidemia Code(s): E78.5 - HYPERLIPIDEMIA, UNSPECIFIED Qualifiers: Hyperlipidemia type: unspecified Qualified Code(s): E78.5 - Hyperlipidemia , unspecified (6) Hypertension Code(s): I10 - ESSENTIAL (PRIMARY) HYPERTENSION Qualifiers: Hypertension type: essential hypertension Qualified Code(s): I10 - Essential (primary) hypertension Assessment/Plan 62 year old gentleman with PMhx of SBO s/o Bowel resection with Illeostomy, Hypertension, Hyperlipidemia. Azotemia has worsened since yesterday. Continues to have large volume outputs from the ileostomy. IV fluids well tolerated. But the GI output far exceeds the intake. Will increase the IV fluids to 200 ml/hr. Will monitor the BP closely. May need to reduce antiHypertensives if the BP drops. Thank you. Bertha Pa MD
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
[2018-03-09] MEDS: RANITIDINE HCL 150 MG TABLET (FP) PO SCH (21:21)
--- NOTE | 2018-03-10 08:34 | PN ---
Progress Note, Physician History of Present Illness: Patient is a 62 year old black male (b. [place]) wiht a PMH of SBO ( 2016 w/colostomy) AFib, CAD, DVT, HTN, HLD presents to our ED c/o presents to our ED with acute onset of pain. Pain is sharp and localized to his B/L UE and across his chest. Pain is intermittent, 10/10 and lasts for 2-3 minutes without any identifiable triggering or relieving factors. Patient denies any previous h/o similar pain. Patient denies fever/chills, nausea/vomiting, dysuria/hematuria, numbness/ tingling or AMS or visual changes. As per EMR patient evaluated at our facility in 2015 at which time he had an ex lap for SBO. - Current Medication List Current Medications: Active Medications Heparin Sodium (Porcine) (Heparin -) 1,000 unit IVPUSH PRN PRN PRN Reason: Heparin Last Admin: 03/03/18 16:35 Dose: 1,000 unit Heparin Sodium (Porcine) (Heparin -) 5,000 unit IVPUSH PRN PRN PRN Reason: Heparin Last Admin: 02/20/18 23:11 Dose: 5,000 unit IV Flush (Picc Line Flush) 8 ml IVPUSH PRN PRN PRN Reason: Protocol Heparin Sodium (Porcine) 25, (000 unit/ Sodium Chloride) 500 mls @ 16 mls/hr IV TITR SKIP; 800 UNIT/HR PRN Reason: Protocol Last Admin: 02/27/18 10:03 Dose: 1,100 unit/hr, 22 mls/hr Fat Emulsion Intravenous (Intralipid -) 250 mls @ 20.833 mls/hr IV DAILY@2200 [facility] Last Admin: 03/07/18 21:30 Dose: 20.833 mls/hr Sodium Chloride (Normal Saline -) 1,000 mls @ 83 mls/hr IV ASDIR [facility] Last Admin: 02/27/18 18:03 Dose: 83 mls/hr Potassium Chloride 60 meq/Calcium Gluconate 1,000 mg/Multivitamins/Minerals 10 ml/Folic Acid 1 mg/ Magnesium Sulfate 2 gm/ Potassium Phosphate 15 mm/ Sterile Water / Amino Acids/ Dextrose 2,000 mls @ 83.333 mls/hr IVPB DAILY@1600 [facility] Last Admin: 02/28/18 19:50 Dose: 83.333 mls/hr Potassium Chloride 20 meq/ (Sodium Chloride) 260 mls @ 130 mls/hr IVPB Q2H [facility] Stop: 02/27/18 01:29 Last Admin: 02/27/18 00:48 Dose: 130 mls/hr Loperamide HCl (Imodium -) 4 mg PO BID [facility] Last Admin: 02/28/18 09:53 Dose: 4 mg Metoprolol Succinate (Toprol Xl -) 50 mg PO BID [facility] Last Admin: 03/09/18 21:21 Dose: 50 mg Metoprolol Tartrate (Lopressor Injection -) 5 mg IVPUSH Q4H PRN PRN Reason: HYPERTENSION Last Admin: 02/28/18 16:02 Dose: 5 mg Ranitidine HCl (Zantac -) 150 mg PO HS [facility] Last Admin: 03/09/18 21:21 Dose: 150 mg - Objective Vital Signs: Vital Signs Temperature 98.4 F 03/10/18 02:00 Pulse Rate 103 H 03/10/18 02:00 Respiratory Rate 2 L 03/10/18 02:00 Blood Pressure 106/63 03/10/18 02:00 O2 Sat by Pulse Oximetry (%) 100 03/09/18 21:00 Eyes: Yes: WNL, Conjunctiva Clear, EOM Intact HENT: Yes: WNL, Atraumatic, Normocephalic Neck: Yes: WNL, Supple, Trachea Midline Cardiovascular: Yes: Pulse Irregular, S1, S2 Respiratory: Yes: WNL, Regular, CTA Bilaterally Gastrointestinal: Yes: WNL, Normal Bowel Sounds Genitourinary: Yes: WNL Musculoskeletal: Yes: WNL Extremities: Yes: WNL Edema: No Integumentary: Yes: WNL Neurological: Yes: WNL, Alert, Oriented ...Motor Strength: WNL Psychiatric: Yes: WNL Labs: CBC, BMP 03/09/18 06:15 INR, PTT INR 1.04 (0.82-1.09) 02/28/18 06:45 Assessment/Plan - Problems (1) Renal insufficiency Assessment/Plan: as noted by curtain hemmer automatic, continued high-output ostomy-->SHARONDA. ACEI or ARB still on hold until approved by curtain hemmer automatic. Code(s): N28.9 - DISORDER OF KIDNEY AND URETER, UNSPECIFIED (2) Atrial fibrillation Assessment/Plan: Continue metoprolol ER 50 mg bid; may change to metoprolol ER daily for easier compliance as outpatient. On IV heparin; as noted, pt will likely be sent home on Lovenox if renal function improves, while watching progress of high-output ostomy. Code(s): I48.91 - UNSPECIFIED ATRIAL FIBRILLATION Qualifiers: Atrial fibrillation type: paroxysmal Qualified Code(s): I48.0 - Paroxysmal atrial fibrillation (3) CAD (coronary artery disease) Assessment/Plan: Pt with multiple CAD risks. Coronary artery evaluation (stress MIBI) if not done recently, once present status improves; this may be done as an outpatient. Code(s): I25.10 - ATHSCL HEART DISEASE OF [place] CORONARY ARTERY W/O ANG PCTRS Qualifiers: Coronary Disease-Associated Artery/Lesion type: [place] artery [place] vs. transplanted heart: [place] heart Associated angina: angina presence unspecified Qualified Code(s): I25.10 - Atherosclerotic heart disease of [place] coronary artery without angina pectoris (4) Hyperlipidemia Code(s): E78.5 - HYPERLIPIDEMIA, UNSPECIFIED Qualifiers: Hyperlipidemia type: unspecified Qualified Code(s): E78.5 - Hyperlipidemia , unspecified (5) Hypertension Code(s): I10 - ESSENTIAL (PRIMARY) HYPERTENSION Qualifiers: Hypertension type: essential hypertension Qualified Code(s): I10 - Essential (primary) hypertension (6) Chronic combined systolic and diastolic heart failure Assessment/Plan: On metoprolol. If unable to start ACEI, ARB,spironolactone due to renal insufficiency, would start hydralazine + isordil if BP allows. Code(s): I50.42 - CHRONIC COMBINED SYSTOLIC AND DIASTOLIC HRT FAIL (7) DVT (deep venous thrombosis) Assessment/Plan: On IV heparin; may require Lovenox as outpt. Code(s): I82.409 - ACUTE EMBOLISM AND THOMBOS UNSP DEEP VN UNSP LOWER EXTREMITY (8) Mass Assessment/Plan: RUE: no DVT; ? hematoma; f/u. Code(s): R22.9 - LOCALIZED SWELLING, MASS AND LUMP, UNSPECIFIED
[2018-03-10 08:42] LABS: ALBUMIN 3.4 g/dl (3.4-5.0); ALK PHOS 243 U/L (45-117); ANION GAP 12 (8-16); BILIRUBIN,TOTAL 0.9 mg/dL (0.2-1.0); BLOOD UREA NITROGEN 28 mg/dL (7-18); CALCIUM 9.7 mg/dL (8.5-10.1); CHLORIDE 96 mmol/L (98-107); CO2 30 mmol/L (21-32); CREATININE 3.2 mg/dL (0.7-1.3); GLUCOSE,RANDOM 79 mg/dL (74-106); MAGNESIUM 1.3 mg/dL (1.8-2.4); POTASSIUM 4.3 mmol/L (3.5-5.1); SGOT/AST 79 U/L (15-37); SGPT/ALT 122 U/L (12-78); SODIUM 138 mmol/L (136-145); TOT PROT 7.9 g/dl (6.4-8.2); URIC ACID 10.6 mg/dL (2.6-7.2)
[2018-03-10] MEDS ORDERED: PT OWN MED DRAWER 7, Y5N ONE (09:13)
[2018-03-10] MEDS: CODEINE SO4 30 MG TABLET PO SCH (09:16)
[2018-03-10] MEDS: LOPERAMIDE HCL 2 MG CAPSULE PO SCH ×2 (09:16→13:49)
[2018-03-10] MEDS: POTASSIUM CHLORIDE TABS 20 MEQ TABLET.ER (FP) PO SCH ×2 (09:17→21:05)
[2018-03-10] MEDS: MAGNESIUM CL 64 MG TABLET.SA PO SCH (09:17)
[2018-03-10] MEDS: LACTATED RINGERS SOLUTION 1,000 ML/1,000 ML INFUS.BAG IV SCH ×5 (09:21→21:06)
[2018-03-10] MEDS: HEPARIN - 25,000 UNIT in SODIUM CHLORIDE 495 ML IV SCH ×2 (09:22→17:13)
[2018-03-10 11:28] LABS: BASO % 1.2 % (0-2.0); EOS % 1.1 % (0-4.5); HEMATOCRIT 29.4 % (35.4-49); HEMOGLOBIN 10.2 GM/dL (11.7-16.9); LYMPH % 42.1 % (8-40); MCH 29.6 pg (25.7-33.7); MCHC 34.5 g/dl (32.0-35.9); MEAN CELL VOLUME 85.8 fl (80-96); MEAN PLT VOLUME 9.4 fl (7.5-11.1); MONO % 10.9 % (3.8-10.2); NEUT % 44.7 % (42.8-82.8); PLATELET COUNT 204 K/MM3 (134-434); RBC 3.43 M/mm3 (4.00-5.60); RDW 18.3 % (11.9-15.9); WHITE BLOOD COUNT 4.8 K/mm3 (4.0-10.0)
--- NOTE | 2018-03-10 14:08 | PN ---
Progress Note, Physician Chief Complaint: The patient continues to have copious amounts of output through the Ileostomy. Oral intake of food and fluid very good. Patient denies any pains. Maintains good urine output. History of Present Illness: 62 year old gentleman with PMhx of SBO s/o bowel resection with illeostomy, hypertension, hyperlipidemia who presented with chest and abd pain and found to have SHARONDA. The SHARONDA due to the large volume ileostomy output, and resultant hemodynamic changes. - Current Medication List Current Medications: Active Medications Heparin Sodium (Porcine) (Heparin -) 1,000 unit IVPUSH PRN PRN PRN Reason: Heparin Last Admin: 03/03/18 16:35 Dose: 1,000 unit Heparin Sodium (Porcine) (Heparin -) 5,000 unit IVPUSH PRN PRN PRN Reason: Heparin Last Admin: 02/20/18 23:11 Dose: 5,000 unit IV Flush (Picc Line Flush) 8 ml IVPUSH PRN PRN PRN Reason: Protocol Heparin Sodium (Porcine) 25, (000 unit/ Sodium Chloride) 500 mls @ 16 mls/hr IV TITR SKIP; 800 UNIT/HR PRN Reason: Protocol Last Admin: 02/27/18 10:03 Dose: 1,100 unit/hr, 22 mls/hr Fat Emulsion Intravenous (Intralipid -) 250 mls @ 20.833 mls/hr IV DAILY@2200 [facility] Last Admin: 03/07/18 21:30 Dose: 20.833 mls/hr Sodium Chloride (Normal Saline -) 1,000 mls @ 83 mls/hr IV ASDIR [facility] Last Admin: 02/27/18 18:03 Dose: 83 mls/hr Potassium Chloride 60 meq/Calcium Gluconate 1,000 mg/Multivitamins/Minerals 10 ml/Folic Acid 1 mg/ Magnesium Sulfate 2 gm/ Potassium Phosphate 15 mm/ Sterile Water / Amino Acids/ Dextrose 2,000 mls @ 83.333 mls/hr IVPB DAILY@1600 [facility] Last Admin: 02/28/18 19:50 Dose: 83.333 mls/hr Potassium Chloride 20 meq/ (Sodium Chloride) 260 mls @ 130 mls/hr IVPB Q2H [facility] Stop: 02/27/18 01:29 Last Admin: 02/27/18 00:48 Dose: 130 mls/hr Loperamide HCl (Imodium -) 4 mg PO BID [facility] Last Admin: 02/28/18 09:53 Dose: 4 mg Metoprolol Succinate (Toprol Xl -) 50 mg PO BID [facility] Last Admin: 03/10/18 09:18 Dose: 50 mg Metoprolol Tartrate (Lopressor Injection -) 5 mg IVPUSH Q4H PRN PRN Reason: HYPERTENSION Last Admin: 02/28/18 16:02 Dose: 5 mg Ranitidine HCl (Zantac -) 150 mg PO [facility] Last Admin: 03/09/18 21:21 Dose: 150 mg - Objective Vital Signs: Vital Signs Temperature 98.6 F 03/10/18 09:08 Pulse Rate 92 H 03/10/18 09:08 Respiratory Rate 20 03/10/18 09:08 Blood Pressure 130/56 03/10/18 09:08 O2 Sat by Pulse Oximetry (%) 100 03/10/18 09:00 Constitutional: Yes: No Distress, Calm Eyes: Yes: Conjunctiva Clear HENT: Yes: Normocephalic Cardiovascular: Yes: S1, S2 Respiratory: Yes: CTA Bilaterally, Diminished Gastrointestinal: Yes: Normal Bowel Sounds, Other (ileostomy bag filled with large amounts of fluid.) Genitourinary: No: Bladder Distention, CVA Tenderness - Left, CVA Tenderness - Right Edema: No Labs: CBC, BMP 03/10/18 11:18 03/10/18 07:00 INR, PTT INR 1.04 (0.82-1.09) 02/28/18 06:45 Problem List - Problems (1) ARF (acute renal failure) Code(s): N17.9 - ACUTE KIDNEY FAILURE, UNSPECIFIED (2) Chronic combined systolic and diastolic heart failure Code(s): I50.42 - CHRONIC COMBINED SYSTOLIC AND DIASTOLIC HRT FAIL (3) Atrial fibrillation Code(s): I48.91 - UNSPECIFIED ATRIAL FIBRILLATION Qualifiers: Atrial fibrillation type: paroxysmal Qualified Code(s): I48.0 - Paroxysmal atrial fibrillation (4) CAD (coronary artery disease) Code(s): I25.10 - ATHSCL HEART DISEASE OF [place] CORONARY ARTERY W/O ANG PCTRS Qualifiers: Coronary Disease-Associated Artery/Lesion type: [place] artery [place] vs. transplanted heart: [place] heart Associated angina: angina presence unspecified Qualified Code(s): I25.10 - Atherosclerotic heart disease of [place] coronary artery without angina pectoris (5) Hyperlipidemia Code(s): E78.5 - HYPERLIPIDEMIA, UNSPECIFIED Qualifiers: Hyperlipidemia type: unspecified Qualified Code(s): E78.5 - Hyperlipidemia , unspecified (6) Hypertension Code(s): I10 - ESSENTIAL (PRIMARY) HYPERTENSION Qualifiers: Hypertension type: essential hypertension Qualified Code(s): I10 - Essential (primary) hypertension Assessment/Plan 62 year old gentleman with PMhx of SBO s/o Bowel resection with Illeostomy, Hypertension, Hyperlipidemia. Azotemia has worsened since yesterday. There is a component ot Renal hypoperfusion, resulting in renal ischemia causing this progressive rise in serum Cr. Continues to have large volume outputs from the ileostomy. IV fluids well tolerated. But the GI output far exceeds the intake. Will increase the Ringers lactate to 240 ml/hr. Additionally the patient is drinking also large amounts of fluids. Will monitor the BP closely and vaughn renal functions with you. Thank you. Bertha Pa MD
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
[2018-03-10] MEDS ORDERED: DIPHENOXYLATE 2.5/ATROPINE.025 1 COMBO TABLET PO PRN ×2 (17:07→17:10)
[2018-03-10] MEDS: RANITIDINE HCL 150 MG TABLET (FP) PO SCH (21:02)
[2018-03-11] MEDS: LACTATED RINGERS SOLUTION 1,000 ML/1,000 ML INFUS.BAG IV SCH ×4 (01:00→22:57)
[2018-03-11 08:10] LABS: ALBUMIN 2.9 g/dl (3.4-5.0); ANION GAP 10 (8-16); BILIRUBIN,TOTAL 0.9 mg/dL (0.2-1.0); BLOOD UREA NITROGEN 24 mg/dL (7-18); CALCIUM 8.8 mg/dL (8.5-10.1); CHLORIDE 95 mmol/L (98-107); CO2 33 mmol/L (21-32); CREATININE 3.1 mg/dL (0.7-1.3); GLUCOSE,RANDOM 69 mg/dL (74-106); POTASSIUM 3.5 mmol/L (3.5-5.1); SGOT/AST 89 U/L (15-37); SGPT/ALT 156 U/L (12-78); SODIUM 138 mmol/L (136-145); TOT PROT 7.4 g/dl (6.4-8.2)
[2018-03-11 08:18] LABS: ALK PHOS 212 U/L (45-117)
[2018-03-11] MEDS ORDERED: PT OWN MED DRAWER 7, Y5N ONE ×2 (08:58→10:28)
[2018-03-11] MEDS: POTASSIUM CHLORIDE TABS 20 MEQ TABLET.ER (FP) PO SCH ×2 (09:00→22:36)
[2018-03-11] MEDS: MAGNESIUM CL 64 MG TABLET.SA PO SCH (09:01)
[2018-03-11] MEDS ORDERED: POTASSIUM CHLORIDE TABS 20 MEQ TABLET.ER (FP) PO SCH (10:00)
--- NOTE | 2018-03-11 13:31 | PN ---
Progress Note, Physician History of Present Illness: Patient is a 62 year old black male (b. [place]) wiht a PMH of SBO ( 2016 w/colostomy) AFib, CAD, DVT, HTN, HLD presents to our ED c/o presents to our ED with acute onset of pain. Pain is sharp and localized to his B/L UE and across his chest. Pain is intermittent, 10/10 and lasts for 2-3 minutes without any identifiable triggering or relieving factors. Patient denies any previous h/o similar pain. Patient denies fever/chills, nausea/vomiting, dysuria/hematuria, numbness/ tingling or AMS or visual changes. As per EMR patient evaluated at our facility in 2015 at which time he had an ex lap for SBO. - Current Medication List Current Medications: Active Medications Heparin Sodium (Porcine) (Heparin -) 1,000 unit IVPUSH PRN PRN PRN Reason: Heparin Last Admin: 03/03/18 16:35 Dose: 1,000 unit Heparin Sodium (Porcine) (Heparin -) 5,000 unit IVPUSH PRN PRN PRN Reason: Heparin Last Admin: 02/20/18 23:11 Dose: 5,000 unit IV Flush (Picc Line Flush) 8 ml IVPUSH PRN PRN PRN Reason: Protocol Heparin Sodium (Porcine) 25, (000 unit/ Sodium Chloride) 500 mls @ 16 mls/hr IV TITR SKIP; 800 UNIT/HR PRN Reason: Protocol Last Admin: 02/27/18 10:03 Dose: 1,100 unit/hr, 22 mls/hr Fat Emulsion Intravenous (Intralipid -) 250 mls @ 20.833 mls/hr IV DAILY@2200 [facility] Last Admin: 03/07/18 21:30 Dose: 20.833 mls/hr Sodium Chloride (Normal Saline -) 1,000 mls @ 83 mls/hr IV ASDIR [facility] Last Admin: 02/27/18 18:03 Dose: 83 mls/hr Potassium Chloride 60 meq/Calcium Gluconate 1,000 mg/Multivitamins/Minerals 10 ml/Folic Acid 1 mg/ Magnesium Sulfate 2 gm/ Potassium Phosphate 15 mm/ Sterile Water / Amino Acids/ Dextrose 2,000 mls @ 83.333 mls/hr IVPB DAILY@1600 [facility] Last Admin: 02/28/18 19:50 Dose: 83.333 mls/hr Potassium Chloride 20 meq/ (Sodium Chloride) 260 mls @ 130 mls/hr IVPB Q2H [facility] Stop: 02/27/18 01:29 Last Admin: 02/27/18 00:48 Dose: 130 mls/hr Loperamide HCl (Imodium -) 4 mg PO BID [facility] Last Admin: 02/28/18 09:53 Dose: 4 mg Metoprolol Succinate (Toprol Xl -) 50 mg PO BID [facility] Last Admin: 03/11/18 09:00 Dose: 50 mg Metoprolol Tartrate (Lopressor Injection -) 5 mg IVPUSH Q4H PRN PRN Reason: HYPERTENSION Last Admin: 02/28/18 16:02 Dose: 5 mg Ranitidine HCl (Zantac -) 150 mg PO HS [facility] Last Admin: 03/10/18 21:02 Dose: 150 mg - Objective Vital Signs: Vital Signs Temperature 99.2 F 03/11/18 10:00 Pulse Rate 104 H 03/11/18 10:00 Respiratory Rate 20 03/11/18 10:00 Blood Pressure 125/81 03/11/18 10:00 O2 Sat by Pulse Oximetry (%) 100 03/11/18 09:00 Eyes: Yes: WNL, Conjunctiva Clear, EOM Intact HENT: Yes: WNL, Atraumatic, Normocephalic Neck: Yes: WNL, Supple, Trachea Midline Cardiovascular: Yes: Pulse Irregular, S1, S2 Respiratory: Yes: WNL, Regular, CTA Bilaterally Gastrointestinal: Yes: WNL, Normal Bowel Sounds Genitourinary: Yes: WNL Musculoskeletal: Yes: WNL Extremities: Yes: WNL Edema: Yes Integumentary: Yes: WNL Neurological: Yes: WNL, Alert, Oriented ...Motor Strength: WNL Psychiatric: Yes: WNL Labs: CBC, BMP 03/10/18 11:18 03/11/18 05:35 INR, PTT INR 1.04 (0.82-1.09) 02/28/18 06:45 Assessment/Plan - Problems (1) Renal insufficiency Assessment/Plan: as noted by loan processing supervisor, continued high-output ostomy-->SHARONDA. ACEI or ARB still on hold until approved by loan processing supervisor. Code(s): N28.9 - DISORDER OF KIDNEY AND URETER, UNSPECIFIED (2) Atrial fibrillation Assessment/Plan: Continue metoprolol ER 50 mg bid; may change to metoprolol ER daily for easier compliance as outpatient. On IV heparin; as noted, pt will likely be sent home on Lovenox if renal function improves, while watching progress of high-output ostomy. Code(s): I48.91 - UNSPECIFIED ATRIAL FIBRILLATION Qualifiers: Atrial fibrillation type: paroxysmal Qualified Code(s): I48.0 - Paroxysmal atrial fibrillation (3) CAD (coronary artery disease) Assessment/Plan: Pt with multiple CAD risks. Coronary artery evaluation (stress MIBI) if not done recently, once present status improves; this may be done as an outpatient. Code(s): I25.10 - ATHSCL HEART DISEASE OF [place] CORONARY ARTERY W/O ANG PCTRS Qualifiers: Coronary Disease-Associated Artery/Lesion type: [place] artery [place] vs. transplanted heart: [place] heart Associated angina: angina presence unspecified Qualified Code(s): I25.10 - Atherosclerotic heart disease of [place] coronary artery without angina pectoris (4) Hyperlipidemia Code(s): E78.5 - HYPERLIPIDEMIA, UNSPECIFIED Qualifiers: Hyperlipidemia type: unspecified Qualified Code(s): E78.5 - Hyperlipidemia , unspecified (5) Hypertension Code(s): I10 - ESSENTIAL (PRIMARY) HYPERTENSION Qualifiers: Hypertension type: essential hypertension Qualified Code(s): I10 - Essential (primary) hypertension (6) Chronic combined systolic and diastolic heart failure Assessment/Plan: On metoprolol. If unable to start ACEI, ARB,spironolactone due to renal insufficiency, would start hydralazine + isordil if BP allows. Code(s): I50.42 - CHRONIC COMBINED SYSTOLIC AND DIASTOLIC HRT FAIL (7) DVT (deep venous thrombosis) Assessment/Plan: On IV heparin; may require Lovenox as outpt. Code(s): I82.409 - ACUTE EMBOLISM AND THOMBOS UNSP DEEP VN UNSP LOWER EXTREMITY (8) Mass Assessment/Plan: RUE: no DVT; ? hematoma; f/u. Code(s): R22.9 - LOCALIZED SWELLING, MASS AND LUMP, UNSPECIFIED
[2018-03-11 16:24] LABS: BASO % 1.1 % (0-2.0); EOS % 0.8 % (0-4.5); HEMATOCRIT 30.8 % (35.4-49); HEMOGLOBIN 10.3 GM/dL (11.7-16.9); LYMPH % 42.5 % (8-40); MCHC 33.5 g/dl (32.0-35.9); MEAN CELL VOLUME 86.6 fl (80-96); NEUT % 45.6 % (42.8-82.8); PLATELET COUNT 245 K/MM3 (134-434); RBC 3.56 M/mm3 (4.00-5.60); RDW 18.3 % (11.9-15.9); WHITE BLOOD COUNT 5.1 K/mm3 (4.0-10.0)
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
[2018-03-11] MEDS: HEPARIN - 25,000 UNIT in SODIUM CHLORIDE 495 ML IV SCH (18:13)
[2018-03-11] MEDS ORDERED: NITROGLYCERIN 2% OINTMENT - 1GM PACKET TD PRN (21:14)
[2018-03-11] MEDS: RANITIDINE HCL 150 MG TABLET (FP) PO SCH (22:36)
[2018-03-11] MEDS: CHOLESTYRAMINE/SUCROSE 4 GM PACKET PO SCH (22:37)
[2018-03-12] MEDS: LACTATED RINGERS SOLUTION 1,000 ML/1,000 ML INFUS.BAG IV SCH ×2 (03:15→21:37)
[2018-03-12 08:11] LABS: BASO % 0.8 % (0-2.0); EOS % 0.7 % (0-4.5); HEMATOCRIT 25.9 % (35.4-49); HEMOGLOBIN 8.8 GM/dL (11.7-16.9); LYMPH % 44.3 % (8-40); MCH 29.5 pg (25.7-33.7); MCHC 34.1 g/dl (32.0-35.9); MEAN CELL VOLUME 86.4 fl (80-96); MEAN PLT VOLUME 10.5 fl (7.5-11.1); MONO % 10.2 % (3.8-10.2); PLATELET COUNT 166 K/MM3 (134-434); RDW 17.7 % (11.9-15.9); WHITE BLOOD COUNT 3.7 K/mm3 (4.0-10.0)
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
[2018-03-12 08:54] LABS: ANION GAP 9 (8-16); BLOOD UREA NITROGEN 17 mg/dL (7-18); CHLORIDE 98 mmol/L (98-107); CO2 33 mmol/L (21-32); CREATININE 2.6 mg/dL (0.7-1.3); GLUCOSE,RANDOM 63 mg/dL (74-106); POTASSIUM 3.3 mmol/L (3.5-5.1); SODIUM 140 mmol/L (136-145)
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
[2018-03-12] MEDS ORDERED: PT OWN MED DRAWER 7, Y5N ONE (09:41)
[2018-03-12] MEDS: CHOLESTYRAMINE/SUCROSE 4 GM PACKET PO SCH ×2 (09:47→21:37)
[2018-03-12] MEDS: POTASSIUM CHLORIDE TABS 20 MEQ TABLET.ER (FP) PO SCH ×2 (09:47→21:37)
[2018-03-12] MEDS: MAGNESIUM CL 64 MG TABLET.SA PO SCH (09:47)
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
[2018-03-12] MEDS: DIPHENOXYLATE 2.5/ATROPINE.025 1 COMBO TABLET PO PRN (13:56)
[2018-03-12] MEDS ORDERED: HEPARIN SOD,PORK IN 0.45% NACL 25,000 UNITS/500 ML INFUS.BAG IVPB SCH (14:15)
--- NOTE | 2018-03-12 19:09 | PN ---
Progress Note (short form) - Note Progress Note: Renal follow up for SHARONDA Pt seen and examined at the bedside awake and alert no acute complaints on IVF ostomy with liquid output Vital Signs Temperature 98.4 F 03/12/18 14:04 Pulse Rate 84 03/12/18 14:04 Respiratory Rate 18 03/12/18 14:04 Blood Pressure 112/77 03/12/18 14:04 O2 Sat by Pulse Oximetry (%) 100 03/12/18 09:00 Intake & Output 03/09/18 03/10/18 03/11/18 03/12/18 23:59 23:59 23:59 23:59 Intake Total 8460 8632 27079 6696 Output Total 9600 44164 12751 4700 Balance -9616 -4608 -3079 1995 Weight 78.426 kg 78.426 kg 76.158 kg 75.432 kg NAD awake and alert RRR, NO M/R CTA soft NT, + ostomy NO LE edema, clubbing or cyanosis CBC, BMP 03/12/18 07:04 03/12/18 07:04 Current Medications Heparin Sodium (Porcine) (Heparin -) 1,000 unit IVPUSH PRN PRN PRN Reason: Heparin Last Admin: 03/03/18 16:35 Dose: 1,000 unit Heparin Sodium (Porcine) (Heparin -) 5,000 unit IVPUSH PRN PRN PRN Reason: Heparin Last Admin: 02/20/18 23:11 Dose: 5,000 unit IV Flush (Picc Line Flush) 8 ml IVPUSH PRN PRN PRN Reason: Protocol Heparin Sodium (Porcine) 25, (000 unit/ Sodium Chloride) 500 mls @ 16 mls/hr IV TITR SKIP; 800 UNIT/HR PRN Reason: Protocol Last Admin: 02/27/18 10:03 Dose: 1,100 unit/hr, 22 mls/hr Fat Emulsion Intravenous (Intralipid -) 250 mls @ 20.833 mls/hr IV DAILY@2200 SKIP Last Admin: 03/07/18 21:30 Dose: 20.833 mls/hr Sodium Chloride (Normal Saline -) 1,000 mls @ 83 mls/hr IV ASDIR SKIP Last Admin: 02/27/18 18:03 Dose: 83 mls/hr Potassium Chloride 60 meq/Calcium Gluconate 1,000 mg/Multivitamins/Minerals 10 ml/Folic Acid 1 mg/ Magnesium Sulfate 2 gm/ Potassium Phosphate 15 mm/ Sterile Water / Amino Acids/ Dextrose 2,000 mls @ 83.333 mls/hr IVPB DAILY@1600 [facility] Last Admin: 02/28/18 19:50 Dose: 83.333 mls/hr Potassium Chloride 20 meq/ (Sodium Chloride) 260 mls @ 130 mls/hr IVPB Q2H [facility] Stop: 02/27/18 01:29 Last Admin: 02/27/18 00:48 Dose: 130 mls/hr Loperamide HCl (Imodium -) 4 mg PO BID [facility] Last Admin: 02/28/18 09:53 Dose: 4 mg Metoprolol Succinate (Toprol Xl -) 50 mg PO BID [facility] Last Admin: 03/12/18 09:47 Dose: 50 mg Metoprolol Tartrate (Lopressor Injection -) 5 mg IVPUSH Q4H PRN PRN Reason: HYPERTENSION Last Admin: 02/28/18 16:02 Dose: 5 mg Ranitidine HCl (Zantac -) 150 mg PO HS [facility] Last Admin: 03/11/18 22:36 Dose: 150 mg 62 year old gentleman with PMhx of SBO s/o bowel resection with illeostomy, hypertension, hyperlipidemia who presented with chest and abd pain and found to have SHARONDA. #Acute Renal Failure secondary to volume depletion in setting of high output ostomy #Hypovolemic Hyponatremia #Diarrhea/High output ostomy Cr improved from yesterday continue IVF to keep pt's I and O even supplement electrolytes as needed pending transfer to original surgical service at [facility] [place] PASTRANA
[2018-03-12] MEDS: RANITIDINE HCL 150 MG TABLET (FP) PO SCH (21:37)
[2018-03-13] MEDS: LACTATED RINGERS SOLUTION 1,000 ML/1,000 ML INFUS.BAG IV SCH ×5 (02:19→21:20)
[2018-03-13] MEDS: CHOLESTYRAMINE/SUCROSE 4 GM PACKET PO SCH ×3 (05:36→21:20)
[2018-03-13] MEDS: DIPHENOXYLATE 2.5/ATROPINE.025 1 COMBO TABLET PO PRN (05:46)
[2018-03-13 08:03] LABS: BASO % 0.8 % (0-2.0); HEMATOCRIT 28.1 % (35.4-49); HEMOGLOBIN 9.7 GM/dL (11.7-16.9); LYMPH % 42.3 % (8-40); MCH 30.1 pg (25.7-33.7); MCHC 34.6 g/dl (32.0-35.9); MEAN CELL VOLUME 87.1 fl (80-96); MEAN PLT VOLUME 10.4 fl (7.5-11.1); NEUT % 45.9 % (42.8-82.8); PLATELET COUNT 185 K/MM3 (134-434); RBC 3.22 M/mm3 (4.00-5.60); RDW 17.6 % (11.9-15.9); WHITE BLOOD COUNT 4.1 K/mm3 (4.0-10.0)
[2018-03-13 08:36] LABS: CHLORIDE 97 mmol/L (98-107); POTASSIUM 3.1 mmol/L (3.5-5.1); SODIUM 140 mmol/L (136-145)
[2018-03-13 08:56] LABS: ANION GAP 13 (8-16); BLOOD UREA NITROGEN 11 mg/dL (7-18); CALCIUM 8.8 mg/dL (8.5-10.1); CO2 30 mmol/L (21-32); CREATININE 2.4 mg/dL (0.7-1.3); GLUCOSE,RANDOM 64 mg/dL (74-106)
[2018-03-13] MEDS ORDERED: POTASSIUM CHLORIDE TABS 20 MEQ TABLET.ER (FP) PO ONE ×2 (10:13→14:15)
[2018-03-13] MEDS ORDERED: PT OWN MED DRAWER 7, Y5N ONE ×2 (10:13→14:41)
[2018-03-13] MEDS: POTASSIUM CHLORIDE TABS 20 MEQ TABLET.ER (FP) PO SCH ×2 (10:20→21:19)
[2018-03-13] MEDS: MAGNESIUM CL 64 MG TABLET.SA PO SCH (10:20)
--- NOTE | 2018-03-13 11:52 | PN ---
Progress Note, Physician History of Present Illness: Patient is a 62 year old black male (b. [place]) wiht a PMH of SBO ( 2016 w/colostomy) AFib, CAD, DVT, HTN, HLD presents to our ED c/o presents to our ED with acute onset of pain. Pain is sharp and localized to his B/L UE and across his chest. Pain is intermittent, 10/10 and lasts for 2-3 minutes without any identifiable triggering or relieving factors. Patient denies any previous h/o similar pain. Patient denies fever/chills, nausea/vomiting, dysuria/hematuria, numbness/ tingling or AMS or visual changes. As per EMR patient evaluated at our facility in 2015 at which time he had an ex lap for SBO. - Current Medication List Current Medications: Active Medications Heparin Sodium (Porcine) (Heparin -) 1,000 unit IVPUSH PRN PRN PRN Reason: Heparin Last Admin: 03/03/18 16:35 Dose: 1,000 unit Heparin Sodium (Porcine) (Heparin -) 5,000 unit IVPUSH PRN PRN PRN Reason: Heparin Last Admin: 02/20/18 23:11 Dose: 5,000 unit IV Flush (Picc Line Flush) 8 ml IVPUSH PRN PRN PRN Reason: Protocol Heparin Sodium (Porcine) 25, (000 unit/ Sodium Chloride) 500 mls @ 16 mls/hr IV TITR SKIP; 800 UNIT/HR PRN Reason: Protocol Last Admin: 02/27/18 10:03 Dose: 1,100 unit/hr, 22 mls/hr Fat Emulsion Intravenous (Intralipid -) 250 mls @ 20.833 mls/hr IV DAILY@2200 [facility] Last Admin: 03/07/18 21:30 Dose: 20.833 mls/hr Sodium Chloride (Normal Saline -) 1,000 mls @ 83 mls/hr IV ASDIR [facility] Last Admin: 02/27/18 18:03 Dose: 83 mls/hr Potassium Chloride 60 meq/Calcium Gluconate 1,000 mg/Multivitamins/Minerals 10 ml/Folic Acid 1 mg/ Magnesium Sulfate 2 gm/ Potassium Phosphate 15 mm/ Sterile Water / Amino Acids/ Dextrose 2,000 mls @ 83.333 mls/hr IVPB DAILY@1600 [facility] Last Admin: 02/28/18 19:50 Dose: 83.333 mls/hr Potassium Chloride 20 meq/ (Sodium Chloride) 260 mls @ 130 mls/hr IVPB Q2H [facility] Stop: 02/27/18 01:29 Last Admin: 02/27/18 00:48 Dose: 130 mls/hr Loperamide HCl (Imodium -) 4 mg PO BID [facility] Last Admin: 02/28/18 09:53 Dose: 4 mg Metoprolol Succinate (Toprol Xl -) 50 mg PO BID [facility] Last Admin: 03/13/18 10:20 Dose: 50 mg Metoprolol Tartrate (Lopressor Injection -) 5 mg IVPUSH Q4H PRN PRN Reason: HYPERTENSION Last Admin: 02/28/18 16:02 Dose: 5 mg Ranitidine HCl (Zantac -) 150 mg PO HS [facility] Last Admin: 03/12/18 21:37 Dose: 150 mg - Objective Vital Signs: Vital Signs Temperature 98.8 F 03/13/18 06:00 Pulse Rate 82 03/13/18 06:00 Respiratory Rate 20 03/13/18 06:00 Blood Pressure 100/55 03/13/18 06:00 O2 Sat by Pulse Oximetry (%) 98 03/12/18 21:00 Eyes: Yes: WNL, Conjunctiva Clear, EOM Intact HENT: Yes: WNL, Atraumatic, Normocephalic Neck: Yes: WNL, Supple, Trachea Midline Cardiovascular: Yes: WNL, Regular Rate and Rhythm Respiratory: Yes: WNL, Regular, CTA Bilaterally Gastrointestinal: Yes: WNL, Normal Bowel Sounds Genitourinary: Yes: WNL Musculoskeletal: Yes: WNL Extremities: Yes: WNL Edema: No Integumentary: Yes: WNL Neurological: Yes: WNL, Alert, Oriented ...Motor Strength: WNL Psychiatric: Yes: WNL Labs: CBC, BMP 03/13/18 06:15 03/13/18 06:15 INR, PTT INR 1.04 (0.82-1.09) 02/28/18 06:45 Assessment/Plan - Problems (1) Renal insufficiency Assessment/Plan: as noted by rn surgical, continued high-output ostomy-->SHARONDA. ACEI or ARB still on hold until approved by rn surgical. Code(s): N28.9 - DISORDER OF KIDNEY AND URETER, UNSPECIFIED (2) Atrial fibrillation Assessment/Plan: Continue metoprolol ER 50 mg bid; may change to metoprolol ER daily for easier compliance as outpatient. On IV heparin; as noted, pt will likely be sent home on Lovenox if renal function improves, while watching progress of high-output ostomy. Code(s): I48.91 - UNSPECIFIED ATRIAL FIBRILLATION Qualifiers: Atrial fibrillation type: paroxysmal Qualified Code(s): I48.0 - Paroxysmal atrial fibrillation (3) CAD (coronary artery disease) Assessment/Plan: Pt with multiple CAD risks. Coronary artery evaluation (stress MIBI) if not done recently, once present status improves; this may be done as an outpatient. Code(s): I25.10 - ATHSCL HEART DISEASE OF [place] CORONARY ARTERY W/O ANG PCTRS Qualifiers: Coronary Disease-Associated Artery/Lesion type: [place] artery [place] vs. transplanted heart: [place] heart Associated angina: angina presence unspecified Qualified Code(s): I25.10 - Atherosclerotic heart disease of [place] coronary artery without angina pectoris (4) Hyperlipidemia Code(s): E78.5 - HYPERLIPIDEMIA, UNSPECIFIED Qualifiers: Hyperlipidemia type: unspecified Qualified Code(s): E78.5 - Hyperlipidemia , unspecified (5) Hypertension Code(s): I10 - ESSENTIAL (PRIMARY) HYPERTENSION Qualifiers: Hypertension type: essential hypertension Qualified Code(s): I10 - Essential (primary) hypertension (6) Chronic combined systolic and diastolic heart failure Assessment/Plan: On metoprolol. If unable to start ACEI, ARB,spironolactone due to renal insufficiency, would start hydralazine + isordil if BP allows. Code(s): I50.42 - CHRONIC COMBINED SYSTOLIC AND DIASTOLIC HRT FAIL (7) DVT (deep venous thrombosis) Assessment/Plan: On IV heparin; may require Lovenox as outpt. Code(s): I82.409 - ACUTE EMBOLISM AND THOMBOS UNSP DEEP VN UNSP LOWER EXTREMITY (8) Mass Assessment/Plan: RUE: no DVT; ? hematoma; f/u. Code(s): R22.9 - LOCALIZED SWELLING, MASS AND LUMP, UNSPECIFIED
[2018-03-13 14:11] LABS: MAGNESIUM 1.9 mg/dL (1.8-2.4)
[2018-03-13 15:49] VITALS: PULSE 86
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
[2018-03-13 17:35] LABS: ANION GAP 11 (8-16); BLOOD UREA NITROGEN 10 mg/dL (7-18); CALCIUM 9.7 mg/dL (8.5-10.1); CHLORIDE 96 mmol/L (98-107); CO2 33 mmol/L (21-32); CREATININE 2.5 mg/dL (0.7-1.3); GLUCOSE,RANDOM 72 mg/dL (74-106); POTASSIUM 3.1 mmol/L (3.5-5.1); SODIUM 140 mmol/L (136-145)
--- NOTE | 2018-03-13 19:08 | DS ---
Physical Exam: SUBJECTIVE: Patient seen and examined at bedside. No acute events overnight. This morning, pt with leakage of ostomy and bag changed. With continued increased output. Today, pt for transfer to [facility]. Case discussed with Dr. Saeed accepting physician, and details discussed with patient. Denied BAIG, fever, chills, SOB, chest pain, or pressure, or changes in urinary or bowel function. OBJECTIVE: Vital Signs - 24 hr 03/12/18 03/13/18 03/13/18 21:00 06:00 09:00 Temperature 99.1 F 98.8 F Pulse Rate 98 H 82 Respiratory 20 20 20 Rate Blood Pressure 127/74 100/55 O2 Sat by Pulse 98 99 Oximetry (%) 03/13/18 03/13/18 03/13/18 10:00 15:43 16:34 Temperature 98.0 F 97.8 F 97.4 F L Pulse Rate 87 86 86 Respiratory 20 22 20 Rate Blood Pressure 111/75 124/72 129/80 O2 Sat by Pulse Oximetry (%) PHYSICAL EXAM: GENERAL: The patient is sitting comfortably on the side of the bed. awake, alert , and fully oriented, in no acute distress. HEAD: Normal with no signs of trauma. EYES: PERRL, extraocular movements intact, sclera anicteric, conjunctiva clear. ENT: Ears normal, nares patent, oropharynx clear without exudates, moist mucous membranes. NECK: Trachea midline, supple. LUNGS: Breath sounds equal, clear to auscultation bilaterally, no wheezes, no crackles, no accessory muscle use. HEART: Regular rate and rhythm- in sinus, S1, S2 without murmur, rub or gallop. ABDOMEN: Soft, nontender, nondistended, normoactive bowel sounds, no guarding. + ostomy with dark yellow serous drainage. +abdominal umbilical wound - pink, without discharge. EXTREMITIES: 2+ posterior tibial pulses, warm, well-perfused, no edema. NEUROLOGICAL: Cranial nerves II through XII grossly intact. PSYCH: Normal mood, normal affect. SKIN: Warm, dry, normal turgor, no rashes or lesions noted LABS: Laboratory Results - last 24 hr 03/13/18 03/13/18 03/13/18 06:15 06:15 06:15 WBC 4.1 RBC 3.22 L Hgb 9.7 L D Hct 28.1 L MCV 87.1 MCH 30.1 MCHC 34.6 RDW 17.6 H Plt Count 185 MPV 10.4 Neutrophils % 45.9 Lymphocytes % 42.3 H Monocytes % 10.0 Eosinophils % 1.0 Basophils % 0.8 PTT (Actin FS) 74.2 H Sodium 140 Potassium 3.1 L Chloride 97 L Carbon Dioxide 30 Anion Gap 13 BUN 11 D Creatinine 2.4 H Random Glucose 64 L Calcium 8.8 Magnesium 1.9 D 03/13/18 03/13/18 06:15 16:00 PTT (Actin FS) Sodium 140 Potassium 3.1 L Chloride 96 L Carbon Dioxide 33 H Anion Gap 11 BUN 10 Creatinine 2.5 H Random Glucose 72 L Calcium 9.7 Laboratory Tests: Creatinine trend 02/19/18 02/19/18 05:06 20:45 Creatinine 11.7 H* 10.4 H* 02/21/18 02/21/18 02/25/18 06:20 19:15 06:10 Creatinine 5.3 H D 4.3 H 2.1 H 02/26/18 02/26/18 02/27/18 06:35 19:40 06:44 Creatinine 2.5 H 2.7 H 2.5 H 03/01/18 03/04/18 03/05/18 06:30 09:20 06:10 Creatinine 3.0 H 2.1 H 1.9 H 03/06/18 03/07/18 03/08/18 08:08 07:34 07:45 Creatinine 1.9 H 2.1 H 2.1 H 03/09/18 03/10/18 03/11/18 06:15 07:00 05:35 Creatinine 2.6 H D 3.2 H D 3.1 H 03/12/18 03/13/18 03/13/18 07:04 06:15 16:00 Creatinine 2.6 H 2.4 H 2.5 H Additional Lab values 02/18/18 02/19/18 23:00 05:06 WBC 15.6 H D Hgb 12.0 D Hct 34.4 L D Plt Count 239 D BUN 129 H* Hemoglobin A1c % Total Bilirubin 1.1 H Direct Bilirubin 0.3 H Alkaline Phosphatase 125 H Creatine Kinase 677 H Troponin I 0.08 H TRUDI Screen 02/19/18 02/19/1802/19/18 05:24 12:25 12:25 Hemoglobin A1c % 6.2 H Troponin I 0.09 H TRUDI Screen Positive H 02/20/18 02/21/18 02/21/18 06:25 06:20 19:15 Potassium 2.9 L* 3.2 L TRUDI Screen Tot Complement (CH50) > 63 H 02/22/18 02/25/18 02/26/18 05:00 06:10 19:40 WBC Hgb 7.1 L D Hct 20.0 L D Plt Count Potassium 2.8 L* 2.8 L* Tot Complement (CH50) 03/05/18 03/06/18 03/07/18 06:10 08:08 07:34 Hgb 8.8 L 8.7 L 9.5 L Hct 25.0 L 25.2 L 27.2 L Alkaline Phosphatase 03/09/18 06:15 Hgb 10.4 L Hct 30.4 L Vital Signs Temp 97.4 F L 03/13/18 16:34 Pulse 86 03/13/18 16:34 Resp 20 03/13/18 16:34 BP 129/80 03/13/18 16:34 Pulse Ox 99 03/13/18 09:00 Intake & Output 03/12/18 03/13/18 03/13/18 23:59 11:59 23:59 Intake Total 6176 1820 3120 Output Total 7600 1750 7800 Balance -1424 70 -4680 Intake: IV 3120 1820 3120 HEPARIN-1/2NS 25,000 100 140 240 UNITS/500 25,000 units In 500 ml @ 1,100 UNIT/HR 22 mls/hr IVPB TITR SKIP Rx#:[id number] Heparin - 25,000 Unit In 140 Normal Saline - 495 ml @ 1,100 UNIT/HR 22 mls/hr IV TITR SKIP Rx#: [id number] LACTATED RINGERS SOLUTION 2880 1680 1,000 ml In 1,000 ml @ 240 mls/hr IV ASDIR SKIP Rx#:[id number] LACTATED RINGERS SOLUTION 2880 1,000 ml In 1,000 ml @ 240 mls/hr IV ASDIR SKIP Rx#:[id number] IVPB 1250 Oral 600 TPN/PPN 996 Lipid 210 Output: Urine 1000 Void 1000 Ileostomy 6600 1750 7800 Other: Microbiology 02/19/18 13:00 Blood - Peripheral Venous Blood Culture - Final NO GROWTH AFTER 5 DAYS INCUBATION 02/19/18 12:25 Blood - Peripheral Venous Blood Culture - Final NO GROWTH AFTER 5 DAYS INCUBATION 02/20/18 01:00 Stool Clostridium difficile Antigen (JEANNETTE) - Final 02/20/18 01:00 Stool Clostridium difficile Toxin Assay - Final 02/20/18 01:00 Stool Salmonella/Shigella Culture - Final NO GROWTH OF SALMONELLA OR SHIGELLA SPECIES OBTAINED 02/20/18 01:00 Stool Campylobacter Culture - Final NO GROWTH OF CAMPYLOBACTER SPECIES OBTAINED 02/20/18 01:00 Stool Yersinia Culture - Final NO GROWTH OF YERSINIA SPECIES OBTAINED 02/20/18 01:00 Stool Vibrio Culture - Final NO GROWTH OF VIBRIO SPECIES OBTAINED 02/20/18 01:00 Stool Escherichia coli 0157 Culture - Final NO GROWTH OF E COLI 0157 OBTAINED 02/19/18 14:26 Urine - Urine Clean Catch Urine Culture - Final NO GROWTH OBTAINED Radiology 02/18/18: CXR: mild bibasilar atelectatic changes. right more than left, cannot rule out infiltrates in the right lung base, medially. correlate clinically for further eval and follow up. 02/19/18: Abdomen/pelvis CT: 1. s/p partial colectomy and partial small bowel resection with LLQ enterostomy and large deect in the midline anterior abdominal wall. 2. short segment borderline mildly dilated small bowel loop adherent to midline anterior abdominal wall is suggestive of delayed transit/low -grade partial obstruction secondary to lesions. 3. Right lower lobe airspace opacity is suspicious for pneumonia. Please correlate clinically. 4. indeterminant 10x9 mm cavitary nodule in the right middle lobe, not definitely present on 11/24/15 CT abdomen. differentials include infectious and neoplastic process. please correlate clinically and compare to prior chest CT if available. otherwise further evaluation with dedicated chest CT recommended. 5. mildly dilated common bile duct measuring 7-8mm in diameter. please correlate clinically with biliary markers and LFTs. 02/19/18 Bladder sono: 1. morphologically normal kidneys. no hydronephrosis. intact distal urethral jets indicating outflow into bladder. 2. no significant post void residual volume in the urinary bladder as above. 3. bilateral renal cysts measuring up to 2.1x1.6cm in the R kidney. 4. normal size and volume of prostate gland 02/19/18 Abdomen sono: mild dilation of CBD, measuring 6.5mm in diameter. partially included GB demonstrates no evidence of stones. adequate eval of GB was not performed on this exam. findings suggestive of mild fatty infiltration of liver. please correlate with liver enzymes. 02/19/18: Chest CT without contrast: mild COPD changes. cavitary lesion in RML anteriorly measuring 9mm with mild irregular thickening of its wall, mainly along the inferior margin which is nonspecific. close follow up or correlate with CT scan. atelectatic changes with airspace disease and mild bronchiectatic changes in apices segment of RLL suggestive of pneumonic infiltrates. mild calcification of coronary arteries is present. 02/21/18: ECHO: EF 55.6%, study was technically difficult, LV systolic fnc moderately reduced, moderate global hypokinesis, trace MR 02/23/18: Duplex RUE: thrombus in brachial vein with a PICC line identified at that level. rest of right deep venous system is patent without thrombosis. 02/25/18: PICC line insertion- LUE 03/07/18: Duplex RUE: no evidence DVT, noncompressible portion of distal basilic vein possibly representing superficial thrombosis. complex mass medial upper arm. possibility of a large hematoma cannot be excluded. 03/09/18: RUE CT w/o contrast: 4x3.4cm nonspecific soft tissue focus on this noncontrast exam within the posteromedial aspect of the right upper arm musculature adjacent to the level of axilla may correspond to a similar sized nonspecific complex soft tissue focus described on 03/07/18. this finding is much better visualized on the recent US study. a somehwat more remote US of 02/23 did not describe a soft tissue abnormality within the right upper arm medially and therefore this finding may have developed in the interval time period. 03/13/18: RUE US: interval minimal decrease in size of previously described complex collection/hematoma in the right upper arm that appears more hypoechoice /liquified since the prior examination. HOSPITAL COURSE: Date of Admission:02/19/18 Date of Discharge: 03/13/18 Admit diagnosis: Acute renal failure 2/2 high ostomy output 62 y/o M with PMH HTN, recent SBO, mesenteric ischemia s/p bowel resection and ostomy, atrial fibrillation, HLD, who presented to the ER with atypical midsternal chest pain. On admission, on 02/19/18, pt denied SOB, fevers, or chills. While in the ER, he was tachycardic in the high 90's with a leukocytosis of 15.6. His labs were also notable for severe ARF with Cr of 11.6 , and other lab abnormalities such as Na 129, BUN 127, AST 64, ALP 144, CK 648, initial troponin of 0.08, and lipase 686. Pt was admitted for acute renal failure 2/2 high ostomy output. Concerning the patient's PMH, in Oct 2015, he was admitted with an SBO. Ex-lap was attempted, however was unsuccessful due to frozen abdomen, thus he was managed conservatively and discharged. He returned a month later with similar symptoms, and due to complex surgical abd, pt was transferred by Dr. Delaney to [facility] to care of their surgeon, Dr. Waldron. Patient underwent proximal jejunostomy six months ago [address] [facility] (with 20cm of small bowel left), now w/ colostomy bag. At that time, a PICC line was placed in [facility] for parenteral alimentation (which he self administers). Two months later, he developed fevers/chills and was admitted to [facility] for sepsis 2/2 bacteremia from line infection. The line was exchanged, he was treated with abx and d/c'd. A week before presentation, patient again developed fevers/chills, went to [facility], and was again diagnosed w/ sepsis 2/2 line infection. He was treated, and d/c'd with IV antibiotics to self administer. Pt was to follow up with the short gut program (Dr. Ellison; [phone]) however was lost to follow up for reversal of osteomy at [facility]. While pt was managed at [facility], the following were addressed: Atypical chest pain -after admission, pt experienced one further episode three days prior to discharge. Was given nitro paste with good effect, sx subsided -on early presentation, troponin was elevated to 0.08, but likely resulted from decreased clearance from ARF -EKG was without significant changes since past admission -maintained on telemetry monitoring, initially was on aspirin and plavix- however were d/c later on in course Acute renal failure 2/2 high output from osteomy site -Pt's BUN/Cr was monitored closely - showed overall improvement from ~11 to ~3 on discharge. However with periods of fluctuation -managed by Nephrology team -IVF adjusted based on output of ostomy. On d/c pt sent on LR 240 cc/hr -Pt initially maintained on loperamide, codeine sulfate to decrease output. Closer to d/c was changed to questran, lomotril -home ed inhibitor was held (lisinopril 2.5mg PO qd) due to ARF RUE DVT s/p removal R PICC line -02/23/18: Duplex RUE: thrombus in brachial vein with a PICC line identified at that level. rest of right deep venous system is patent without thrombosis. -new PICC line was inserted in E by IR 02/25/2018 for continued TPN use. TPN d/ c 03/07 -goal PTT was maintained 60-80 -upon d/c, L PICC removed. -03/07/18: Duplex RUE: no evidence DVT, noncompressible portion of distal basilic vein possibly representing superficial thrombosis. complex mass medial upper arm. possibility of a large hematoma cannot be excluded. -03/13/18: RUE US: interval minimal decrease in size of previously described complex collection/hematoma in the right upper arm that appears more hypoechoice /liquified since the prior examination. Atrial fibrillation maintenance -Rate control initially was started as atenolol 50mg PO qd, changed to toprol 25 BID and later to 50 BID with lopressor 5mg IVP q4h PRN available for increased control -heparin gtt was used for anticoagulation, as pt not candidate for coumadin due to history of non compliance -goal was to restart lovenox upon d/c once Creatinine stabilized Tx hypokalemia -initially received supplementation of K in TPN- 60 mEq. increased to 75. TPN d/ c 03/07 -supplemented with 40 mEq KCl PO qd -Was changed during course to KCl 130 cc/hr IV supplementation, and upon discharge, to 40 mEq PO BID H/o CAD, HTN -as per cardio, to receive stress MIBI as outpatient when stable Pt transferred to [facility] for management of high ostomy output, potentially through ostomy reversal under the care of Dr. Saeed. Once pt stabilized and d/c from [facility], he is recommended a stress MIBI test as an outpatient with a women designer. Pt to also follow up with a primary care doctor upon discharge, and continue follow up with Dr. Saeed. Minutes to complete discharge: 60 Discharge Summary Reason For Visit: ACUTE RENAL FAILURE/CHEST PAIN Current Active Problems ARF (acute renal failure) (Acute) DVT (deep venous thrombosis) (Acute) Leukocytosis (Acute) Mass (Acute) Pain (Acute) Renal insufficiency (Acute) Condition: Stable - Instructions Diet, Activity, Other Instructions: You were in the hospital since you had kidney injury from high output from your ostomy site. You are being transferred to a tertiary center, [facility] for continued care under your surgeon, Dr. Saeed. You may need reversal of your ostomy site. While you were in the hospital: -you initially had a clot of your right upper arm. you were started on a heparin drip to thin your blood. You developed a small hematoma at this site, however your blood count was stable. You had a repeat ultrasound done of your arm that showed that the small hematoma decreased in size. -you have been taking lomotil PO q8h PRN, questran 4gm TID to decrease your ostomy output -we stopped your lovenox and lisinopril due to your worsening kidney function. You will need to switch to rodent exterminator anticoagulation depending on your absorption and kidney function. -your atrial fibrillation was controlled with toprol XL 50 mg PO BID and heparin gtt (for a/c)- please continue. -your TPN has been discontinued by our nephrology team. your L PICC line has been removed. -due to your high output, you have been receiving electrolyte supplementation. you will need to continue this at [facility] with close monitoring. -you were seen by nephrology, cardiology, medicine teams You will be continued on the medications that you were on while you were in the hospital, which include: -Questran 4 gm PO TID -Lomotil 1 combo PO q8h PRN -Heparin gtt -IVF: LR 240 cc/hr -MgCl 64 mg PO qd -Toprol XL 50 mg PO BID -40mEq PO BID -Zantac 150mg PO HS Please continue management at the [facility] facility. Once your ostomy has decreased output and you are stable, you will need a stress MIBI test as an outpatient with a women designer. We will refer you to Dr. Angulo who saw you while you were in the hospital, however you are free to see a women designer from [facility] as well. Please also follow up with a primary care doctor upon discharge, and continue to follow up with your surgeon, Dr. Saeed. We hope you feel better soon. Once you are discharged from [facility], you will need additional medication reconciliation. Referrals: Demetri Saeed MD [Other] - 03/13/18 Dony Angulo MD [Staff Physician] - Disposition: TRANSFER ACUTE CARE/OTHER HOSP - Home Medications Comprehensive Discharge Medication List: Ambulatory Orders Ranitidine HCl 150 mg PO HS 02/19/18 Cholestyramine/Sucrose [Questran Packet -] 4 gm PO TID packet 03/13/18 Diphenoxylate 2.5/Atropine.025 [Lomotil -] 1 combo PO Q8H PRN tablet 03/13/18 Heparin - 1,000 unit IVPUSH PRN PRN vial 03/13/18 Heparin - 5,000 unit IVPUSH PRN PRN vial 03/13/18 Heparin - 25,000 unit IV TITR vial 03/13/18 Lactated Ringers Solution 240 ml IV ASDIR #1 infus.bag 03/13/18 Magnesium Chloride [Slow-Mag -] 64 mg PO DAILY tablet.sa 03/13/18 Metoprolol Succinate [Toprol XL -] 50 mg PO BID tab.sr.24h 03/13/18 Potassium Chloride [K-Dur -] 40 meq PO BID tablet.er 03/13/18 This patient is new to me today: No Emergency Visit: No Critical Care patient: No - Discharge Referral Referred to [facility] No
[2018-03-13 21:14] VITALS: BP 134/57; TEMP 98.8
[2018-03-13] MEDS: RANITIDINE HCL 150 MG TABLET (FP) PO SCH (21:20)
== END 2018-03-13 21:00 | disposition short-term general hospital (02) | DRG 252 ==
LOC: JER 20:18 → JERBED 02-19 04:23 → UNDOADMIN 02-19 04:29 → J4W 02-19 06:55 → J8W 03-05 21:16
PROVIDERS: ADMIT Internal Medicine; ATTEND Internal Medicine
PROC: 02HV33Z Insertion of Infusion Device into Superior Vena Cava, Percutaneous Approach (ICD-10-PCS; principal; 2018-02-25)
PROC: B518ZZA Fluoroscopy of Superior Vena Cava, Guidance (ICD-10-PCS; 2018-02-25)
PROC: 3E0436Z Introduction of Nutritional Substance into Central Vein, Percutaneous Approach (ICD-10-PCS; 2018-02-25)
DX: K94.19 Other complications of enterostomy (principal); N17.9 Acute kidney failure, unspecified; R07.89 Other chest pain; D50.9 Iron deficiency anemia, unspecified; E87.1 Hypo-osmolality and hyponatremia; R74.0 Nonspecific elevation of levels of transaminase and lactic acid dehydrogenase [LDH]; I25.10 Atherosclerotic heart disease of native coronary artery without angina pectoris; E78.5 Hyperlipidemia, unspecified; E87.6 Hypokalemia; D72.829 Elevated white blood cell count, unspecified; I50.42 Chronic combined systolic (congestive) and diastolic (congestive) heart failure; R19.7 Diarrhea, unspecified; I13.0 Hypertensive heart and chronic kidney disease with heart failure and stage 1 through stage 4 chronic kidney disease, or unspecified chronic kidney disease; N18.9 Chronic kidney disease, unspecified; I48.0 Paroxysmal atrial fibrillation; Y83.9 Surgical procedure, unspecified as the cause of abnormal reaction of the patient, or of later complication, without mention of misadventure at the time of the procedure; I82.621 Acute embolism and thrombosis of deep veins of right upper extremity; K91.2 Postsurgical malabsorption, not elsewhere classified
CPT/HCPCS: 36415; 36569; 71045-TC-FY; 71250-TC; 73200-TC-RT; 74176-TC; 76705-TC; 76775-TC; 76856-TC; 76882; 77001-TC-FY; 80048; 80053; 80076; 80307; 81003; 81015; 82272; 82436; 82550; 82553; 82570; 82607; 82693; 82728; 82746; 82962; 83036; 83516; 83520; 83540; 83550; 83690; 83735; 83930; 83935; 84100; 84133; 84155; 84156; 84157; 84165; 84300; 84484; 84540; 84550; 85025; 85027; 85610; 85730; 86038; 86140; 86162; 86256; 87040; 87045; 87046; 87086; 87205; 87324; 87389; 87449; 93005; 93010; 93306-TC; 93971; 97116-GP; 97161-GP; 99284-25; C1751; J1644; J7030

== ENCOUNTER 2018-06-30 07:23 | Emergency (ER) | payer OTHER ==
--- NOTE | 2018-06-30 07:41 | PDOC ---
Attending Attestation - Resident Resident Name: Soren Swann - HPI HPI: 06/30/18 12:37 Pt presents to the ED with bleeding around an indwelling catheter placed during a recent hospital stay at [facility]. States that he has been getting "milk" through the catheter. Patient was unclear if he was on blood thinners. States that mild oozing of blood from the catheter began last night. Denies pulling or tugging on the catheter. Disscussion with [facility] surgery resident who was caring for the patient reveals that he is on lovenox for unknown reasons--possibly for a fib. Had Hope catheter placed for TPN because he has short gut syndrome. 06/30/18 12:46 - Physicial Exam PE: 06/30/18 13:03 Agree with resident exam. Patient is alert and in no acute distress. Small amount of clotted blood around catheter with no active bleeding. - Medical Decision Making 06/30/18 13:17 Pt presents to the ED complaining of bleeding around Hope catheter that was placed for TPN adminstration. Patient was able to give himself TPN last night without incident. Catheter in place on xray. Bleeding resolved after surgicell and pressure. Will discharge home.
[2018-06-30 07:47] VITALS: BMI 24.3
[2018-06-30] MEDS ORDERED: ALBUTEROL SO4 0.042% IH SOL 1.25 MG/3 ML VIAL.NEB NEB ONE (07:57)
[2018-06-30] MEDS ORDERED: methylPREDNISolone NA SUCC 125 MG/2 ML VIAL IVPUSH ONE (07:58)
[2018-06-30 08:19] LABS: BASO % 0.8 % (0-2.0); EOS % 1.6 % (0-4.5); HEMATOCRIT 27.3 % (35.4-49); HEMOGLOBIN 8.7 GM/dL (11.7-16.9); LYMPH % 36.3 % (8-40); MCH 23.2 pg (25.7-33.7); MEAN CELL VOLUME 72.6 fl (80-96); MEAN PLT VOLUME 11.6 fl (7.5-11.1); MONO % 8.2 % (3.8-10.2); NEUT % 53.1 % (42.8-82.8); PLATELET COUNT 119 K/MM3 (134-434); RBC 3.76 M/mm3 (4.00-5.60); RDW 17.1 % (11.9-15.9); WHITE BLOOD COUNT 5.7 K/mm3 (4.0-10.0)
--- NOTE | 2018-06-30 08:20 | PDOC ---
History of Present Illness - General Chief Complaint: Bleeding from PICC Line Stated Complaint: BLEEDING FROM PICC LINE Time Seen by Provider: 06/30/18 07:41 History Source: Patient, EMS, Old Records, Other (D/C Summary from [facility]) - History of Present Illness Initial Comments: 62 y/o male presenting to [facility] ER via ambulance complaining of bleeding from newly placed central venous catheter site, which was placed at [facility]. Pt is an extremely poor historian. He is unable to report why the port was placed. Discharge summary from [facility] dated 06/25/2018 does not provide any information regarding port placement. It does include 100mg/mL Enoxaparin in his current Pt unable to give basic medical history. From review of PsyQic records, pt's PMH includes PMH HTN, HLD, AFib, DVT, and multiple abdominal surg with hx sbo. Past History - Past Medical History Allergies/Adverse Reactions: Allergies Allergy/AdvReac Type Severity Reaction Status Date / Time No Known Allergies Allergy Verified 06/30/18 07:34 Home Medications: Ambulatory Orders Acetaminophen [Tylenol] 650 mg PO Q4H PRN 06/30/18 Atorvastatin Ca [Lipitor] 40 mg PO HS 06/30/18 Diphenoxylate HCl/Atropine [Lomotil Tablet] 2 each PO QID 06/30/18 Enoxaparin [Lovenox -] 90 mg SQ BID 06/30/18 Loperamide HCl [Loperamide] 2 mg PO QID PRN 06/30/18 Metoprolol Tartrate 25 mg PO BID 06/30/18 Octreotide Acetate 150 mcg SCJ BID 06/30/18 Pantoprazole Sodium [Protonix] 40 mg PO DAILY 06/30/18 Anemia: Yes Asthma: No Cancer: No Cardiac Disorders: Yes (a-fib, CAD) CVA: No COPD: No CHF: No Dementia: No Diabetes: No GI Disorders: No Disorders: No HTN: Yes Hypercholesterolemia: Yes Liver Disease: No Seizures: No Thyroid Disease: No - Surgical History Abdominal Surgery: Yes (exp lap 11/24/15) Appendectomy: No Cardiac Surgery: Yes (stent) Lung Surgery: No Neurologic Surgery: No Orthopedic Surgery: No - Immunization History Immunization Up to Date: Yes - Suicide/Smoking/Psychosocial Hx Smoking History: Unknown if ever smoked Have you smoked in the past 12 months: No If you are a former smoker, when did you quit?: several years ago Hx Alcohol Use: No Drug/Substance Use Hx: No Substance Use Type: Alcohol Hx Substance Use Treatment: No Review of Systems - Review of Systems Able to Perform ROS?: Yes Is the patient limited Thai proficient: Yes Constitutional: No: Fever Respiratory: No: Shortness of Breath Cardiac (ROS): No: Chest Pain ABD/GI: No: Abdominal cramping Integumentary: Yes: See HPI *Physical Exam - Vital Signs Last Vital Signs Temp Pulse Resp BP Pulse Ox 98.2 F 69 18 102/72 100 06/30/18 07:29 06/30/18 07:29 06/30/18 07:29 06/30/18 07:06/30/18 07:29 - Physical Exam General Appearance: Yes: Appropriately Dressed. No: Apparent Distress HEENT: positive: Normal Voice Neck: positive: Supple Respiratory/Chest: positive: Lungs Clear, Normal Breath Sounds, Other (Port placed in upper right chest. Bleeding around bandage.) Cardiovascular: positive: Regular Rhythm, Regular Rate Gastrointestinal/Abdominal: positive: Flat, Soft. negative: Tender Integumentary: positive: Normal Color, Dry, Warm. negative: Cyanotic Neurologic: positive: Fully Oriented, Alert, Normal Mood/Affect, Normal Response ED Treatment Course - LABORATORY CBC & Chemistry Diagram: 06/30/18 08:01 06/30/18 08:01 - RADIOLOGY Radiology Studies Ordered: Category Date Time Status CHEST X-RAY PORTABLE* [RAD] Stat Radiology 06/30/18 07:42 Ordered Medical Decision Making - Medical Decision Making 62 y/o male complaining of bleeding from a newly placed central venous catheter site. On Lovenox for unknown reason. Pt is very poor historian. Afebrile. Vitals unremarkable for hypotension or tachycardia. Approx. 5-10cc blood loss based on amount under bandage and on shirt. 06/30/18 10:56 Telephone conversation with surgery house staff from [facility], where operation was performed. Will investigate and call back. Surgery house staff returned call. Stated pt had a Hope catheter placed for likely lifelong TPN as pt was s/p significant bowel resection, now functionally short gut. Lovenox injections are for chronic A-fib. 06/30/18 12:02 Direct pressure applied for >20min. Site cleaned chlorhexidine wipe. Surgicel applied. Bleeding appears to have stopped at this point. Bleeding continues to be controlled. New biopatch and clean dressing placed. Pt stable for discharge with outpatient follow up with surgery team. *DC/Admit/Observation/Transfer Diagnosis at time of Disposition: Complication of intravenous catheter site - Discharge Dispostion Disposition: HOME Condition at time of disposition: Good Decision to Admit order: No - Referrals Referrals: Fariha Flowers MD [Primary Care Provider] - Demetri Saeed MD [Other] - Patient Instructions Printed Discharge Instructions: DI for Post-Surgical Bleeding Additional Instructions: El sangrado de stephen se sanchez detenido. Babcock fue probablemente debido a pulliam medicacin Lovenox. NO cambiamos ninguno de charlie medicamentos hoy. Por favor, zuleyma un seguimiento con pulliam cirujano, el Dr. Saeed dentro de los prximos 2-3 bundy. Tendr que llamar para hacer dany jonnie. El nmero es [phone]. Regrese al departamento de emergencias si pulliam condicin empeora o si siente que necesita dany evaluacin de emergencia adicional. Print Language: [id number] - Post Discharge Activity
[2018-06-30 08:24] LABS: INR 1.05 (0.83-1.09); PROTHROMBIN TIME (PATIENT) 11.9 SEC (9.7-13.0)
[2018-06-30 08:27] LABS: ACTIVATED PTT 44.2 SECONDS (25.2-36.5)
[2018-06-30 08:32] LABS: ANION GAP 8 MMOL/L (8-16); BLOOD UREA NITROGEN 20 mg/dL (7-18); CALCIUM 8.2 mg/dL (8.5-10.1); CHLORIDE 106 mmol/L (98-107); CO2 26 mmol/L (21-32); CREATININE 1.3 mg/dL (0.7-1.3); GLUCOSE,RANDOM 92 mg/dL (74-106); POTASSIUM 4.4 mmol/L (3.5-5.1); SODIUM 140 mmol/L (136-145)
[2018-06-30 12:29] LABS: ALBUMIN 3.2 g/dl (3.4-5.0); ALK PHOS 111 U/L (45-117); BILIRUBIN,TOTAL 0.5 mg/dL (0.2-1.0); SGPT/ALT 76 U/L (12-78); TOT PROT 7.4 g/dl (6.4-8.2)
[2018-06-30 12:30] LABS: SGOT/AST 50 U/L (15-37)
[2018-06-30 13:01] VITALS: BP 104/69; PULSE 62; TEMP 99.1
== END 2018-06-30 14:57 | disposition home or self-care (01) ==
LOC: JER 07:23
DX: T82.838A Hemorrhage due to vascular prosthetic devices, implants and grafts, initial encounter (principal); I48.91 Unspecified atrial fibrillation; Z79.01 Long term (current) use of anticoagulants; I25.10 Atherosclerotic heart disease of native coronary artery without angina pectoris; Z95.5 Presence of coronary angioplasty implant and graft; I10 Essential (primary) hypertension; E78.00 Pure hypercholesterolemia, unspecified; Z86.2 Personal history of diseases of the blood and blood-forming organs and certain disorders involving the immune mechanism
CPT/HCPCS: 36415; 71045-TC-FY; 80048; 80053; 85025; 85610; 85730; 99282-25

== ENCOUNTER 2018-12-21 03:38 | Inpatient (IN) | payer OTHER ==
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
--- NOTE | 2018-12-21 03:53 | PDOC ---
Attending Attestation - Resident Resident Name: Eddie Yanes - ED Attending Attestation I have performed the following: I have examined & evaluated the patient, The case was reviewed & discussed with the resident, I agree w/resident's findings & plan - HPI HPI: 12/21/18 04:37 Pt comes with SOB and tachycardia; pt has smoking hx. He has a hx of multiple surgeries from [facility]. Pt complains of cough productive of white sputum. Pt has no wheezing and he states that he has not smoked in 15 yrs. 12/21/18 19:52 - Physicial Exam PE: 12/21/18 19:51 Agree with resident exam. Pt has no fever and no body aches. He appears well, however, off O2 on room air he is 92% O2sat. - Medical Decision Making 12/21/18 19:52 Pt will be signed out to the day team. He was placed on BiPAP, as he is complaining of chest tightness. 12/21/18 19:53 Labs/cardiac enzymes/flu culture all pending. Pt will likely be admitted for combination of cardiac effusion and pneumonia. Bilateral infiltrates and fluffy effusions on CXR.
[2018-12-21] MEDS ORDERED: ALBUTEROL SO4 2.5/IPRATROPIUM 0.5 INH SOL 3 ML VIAL.NEB. NEB ONE ×2 (04:06→04:19)
[2018-12-21] MEDS ORDERED: SODIUM CHLORIDE 1,000 ML IV STA (04:06)
[2018-12-21 04:30] LABS: BASO % 0.7 % (0-2.0); EOS % 1.4 % (0-4.5); HEMATOCRIT 28.9 % (35.4-49); HEMOGLOBIN 9.4 GM/dL (11.7-16.9); LYMPH % 26.4 % (8-40); MCH 23.1 pg (25.7-33.7); MCHC 32.5 g/dl (32.0-35.9); MEAN CELL VOLUME 71.3 fl (80-96); MEAN PLT VOLUME 9.4 fl (7.5-11.1); MONO % 6.9 % (3.8-10.2); NEUT % 64.6 % (42.8-82.8); PLATELET COUNT 382 K/MM3 (134-434); RBC 4.05 M/mm3 (4.00-5.60); RDW 18.4 % (11.9-15.9); WHITE BLOOD COUNT 7.6 K/mm3 (4.0-10.0)
[2018-12-21 04:32] LABS: VENOUS PC02 49.8 mmHg (38-52); VENOUS PH 7.39 (7.32-7.42); VENOUS PO2 25.3 mmHg (28-48)
[2018-12-21 04:42] LABS: INR 1.15 (0.83-1.09); PROTHROMBIN TIME (PATIENT) 13.6 SEC (9.7-13.0)
[2018-12-21 06:33] LABS: URINE APPEARANCE CLEAR; URINE BILIRUBIN NEGATIVE (<2.0 mg/dL); URINE COLOR STRAW; URINE GLUCOSE (UA) NEGATIVE (NEGATIVE); URINE KETONE NEGATIVE (NEGATIVE); URINE LEUK ESTERASE NEGATIVE (NEGATIVE); URINE NITRITE NEGATIVE (NEGATIVE); URINE PROTEIN NEGATIVE (NEGATIVE); URINE UROBILINOGEN NEGATIVE mg/dL (0.2-1.0)
[2018-12-21] MEDS ORDERED: CEFTRIAXONE 1,000 MG in DEXTROSE 5%-WATER - 50 ML IVPB ONE (06:47)
[2018-12-21] MEDS ORDERED: AZITHROMYCIN IVPB 500 MG in DEXTROSE 5%-WATER - 250 ML IVPB ONE (06:47)
[2018-12-21 07:14] LABS: ALBUMIN 2.9 g/dl (3.4-5.0); ALK PHOS 179 U/L (45-117); ANION GAP 6 MMOL/L (8-16); BILIRUBIN,TOTAL 0.5 mg/dL (0.2-1); BLOOD UREA NITROGEN 25 mg/dL (7-18); CHLORIDE 102 mmol/L (98-107); CO2 28 mmol/L (21-32); CREATININE 1.6 mg/dL (0.55-1.3); GLUCOSE,RANDOM 85 mg/dL (74-106); MAGNESIUM 2.6 mg/dL (1.8-2.4); POTASSIUM 4.8 mmol/L (3.5-5.1); SGOT/AST 43 U/L (15-37); SGPT/ALT 53 U/L (13-61); SODIUM 137 mmol/L (136-145); TOT PROT 7.3 g/dl (6.4-8.2)
--- NOTE | 2018-12-21 07:34 | PDOC ---
*Physical Exam - Vital Signs Last Vital Signs Temp Pulse Resp BP Pulse Ox 97.6 F 93 H 22 H 110/74 100 12/21/18 03:50 12/21/18 03:50 12/21/18 03:50 12/21/18 03:50 12/21/18 05:45 ED Treatment Course - LABORATORY CBC & Chemistry Diagram: 12/21/18 04:00 12/21/18 04:00 - ADDITIONAL ORDERS Additional order review: Laboratory Results 12/21/18 12/21/18 12/21/18 04:30 04:00 04:00 PT with INR INR D-Dimer 1697 H VBG pH POC VBG pCO2 POC VBG pO2 Mixed VBG HCO3 Sodium Potassium Chloride Carbon Dioxide Anion Gap BUN Creatinine Creat Clearance w eGFR Random Glucose Lactic Acid 1.6 Calcium Magnesium Total Bilirubin AST ALT Alkaline Phosphatase Creatine Kinase Troponin I B-Natriuretic Peptide 422.8 H Total Protein Albumin 12/21/18 12/21/18 12/21/18 04:00 04:00 04:00 PT with INR 13.60 H INR 1.15 H D-Dimer VBG pH 7.39 POC VBG pCO2 49.8 POC VBG pO2 25.3 L Mixed VBG HCO3 29.7 H Sodium Potassium Chloride Carbon Dioxide Anion Gap BUN Creatinine Creat Clearance w eGFR Random Glucose Lactic Acid Calcium Magnesium Total Bilirubin AST ALT Alkaline Phosphatase Creatine Kinase 138 Troponin I 0.05 B-Natriuretic Peptide Total Protein Albumin 12/21/18 04:00 PT with INR INR D-Dimer VBG pH POC VBG pCO2 POC VBG pO2 Mixed VBG HCO3 Sodium 137 Potassium 4.8 Chloride 102 Carbon Dioxide 28 Anion Gap 6 L BUN 25 H Creatinine 1.6 H Creat Clearance w eGFR 43.60 Random Glucose 85 Lactic Acid Calcium 8.0 L Magnesium 2.6 H Total Bilirubin 0.5 AST 43 H ALT 53 Alkaline Phosphatase 179 H Creatine Kinase Troponin I B-Natriuretic Peptide Total Protein 7.3 Albumin 2.9 L 12/21/18 04:00 RBC 4.05 MCV 71.3 L MCHC 32.5 RDW 18.4 H MPV 9.4 D Neutrophils % 64.6 D Lymphocytes % 26.4 D Monocytes % 6.9 Eosinophils % 1.4 Basophils % 0.7 - RADIOLOGY Radiology Studies Ordered: Category Date Time Status CHEST CTA [CT] Stat CT Scan 12/21/18 07:18 Ordered - Medications Given in the ED: ED Medications Discontinued Medications Generic Name Dose Route Start Last Admin Trade Name Momo PRN Reason Stop Dose Admin Albuterol/Ipratropium 1 amp 12/21/18 04:06 12/21/18 04:27 Duoneb - NEB 12/21/18 04:07 1 amp ONCE ONE Administration Sodium Chloride 1,000 mls @ 1,000 mls/hr 12/21/18 04:06 12/21/18 04:27 Normal Saline - IV 12/21/18 05:05 1,000 mls/hr ASDIR STA Administration Medical Decision Making - Medical Decision Making 12/21/18 07:[address] Kim, patient is 63M w/ pmh of HTN, HLD, Afib, multiple abdominal surgeries and subsequent SBO, DVT. Pending labs. Given treatment for CAP empirically. Patient weaned off bipap, stable on 2L. D-dimer elevated, sending to CTA. 12/21/18 10:51 CTA shows pneumonia, patient states that he feels better. Will admit. Hospitalist paged. 12/21/18 11:13 Called to bedside as patient was tachy to 140s. EKG shows afib with rvr. Initial ekg NSR. BPs stable. Given 5mg of metoprolol with some improvement, HR 120s/130s. BP rechecked, stable, given 5mg metoprolol. Now in 90s/low 100s. Given 50mg metoprolol, home dose 100mg. D/w Dr King, going to tele. 12/21/18 12:12 Patient complaining of increased chest pain and shortness of breath. BP 87/74, suspect beta blockade. Started fluids, patient mentating normally. Started on bipap. Hospitalist aware, stablized on bipap. *DC/Admit/Observation/Transfer Diagnosis at time of Disposition: Pneumonia - Discharge Dispostion Condition at time of disposition: Stable Decision to Admit order: Yes - Referrals - Patient Instructions - Post Discharge Activity
[2018-12-21] MEDS ORDERED: AZITHROMYCIN IVPB 500 MG/250 ML BAG IVPB ONE (07:40)
[2018-12-21] MEDS ORDERED: CEFTRIAXONE 1 GM/50 ML BAG ONE (07:40)
[2018-12-21] MEDS ORDERED: METOPROLOL TARTRATE 5 MG/5 ML VIAL ONE ×2 (11:00→11:07)
[2018-12-21] MEDS ORDERED: METOPROLOL TARTRATE 25 MG TABLET (FP) ONE (11:07)
[2018-12-21] MEDS ORDERED: METOPROLOL TARTRATE 5 MG/5 ML VIAL IVPUSH ONE ×2 (11:15)
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
[2018-12-21] MEDS ORDERED: LOPERAMIDE HCL 2 MG CAPSULE PO PRN (12:14)
[2018-12-21] MEDS: APIXABAN 5 MG TABLET PO SCH ×2 (14:04→22:07)
[2018-12-21] MEDS: PANTOPRAZOLE 40 MG TABLET (FP) PO SCH (14:05)
[2018-12-21] MEDS ORDERED: METOPROLOL TARTRATE 50 MG TABLET (FP) PO ONE (15:31)
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
[2018-12-21] MEDS ORDERED: dilTIAZem HCL 30 MG TABLET (FP) PO ONE (16:03)
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
--- NOTE | 2018-12-21 22:00 | EKG ---
Test Reason : Blood Pressure : / mmHG Vent. Rate : 100 BPM Atrial Rate : 100 BPM P-R Int : 138 ms QRS Dur : 068 ms QT Int : 354 ms P-R-T Axes : 056 -25 046 degrees QTc Int : 456 ms NORMAL SINUS RHYTHM LOW VOLTAGE QRS BORDERLINE ECG WHEN COMPARED WITH ECG OF 20-JUN-2018 04:01, PREMATURE ATRIAL COMPLEXES ARE NO LONGER PRESENT VENT. RATE HAS INCREASED Confirmed by SHAKILA ROGERS, JUAN CARLOS ([id number]) on 12/21/2018 10:00:19 PM Referred By: Confirmed By:JUAN CARLOS JHAVERI MD
[2018-12-21] MEDS: ATORVASTATIN CA 40 MG TABLET (FP) PO SCH (22:07)
--- NOTE | 2018-12-21 22:09 | PN ---
Progress Note (short form) - Note Progress Note: Paged to examine pt as he was reportedly tachycardic in 150's-160's and hypotensive Went to examine pt with Dr Boggs Pt manual BP 84-62, faint pulse No crackles appreciated on Lung exam No CCE Irregularly irregular Will administer 500 cc bolus LR and recheck BP and HR. 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
[2018-12-21] MEDS ORDERED: LACTATED RINGERS SOLUTION 1000 ML INFUS.BAG IV ONE (22:15)
[2018-12-22] MEDS ORDERED: AMIODARONE HCL 150 MG/3 ML VIAL IVPB ONE (00:14)
[2018-12-22] MEDS ORDERED: DIGOXIN 0.5 MG/2 ML AMPUL IVPUSH ONE (01:30)
[2018-12-22] MEDS ORDERED: DIGOXIN 0.5 MG/2 ML AMPUL ONE (01:42)
[2018-12-22] MEDS ORDERED: DIGOXIN 0.5 MG/2 ML AMPUL IVPUSH SCH (07:30)
[2018-12-22 07:52] LABS: HEMATOCRIT 29.4 % (35.4-49); HEMOGLOBIN 9.4 GM/dL (11.7-16.9); MCH 22.7 pg (25.7-33.7); MCHC 32.1 g/dl (32.0-35.9); MEAN CELL VOLUME 70.8 fl (80-96); MEAN PLT VOLUME 9.5 fl (7.5-11.1); PLATELET COUNT 309 K/MM3 (134-434); RBC 4.15 M/mm3 (4.00-5.60); RDW 18.4 % (11.9-15.9); WHITE BLOOD COUNT 7.3 K/mm3 (4.0-10.0)
[2018-12-22 08:34] LABS: ANION GAP 4 MMOL/L (8-16); BLOOD UREA NITROGEN 17 mg/dL (7-18); CALCIUM 8.1 mg/dL (8.5-10.1); CHLORIDE 107 mmol/L (98-107); CO2 25 mmol/L (21-32); CREATININE 1.7 mg/dL (0.55-1.3); GLUCOSE,RANDOM 68 mg/dL (74-106); MAGNESIUM 1.8 mg/dL (1.8-2.4); PHOSPHOROUS 3.3 mg/dL (2.5-4.9); POTASSIUM 4.8 mmol/L (3.5-5.1); SODIUM 136 mmol/L (136-145)
[2018-12-22] MEDS ORDERED: DEXTROSE 5%-WATER - 50 ML IVPB ONE (08:47)
[2018-12-22] MEDS ORDERED: cefTRIAXone SODIUM 1 GM VIAL ONE (08:47)
[2018-12-22] MEDS: dilTIAZem HCL 30 MG TABLET (FP) PO SCH ×4 (08:48→23:00)
[2018-12-22] MEDS: CEFTRIAXONE 1 GM in DEXTROSE 5%-WATER - 50 ML IVPB SCH (09:32)
[2018-12-22] MEDS: APIXABAN 5 MG TABLET PO SCH ×2 (09:33→22:55)
[2018-12-22] MEDS: PANTOPRAZOLE 40 MG TABLET (FP) PO SCH (09:33)
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
[2018-12-22] MEDS ORDERED: dilTIAZem HCL 25 MG/5 ML - 5 ML VIAL IVPUSH PRN (15:54)
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
[2018-12-22] MEDS: ATORVASTATIN CA 40 MG TABLET (FP) PO SCH (22:55)
[2018-12-23] MEDS ORDERED: MELATONIN 5 MG TABLETS PO ONE (02:30)
[2018-12-23] MEDS: dilTIAZem HCL 30 MG TABLET (FP) PO SCH (05:25)
[2018-12-23 07:58] LABS: BASO % 0.7 % (0-2.0); EOS % 3.1 % (0-4.5); HEMATOCRIT 32.1 % (35.4-49); HEMOGLOBIN 10.3 GM/dL (11.7-16.9); LYMPH % 25.9 % (8-40); MCH 23.1 pg (25.7-33.7); MCHC 32.2 g/dl (32.0-35.9); MEAN CELL VOLUME 71.6 fl (80-96); MEAN PLT VOLUME 9.8 fl (7.5-11.1); MONO % 9.6 % (3.8-10.2); NEUT % 60.7 % (42.8-82.8); PLATELET COUNT 280 K/MM3 (134-434); RBC 4.48 M/mm3 (4.00-5.60); RDW 18.3 % (11.9-15.9)
[2018-12-23 08:20] LABS: ALBUMIN 2.6 g/dl (3.4-5.0); ALK PHOS 163 U/L (45-117); ANION GAP 6 MMOL/L (8-16); BILIRUBIN,TOTAL 0.8 mg/dL (0.2-1); BLOOD UREA NITROGEN 17 mg/dL (7-18); CHLORIDE 109 mmol/L (98-107); CHOLESTEROL 51 mg/dL (50-200); CO2 21 mmol/L (21-32); CREATININE 1.8 mg/dL (0.55-1.3); GLUCOSE,RANDOM 80 mg/dL (74-106); HDL CHOLESTEROL 22 mg/dL (40-60); MAGNESIUM 1.7 mg/dL (1.8-2.4); PHOSPHOROUS 3.8 mg/dL (2.5-4.9); POTASSIUM 4.7 mmol/L (3.5-5.1); SGOT/AST 23 U/L (15-37); SGPT/ALT 42 U/L (13-61); SODIUM 136 mmol/L (136-145); TOT PROT 7.1 g/dl (6.4-8.2); TRIGLYCERIDES 72 mg/dL (0-150)
[2018-12-23] MEDS ORDERED: cefTRIAXone SODIUM 1 GM VIAL ONE (08:46)
[2018-12-23] MEDS ORDERED: DEXTROSE 5%-WATER - 50 ML IVPB ONE (08:46)
[2018-12-23] MEDS: APIXABAN 5 MG TABLET PO SCH (09:01)
[2018-12-23] MEDS: PANTOPRAZOLE 40 MG TABLET (FP) PO SCH (09:01)
[2018-12-23] MEDS: CEFTRIAXONE 1 GM in DEXTROSE 5%-WATER - 50 ML IVPB SCH (09:02)
--- NOTE | 2018-12-23 09:57 | PN ---
Progress Note, Physician Chief Complaint: Not in distress History of Present Illness: Patient was seen and examined. Awake and alert. Chart was reviewed Denies chest pain, SOB or palpitations Currently in sinus rhythm - Current Medication List Current Medications: Active Medications Apixaban (Eliquis -) 5 mg PO BID [facility] Last Admin: 12/23/18 09:01 Dose: 5 mg Atorvastatin Calcium (Lipitor -) 40 mg PO HS [facility] Last Admin: 12/22/18 22:55 Dose: 40 mg Diltiazem HCl (Cardizem Injection -) 10 mg IVPUSH Q4H PRN PRN Reason: IF HR>150 BPM ,HOLD IF SBP<90 Diltiazem HCl (Cardizem Cd -) 120 mg PO DAILY [facility] Last Admin: 12/23/18 09:01 Dose: 120 mg Ceftriaxone Sodium 1 gm/ (Dextrose) 50 mls @ 100 mls/hr IVPB DAILY [facility] Last Admin: 12/23/18 09:02 Dose: 100 mls/hr Loperamide HCl (Imodium -) 2 mg PO QID PRN PRN Reason: DIARRHEA Metoprolol Succinate (Toprol Xl -) 100 mg PO DAILY [facility] Last Admin: 12/23/18 09:01 Dose: 100 mg Pantoprazole Sodium (Protonix -) 40 mg PO DAILY [facility] Last Admin: 12/23/18 09:01 Dose: 40 mg - Objective Vital Signs: Vital Signs Temperature 97.8 F 12/23/18 09:03 Pulse Rate 78 12/23/18 09:03 Respiratory Rate 18 12/23/18 09:03 Blood Pressure 105/64 12/23/18 09:03 O2 Sat by Pulse Oximetry (%) 96 12/23/18 08:33 Eyes: Yes: PERRL HENT: Yes: Atraumatic Neck: Yes: Supple Cardiovascular: Yes: Regular Rate and Rhythm, S1, S2 Respiratory: Yes: CTA Bilaterally Gastrointestinal: Yes: Normal Bowel Sounds, Soft. No: Tenderness Edema: No Additional Findings/Remarks: - Review of Systems Constitutional: denies: Chills, Fever Cardiovascular: reports: Chest Pain, Palpitations, Shortness of Breath Respiratory: denies: Cough, SOB, SOB on Exertion. denies: Hemoptysis, Orthopnea Gastrointestinal: denies: Abdominal Pain, Constipation, Diarrhea, Melena, Nausea , Rectal Bleeding, Vomiting Musculoskeletal: denies: Back Pain Neurological: denies: Dizziness, Headache, Seizure, Syncope Labs: CBC, BMP 12/23/18 06:40 12/23/18 06:40 INR, PTT INR 1.15 (0.83-1.09) H 12/21/18 04:00 Problem List - Problems (1) Pneumonia Code(s): J18.9 - PNEUMONIA, UNSPECIFIED ORGANISM (2) Acute on chronic systolic and diastolic heart failure, NYHA class 3 Code(s): I50.43 - ACUTE ON CHRONIC COMBINED SYSTOLIC AND DIASTOLIC HRT FAIL (3) Atrial fibrillation Code(s): I48.91 - UNSPECIFIED ATRIAL FIBRILLATION Qualifiers: Atrial fibrillation type: paroxysmal Qualified Code(s): I48.0 - Paroxysmal atrial fibrillation (4) CAD (coronary artery disease) Code(s): I25.10 - ATHSCL HEART DISEASE OF [place] CORONARY ARTERY W/O ANG PCTRS Qualifiers: Coronary Disease-Associated Artery/Lesion type: [place] artery [place] vs. transplanted heart: [place] heart Associated angina: angina presence unspecified Qualified Code(s): I25.10 - Atherosclerotic heart disease of [place] coronary artery without angina pectoris (5) Chronic combined systolic and diastolic heart failure Code(s): I50.42 - CHRONIC COMBINED SYSTOLIC AND DIASTOLIC HRT FAIL (6) Hyperlipidemia Code(s): E78.5 - HYPERLIPIDEMIA, UNSPECIFIED Qualifiers: Hyperlipidemia type: unspecified Qualified Code(s): E78.5 - Hyperlipidemia , unspecified (7) Hypertension Code(s): I10 - ESSENTIAL (PRIMARY) HYPERTENSION Qualifiers: Hypertension type: essential hypertension Qualified Code(s): I10 - Essential (primary) hypertension (8) Renal insufficiency Code(s): N28.9 - DISORDER OF KIDNEY AND URETER, UNSPECIFIED Assessment/Plan 1. Atrial fibrillation with RVR (paroxysmal/recurrent) [id number] score 4 on DOAC, now in sinus rhythm 2. HTN 3. Hypercholesterolemia 4. History of SBO with multiple abdominal and intestinal surgery 5. History of DVT 6. CKD PLAN: 1. Continue with Metoprolol and Cardizem CD for rate control. 3. Echocardiography to assess LV/RV and valvular function 4. Monitor renal function and electrolytes 5. Trend troponin and further cardiac work up is to follow 6. Continue empiric antibiotics 7. Continue Eliquis 5 mg BID 8. Statin therapy 9. Diuretics as needed Further plans are to follow Osmany Rios MD
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
--- NOTE | 2018-12-23 14:45 | ECHO ---
Name: JESS MONCADA Exam:Adult Echocardiogram Study Date: 12/23/2018 10:08 AM Age: 63 yrs Reason For Study: A-Fib Height: 66 in Weight: 168 lb BSA: 1.9 m2 MMode/2D Measurements & Calculations IVSd: 0.72 cm Ao root diam: 2.6 cm LVIDd: 4.9 cm LA dimension: 3.8 cm LVIDs: 3.9 cm LVPWd: 0.94 cm EDV(Teich): 110.6 ml MV Diam: 3.2 cm ESV(Teich): 65.0 ml LVOT diam: 2.0 cm LAV (MOD-bp): 70.0 ml TAPSE: 2.2 cm RV S John: 13.2 cm/sec Doppler Measurements & Calculations MV area (1 diam): 7.8 cm2 MV E max john: 70.1 cm/sec MV A max john: 47.4 cm/sec MV Flow area(1diam): 7.8 cm2 MV E/A: 1.5 MR max john: 472.4 cm/sec PI end-d john: 118.2 cm/sec MR max P.4 mmHg Med Peak E' John: 5.0 cm/sec Med E/e': 13.9 Lat Peak E' John: 8.7 cm/sec Lat E/e': 8.1 Procedure A complete two-dimensional transthoracic echocardiogram was performed (2D, M-mode, Doppler and color flow Doppler). Left Ventricle The left ventricle is normal in size. Left ventricular systolic function is moderately reduced. Eject ion Fraction = 40-45%. There is moderate global hypokinesis of the left ventricle. Right Ventricle The right ventricle is normal size. The right ventricular systolic function is normal. RV systolic TD I is 13 cm/s. Atria LA volume index is estimated 38 ml/m2 suggestive of mild left atrial dilatation. Right atrial size is normal. Mitral Valve The mitral valve is normal in structure and function. There is moderate mitral regurgitation. Tricuspid Valve The tricuspid valve is normal in structure and function. No tricuspid regurgitation. Aortic Valve The aortic valve is normal in structure and function. No aortic regurgitation is present. Pulmonic Valve The pulmonic valve is not well visualized. Great Vessels The aortic root is normal size. Pericardium/Pleura There is no pericardial effusion. Interpretation Summary The left ventricle is normal in size. Left ventricular systolic function is moderately reduced. There is moderate global hypokinesis of the left ventricle. Ejection Fraction = 40-45%. The right ventricular systolic function is normal. LA volume index is estimated 38 ml/m2 suggestive of mild left atrial dilatation Right atrial size is normal. There is moderate mitral regurgitation. There is no pericardial effusion. Previous study is not available for comparison Osmany Rios MD 12/23/2018 02:45 PM
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
[2018-12-23 16:42] VITALS: BMI 27.1
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
[2018-12-23 18:50] VITALS: BP 103/54; PULSE 75; TEMP 97.8
--- NOTE | 2018-12-23 21:27 | EKG ---
Test Reason : Blood Pressure : / mmHG Vent. Rate : 103 BPM Atrial Rate : 174 BPM P-R Int : 000 ms QRS Dur : 066 ms QT Int : 342 ms P-R-T Axes : 000 -11 066 degrees QTc Int : 448 ms ATRIAL FIBRILLATION WITH RAPID VENTRICULAR RESPONSE LOW VOLTAGE QRS ABNORMAL ECG WHEN COMPARED WITH ECG OF 21-DEC-2018 04:22, ATRIAL FIBRILLATION HAS REPLACED SINUS RHYTHM Confirmed by JUAN CARLOS JHAVERI MD ([id number]) on 12/23/2018 9:27:07 PM Referred By: Confirmed By:JUAN CARLOS JHAVERI MD
--- NOTE | 2018-12-23 21:27 | EKG ---
Test Reason : Blood Pressure : / mmHG Vent. Rate : 097 BPM Atrial Rate : 097 BPM P-R Int : 164 ms QRS Dur : 066 ms QT Int : 372 ms P-R-T Axes : 027 -22 052 degrees QTc Int : 472 ms SINUS RHYTHM WITH PREMATURE SUPRAVENTRICULAR COMPLEXES LOW VOLTAGE QRS BORDERLINE ECG WHEN COMPARED WITH ECG OF 21-DEC-2018 11:38, SINUS RHYTHM HAS REPLACED ATRIAL FIBRILLATION / ATRIAL FLUTTER (INITIAL STRIP) Confirmed by JUAN CARLOS JHAVERI MD ([id number]) on 12/23/2018 9:26:58 PM Referred By: Confirmed By:JUAN CARLOS JHAVERI MD
== END 2018-12-23 19:42 | disposition home or self-care (01) | DRG 194 ==
LOC: JER 03:38 → JERBED 10:51 → J4S 14:29
PROVIDERS: ADMIT Internal Medicine; ATTEND Internal Medicine
DX: J18.9 Pneumonia, unspecified organism (principal); N17.9 Acute kidney failure, unspecified; E46 Unspecified protein-calorie malnutrition; I13.0 Hypertensive heart and chronic kidney disease with heart failure and stage 1 through stage 4 chronic kidney disease, or unspecified chronic kidney disease; I50.20 Unspecified systolic (congestive) heart failure; N18.9 Chronic kidney disease, unspecified; E78.5 Hyperlipidemia, unspecified; I25.10 Atherosclerotic heart disease of native coronary artery without angina pectoris; R00.0 Tachycardia, unspecified; I45.10 Unspecified right bundle-branch block; E83.42 Hypomagnesemia; E88.09 Other disorders of plasma-protein metabolism, not elsewhere classified; D64.9 Anemia, unspecified; I48.0 Paroxysmal atrial fibrillation; Z68.27 Body mass index [BMI] 27.0-27.9, adult; Z86.718 Personal history of other venous thrombosis and embolism
CPT/HCPCS: 36415; 71045-TC-FY; 71275-TC; 80048; 80053; 80061; 80162; 81003; 82550; 82803; 83605; 83721; 83735; 83880; 84100; 84484; 85025; 85027; 85379; 85610; 86850; 86870; 86900; 86901; 86902; 87040; 87804; 87899; 93005; 93010; 93306-TC; 94660; 97116-GP; 97161-GP; 99284-25; J7030

== ENCOUNTER 2019-01-23 03:09 | Inpatient (IN) | payer OTHER ==
[2019-01-23 03:25] VITALS: BMI 26.6
[2019-01-23] MEDS ORDERED: ALBUTEROL SO4 2.5/IPRATROPIUM 0.5 INH SOL 3 ML VIAL.NEB. NEB ONE (03:28)
[2019-01-23] MEDS ORDERED: RAPID SEQUENCE INTUBATION KIT NR ONE (03:28)
[2019-01-23] MEDS ORDERED: KETAMINE HCL 200 MG/20 ML VIAL ONE (03:29)
--- NOTE | 2019-01-23 03:36 | PDOC ---
Attending Attestation - Resident Resident Name: Soren Swann - ED Attending Attestation I have performed the following: I have examined & evaluated the patient, The case was reviewed & discussed with the resident, I agree w/resident's findings & plan - HPI HPI: 01/23/19 06:17 63-year-old male with respiratory distress and sudden onset of chest discomfort at approximately 12 AM. Patient rapidly declined after arrival to the emergency department. History was limited. - Physicial Exam PE: 01/23/19 06:18 Agree with resident's exam - Critical Care Time Total Critical Care Time: 120 Critical Care Statement: The care of this patient involved high complexity decision making to prevent further life threatening deterioration of the patient 's condition and/or to evaluate & treat vital organ system(s) failure or risk of failure. - Medical Decision Making 01/23/19 06:18 63-year-old male with acute onset of shortness of breath Chest x-ray shows bilateral pleural effusions with a right lower lung consolidation confirmed with CT scan of the chest Patient was intubated shortly after arrival due to increased work of breathing/ fatigue Labs are consistent with acute respiratory failure Patient received vancomycin and Zosyn for probable aspiration pneumonia Shortly after intubation patient exhibited SVT which responded to adenosine revealing atrial flutter Cardizem 15 mg given IV push and patient started on a Cardizem drip at 5 mg per hour for rate control Case discussed with the ICU and hospitalist team is for admission
[2019-01-23] MEDS ORDERED: KETAMINE HCL 200 MG/20 ML VIAL IVPUSH ONE (03:55)
[2019-01-23] MEDS ORDERED: PIPERACILLIN/TAZOB 3.375 GM 3.375 GM in DEXTROSE 5%-WATER - 50 ML IVPB ONE (04:05)
[2019-01-23] MEDS ORDERED: methylPREDNISolone NA SUCC 125 MG/2 ML VIAL IVPUSH ONE (04:05)
[2019-01-23] MEDS ORDERED: VANCOMYCIN 1 GM in D5W (PRE-DOCKED) 1,000 MG/250 ML IVPB ONE (04:05)
[2019-01-23] MEDS ORDERED: MIDAZOLAM HCL 5 MG/1 ML Single Dose Vial IVPUSH ONE ×2 (04:17→04:48)
[2019-01-23] MEDS ORDERED: ADENOSINE 6 MG/2 ML VIAL IVPUSH ONE (04:17)
[2019-01-23] MEDS ORDERED: MIDAZOLAM HCL 2 MG/2 ML SINGLE DOSE VIAL ONE ×3 (04:18→06:32)
[2019-01-23] MEDS ORDERED: SODIUM CHLORIDE 0.9% 500 ML INFUS.BAG IV ONE (04:20)
[2019-01-23] MEDS ORDERED: dilTIAZem HCL 125 MG/25 ML - 25 ML VIAL ONE ×2 (04:34→04:44)
[2019-01-23] MEDS ORDERED: dilTIAZem HCL 50 MG/10 ML - 10 ML VIAL ONE (04:44)
[2019-01-23] MEDS ORDERED: ROCURONIUM BROMIDE 50 MG/5 ML VIAL IVPUSH ONE (04:48)
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
[2019-01-23 05:00] LABS: ARTERIAL BLOOD GAS BASE EXCESS 4.2 meq/l (-2-2); ARTERIAL BLOOD GAS PO2 43.5 mmHg (80-105); ARTERIAL BLOOD GAS pH 7.34 (7.35-7.45); HEMATOCRIT 29.6 % (35.4-49); HEMOGLOBIN 8.9 GM/dL (11.7-16.9); MCH 20.1 pg (25.7-33.7); MCHC 29.9 g/dl (32.0-35.9); MEAN CELL VOLUME 67.3 fl (80-96); MEAN PLT VOLUME 11.1 fl (7.5-11.1); PLATELET COUNT 173 K/MM3 (134-434); RDW 19.2 % (11.9-15.9); WHITE BLOOD COUNT 8.6 K/mm3 (4.0-10.0)
[2019-01-23 05:13] LABS: INR 1.34 (0.83-1.09); PROTHROMBIN TIME (PATIENT) 15.8 SEC (9.7-13.0)
[2019-01-23 05:15] LABS: ACTIVATED PTT 35.7 SECONDS (25.2-36.5)
[2019-01-23] MEDS ORDERED: MIDAZOLAM HCL 10 MG/10 ML VIAL IVPUSH STA (05:19)
[2019-01-23 05:22] LABS: ARTERIAL BLD GAS O2 SATURATION 81.5 % (95-98); ARTERIAL BLOOD GAS BASE EXCESS -1.7 meq/l (-2-2); ARTERIAL BLOOD GAS PO2 64.2 mmHg (80-105); CARBOXYHEMOGLOBIN 0.8 % (0-2)
[2019-01-23 05:27] LABS: ALBUMIN 2.8 g/dl (3.4-5.0); ALK PHOS 176 U/L (45-117); ANION GAP 6 MMOL/L (8-16); BILIRUBIN,TOTAL 0.8 mg/dL (0.2-1); BLOOD UREA NITROGEN 22 mg/dL (7-18); CALCIUM 7.7 mg/dL (8.5-10.1); CHLORIDE 104 mmol/L (98-107); CO2 31 mmol/L (21-32); CREATININE 1.4 mg/dL (0.55-1.3); GLUCOSE,RANDOM 89 mg/dL (74-106); MAGNESIUM 2.7 mg/dL (1.8-2.4); PHOSPHOROUS 3.8 mg/dL (2.5-4.9); POTASSIUM 3.8 mmol/L (3.5-5.1); SGOT/AST 40 U/L (15-37); SGPT/ALT 44 U/L (13-61); SODIUM 141 mmol/L (136-145)
[2019-01-23 05:36] LABS: ARTERIAL BLOOD GAS PCO2 75.4 mmHg (35-45); ARTERIAL BLOOD GAS pH 7.18 (7.35-7.45)
[2019-01-23] MEDS ORDERED: FUROSEMIDE 40 MG/4 ML INJECTABLE VIAL IVPUSH ONE (05:36)
[2019-01-23] MEDS: FENTANYL INJECTION 500 MCG in DEXTROSE 5%-WATER - 90 ML IVPB SCH ×3 (05:54→17:43)
[2019-01-23] MEDS ORDERED: methylPREDNISolone NA SUCC 125 MG/2 ML VIAL ONE (05:56)
[2019-01-23] MEDS ORDERED: FUROSEMIDE 40 MG/4 ML INJECTABLE VIAL ONE (05:56)
[2019-01-23] MEDS ORDERED: DEXMEDETOMIDINE HCL 200 MCG in SODIUM CHLORIDE 48 ML IVPB SCH (06:00)
[2019-01-23] MEDS ORDERED: DILTIAZEM INJECTION 125 MG in SODIUM CHLORIDE 100 ML IVPB SCH (06:00)
[2019-01-23] MEDS ORDERED: PIPERACILLIN/TAZOB 3.375 GM 3.375 GM/50 ML BAG IVPB ONE (06:36)
[2019-01-23] MEDS ORDERED: MIDAZOLAM HCL 2 MG/2 ML SINGLE DOSE VIAL IVPUSH ONE ×2 (06:37→07:01)
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
[2019-01-23] MEDS ORDERED: SODIUM CHLORIDE 500 ML IV STA (08:13)
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
[2019-01-23] MEDS ORDERED: MUPIROCIN 2% TOPICAL OINTMENT FOR DECOLONIZATION NS SCH ×2 (10:00)
[2019-01-23 10:28] LABS: ARTERIAL BLD GAS O2 SATURATION 99.7 % (95-98); ARTERIAL BLOOD GAS BASE EXCESS 3.1 meq/l (-2-2); ARTERIAL BLOOD GAS PCO2 41.9 mmHg (35-45); ARTERIAL BLOOD GAS PO2 193 mmHg (80-105); ARTERIAL BLOOD GAS pH 7.43 (7.35-7.45)
[2019-01-23] MEDS: KCL 10 MEQ IVPB 10 MEQ/100 ML INFUS.BAG IVPB SCH ×3 (10:44→14:54)
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
[2019-01-23] MEDS ORDERED: SODIUM CHLORIDE 1,000 ML IV SCH (10:45)
[2019-01-23 10:50] LABS: ALLENS TEST POSITIVE
[2019-01-23] MEDS ORDERED: ENOXAPARIN NA (PORCINE) 80 MG/0.8 ML DISP.SYRIN SQ SCH ×2 (11:00→13:00)
[2019-01-23] MEDS: PROPOFOL 1,000,000 MCG/100 ML VIAL IVPB SCH ×2 (11:30→19:42)
--- NOTE | 2019-01-23 11:47 | EKG ---
Test Reason : Blood Pressure : / mmHG Vent. Rate : 197 BPM Atrial Rate : 416 BPM P-R Int : 000 ms QRS Dur : 060 ms QT Int : 222 ms P-R-T Axes : 000 -43 077 degrees QTc Int : 402 ms SUPRAVENTRICULAR TACHYCARDIA LEFT AXIS DEVIATION INFERIOR INFARCT , AGE UNDETERMINED ABNORMAL ECG WHEN COMPARED WITH ECG OF 23-JAN-2019 03:14, VENT. RATE HAS INCREASED BY [address] ELEVATION NOW PRESENT IN ANTERIOR LEADS Confirmed by KP LARSEN MD ([id number]) on 01/23/2019 11:46:35 AM Referred By: Confirmed By:KP LARSEN MD
--- NOTE | 2019-01-23 11:47 | EKG ---
Test Reason : Blood Pressure : / mmHG Vent. Rate : 080 BPM Atrial Rate : 080 BPM P-R Int : 170 ms QRS Dur : 072 ms QT Int : 420 ms P-R-T Axes : 011 -25 -15 degrees QTc Int : 484 ms SINUS RHYTHM WITH PREMATURE ATRIAL COMPLEXES LOW VOLTAGE QRS NONSPECIFIC T WAVE ABNORMALITY PROLONGED QT ABNORMAL ECG WHEN COMPARED WITH ECG OF 23-JAN-2019 04:30, SINUS RHYTHM HAS REPLACED ATRIAL FLUTTER ST NO LONGER ELEVATED IN INFERIOR LEADS NONSPECIFIC T WAVE ABNORMALITY NOW EVIDENT IN INFERIOR LEADS Confirmed by SUZIE ROGERS, KP ([id number]) on 01/23/2019 11:47:19 AM Referred By: CORY YODER Confirmed By:KP LARSEN MD
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
[2019-01-23] MEDS ORDERED: HEPARIN NA (PORCINE) 5,000 UNITS/ML 1ML VIAL SQ SCH (14:00)
--- NOTE | 2019-01-23 14:44 | ECHO ---
Name: JESS MONCADA Exam:Adult Echocardiogram Study Date: 01/23/2019 12:03 PM Age: 63 yrs Reason For Study: LV Function Height: 70 in Weight: 186 lb BSA: 2.0 m2 MMode/2D Measurements & Calculations IVSd: 0.95 cm Ao root diam: 2.4 cm LVIDd: 4.8 cm LA dimension: 3.9 cm LVIDs: 4.0 cm LVPWd: 1.1 cm EDV(Teich): 107.9 ml LVOT diam: 2.0 cm ESV(Teich): 69.9 ml LAV (MOD-bp): 108.0 ml Doppler Measurements & Calculations MV E max john: 80.0 cm/sec Ao V2 max: 101.8 cm/sec MV A max john: 29.6 cm/sec Ao max P.1 mmHg MV E/A: 2.7 MV dec time: 0.10 sec PEDRO(V,D): 1.7 cm2 LV V1 max P.2 mmHg MR max john: 458.5 cm/sec LV V1 max: 54.8 cm/sec MR max P.3 mmHg TR max john: 252.0 cm/sec PA V2 max: 69.2 cm/sec TR max P.4 mmHg PA max P.9 mmHg Med Peak E' John: 7.3 cm/sec PI Vmax: 218.5 cm/sec Med E/e': 11.0 Lat Peak E' John: 6.9 cm/sec Lat E/e': 11.7 Procedure A complete two-dimensional transthoracic echocardiogram was performed (2D, M-mode, Doppler and color flow Doppler). Left Ventricle The left ventricle is normal in size. Left ventricular systolic function is severely reduced. Ejectio n Fraction = 30-35%. There is severe global hypokinesis of the left ventricle. Right Ventricle The right ventricle is normal in size and function. Atria The left atrium is mildly dilated. Right atrial size is normal. Mitral Valve There is moderate mitral regurgitation. Tricuspid Valve There is mild tricuspid regurgitation. Right ventricular systolic pressure is normal. Aortic Valve No hemodynamically significant valvular aortic stenosis. No aortic regurgitation is present. Pulmonic Valve Mild pulmonic valvular regurgitation. Great Vessels The aortic root is normal size. Pericardium/Pleura There is no pericardial effusion. There is a pleural effusion present. Interpretation Summary Left ventricular systolic function is severely reduced. There is severe global hypokinesis of the left ventricle. The right ventricle is normal in size and function. The left atrium is mildly dilated. There is moderate mitral regurgitation. There is mild tricuspid regurgitation. Mild pulmonic valvular regurgitation. There is a pleural effusion present. MD Darin Sinclair 01/23/2019 02:44 PM
[2019-01-23] MEDS ORDERED: VANCOMYCIN 1,000 MG in DEXTROSE 5%-WATER - 250 ML IVPB SCH (15:15)
--- NOTE | 2019-01-23 15:15 | EKG ---
Test Reason : Blood Pressure : / mmHG Vent. Rate : 123 BPM Atrial Rate : 123 BPM P-R Int : 152 ms QRS Dur : 070 ms QT Int : 300 ms P-R-T Axes : 065 -31 079 degrees QTc Int : 429 ms SINUS TACHYCARDIA WITH OCCASIONAL and consecutive PREMATURE VENTRICULAR COMPLEXES LEFT AXIS DEVIATION NONSPECIFIC T WAVE ABNORMALITY ABNORMAL ECG WHEN COMPARED WITH ECG OF 23-JAN-2019 04:10, PREMATURE VENTRICULAR COMPLEXES ARE NOW PRESENT VENT. RATE HAS DECREASED BY [address] NO LONGER DEPRESSED IN INFERIOR LEADS Confirmed by KP LARSEN MD ([id number]) on 01/23/2019 3:14:55 PM Referred By: Confirmed By:KP LARSEN MD
--- NOTE | 2019-01-23 15:15 | EKG ---
Test Reason : Blood Pressure : / mmHG Vent. Rate : 115 BPM Atrial Rate : 340 BPM P-R Int : 000 ms QRS Dur : 076 ms QT Int : 312 ms P-R-T Axes : 093 -18 090 degrees QTc Int : 431 ms ATRIAL FLUTTER WITH VARIABLE A-V BLOCK WITH PREMATURE VENTRICULAR OR ABERRANTLY CONDUCTED COMPLEXES NONSPECIFIC T WAVE ABNORMALITY ABNORMAL ECG WHEN COMPARED WITH ECG OF 23-JAN-2019 04:21, ATRIAL FLUTTER HAS REPLACED SINUS RHYTHM ST ELEVATION NOW PRESENT IN INFERIOR LEADS ST NO LONGER ELEVATED IN ANTERIOR LEADS Confirmed by KP LARSEN MD ([id number]) on 01/23/2019 3:15:06 PM Referred By: Confirmed By:KP LARSEN MD
--- NOTE | 2019-01-23 15:23 | PN ---
Progress Note (short form) - Note Progress Note: ID Consult dictated Sepsis/ Septic shock Resp failure Pneumonia/ effusions Empiric coverage HCAP with vancomycin/ meropenem Critical care time 45min
[2019-01-23] MEDS ORDERED: VANCOMYCIN 1 GM PREMIX - 1 GM/200 ML BAG IVPB SCH (15:30)
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
[2019-01-23] MEDS ORDERED: PT OWN MED DRAWER 7, Y5N ONE (16:55)
[2019-01-23] MEDS: MEROPENEM 1 GM in DEXTROSE 5%-WATER 100 ML IVPB SCH ×2 (17:10→17:13)
[2019-01-23] MEDS ORDERED: fentaNYL CITRATE 250 MCG/5 ML VIAL ONE (17:32)
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
[2019-01-23 19:07] VITALS: TEMP 98.3
[2019-01-23 19:30] VITALS: BP 89/66
[2019-01-23 19:35] VITALS: PULSE 66
[2019-01-23] MEDS ORDERED: CHLORHEXIDINE GLUCONATE 4% CLEANSER FOR DECOLONIZATION TP SCH ×2 (22:00)
== END 2019-01-23 21:55 | disposition short-term general hospital (02) | DRG 871 ==
LOC: JER 03:09 → JERBED 05:44 → JICU 07:45
PROVIDERS: ADMIT Internal Medicine
PROC: 5A1945Z Respiratory Ventilation, 24-96 Consecutive Hours (ICD-10-PCS; principal; 2019-01-23)
PROC: 0CHY7BZ Insertion of Airway into Mouth and Throat, Via Natural or Artificial Opening (ICD-10-PCS; 2019-01-23)
DX: A41.9 Sepsis, unspecified organism (principal); J96.01 Acute respiratory failure with hypoxia; J69.0 Pneumonitis due to inhalation of food and vomit; J96.02 Acute respiratory failure with hypercapnia; R65.21 Severe sepsis with septic shock; J86.9 Pyothorax without fistula; I50.42 Chronic combined systolic (congestive) and diastolic (congestive) heart failure; N17.9 Acute kidney failure, unspecified; I13.0 Hypertensive heart and chronic kidney disease with heart failure and stage 1 through stage 4 chronic kidney disease, or unspecified chronic kidney disease; E87.2 Acidosis; I48.92 Unspecified atrial flutter; I48.0 Paroxysmal atrial fibrillation; N18.3 Chronic kidney disease, stage 3 (moderate); Z86.718 Personal history of other venous thrombosis and embolism; Z90.49 Acquired absence of other specified parts of digestive tract; Z95.5 Presence of coronary angioplasty implant and graft; I25.10 Atherosclerotic heart disease of native coronary artery without angina pectoris; E78.5 Hyperlipidemia, unspecified; Z87.891 Personal history of nicotine dependence; Z79.01 Long term (current) use of anticoagulants; Z86.711 Personal history of pulmonary embolism; R91.8 Other nonspecific abnormal finding of lung field
CPT/HCPCS: 36415; 36600; 71045-TC-FY; 71250-TC; 74176-TC; 80053; 82375; 82550; 82553; 82803; 82962; 83050; 83605; 83735; 83880; 84100; 84484; 85027; 85610; 85730; 87040; 87086; 93005; 93010; 93306-TC; 99285-25; J7030

== ENCOUNTER 2019-04-22 21:01 | Emergency (ER) | payer OTHER, MEDICARE | END 2019-04-23 05:45 | disposition home or self-care (01) | LOC: JER 04-23 05:45 | PROC: 3E033GC Introduction of Other Therapeutic Substance into Peripheral Vein, Percutaneous Approach (ICD-10-PCS; principal; 2019-04-22) | DX: R11.0 Nausea (principal); R94.5 Abnormal results of liver function studies; I25.10 Atherosclerotic heart disease of native coronary artery without angina pectoris; I13.0 Hypertensive heart and chronic kidney disease with heart failure and stage 1 through stage 4 chronic kidney disease, or unspecified chronic kidney disease; N18.9 Chronic kidney disease, unspecified; I50.20 Unspecified systolic (congestive) heart failure; I48.2 Chronic atrial fibrillation; Z79.01 Long term (current) use of anticoagulants ==

== ENCOUNTER 2019-05-19 06:49 | Emergency (ER) | payer OTHER ==
[2019-05-19 07:05] VITALS: TEMP 98; BMI 25.1
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
[2019-05-19] MEDS ORDERED: ACETAMINOPHEN 325 MG TABLET (FP) PO ONE (07:24)
[2019-05-19] MEDS ORDERED: SODIUM CHLORIDE 0.9% 500 ML INFUS.BAG IV ONE (07:30)
[2019-05-19] MEDS ORDERED: ONDANSETRON 4 MG/2 ML VIAL IVPUSH ONE (07:30)
[2019-05-19] MEDS ORDERED: ONDANSETRON 4 MG/2 ML VIAL ONE (07:49)
[2019-05-19] MEDS ORDERED: ACETAMINOPHEN 325 MG TABLET (FP) ONE (07:49)
[2019-05-19 08:39] LABS: ALBUMIN 2.9 g/dl (3.4-5.0); ALK PHOS 187 U/L (45-117); ANION GAP 8 MMOL/L (8-16); BILIRUBIN,TOTAL 0.4 mg/dL (0.2-1); BLOOD UREA NITROGEN 15.8 mg/dL (7-18); CALCIUM 7.6 mg/dL (8.5-10.1); CHLORIDE 107 mmol/L (98-107); CO2 26 mmol/L (21-32); CREATININE 1.4 mg/dL (0.55-1.3); GLUCOSE,RANDOM 96 mg/dL (74-106); LIPASE 115 U/L (73-393); MAGNESIUM 2.5 mg/dL (1.8-2.4); POTASSIUM 3.9 mmol/L (3.5-5.1); SGOT/AST 63 U/L (15-37); SGPT/ALT 64 U/L (13-61); SODIUM 142 mmol/L (136-145); TOT PROT 6.7 g/dl (6.4-8.2)
[2019-05-19 09:22] LABS: PROTHROMBIN TIME (PATIENT) 11.8 SEC (9.7-13.0)
[2019-05-19 09:40] LABS: BASO % 0.4 % (0-2.0); EOS % 2.5 % (0-4.5); HEMATOCRIT 34.5 % (35.4-49); HEMOGLOBIN 10.6 GM/dL (11.7-16.9); LYMPH % 23.8 % (8-40); MCHC 30.8 g/dl (32.0-35.9); MEAN CELL VOLUME 74.7 fl (80-96); MEAN PLT VOLUME 9.6 fl (7.5-11.1); MONO % 6.5 % (3.8-10.2); NEUT % 66.8 % (42.8-82.8); PLATELET COUNT 152 K/MM3 (134-434); RBC 4.62 M/mm3 (4.00-5.60); RDW 25.5 % (11.9-15.9); WHITE BLOOD COUNT 9.4 K/mm3 (4.0-10.0)
[2019-05-19 10:19] VITALS: BP 121/74; PULSE 74
--- NOTE | 2019-05-19 17:28 | EKG ---
Test Reason : Blood Pressure : / mmHG Vent. Rate : 085 BPM Atrial Rate : 085 BPM P-R Int : 168 ms QRS Dur : 086 ms QT Int : 400 ms P-R-T Axes : 072 -17 035 degrees QTc Int : 476 ms NORMAL SINUS RHYTHM CANNOT RULE OUT ANTERIOR INFARCT (CITED ON OR BEFORE 23-APR-2019) ABNORMAL ECG WHEN COMPARED WITH ECG OF 23-APR-2019 02:57, NONSPECIFIC T WAVE ABNORMALITY HAS REPLACED INVERTED T WAVES IN INFERIOR LEADS Confirmed by DOLLY ALBARADO MD ([id number]) on 05/19/2019 5:28:06 PM Referred By: Confirmed By:DOLLY ALBARADO MD
== END 2019-05-19 10:25 | disposition home or self-care (01) ==
LOC: JER 06:49
PROC: 3E033GC Introduction of Other Therapeutic Substance into Peripheral Vein, Percutaneous Approach (ICD-10-PCS; principal; 2019-05-19)
PROC: 3E0337Z Introduction of Electrolytic and Water Balance Substance into Peripheral Vein, Percutaneous Approach (ICD-10-PCS; 2019-05-19)
DX: R07.9 Chest pain, unspecified (principal); R11.0 Nausea
CPT/HCPCS: 36415; 71045-TC-FY; 80053; 82550; 82553; 83690; 83735; 84484; 85025; 85610; 85730; 93005; 93010; 96361; 96374; 99283-25